=== PATIENT | male | born 1965 | race African-American/Black ===

== ENCOUNTER 2024-06-14 13:31 | Emergency (ER) | payer MEDICAID, OTHER, SELFPAY ==
[2024-06-14] VITALS (24 sets, daily range): BP systolic 135–172; BP diastolic 88–99; PULSE 60–77; RESP 12–20; TEMP 36.4; O2SAT 96–100
--- NOTE | ~2024-06-14 | CT_ITS ---
History: Headache PROCEDURE: CT head without contrast. COMPARISON: None TECHNIQUE: Axial imaging of the head performed from the skull base to the vertex without IV contrast. Sagittal a nd coronal reformations obtained. DLP: 681 mGy-cm FINDINGS: The ventricles are normal in size, shape and position. There is no mass, mass effect or midline shift. There is no abnormal extra-axial fluid collection or intracranial hemorrhage. Visualized paranasal sinuses are clear. The mastoid air cells are well aerated. No acute displaced fractures within the overlying cranium. Impression: No acute intracranial hemorrhage or suspicious mass effect. Reviewed, dictated and finalized at location A. T IRONWORKER Impression: No acute intracranial hemorrhage or suspicious mass effect.
--- OUTSIDE RECORDS SUMMARY | 2024-06-14 13:41 | XMS_ITS | Continuity of Care Document ---
Author Organization [facility] Address [address] [place] [address] Phone Care Team Providers Care Turbine Inspector Name Role Phone Unavailable Unavailable Unavailable Allergies, Adverse Reactions, Alerts Substance Reaction Status Criticality chlorpromazine Active No Informatio n haloperidol Active No Information Medications Medication Instructions Dosage Effective Dates (start - stop) Status Comments Antifungal (clotrimazole) 1 % Topical Cream apply by TOPICAL route 2 times every day to the affected and surrounding areas of skinmorning and evening 0.00 - Active Keflex 500 mg Cap take 1 capsule (500M G) by ORAL route every 6 hours - Active Seroquel 300 mg Tab SEROQUEL 300 MG TABL ET # 60<><> 2 TAB by mouth (PO) at bedtime.<><><>DISPENSE : 30 day supply.<>REFILLS: 0<><>This script generated by milla VAUGHAN at 03/08/2008 10:21:59 AM<>Provider: MOHIT CARTER MD<> SIGNATURE ON FILE <><> - Active Norvasc 5 mg Tab NORVASC 5 MG TABLET # 30<><> 1 TAB by mouth (PO) each morning.<><><>DISPENSE : 30 day supply.<>REFILLS: 3<><>This script generated by milla VAUGHAN at 03/08/2008 10:20:45 AM<>Provider: MOHIT CARTER MD<> SIGNATURE ON FILE <><> - Active Remeron 45 mg Tab REMERON 45 MG TABLET # 30<><> 1 TAB by mouth (PO) at bedtime.<><><>DISPENSE : 30 day supply.<>REFILLS: 0<><>This script generated by provider ALEXUS at 03/08/2008 10:23:36 AM<>Provider: MOHIT CARTER MD<> SIGNATURE ON FILE <><> - Active trazodone 150 mg Tab TRAZODONE 150MG TABLET<><> 1 TAB by mouth (PO) at bedtime.<><><>DISPENSE : 30 day supply.<>REFILLS: 0<><>This script generated by provider ALEXUS at 03/08/2008 10:22:52 AM<>Provider: MOHIT CARTER MD<> SIGNATURE ON FILE <><> - Active Procedures Procedure Date HOME VST EST PT LOW TO MOD SEVERITY HOME VST EST PT LOW TO MOD SEVERITY HOME VST EST PT LOW TO MOD SEVERITY HOME VST NEW PT HI SEVERITY HOME VST EST PT LOW TO MOD SEVERITY HOME VST NEW PT HI SEVERITY HOME VST EST PT LOW TO MOD SEVERITY HOME VST EST PT LOW TO MOD SEVERITY Extraction erupted tooth or exposed root Limit oral eval problem focused 009 HOME VST EST PT LOW TO MOD SEVERITY HOME VST EST PT LOW TO MOD SEVERITY HOME VST EST PT LOW TO MOD SEVERITY HOME VST EST PT LOW TO MOD SEVERITY HOME VST EST PT LOW TO MOD SEVERITY HOME VST NEW PT HI SEVERITY HOME VST EST PT LOW TO MOD SEVERITY HOME VST EST PT LOW TO MOD SEVERITY HOME VST NEW PT HI SEVERITY HOME VST EST PT LOW TO MOD SEVERITY HOME VST EST PT LOW TO MOD SEVERITY HOME VST NEW PT HI SEVERITY OFFICE CONSULT, 15 MIN, 3 KE Y COMPS: PROB FOCUS HX; PROB FOCUS EXAM; STRTFWD HOME VST EST PT LOW TO MOD SEVERITY HOME VST EST PT LOW TO MOD SEVERITY HOME VST NEW PT HI SEVERITY HOME VST EST PT LOW TO MOD SEVERITY OFFICE/OUTPATIENT VISIT, EST HOME VST NEW PT HI SEVERITY HOME VST EST PT LOW TO MOD SEVERITY HOME VST EST PT LOW TO MOD SEVERITY HOME VST NEW PT HI SEVERITY HOME VST EST PT LOW TO MOD SEVERITY HOME VST EST PT LOW TO MOD SEVERITY HOME VST EST PT LOW TO MOD SEVERITY HOME VST NEW PT HI SEVERITY HOME VST EST PT LOW TO MOD SEVERITY HOME VST EST PT LOW TO MOD SEVERITY HOME VST EST PT LOW TO MOD SEVERITY HOME VST NEW PT HI SEVERITY OFFICE CONSULT, 15 MIN, 3 KE Y COMPS: PROB FOCUS HX; PROB FOCUS EXAM; STRTFWD OFFICE OUTPT NEW 10 MIN HOME VST NEW PT HI SEVERITY HOME VST EST PT LOW TO MOD SEVERITY HOME VST EST PT LOW TO MOD SEVERITY HOME VST NEW PT HI SEVERITY Advance Directives Directive Yes / No Effective Date File Name No Information Encounters Encounter Description Practice Location Reason(s) For Visit Diagnoses Date Provider Providers Copied on Encounter [facility], [address], [place], [place], [address] , [place] tel: [phone] [facility] No Information 4 No Information HOME VST EST PT LOW TO MOD SEVERITY [facility], [address], [place], [place], [address] , tel: [phone] [facility] headache (chief complaint) Counseling, Other, Specified 0 Nurse Registered. [address], [place], [place], [address], . tel:[phone] HOME VST EST PT LOW TO MOD SEVERITY [facility], [address], [place], [place], [address] , [place] tel: [phone] [facility] TB Screening (chief complaint) Other specified counseling 0 No Information HOME VST EST PT LOW TO MOD SEVERITY [facility], [address], [place], [place], [address] , [place] tel: [phone] [facility] mental health appt (chief complaint) Other specified counseling 0 No Information HOME VST NEW PT HI SEVERITY [facility], [address], [place], [place], [address] , [place] tel: [phone] [facility] BP check (chief complaint)out of prescription medications (chief complaint) Other specified counseling 9 No Information [facility], [address], [place], [place], [address] , [place] tel: [phone] [facility] No Information 9 Pachalla Tamiko. [address], [place], [place], [address], [place]. tel:[phone] HOME VST EST PT LOW TO MOD SEVERITY [facility], [address], [place], [place], [address] , [place] tel: [phone] [facility] No Information 9 No Information HOME VST NEW PT HI SEVERITY [facility], [address], [place], [place], [address] , [place] tel: [phone] [facility] No Information 9 No Information HOME VST EST PT LOW TO MOD SEVERITY [facility], [address], [place], [place], [address] , [place] tel: [phone] [facility] No Information 9 No Information HOME VST EST PT LOW TO MOD SEVERITY [facility], [address], [place], [place], [address] , [place] tel: [phone] [facility] OTHER SPECFD COUNSELING 9 No Information [facility], [address], [place], [place], [address] , [place] tel: [phone] DO NOT USE [facility] DENTAL EXAMINATION 9 No Information HOME VST EST PT LOW TO MOD SEVERITY [facility], [address], [place], [place], [address] , [place] tel: [phone] [facility] OTHER SPECFD COUNSELING 8 No Information HOME VST EST PT LOW TO MOD SEVERITY [facility], [address], [place], [address] , [place] tel: [phone] [facility] OTHER SPECFD COUNSELING 8 No Information HOME VST EST PT LOW TO MOD SEVERITY [facility], [address], [place], [address] , [place] tel: [phone] [facility] OTHER SPECFD COUNSELING 8 No Information HOME VST EST PT LOW TO MOD SEVERITY [facility], [address], [place], [place], [address] , [place] tel: [phone] [facility] OTHER SPECFD COUNSELING 8 No Information HOME VST EST PT LOW TO MOD SEVERITY [facility], [address], [place], [place], [address] , [place] tel: [phone] [facility] OTHER SPECFD COUNSELING 8 No Information HOME VST NEW PT HI SEVERITY [facility], [address], [place], [place], [address] , [place] tel: [phone] [facility] OTHER SPECFD COUNSELING 8 No Information HOME VST EST PT LOW TO MOD SEVERITY [facility], [address], [place], [address] , [place] tel: [phone] [facility] OTHER SPECFD COUNSELING 8 No Information HOME VST EST PT LOW TO MOD SEVERITY [facility], [address], [place], [place], [address] , [place] tel: [phone] [facility] OTHER SPECFD COUNSELING 8 No Information HOME VST NEW PT HI SEVERITY [facility], [address], [place], [place], [address] , [place] tel: [phone] [facility] OTHER SPECFD COUNSELING 6 8 No Information HOME VST EST PT LOW TO MOD SEVERITY [facility], [address], [place], [place], [address] , [place] tel: [phone] [facility] OTHER SPECFD COUNSELING 8 No Information HOME VST EST PT LOW TO MOD SEVERITY [facility], [address], [place], [place], [address] , [place] tel: [phone] [facility] OTHER SPECFD COUNSELING 8 No Information HOME VST NEW PT HI SEVERITY [facility], [address], [place], [place], [address] , [place] tel: [phone] [facility] OTHER SPECFD COUNSELING 8 No Information [facility], [address], [place], [address] , [place] tel: [phone] [facility] No Information 8 No Information OFFICE CONSULT, 15 MIN, 3 THORNTON COMPS: PROB FOCUS HX; PROB FOCUS EXAM; STRTFWD [facility], [address], [place], [place], [address] , [place] tel: [phone] [facility] COUNSELING NOS 8 No Information HOME VST EST PT LOW TO MOD SEVERITY [facility], [address], [place], [address] , [place] tel: [phone] [facility] OTHER SPECFD COUNSELING 8 No Information HOME VST EST PT LOW TO MOD SEVERITY [facility], [address], [place], [address] , [place] tel: [phone] [facility] OTHER SPECFD COUNSELING 8 No Information HOME VST NEW PT HI SEVERITY [facility], [address], [place], [place], [address] , [place] tel: [phone] [facility] OTHER SPECFD COUNSELING 8 No Information HOME VST EST PT LOW TO MOD SEVERITY [facility], [address], [place], [place], [address] , [place] tel: [phone] [facility] OTHER SPECFD COUNSELING 0 7 Denis Bourne. [address], [place], [place], [address], [place]. tel:[phone] OFFICE/OUTPA TIENT VISIT, EST [facility], [address], [place], [place], [address] , [place] tel: [phone] [facility] BENIGN HYPERTENSIONS PRAIN ROTATOR CUFFDRUG ABUSE NEC-UNSPEC 0 7 P[place]alla Tamiko. [address], [place], [place], [address], [place]. tel:[phone] HOME VST NEW PT HI SEVERITY [facility], [address], [place], [place], [address] , [place] tel: [phone] [facility] HYPERTENSION NOS 7 No Information HOME VST EST PT LOW TO MOD SEVERITY [facility], [address], [place], [place], [address] , [place] tel: [phone] [facility] OTHER SPECFD COUNSELING 7 No Information HOME VST EST PT LOW TO MOD SEVERITY [facility], [address], [place], [address] , [place] tel: [phone] [facility] PULMONARY TB NOS-UNSPEC 7 Denis Bourne. [address], [place], [address], [place]. tel:[phone] HOME VST NEW PT HI SEVERITY [facility], [address], [place], [address] , [place] tel: [phone] [facility] HYPERTENSION NOS 7 No Information HOME VST EST PT LOW TO MOD SEVERITY [facility], [address], [place], [address] , [place] tel: [phone] [facility] CERVICALGIA 6 No Information HOME VST EST PT LOW TO MOD SEVERITY [facility], [address], [place], [address] , [place] tel: [phone] [facility] OTHER SPECFD COUNSELING 6 No Information HOME VST NEW PT HI SEVERITY [facility], [address], [place], [place], [address] , [place] tel: [phone] [facility] DERMATOPHYTOS IS OF FOOT 6 No Information HOME VST EST PT LOW TO MOD SEVERITY [facility], [address], [place], [address] , [place] tel: [phone] [facility] OTHER SPECFD COUNSELING 6 No Information HOME VST EST PT LOW TO MOD SEVERITY [facility], [address], [place], [place], [address] , [place] tel: [phone] [facility] DEPRESSIVE DISORDER NEC Denis Bourne. [address], [place], [place], [address], [place]. [phone] HOME VST EST PT LOW TO MOD SEVERITY [facility], [address], [place], [place], [address] , [place] tel: [phone] [facility] STOMACH FUNCTION DIS NOS 6 No Information HOME VST EST PT LOW TO MOD SEVERITY [facility], [address], [place], [address] , [place] tel: [phone] [facility] OTHER SPECFD COUNSELING 6 No Information HOME VST NEW PT HI SEVERITY [facility], [address], [place], [place], [address] , [place] tel: [phone] [facility] DRUG DEPEND NOS-UNSPEC No Information OFFICE CONSULT, 15 MIN, 3 THORNTON COMPS: PROB FOCUS HX; PROB FOCUS EXAM; STRTFWD [facility], [address], [place], [address] , [place] tel: [phone] [facility] COUNSELING NOS No Information OFFICE OUTPT NEW 10 MIN [facility], [address], [place], [place], [address] , [place] tel: [phone] [facility] ISSUE REPEAT PRESCRIPT 6 Yayo Marrero. [address], [place], [place], [address], . tel:[phone] HOME VST NEW PT HI SEVERITY [facility], [address], [place], [place], [address] , tel: [phone] [facility] CONSTIPATION NOS 6 No Information HOME VST EST PT LOW TO MOD SEVERITY [facility], [address], [place], [place], [address] , tel: [phone] [facility] HEART DISEASE NOS 6 Denis Bourne. [address], [place], [place], [address], [place]. [phone] HOME VST EST PT LOW TO MOD SEVERITY [facility], [address], [place], [place], [address] , tel: [phone] [facility] OTHER SPECFD COUNSELING 6 No Information HOME VST NEW PT HI SEVERITY [facility], [address], [place], [place], [address] , tel: [phone] [facility] OTHER SPECFD COUNSELING 6 No Information Family History Family Member Type Diagnosis Age At Onset No Information Payers Payer name Insurance type Covered alliance party ID Authoriza tifeliberto(s) No Information Social History Type Description Quantity Date Captured Comments Sex Male Smoking Status No Information Chief Complaint And Reason For Visit No Information Reason For Referral Reason For Referral No Information History Of Present Illness Encounter Date Complaint History Of Prese nt Illness No Information Functional Status Date Functional Assessmen t No Information Instructions Date Instruction Additional Infor mation No Information Assessments Type Assessment Date No Information Patient Care Teams Name Effective Dates (start - stop) Status Members No Information
--- OUTSIDE RECORDS SUMMARY | 2024-06-14 13:41 | XMS_ITS | Referral Summary ---
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 [address] [place] [id number] Ravin Knapp MD Avascular necrosis of hip, left (HCC) Discharge Disposition: Discharge to home or self care from Last 3 Months Allergies Active Allergy Reactions Criticality Noted Date Comments Chlorpromazine Itching,Unknown Medium 09/22/2011 Found in previous hospitalization H&P Found in previous hospitalization H&P Haloperidol Hives,Urticaria High 10/13/2009 Ziprasidone Hives,Urticaria High 09/29/2009 + concern for EPS with stiffness Medications aspirin 81 mg enteric coated tablet Take 1 tablet (81 mg total) by mouth daily 30 tablet 01/05/2024 Active amLODIPine (NORVASC) 5 mg tablet Take 1 tablet (5 mg total) by mouth daily 30 tablet 01/05/2024 Active carvediloL (COREG) 6.25 mg tablet Take 1 tablet (6.25 mg total) by mouth 2 (two) times a day with meals 60 tablet 01/05/2024 Active docusate sodium (COLACE) 100 mg capsuleIndicati ons:constipatio n Take 1 capsule (100 mg total) by mouth daily 30 capsule 01/06/2024 Active losartan (COZAAR) 25 mg tablet Take 1 tablet (25 mg total) by mouth daily 30 tablet 01/05/2024 Active QUEtiapine (SEROquel) 50 mg tablet Take 1 tablet (50 mg total) by mouth nightly 30 tablet 01/05/2024 Active Active Problems Problem Noted Date Diagnosed Date Cervical stenosis of spine C3-C4 01/04/2024 Overview (01/04/2024): Patient present 3/5 weakness of the right upper extremity and lower extremities, also complain of numbness and tingling of fingers and toes. Previous scan performed on 07/2023 shows Severe left neural foraminal stenosis of C3-C4. Assessment & Plan (01/04/2024 1:17 PM CDT): Patient present 3/5 weakness of the right upper extremity and lower extremities, also complain of numbness and tingling of fingers and toes. Previous scan performed on 07/2023 shows Severe left neural foraminal stenosis of C3-C4. - Spinal ortho consulted - Total spine mri/ ordered - XR cervical spine/ ordered Shortness of breath 01/03/2024 Assessment & Plan (01/03/2024 5:22 PM CDT): Likely 2/2 cocaine use. Patient with history of HFrEF, however appears euvolemic on exam. CXR without effusion, pulm edema or focal consolidations. Other ddx viral illness, Elevated total protein 01/03/2024 Assessment & Plan (01/03/2024 5:28 PM CDT): Patient protein pl 9.6, alb 5.4 with gamma gap 1.29. Non reactive HIV, Hep C on recent admission. Possibly elevated in setting of ROSCOE on CKD and rhabo with reduced clearance of immunoglobulins. - repeat CMP with improved renal function - if still elevated, would further evaluate with SPEP/UPEP and serum FLC Cocaine abuse 12/27/2023 Assessment & Plan (12/29/2023 7:44 PM CDT): As above Check HIV, hepatitis panel, RPR Refused blood works. ROSCOE (acute kidney injury) 10/23/2023 Assessment & Plan (10/23/2023 3:37 AM CDT): Cr 1.5 (baseline 1.1) - from rhabdo Plan: - IVF - Avoid nephrotoxins - renally dosed meds Arthritis of left hip 06/30/2023 Overview (06/30/2023): Chronic worsening L hip pain that limits ambulation Assessment & Plan (12/29/2023 7:43 PM CDT): Chronic- states it's bone on bone. - PT - knows needs to stay clean in order to get fixed. - prn norcos. - check left hip x ray. left hip x ray showed with severe sclerosis and osseous destruction of the left femoral head and left acetabulum with ill-defined lytic changes. No acute fracture identified. Assessment & Plan (07/04/2023 11:09 AM TRAFFIC II MANAGER): No success obtaining any options for post-acute care. SNFs, Respite care, [facility] Recovery sites, all decline patient Succeeded in obtaining wheelchair for patient, but he declined to use it today. He insisted on only using a walker, and we will provide this. Patient now states that he can stay with his sister instead of being unhoused or going to a [facility]cf[facility]. Ambulating with walker Patient primarily complains of L hip pain, worse with ambulation. States he has been told he has [id number] in his left hip. Case discussed with ortho. They declined to see in the hospital and stated they could not get an appointment earlier than 08/27. L Hip X-ray: Severe left hip osteoarthritis with progressive osseous remodeling and subchondral collapse of the femoral head. Will coordinate outpatient appointment with orthopedics. - August 27 in [facility] Rhabdomyolysis 12/16/2022 Assessment & Plan (12/30/2023 3:55 PM CDT): Mild rhabdo, likely from cocaine use. Given fluids on admission Resolved with hydration CK 8/20 448 down from 2284 Assessment & Plan (07/04/2023 11:10 AM TRAFFIC II MANAGER): Muscle aches resolved Lab tests showed normalization of renal function. 07/01 - BUN/CR = 21/1.01 CK-147 Likely secondary to cocaine use. Initial labs notable for ROSCOE with creatinine of 4.9 (baseline between 0.9-1.2), hemolyzed potassium of 5.9 > repeat WBK of 4.8, elevated BUN of 96, elevated CK of 2800. S/p gentle IV fluids with recheck CK declined to normal. Patient has a history of multiple hospitalizations for rhabdomyolysis due to cocaine use and dehydration. Assessment & Plan (12/18/2022 11:34 AM CDT): - Recurrent in the setting of the ongoing cocaine use - Mild elevation CK 2668 with stable creatinine, trended down to ~1100 - Received 500mL LR x2 in setting of HFrEF Esophagitis 12/16/2022 Assessment & Plan (12/18/2022 11:34 AM CDT): - Noted on imaging with complaint of mild dysphagia x 48hrs - ST consult - Pantoprazole 40mg BID Housing instability 12/16/2022 Assessment & Plan (12/18/2022 11:30 AM CDT): - Currently with housing instability, sleeping on the streets leading up to presentation - BEULAH consulted, in talks with [facility] for potential inpatient rehab stay Suicidal ideation 09/12/2021 HFrEF (heart failure with re duced ejection fraction) ([facility]) 08/16/2021 Assessment & Plan (01/04/2024 1:17 PM CDT): Presumed secondary to longstanding cocaine use disorder. Most recent TTE EF 35- 40%, G1DD, LVH, no valvular disease. Appears euvolemic on exam, currently compensated. Non compliant with GDMT - CXR without pulmonary edema or effusion - holding losartan with ROSCOE, consider restart tomorrow if ROSCOE improve - referral placed to cardiology on discharge of most recent admission - Continue asa, hold statin with rhabdo - Start Coreg 6.25 mg BID Assessment & Plan (12/29/2023 7:42 PM CDT): Relatively compensated at the moment Recheck CXR for resolution of mild pulmonary edema. Fluid status optimal. Not starting on diuretic due to recent Rhabdo. Continue asa and statin. Also added losartan. Can follow up with cardiology for further gradual introduction of GDMT. Cont norvasc. Assessment & Plan (10/23/2023 4:39 AM CDT): TTE 09/2023 w/ EF 35% - coreg - gentle w/ IVF for rhabdo Assessment & Plan (06/29/2023 12:17 PM TRAFFIC II MANAGER): Review of his last echo in March 2023 revealed EF of 30-35% with global hypokinesis of LV, normal RV function, grade 1 diastolic dysfunction. Home meds include Coreg, and Entresto. -restart Entresto 24-26 mg BID -carvedilol 12.5 mg BID Assessment & Plan (04/01/2023 10:33 AM TRAFFIC II MANAGER): Euvolemic - Held lasix for now given his rhabdo, resume at dc Assessment & Plan (12/17/2022 5:18 PM CDT): - Prior history of EF 24% with most recent EF last month supporting improvement to 49% - Presumed sequelae of ongoing cocaine use - encourage cessation - Not currently on diuretics - continue carvedilol, entresto - Strict I/O, telemetry, Low-Sodium Diet, Daily Weights - CTM - Nuclear medicine stress test showing enlarged left ventricle with diffuse global hypokinesis, LVEF about 31% at rest Assessment & Plan (10/30/2022 12:06 PM CDT): 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 - restart GDMT with carvedilol, entresto, aspirin, atorva - hold lasix - repeat echo outpatient Assessment & Plan (08/18/2021 2:07 PM CDT): PT with 24% EF, last echo in 2020 with severe LV dilation/eccentric hypertrophy, likely related to cocaine use - cont asa, coreg, lisinopril. - missed cardiolog OP follow up yesterday, can be rescheduled - patient initially thought to be hypovolemic and received IVF. Patient c/o sob, CXR without significant edema but BNP elevated from previous. - restarted home lasix, although patient refusing most medications Assessment & Plan (08/16/2021 8:10 AM CDT): PT with 24% EF, last echo in 2020 with severe LV dilation/eccentric hypertrophy, likely related to cocaine use - appears slightly hypovolemic, does not appear decompensated from a cardiac standpoint currently - cont asa, coreg, lisinopril. Will hold furosemide for today given fluids as above/CK elevation. Likely resume on dc - missed cardiolog OP follow up yesterday, can be rescheduled Cardiomyopathy 03/27/2021 Malingering 07/27/2020 Assessment & Plan (03/14/2021 12:33 PM CDT): Extensive chart history of malingering behavior, most recently at ED visit 03/08 during which he reported SI so psychiatry was consulted. -Patient with propensity for outburst, displaying threatening behavior and c/f escalation to violence. Security called overnight for agitation -Currently displaying manipulative behavior with secondary gain of hospital admission as pt is unfortunately homeless. -Patient ambulating independently. Medically stable for discharge Substance induced mood disorder ([facility]) 2020 Assessment & Plan (07/25/2021 7:39 PM CDT): Mr. Haas is a 55 yo M with a hx of severe cocaine reginaldo disorder, ASPD, medical co-morbidities including CHF, CKD, HTN, admitted for SI. Patient has a long hx of cocaine use with associated dysphoric and irritable mood and SI. He does not have a lifetime hx fo episodes consistent with MDE/edi/psychosis. He is admitted for SI but refused to talk to me or the RN to assess his current symptoms. We will assign the diagnosis of substance induced mood disorder. Risk assessment: patient had recent SI. Admission is appropriate. PLAN - continue involuntary admission - observe off psychotropic medications - discuss [facility] tx options and the effects of substances on his wellbeing when he is amenable to the conversation - appreciate SW and medical team recs Depression, major, recurrent 03/16/2020 Assessment & Plan (12/16/2022 1:42 PM CDT): - Cont seroquel Transaminitis 01/14/2020 Assessment & Plan (01/14/2020 9:54 PM CDT): On admission, AST 140, ALT 72 (both improved from 12/25). - hepatitis panel Schizoaffective disorder (CMS/HCC) 01/14/2020 Assessment & Plan (07/04/2023 11:11 AM TRAFFIC II MANAGER): Continue home Seroquel and trazodone. Valium p.r.n. for anxiety Will not provide Valium as a discharge medication as he has not been receiving it. Assessment & Plan (03/07/2020 10:57 AM CDT): Patient has been given this diagnosis during previous admissions. He has not been taking his Seroquel 300mg or trazodone 100mg qhs PRN. Plan to discharge patient, follow up with outpatient psychiatry. Has not been adherent to medications for a while. Assessment & Plan (03/06/2020 5:39 PM CDT): Patient has been given this diagnosis during previous admissions. He has not been taking his Seroquel 300mg or trazodone 100mg qhs PRN. -restart Seroquel 300mg QHS Assessment & Plan (01/14/2020 9:58 PM CDT): Patient has chart history of schizophrenia. On seroquel and trazodone. - continue home seroquel and trazodone Acute kidney injury superimposed on chronic kidn ey disease 07/15/2018 Assessment & Plan (01/03/2024 5:00 PM CDT): Likely pre-renal in setting rhabdomyolysis and cocaine use. Baseline sCr 1.1- 1.5, sCr 4.34 on presentation with improvement to 2.61 after IVF. - s/p 500 ml LR in ED - will give additional 500 mL LR then gentle mIVF for 5 hrs - trend BMP and CK Assessment & Plan (07/04/2023 11:13 AM TRAFFIC II MANAGER): ROSCOE due to rhabdomyolysis and dehydration resolved. Patient eating and drinking fluids well. 07/01 BUN/Cr = 21/1.01 06/28 BUN/Cr = 29/1.42 No IV fluids and taking good p.o. Initial labs notable for ROSCOE with creatinine of 4.9 (baseline between 0.9-1.2), hemolyzed potassium of 5.9 > repeat WBK of 4.8, elevated BUN of 96, elevated anion gap of 19, CO2 of 24. Patient has a history of multiple hospitalizations for rhabdomyolysis due to cocaine use and dehydration. -trend basic metabolic panel, strict I&O, monitor urine output Assessment & Plan (10/10/2022 1:44 PM CDT): In the setting of mild rhabdomyolysis. - improved Assessment & Plan (10/09/2022 11:18 AM CDT): In the setting of mild rhabdomyolysis. - further management as above - hold entresto, may be able to restart this afternoon as renal function is improving Assessment & Plan (10/08/2022 7:55 PM CDT): In the setting of mild rhabdomyolysis. - further management as above - hold entresto Assessment & Plan (03/14/2021 12:32 PM CDT): Cr 1.63, up from 1.31 a month prior. Likely 2/2 rhabdomyolysis as above -received IVF in ED, caution with further volume given reduced output HF -Cr improved with IVF Assessment & Plan (09/09/2020 7:25 AM CDT): 2/2 rhabdomyolysis. Cr 2.9-->1.3, improved with IVF. - D/C home - recommended that he stop HCTZ and lisinopril given recurrent episodes of ROSCOE, but he will likely continue them Assessment & Plan (09/08/2020 12:21 AM CDT): 2/2 rhabdomyolysis. Cr 2.9-->2.0, improved with IVF. - encouraged oral hydration - continuous IVF - monitor Cr daily Assessment & Plan (01/15/2020 5:23 AM CDT): Cr 2.64 on admission (last Cr 1.08 on 01/03). FENa 0.1%. ROSCOE likely 2/2 rhabdomyolysis vs volume-depletion. - IV fluids - f/u urine electrolytes - renal ultrasound Assessment & Plan (09/26/2018 1:39 PM CDT): On CKD 2 secondary to rhabdomyolysis. Cr up 1.33 from baseline of 1.0-1.2. -IVFs Assessment & Plan (07/16/2018 9:57 AM TRAFFIC II MANAGER): 2/2 rhabdo. Cr trended down as above. -BP stable. Given repeat admissions for rhabdo, he is not a good candidate for lisinopril and hctz d/t risk for further kidney injury. Will not continue at [place]. -PCP to further monitor. Assessment & Plan (07/15/2018 4:25 PM TRAFFIC II MANAGER): Likely 2/2 rhabdo. Creatinine 1.6 (baseline 1.2). S/p 2L NS bolus in the ED. -Repeat BMP with AM labs -IVF -Hold home HCTZ and lisinopril HTN (hypertension), benign 07/15/2018 Assessment & Plan (01/03/2024 4:53 PM CDT): Resume home amlodipine 5 mg daily Assessment & Plan (10/23/2023 3:38 AM CDT): Amlodipine, coreg Assessment & Plan (12/16/2022 1:46 PM CDT): - Cont carvedilol, entresto Assessment & Plan (09/09/2020 7:26 AM CDT): Currently normotensive. Recommended CCB in lieu of lisinopril and HCTZ; patient declined Recommended not taking HCTZ and lisinopril due to recurrent ROSCOE, but patient said he will probably cont them anyway Assessment & Plan (09/08/2020 12:16 AM CDT): Currently normotensive. - hold HCTZ and lisinopril given ROSCOE Assessment & Plan (03/07/2020 10:56 AM CDT): Patient has history of hypertension. Has been prescribed lisinopril and hydrochlorothiazide but has not been taking medications. Will continue to hold home antihypertensives. Assessment & Plan (03/06/2020 5:37 PM CDT): Patient has history of hypertension. Has been prescribed lisinopril and hydrochlorothiazide but has not been taking medications. Will continue to hold home antihypertensives for now. Assessment & Plan (01/15/2020 5:28 AM CDT): Patient has h/o HTN. Home regimen is lisinopril 20mg PO daily, HCTZ 25mg PO daily, diltiazem 120mg PO daily. Patient reports not taking anti-hypertensive for 3 days prior to admission. BP in normal range on admission. - hold lisinopril and HCTZ in setting of ROSCOE - hold home diltiazem; consider discontinuing diltiazem at discharge Assessment & Plan (09/26/2018 1:41 PM CDT): Has been prescribed several medications in the past, but not taking any at this time. BP stable. -monitor. Assessment & Plan (07/16/2018 10:04 AM TRAFFIC II MANAGER): BP has remained stable off BP meds, but states that BP was always elevated in correction despite no cocaine use. States he was taking clonidine, lisinopril and hctz. Poor candidate for ACEI and diuretic at this time d/t risk for further kidney injury. -will continue single agent for now. Will start amlodipine 10mg daily. -He will f/u with his PCP for further management. Assessment & Plan (07/15/2018 4:19 PM TRAFFIC II MANAGER): BP slightly above baseline. -Hold home Lisinopril and HCTZ in setting of ROSCOE -CTM Boxer's fracture 04/28/2017 Overview (12/14/2020): Overview: Right hand Right hand Depression with anxiety 10/09/2015 Cigarette nicotine dependenc e with nicotine-induced disorder 03/20/2015 Non-traumatic rhabdomyolysis 12/14/2014 Assessment & Plan (01/04/2024 1:11 PM CDT): Likely from cocaine use over last several days. - CK 3,379 > 1,741 s/p 1L LR today:1297 - Discontinue CK check - For body aches: Tramadol Q8h PRN , scheduled tylenol 1000 Q6h, Oxycodone 10 mg Q4h PRN Assessment & Plan (10/23/2023 3:38 AM CDT): BLE pain - workup: CK 1400, ROSCOE Plan: - cautious w/ fluids given HFrEF - trend CK to peak Assessment & Plan (04/01/2023 10:28 AM TRAFFIC II MANAGER): CK: 5038. Likely related to cocaine use. - s/p IVF with improvement in CK to 1435 - Cr stable Assessment & Plan (11/10/2022 9:53 AM CDT): Pt with several recent admissions for rhabdomyolysis - had diffuse muscle aches, CK elevated - cK 2453--> 1230. Muscle aches improved Assessment & Plan (10/30/2022 12:06 PM CDT): Patient states that this is longstanding, even before he starting using cocaine although he certainly admits that cocaine makes it worse. - Resolving with resolving ROSCOE - Encourage po hydration at discharge Assessment & Plan (10/10/2022 1:43 PM CDT): Likely a mild case of rhabdomyolysis, induced by recent crack cocaine. CK 1,331 on admission. Cr 1.25 from baseline around 1.0. AST also elevated. - Renal function improving - hold lasix - CK improving Assessment & Plan (10/09/2022 11:12 AM CDT): Likely a mild case of rhabdomyolysis, induced by recent crack cocaine. CK 1,331 on admission. Cr 1.25 from baseline around 1.0. AST also elevated. - Renal function improving - hold lasix - repeat CK slightly improved, repeat CK today Assessment & Plan (10/08/2022 8:00 PM CDT): Likely a mild case of rhabdomyolysis, induced by recent crack cocaine. CK 1,331 on admission. Cr 1.25 from baseline around 1.0. AST also elevated. - repeat BMP and CK now; trend CK daily - pending repeat CK, will consider giving IVF Assessment & Plan (08/18/2021 2:08 PM CDT): Pt presenting with some diffuse body aches/pains, likely related to cocaine use. CK noted to be 1280, which is not impressively high and likely represents at best a mild rhabdomyolysis 2/2 cocaine use. Has had multiple similar admissions with mild elevations in CK as well - pending UA, but renal function appears to be at baseline as below - pt also appears somewhat volume down, but does have EF 24% PLAN - IVF in ED, 150cc/hr for 6 hours given in ED. - patient refused repeat lab draws - cocaine cessation tx recommendations as below Assessment & Plan (08/16/2021 8:04 AM CDT): Pt presenting with some diffuse body aches/pains, likely related to cocaine use. CK noted to be 1280, which is not impressively high and likely represents at best a mild rhabdomyolysis 2/2 cocaine use. Has had multiple similar admissions with mild elevations in CK as well - pending UA, but renal function appears to be at baseline as below - pt also appears somewhat volume down, but does have EF 24% PLAN - IVF in ED, 150cc/hr for 6 hours given in ED. Will not given further following that should pt be tolerating PO. - trend Cr and CK with repeat in am - cocaine cessation tx recommendations as below Assessment & Plan (07/25/2021 7:39 PM CDT): Due to cocaine use, CHF and CKD. CK improving. Continued encouraging PO hydration. Appreciate medical team recs Assessment & Plan (07/09/2021 7:32 PM TRAFFIC II MANAGER): Likely from cocaine. CK 4000 > 2700 after fluids Assessment & Plan (03/14/2021 12:30 PM CDT): Frequent presentations to ED with dx of rhabdomyolysis in setting of cocaine use and dehydration. Pt reports having been diagnosed with rhabdo 40-50 times and is very familiar with the disease pathology and management. CK ~1k, UA negative for blood but with mild ROSCOE c/w rhabdo. -s/p IVF in ED -taking good PO, given HF will hold off on further volume -CK downtrended Infected dental caries 05/24/2013 Overview (04/02/2023): IMO 2020 Cocaine use disorder 03/11/2012 Overview (04/02/2023): Assessment & Plan (01/03/2024 5:37 PM CDT): Longstanding habit. Hep C, RPR and HIV non reactive during most recent admission. - SW consult for resources - encouraged cessation, however patient does not appear interested currently. Assessment & Plan (06/30/2023 7:53 PM TRAFFIC II MANAGER): Reports cocaine use related to his chronic left hip pain. Method of use is inhalation. Longest period of abstinence was 6 months. Does report sharing glass pipes with others Reports burnt lips. Declined HIV, syphilis, hepatitis screening. Assessment & Plan (03/31/2023 12:44 PM TRAFFIC II MANAGER): - Counseled on cessation - Consulted social services manager Assessment & Plan (12/18/2022 11:35 AM CDT): - Long-standing cocaine use, occurring 2-3 times per week - SW consulted, in touch with [facility] for potential inpatient rehab stay Chest pain 01/17/2012 Assessment & Plan (01/03/2024 5:20 PM CDT): Likely 2/2 cocaine use, MSK from rhabdo. Patient chest diffusely tender to palpation on exam. - NT-proBNP 1,475, trop trend 32 > 20 > 15 - EKG without acute ischemia, noted ST elevation in II, III and aVF, TWI in II, III, aVL, aVF, V3, V4, V5 and V6, LVH, no significant change when compared to prior. - CXR without focal consolidation - Likely MSK, continue to monitor. Assessment & Plan (12/29/2023 7:34 PM CDT): CP resolved. Cocaine related (vasospam), given trops negative, heparin wasn't started (ok per cardiology) Cont aspirin and statin Given benzos for toxidrome. Assessment & Plan (12/18/2022 11:28 AM CDT): - Presenting with chest pain in setting of cocaine use.Evaluation with unremarkable BMP/CBC, hs-trop 9 --> 8, pBNP 428, CT-PE negative for cardiopulmonary process (consistent with esophagitis), and EKG with lateral TWIs. - Overall some of his symptoms are in line with cardiac etiology per HPI, despite esophagitis on imaging - Stress testing shows no ischemic process - Telemetry - Encouraged cocaine cessation Stage 3b chronic kidney disease 11/16/2011 Assessment & Plan (12/27/2023 1:23 PM CDT): At baseline Assessment & Plan (04/01/2023 10:33 AM TRAFFIC II MANAGER): Cr ~1.4, b/l around 1.3-1.5. Recently admitted to OSH with ROSCOE up to 2.0, improved to 1.30 prior to dc. - Cr stable - PCP f/u for repeat labs in 1 week Assessment & Plan (08/18/2021 2:08 PM CDT): Pt Cr today at ~1.56, consistent with most common baseline ~1.4-1.5. - will continue home regimen for HF - unfortunately patient refused most medications and lab draws Assessment & Plan (08/16/2021 8:07 AM CDT): Pt Cr today at ~1.56, consistent with most common baseline ~1.4-1.5. - will continue home regimen for HF below with exception of diuretic - ctm Cr after fluids Assessment & Plan (07/25/2021 7:42 PM CDT): CR 1.62, seems to be close to baseline -- appreciate medical team recs Assessment & Plan (07/09/2021 7:33 PM TRAFFIC II MANAGER): - coreg - hold ACEI/ and lasix d/t ROSCOE Encounter for screening invo lving social determinants of health (SDoH) 11/16/2011 Assessment & Plan (12/30/2023 3:58 PM CDT): Undomicilled. Referred to substance abuse clinic. He says he has resources on homeless shelters and he knows his way around, Seen by BEULAH 12/27 declined resources on shelters. Personality disorder 10/07/2011 Assessment & Plan (01/03/2024 5:31 PM CDT): Antisocial personality disorder per chart review. Previously prescribed Seroquel 400 mg nightly and trazodone 100 mg nightly. Patient reports he did not greens picker his medications, non adherence at baseline. - resumed at reduced dose of Seroquel 50 mg nightly and trazodone 50 mg nightly prn - titrate as needed Assessment & Plan (09/26/2018 1:43 PM CDT): Patient very confrontational. Also w/ hx of schizophrenia and anxiety/depression w/ chronic suicidality and multiple suicide attempts in past. Currently denies any SI/HI. Antisocial personality disorder 12/22/2010 Assessment & Plan (12/28/2023 9:22 PM CDT): Noted Previously on seroquel/trazodone hs- restart (Avoid giving seroquel/trazodone together with benzos). Assessment & Plan (10/23/2023 3:38 AM CDT): Seroquel, trazodone Assessment & Plan (07/25/2021 7:46 PM CDT): Patient has a long and pervasive pattern of irritability, manipulative behaviors, truancy and inability to conform to social norms, disregard for safety of self and others, and deceitfulness with lack of remorse. This is consistent with ASPD. Assessment & Plan (09/09/2020 7:26 AM CDT): Extremely argumentative. Argues with nursing staff nad myself. Tried to fire the floor RN. Assessment & Plan (09/08/2020 12:16 AM CDT): Extremely argumentative. Argues with nursing staff nad myself. Tried to fire the floor RN. Assessment & Plan (04/01/2020 8:01 PM TRAFFIC II MANAGER): Mr. Haas is a 54yo M with a hx of ASPD, cocaine use disorder and recurrent rhabdo due to his cocaine use, admitted for SI. Patient has a long a pervasive pattern of behavioral disturbances including fights, impulsivity, truancy, legal problems, manipulative behaviors. He has an established diagnosis of ASPD. Patient does have a SA in the late 90s by shooting himself but it is unclear if he ever met criteria for MDE. He does have frequent ED visits with reports of SI but consistently noted to give inconsistent report, to have manipulative behaviors and to be suspected to have secondary gain and malingering. He was in [facility] ED 2 nights ago for rhabdo with no report of SI or any mood sx. He was discharged when medically cleared, then took a bus to another ED and reported SI and was admitted to [facility]. Today he continues to report vague SI and being depressed but could not elaborate or report any other sx. His report is consistent with his past frequent visits and reports and suspected to be related to secondary gain rather than actual SI. He has clear future plans and self preservation. Risk assessment: patient is at a chronic risk of harm due to his ASPD, male gender, homelessness and poor support but admission is unlikely to change his chronic risk. He will be discharged tomorrow morning to make sure he gets all the appropriate resources for [facility] and shelters. PLAN: - no meds indicated - SW to assist with [facility] and [facility] resources Assessment & Plan (09/16/2018 9:53 AM CDT): As above Resolved Problems Problem Noted Date Diagnosed Date Resolved Date Fall, initial encounter 08/24/202310/09 Constipation 07/02/2023 10/22/2023 Assessment & Plan (07/02/2023 6:47 PM TRAFFIC II MANAGER): New complaint this evening. Will Rx with vernellkot Left hip pain 06/29/2023 06/30/2023 Assessment & Plan (06/29/2023 3:37 PM TRAFFIC II MANAGER): Longstanding, gradually worsening LEFT hip pain. Pain limits his ambulation and daily functioning. -obtain basic films -PTOT c/s Chest pain 05/06/2023 10/22/2023 Abnormal EKG 04/30/2023 10/22/2023 Hyperkalemia 11/30/2022 10/22/2023 Rhabdomyolysis 11/18/2022 12/16/2022 Chest pain, unspecified type 11/08/2022 10/22/2023 Assessment & Plan (11/10/2022 9:56 AM CDT): 2/2 cocaine use. Given low EF, likely also has CAD but given cocaine, unable to stress inpatient - troponin negative x 3 - cessation of cocaine discussed with patient CP resolved on day of discharge Cellulitis 11/08/2022 10/22/2023 Assessment & Plan (11/10/2022 9:59 AM CDT): Patient with patchy erythema of his R calf, as well as on his hand associated with R wrist swelling. Slight increase in warmth as well - continue keflex QID for cellulitis - Swelling improved; pt denied injury, bites, etc. Rash 10/29/2022 10/22/2023 Assessment & Plan (10/29/2022 6:25 PM CDT): Benadryl, eucerin cream Doesn't look like bed bugs Chest pain 10/08/2022 10/22/2023 Assessment & Plan (10/10/2022 1:44 PM CDT): Chest tightness (not pain) occurring after smoking crack cocaine. Troponins negative in the ER. EKG with TWI in V3 (new) and V4-6 (old) - supportive care for mild rhabdomyolysis - tele Assessment & Plan (10/09/2022 11:18 AM CDT): Chest tightness (not pain) occurring after smoking crack cocaine. Troponins negative in the ER. EKG with TWI in V3 (new) and V4-6 (old) - supportive care for mild rhabdomyolysis - tele Acute on chronic congestive heart failure (CMS/HCC) 11/29/2021 10/22/2023 Chest pain, unspecified type 06/21/2021 07/25/2021 SOB (shortness of breath) 05/30/2021 Verbalizes suicidal thoughts 05/30/2021 10/22/2023 Acute on chronic systolic (c ongestive) heart failure 03/13/2021 10/22/2023 Assessment & Plan (11/08/2022 6:27 PM CDT): Last TTE was in 2020 with EF of 24% - euvolemic on exam. Is supposed to be on entresto 24-26 BID, coreg 12.5mg BID. Patient says he hasn't taken these in two weeks because he needs them refilled. However, per chart review the Entresto was actually refilled two weeks ago - of note, patient also says he is taking lasix. However this was discontinued during one of his prior admissions - will need repeat TTE and resume outpatient cardiology follow up - continue coreg and Entresto Assessment & Plan (10/10/2022 1:44 PM CDT): LVEF 24% in 2020. No repeat echos since. - continue home coreg 12.5mg BID - held entresto while managing ROSCOE and rhabdomyolysis, now will restart - restart lasix in AM - missed follow-up appt in August; will need another appointment to help facilitate further GDMT including spironolactone and SGLT2i - has never had ischemic evaluation; is a current smoker. Would consider inpatient vs outpatient ischemic evaluation Assessment & Plan (10/09/2022 11:17 AM CDT): LVEF 24% in 2020. No repeat echos since. - continue home coreg 12.5mg BID - hold entresto while managing ROSCOE and rhabdomyolysis - missed follow-up appt in August; will need another appointment to help facilitate further GDMT including spironolactone and SGLT2i - NTpBNP pending - has never had ischemic evaluation; is a current smoker. Would consider inpatient vs outpatient ischemic evaluation Assessment & Plan (10/08/2022 8:01 PM CDT): LVEF 24% in 2020. No repeat echos since. - continue home coreg 12.5mg BID - hold entresto while managing ROSCOE and rhabdomyolysis - missed follow-up appt in August; will need another appointment to help facilitate further GDMT including spironolactone and SGLT2i - NTpBNP pending Assessment & Plan (07/25/2021 7:44 PM CDT): LVEF 24% (02/2021) -- appreciate medical team recs Assessment & Plan (07/09/2021 7:33 PM TRAFFIC II MANAGER): HFrEF (EF 24%) - proBNP 490 on admission - coreg - hold ACEI/ and lasix d/t ROSCOE Assessment & Plan (03/14/2021 12:32 PM CDT): Relatively recent diagnosis. TTE (02/14/21) with EF 24%, global hypokinesis. C/b continued cocaine use. Cardiology evaluated pt, however pt quite non-adherent to medicines to unlikely to benefit from GDMT. Prescribed Coreg as outpatient, would favor discontinuing given theoretical risk of worsened vasoconstriction w/cocaine use. -hold ACEi given ROSCOE -no volume overload on exam -Restart home BB -Encourage cessation from drugs Muscle spasms of neck 12/14/20202021 Stage 3a chronic kidney disease 12/14/2020 08/16/2021 Depressive disorder 09/09/2020 07/26/19 22 Assessment & Plan (09/09/2020 7:29 AM CDT): Long psychiatric/substance abuse history. He's been labeled with various diagnoses in the past, most recent unspecified depressive disorder from ER psych consult in July. - no current SI - offered seroquel and trazodone scripts as he's been prescribed in the past, patient declined - counseled on cocaine cessation Cocaine intoxication without complication (CMS/HCC) 09/07/2020 07/25/2021 Unspecified mood (affective) disorder 08/01/2020 10/22/2023 Normocytic anemia 07/26/2020 07/25/2021 Poorly-controlled hypertension 07/06/2020 07/25/2021 Smoker 07/06/2020 07/25/2021 Severe episode of recurrent major depressive disorder, without psychotic features 06/24/2020 Cocaine use disorder 05/14/2020 023 Assessment & Plan (11/10/2022 10:02 AM CDT): Patient with cocaine use, last used this am. Uses approx 2 times a week. Willing to accept resources to help with cessation. SW following Pt states he will d/c to [place]; he is aware that they may be full and states if they are full he will return to the streets, where he has been living for ~15 years. Detention resources provided. He declines further SW assistance for placement/rehab options. [place] about d/c today. Assessment & Plan (10/29/2022 6:20 PM CDT): Is not interested in additional resources - encourage cessation Assessment & Plan (10/10/2022 1:43 PM CDT): -Encouraged patient to resume abstinence Assessment & Plan (10/09/2022 11:14 AM CDT): -Encouraged patient to resume abstinence Assessment & Plan (10/08/2022 7:52 PM CDT): Encouraged patient to resume abstinence Assessment & Plan (09/13/2021 10:52 AM CDT): Wes is well known to us and has been diagnosed with cocaine use, ASPD, and SIMD. He is voluntary. He will sleep off his cocaine intoxication in a safe, dry place. He is homeless. He will be put back on his heart meds and psych meds. He will be assessed by SWer. He will be seen by medical team. Assessment & Plan (09/12/2021 9:49 AM CDT): Wes is well known to us and has been diagnosed with cocaine use, ASPD, and SIMD. He is voluntary. He will sleep off his cocaine intoxication in a safe, dry place. He is homeless. He will be put back on his heart meds and psych meds. He will be assessed by SWer. He will be seen by medical team. Assessment & Plan (07/09/2021 7:33 PM TRAFFIC II MANAGER): Encouraged cessation Assessment & Plan (06/14/2021 10:46 AM TRAFFIC II MANAGER): Wes requires substance use treatment for cocaine. He has a good attitude and is ready to quit using drugs. He is afraid of his heart issues and mad at himself for doing this to his own body. when youre young you don't care. He is eating, pleasant, taking his meds. 1. Continue meds 2. SWer to help with rehab placement 3. Med consult recs appreciated. Assessment & Plan (06/13/2021 9:18 AM TRAFFIC II MANAGER): Wes requires substance use treatment for cocaine, but his ASP traits are most prominent. He has not required PRN meds and is not threatening or violent. 1. Continue meds 2. SWer to help with rehab placement 3. Med consult recs appreciated. Assessment & Plan (06/12/2021 3:51 PM TRAFFIC II MANAGER): Wes requires substance use treatment for cocaine, but his ASP traits are most prominent. He has not required PRN meds and is not threatening or violent. 1. Continue meds 2. SWer to help with rehab placement 3. Med consult recs appreciated. Assessment & Plan (06/11/2021 10:13 AM TRAFFIC II MANAGER): Wes requires substance use treatment for cocaine, but his ASP traits are most prominent. He has not required PRN meds and is not threatening or violent. 1. Continue meds 2. SWer to help with rehab placement 3. Med consult recs appreciated. Assessment & Plan (03/14/2021 12:32 PM CDT): Extensively documented history of cocaine use disorder in the chart. Has stated multiple times previously that he is not interested in stopping cocaine use. Now with relatively new diagnosis of HFrEF (EF 24%) -discussed with patient high risk of sudden cardiac with his heart failure + cocaine use, he expressed understanding of the risks but said he will continue to use cocaine -declined resources for cessation f Acute kidney injury 03/30/2020 10/22/19 24 Assessment & Plan (10/30/2022 12:06 PM CDT): Likely 2/2 dehydration, cocaine use, rhabdo - Creatinine normalizing Assessment & Plan (07/09/2021 7:32 PM TRAFFIC II MANAGER): Cr 2.3 (baseline 1.3-1.6?), likely from rhabdo - recheck after fluids Assessment & Plan (03/30/2020 5:53 AM TRAFFIC II MANAGER): Cr 2.34 on presentation, compared to a baseline of roughly 1.3, in setting of recurrent rhabdomyolsis - s/p 1L IVF in ED - LR at 150 cc/hr - check UA RUQ abdominal pain 03/23/2020 2 Muscle cramping 02/11/2020 07/25/2021 Homelessness 01/29/2020 10/22/2023 Assessment & Plan (10/29/2022 6:21 PM CDT): Patient states he will be discharged back to the streets. Assessment & Plan (09/08/2020 12:15 AM CDT): - SW consult Colitis 01/14/2020 07/25/2021 Assessment & Plan (01/15/2020 5:16 AM CDT): Patient reports green, nonbloody diarrhea for last 3-4 weeks. Patient recently diagnosed with colitis. CT A/P (12/25) with severe right-sided colitis, may represent atypical infection. Patient reports completing course of cipro/flagyl with no improvement. Likely viral etiology. - check C. diff Adjustment disorder with mix ed disturbance of emotions and conduct 12/27/2019 07/25/2021 Mental health-related complaint 11/18/2018 07/25/2021 Hypernatremia 11/10/2018 10/22/2023 Major depressive disorder, r ecurrent episode, mild 10/29/2018 07/25/2021 Substance use disorder 10/28/201810/21 Elevated troponin 10/07/2018 10/22/2023 Myalgia 10/07/2018 07/25/2021 Cough 08/10/2018 10/22/2023 Rhabdomyolysis 07/15/2018 07/25/2021 Assessment & Plan (12/27/2023 1:16 PM CDT): Secondary to cocaine use, renal function not impacted Judicious fluids given cardiomyopathy Repeat CK and BMP in AM Ideally cocaine abstinence though has been longstanding problem, has some insight Social work consult Assessment & Plan (09/09/2020 7:28 AM CDT): CK 6700-->2800. This improvement was before hydration on the floor as he didn't have an IV - Received IVF overnight with excellent UOP - D/C today - counseled on complete cocaine cessation yesterday Assessment & Plan (09/08/2020 12:18 AM CDT): CK 6700-->5200 after IVF. Unfortunately patient removed his IV and refusing nursing IV placement (requesting US guided IV). - encouraged oral hydration. Diet ordered. - VAT consult for PIV insertion - continuous LR @ 200 cc/h - monitor CK daily Assessment & Plan (04/01/2020 8:05 PM TRAFFIC II MANAGER): Patient has ahx of recurrent rhabdo due to cocaine use. He CK is downtrending and Cr is back to normal. No additional interventions needed. Assessment & Plan (03/30/2020 5:55 AM TRAFFIC II MANAGER): CK 1688 on admission, he has had numerous hospitalizations with rhabdomyolysis in the past, often in setting of cocaine usage. CK levels have been quite elevated throughout the past 7 years that are on record here. Reports longstanding history of recurrent rhabdomyolysis and per patient has had muscle biopsy in the past that was nondiagnostic. - IVF with LR at 150 cc/hr Assessment & Plan (03/07/2020 10:56 AM CDT): Patient is a 54 year old male with hx of severe cocaine use disorder, multiple admissions for rhabdomyolysis, hypertension, schizophrenia who presents with diffuse muscle pain. In the ED CK was elevated to 3,734. Labs were otherwise unremarkable and and VSS. He has had multiple similar admissions in the past. Rhabdomyolysis and chronically elevated CK likely due to heavy cocaine use. Patient refused repeat CK this AM. Received fluids overnight. VSS. No further inpatient management indicated at this time. Additionally, patient refusing most of cares. -discontinue LR 100ml/hr -tylenol 650 [id number] PRN for pain -d/c today -SW consulted Assessment & Plan (03/06/2020 5:40 PM CDT): Patient is a 54 year old male with hx of severe cocaine use disorder, multiple admissions for rhabdomyolysis, hypertension, schizophrenia who presents with diffuse muscle pain. In the ED CK was elevated to 3,734. Labs were otherwise unremarkable and and VSS. He has had multiple similar admissions in the past. Rhabdomyolysis and chronically elevated CK likely due to heavy cocaine use. -start LR 100ml/hr -tylenol 650 [id number] PRN for pain -repeat total CK in AM Assessment & Plan (01/15/2020 5:10 AM CDT): Patient reports around 40 episodes of rhabdomyolysis in the past. Prior muscle biopsy reported normal. Patient presented with generalized muscle pains worst in calves (R>L). CK 7,165, Cr 2.64 (last Cr 1.08 on 01/03). Rhabdo likely 2/2 cocaine use, possible primary muscle disorder due to substantial history of rhabdo. - IV fluids - trend CK - trend BMP, phos Assessment & Plan (09/26/2018 1:36 PM CDT): 2/2 cocaine abuse. CK elevated to 1258. Cr 1.34, which appears to be elevated from baseline of around 1.0-1.2. -Will hydrate aggressively w/ IVFs and likely dc home this afternoon. -cocaine as cause of rhabdo and importance of cessation has been discussed. He states that he is aware and has no plans to stop using. Assessment & Plan (07/16/2018 9:55 AM TRAFFIC II MANAGER): Likely 2/2 cocaine use. CK trending down, 8883-->6122. Cr improved 1.6-->1.1. -dc home -cocaine cessation encouraged. Assessment & Plan (07/15/2018 4:18 PM TRAFFIC II MANAGER): Likely 2/2 cocaine use. Hx of multiple ED visits for rhabdo due to cocaine use. Reports using cocaine last night. -IVF -Check CK with AM labs Severe cocaine use disorder 07/15/2018 09/09/2020 Assessment & Plan (09/08/2020 12:17 AM CDT): Major underlying problem is cocaine abuse. Patient with complications related to drug use. Patient shows no signs of quitting and denied drug use to me, although reported earlier to other physicians. - drug abuse counselor on cessation Assessment & Plan (04/01/2020 8:12 PM TRAFFIC II MANAGER): Patient has a long and well established hx of cocaine use with use longer and more than intended, craving, tolerance, withdrawal, medical (rhabdo)/social (homelessness) problems related ot his use and continued use despite effects. He has unsuccessful attempts to quit using. PLAN: - patient does not seem motivated to stop but we will provide SE[facility] tx resources Assessment & Plan (03/07/2020 10:54 AM CDT): Patient has longstanding use of cocaine. Reports using daily. -resources given to patient on cessation Assessment & Plan (03/06/2020 5:31 PM CDT): Patient has longstanding use of cocaine. Reports using daily. Assessment & Plan (01/14/2020 9:55 PM CDT): Patient reports nearly daily cocaine use. Patient reports wanting to quit. - provide information regarding resources for cessation Assessment & Plan (09/16/2018 9:54 AM CDT): This is a 52 y/o M with history of ASPD, cocaine use disorder, and alcohol use disorder who presented to the hospital after a fall for ankle pain, later stating SI after being told of discharge. The patient's history of ASPD has been well- documented in the past, with manipulative behavior, frequent violence, legal, and disciplinary problems, chronic irritability and low mood. His history of cocaine use disorder is equally well-documented, and the patient continues to report daily use of this substance despite frequent physical health complications derived from his use. Chart review reveals that the patient is frequently admitted to psychiatric hospitals, only to refuse medications and basic labs and care. Today, he initially states he has been depressed for 2 days, but later states he has been depressed for as long as I can remember, reports low appetite and poor sleep, anhedonia, and continued cocaine use. The patient was asked about SI repeatedly in the ED before this morning, and only mentioned thoughts of jumping off of a bridge after being told he would be discharged, and states he has felt this way for 2 days. He endorses paranoia but appears organized and with no other signs of psychosis on examination. He cries out in pain multiple times during the interview in a manner out of proportion to physical findings. He reports that he hasn't been seen by a psychiatrist in a hospital or experienced SI in three months despite multiple ED trips since June with this complaint. His chronic low mood is most consistent with his prior diagnosis of ASPD, though cocaine withdrawal may also be contributing to his current presentation. There is high suspicion for malingering given his inconsistent symptom report and current homelessness in addition to past presentations, but this cannot be confirmed without clear secondary gain. The patient is chronically at risk of harm to self in the setting of ASPD, past SA, chronic low mood and SI, poor outpatient resources and outpatient follow-up, poor psychosocial supports. Given EMR report of the patient refusing medications, interviews, and basic lab-work with quick resolution of SI upon admission to psychiatric floor, the patient would not benefit from inpatient hospitalization at this time. Furthermore, patients with ASPD who do not meet criteria for MDD do not typically benefit from inpatient hospitalization, as this reinforces negative coping skills. After the patient was told that admission would not be offered, he became irritated and refused all resources, saying I'm not gonna make it there because I'm going to be . Plan -appropriate for discharge from psychiatric standpoint -refused outpatient resources, including substance resources, outpatient psych, and SW consult -please call psychiatry with any further questions Assessment & Plan (09/16/2018 9:21 AM CDT): This is a 52 y/o M with history of ASPD, cocaine use disorder, and alcohol use disorder who presented to the hospital after a fall for ankle pain, later stating SI after being told of discharge. The patient's history of ASPD has been well- documented in the past, with manipulative behavior, frequent violence, legal, and disciplinary problems, chronic irritability and low mood. His history of cocaine use disorder is equally well-documented, and the patient continues to report daily use of this substance despite frequent physical health complications derived from his use. Chart review reveals that the patient is frequently admitted to psychiatric hospitals, only to refuse medications and basic labs and care. Today, he initially states he has been depressed for 2 days, but later states he has been depressed for as long as I can remember, reports low appetite and poor sleep, anhedonia, and continued cocaine use. The patient was asked about SI repeatedly in the ED before this morning, and only mentioned thoughts of jumping off of a bridge after being told he would be discharged, and states he has felt this way for 2 days. He endorses paranoia but appears organized and with no other signs of psychosis on examination. He cries out in pain multiple times during the interview in a manner out of proportion to physical findings. He reports that he hasn't been seen by a psychiatrist in a hospital or experienced SI in three months despite multiple ED trips since June with this complaint. His chronic low mood is most consistent with his prior diagnosis of ASPD, though cocaine withdrawal may also be contributing to his current presentation. There is high suspicion for malingering given his inconsistent symptom report and current homelessness in addition to past presentations, but this cannot be confirmed without clear secondary gain. The patient is chronically at risk of harm to self in the setting of ASPD, past SA, chronic low mood and SI, poor outpatient resources and outpatient follow-up, poor psychosocial supports. Given EMR report of the patient refusing medications, interviews, and basic lab-work with quick resolution of SI upon admission to psychiatric floor, the patient would not benefit from inpatient hospitalization at this time. Furthermore, patients with ASPD who do not meet criteria for MDD do not typically benefit from inpatient hospitalization, as this reinforces negative coping skills. After the patient was told that admission would not be offered, he became irritated and refused all resources, saying I'm not gonna make it there because I'm going to be . Plan -appropriate for discharge from psychiatric standpoint -refused outpatient resources, including substance resources, outpatient psych, and SW consult -please call psychiatry with any further questions Assessment & Plan (07/29/2018 12:12 PM CDT): Assessment: Mr. Haas is a 52 y.o., single, Black or ,unemployed male with a history of Antisocial Personality Disorder, Polysubstance Use (cocaine,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
--- OUTSIDE RECORDS SUMMARY | 2024-06-14 13:41 | XMS_ITS | Clinical Summary ---
Author Organization [facility] al Address [address] [place] [address] Care Team Providers Care Speck Dyer Name Role Phone Nando Christy MD Primary Care Provider Yanelis Jennings MD Unavailable [phone] Reese Gutierrez MD Unavailable [phone] Allergies Active Allergy Reactions Criticality Noted Date [...] a day with meals 60 tablet 01/05/2024 5 Active docusate sodium (COLACE) 100 mg capsuleIndicati [...] identified. Assessment & Plan (07/04/2023 11:09 AM SUGAR DRIER): No success obtaining any options for post-acute care. SNFs, Respite care, [facility] Recovery sites, all decline patient Succeeded in obtaining wheelchair for patient, but he declined to use it today. He insisted on only using a walker, and we will provide this. Patient now states that he can stay with his sister instead of being unhoused or going to a snf. Ambulating with walker Patient primarily complains of L hip pain, worse with ambulation. States he has been told he has [id number] in his left hip. Case discussed with ortho. They declined to see in the hospital and stated they could not get an appointment earlier than 08/27. L Hip X-ray: Severe left hip osteoarthritis with progressive osseous remodeling and subchondral collapse of the femoral head. Will coordinate outpatient appointment with orthopedics. - August 27 in [facility] Rhabdomyolysis 12/16/2022 Assessment & Plan (12/30/2023 3:55 PM CDT): Mild rhabdo, likely from cocaine use. Given fluids on admission Resolved with hydration CK 12/28 448 down from 2284 Assessment & Plan (07/04/2023 11:10 AM SUGAR DRIER): Muscle aches resolved Lab tests showed normalization [...] the streets leading up to presentation - SW consulted, in talks with [facility] for potential inpatient rehab stay Suicidal ideation 09/12/2021 HFrEF (heart failure with re duced ejection fraction) ([facility]) 08/16/2021 Assessment & Plan (01/04/2024 [...] rhabdo Assessment & Plan (06/29/2023 12:17 PM SUGAR DRIER): Review of his last echo in March 2023 revealed EF of 30-35% with global hypokinesis of LV, normal RV function, grade 1 diastolic dysfunction. Home meds include Coreg, and Entresto. -restart Entresto 24-26 mg BID -carvedilol 12.5 mg BID Assessment & Plan (04/01/2023 10:33 AM SUGAR DRIER): Euvolemic - Held lasix for now given [...] stable for discharge Substance induced mood disorder (CMS/HCC) 2020 Assessment & Plan (07/25/2021 7:39 PM [...] 01/14/2020 Assessment & Plan (07/04/2023 11:11 AM SUGAR DRIER): Continue home Seroquel and trazodone. Valium p.r.n. [...] CK Assessment & Plan (07/04/2023 11:13 AM SUGAR DRIER): ROSCOE due to rhabdomyolysis and dehydration resolved. [...] -IVFs Assessment & Plan (07/16/2018 9:57 AM SUGAR DRIER): 2/2 rhabdo. Cr trended down as above. -BP stable. Given repeat admissions for rhabdo, he is not a good candidate for lisinopril and hctz d/t risk for further kidney injury. Will not continue at DC. -PCP to further monitor. Assessment & Plan (07/15/2018 4:25 PM SUGAR DRIER): Likely 2/2 rhabdo. Creatinine 1.6 (baseline 1.2). [...] -monitor. Assessment & Plan (07/16/2018 10:04 AM SUGAR DRIER): BP has remained stable off BP meds, but states that BP was always elevated in residential despite no cocaine use. States he was taking clonidine, lisinopril and hctz. Poor candidate for ACEI and diuretic at this time d/t risk for further kidney injury. -will continue single agent for now. Will start amlodipine 10mg daily. -He will f/u with his PCP for further management. Assessment & Plan (07/15/2018 4:19 PM SUGAR DRIER): BP slightly above baseline. -Hold home Lisinopril [...] peak Assessment & Plan (04/01/2023 10:28 AM SUGAR DRIER): CK: 5038. Likely related to cocaine use. [...] recs Assessment & Plan (07/09/2021 7:32 PM SUGAR DRIER): Likely from cocaine. CK 4000 > 2700 [...] currently. Assessment & Plan (06/30/2023 7:53 PM SUGAR DRIER): Reports cocaine use related to his chronic left hip pain. Method of use is inhalation. Longest period of abstinence was 6 months. Does report sharing glass pipes with others Reports burnt lips. Declined HIV, syphilis, hepatitis screening. Assessment & Plan (03/31/2023 12:44 PM SUGAR DRIER): - Counseled on cessation - Consulted social media analyst Assessment & Plan (12/18/2022 11:35 AM CDT): - Long-standing cocaine use, occurring 2-3 times per week - SW consulted, in touch with [facility] for potential inpatient rehab stay Chest pain [...] baseline Assessment & Plan (04/01/2023 10:33 AM SUGAR DRIER): Cr ~1.4, b/l around 1.3-1.5. Recently admitted [...] recs Assessment & Plan (07/09/2021 7:33 PM SUGAR DRIER): - coreg - hold ACEI/ and lasix [...] mg nightly. Patient reports he did not peanut picker his medications, non adherence at baseline. [...] Assessment & Plan (10/23/2023 3:38 AM CDT): ambreen Lindsey Assessment & Plan (07/25/2021 7:46 PM CDT): [...] RN. Assessment & Plan (04/01/2020 8:01 PM SUGAR DRIER): Mr. Haas is a 54yo M with [...] secondary gain and malingering. He was in [facility] ED 2 nights ago for rhabdo with no report of SI or any mood sx. He was discharged when medically cleared, then took a bus to another ED and reported SI and was admitted to [facility]. Today he continues to report vague SI [...] meds indicated - SW to assist with snf and [facility] resources Assessment & Plan (09/16/2018 9:53 AM CDT): As above Resolved Problems Problem Noted Date Diagnosed Date Resolved Date Fall, initial encounter 08/24/202310/09 Constipation 07/02/2023 10/22/2023 Assessment & Plan (07/02/2023 6:47 PM SUGAR DRIER): New complaint this evening. Will Rx with marcia Left hip pain 06/29/2023 06/30/2023 Assessment & Plan (06/29/2023 3:37 PM SUGAR DRIER): Longstanding, gradually worsening LEFT hip pain. Pain [...] recs Assessment & Plan (07/09/2021 7:33 PM SUGAR DRIER): HFrEF (EF 24%) - proBNP 490 on [...] following Pt states he will d/c to [place]; he is aware that they may be full and states if they are full he will return to the streets, where he has been living for ~15 years. Long Term resources provided. He declines further SW assistance [...] team. Assessment & Plan (07/09/2021 7:33 PM SUGAR DRIER): Encouraged cessation Assessment & Plan (06/14/2021 10:46 AM SUGAR DRIER): Wes requires substance use treatment for cocaine. [...] appreciated. Assessment & Plan (06/13/2021 9:18 AM SUGAR DRIER): Wes requires substance use treatment for cocaine, but his ASP traits are most prominent. He has not required PRN meds and is not threatening or violent. 1. Continue meds 2. SWer to help with rehab placement 3. Med consult recs appreciated. Assessment & Plan (06/12/2021 3:51 PM SUGAR DRIER): Wes requires substance use treatment for cocaine, but his ASP traits are most prominent. He has not required PRN meds and is not threatening or violent. 1. Continue meds 2. SWer to help with rehab placement 3. Med consult recs appreciated. Assessment & Plan (06/11/2021 10:13 AM SUGAR DRIER): Wes requires substance use treatment for cocaine, [...] normalizing Assessment & Plan (07/09/2021 7:32 PM SUGAR DRIER): Cr 2.3 (baseline 1.3-1.6?), likely from rhabdo - recheck after fluids Assessment & Plan (03/30/2020 5:53 AM SUGAR DRIER): Cr 2.34 on presentation, compared to a [...] daily Assessment & Plan (04/01/2020 8:05 PM SUGAR DRIER): Patient has ahx of recurrent rhabdo due to cocaine use. He CK is downtrending and Cr is back to normal. No additional interventions needed. Assessment & Plan (03/30/2020 5:55 AM SUGAR DRIER): CK 1688 on admission, he has had [...] of cares. -discontinue LR 100ml/hr -tylenol 650 [id number] PRN for pain -d/c today -SW consulted [...] cocaine use. -start LR 100ml/hr -tylenol 650 [id number] PRN for pain -repeat total CK in [...] using. Assessment & Plan (07/16/2018 9:55 AM SUGAR DRIER): Likely 2/2 cocaine use. CK trending down, 8883-->6122. Cr improved 1.6-->1.1. -dc home -cocaine cessation encouraged. Assessment & Plan (07/15/2018 4:18 PM SUGAR DRIER): Likely 2/2 cocaine use. Hx of multiple [...] although reported earlier to other physicians. - corrections counselor on cessation Assessment & Plan (04/01/2020 8:12 PM SUGAR DRIER): Patient has a long and well established [...] and admitted a few days later to [facility] for SI and rhabdo due to his [...] PRN Assessment & Plan (07/16/2018 10:04 AM SUGAR DRIER): -Encouraged cessation, but patient refuses and reports he will use cocaine after discharge. Assessment & Plan (07/15/2018 4:27 PM SUGAR DRIER): Hx of cocaine use, last used yesterday. -Encouraged cessation, but patient refuses and reports he will use cocaine after discharge Generalized body aches 07/12/201807/25 Chronic renal impairment 05/04/2017 Schizoaffective disorder, bi polar type ([facility]) 08/02/2016 04/01/2020 Assessment & Plan (03/30/2020 5:56 AM SUGAR DRIER): Prior medications include quetiapine and trazodone, which [...] admissions. Also recently admitted and discharged from [facility] on 08/01 for SI, also thought ot [...] admissions. Also recently admitted and discharged from [facility] on 08/01 for SI, also thought ot [...] 0 Assessment & Plan (03/30/2020 6:21 AM SUGAR DRIER): Longstanding abuse, reports last smoking crack cocaine on evening of 03/29 Crack cocaine use 08/23/2011 04/01/2020 Suicidal ideation 08/23/2011 04/01/2020 History of rhabdomyolysis Muscle ache 04/01/2020 Encounters Date Type Department Care Team Description 04/29/2024 2:48 PM SUGAR DRIER - 04/29/2024 11:59 PM SUGAR DRIER Hospital Encounter [facility] [address] [place] [address] Ravin Knapp MD Avascular necrosis of hip, left (HCC) Discharge Disposition: Discharge to home or self care from Last 3 Months Immunizations Name Administration Dates Next Due Hep A, Adult 11/14/2005 Tdap 09/16/2015,10/07/2011,12/22/2009 Surgical History Surgery Date Site/Laterality Comments MUSCLE BIOPSY BONE BIOPSY Medical History Medical History Date Comments Hypertension ROSCOE (acute kidney injury) ([facility]) Cocaine abuse ([facility]) Chronic renal disease Rhabdomyoma Depression CHF (congestive heart failure) ([facility]) ([facility]) Family History Medical History Relation Name Comments Hypertension Father No Known Problems Maternal Grandfather No Known Problems Maternal Grandmother Hypertension Mother No Known Problems Paternal Grandfather No Known Problems Paternal Grandmother Relation Name Status Comments Father Maternal Grandfather Maternal Grandmother Mother Paternal Grandfather Paternal Grandmother Social History Tobacco Use Types Packs/Day Years Used Date Smoking Tobacco: Every Day Cigarettes 1 25 Passive Smoke Exposure: Never Smokeless Tobacco: Former Tobacco Cessation:Ready to Q uit: Not Asked; Counseling Given: Not Answered Alcohol Use Standard Drinks/Week Comments Yes 0 (1 standard drink = 0.6 oz pur e alcohol) occasional [facility] Utilities Answer Date Recorded In the past 12 months has [facility] [employer], oil, or water [employer] threatened to shut off services in your [...] How often do you attend taoist or sikhism serv ices? Never 01/04/2024 Do you belong [...] staff should administer the PHQ-9) 2 11/19/2022 [facility] Occupational Stress Questionnaire Answer [...] place to sleep or slept in a snf (including now)? Yes 08/25/2023 Housing Stability Vital Sign Answer Devendra e Recorded In the last 12 months, was t here a time when you were not able to pay the mortgage or rent on time? Yes 01/04/2024 In the past 12 months, how m any times have you moved where you were living? 5 01/04/2024 At any time in the past 12 m [facility], were you homeless or living in a snf (including now)? Yes 01/04/2024 Personal Safety Answer [...] on file Legal Sex Male 2:18 AM SUGAR DRIER Gender Identity Not on file Sexual Orientation Not on file Obstetrics History Last Filed Vital Signs Vital Sign Reading [...] Mass Index 23.4 02/01/2024 5:13 AM CDT Plan of Treatment Health Maintenance Due Date Last Done Comments Colon Cancer Screening-Colonoscopy 1966 Prostate Cancer Screening-PSA 1966 Pneumococcal vaccine <65 (1 of 2 - PCV) 1972 Regular Well Visit/Exam 18-64 1984 Lung Cancer Screening 2016 Zoster Vaccine (1 of 2) 2016 Depression Screening 11/18/2023 11/17/2022 Influenza Vaccine (#1) 2024 DTaP/Tdap/Td Vaccine (4 - Td or Tdap) 09/15/2025 09/16/2015, 10/07/2011, 12/22/2009 Hepatitis B Screening Completed 12/29/2023 Hepatitis C Screening Completed 12/29/2023 , 01/15/2020, 01/15/2016 Procedures Procedure Name Priority Date/Time Associated Diagnosis Comments XR HIP LEFT W PELVIS 2 OR 3 VIEWS Schedule Routine, Read Routine (OP Routine) 04/29/2024 3:01 PM SUGAR DRIER Avascular necrosis of hip, left (HCC) HEPATITIS C ANTIBODY Timed 12/29/2023 9:29 PM CDT from Last 3 Months or Most Recently Relevant to Health Maintenance Results * XR Hip Left 2 or 3 Views W Pelvis (04/29/2024 3:01 PM SUGAR DRIER) Anatomical Region Laterality Modality Lower Extremities, Hip, Pelvis Left C omputed Radiography 04/29/2024 4:12 PM SUGAR DRIER Impressions 04/29/2024 4:23 PM SUGAR DRIER Overall unchanged left femoral head avascular necrosis with severe secondary osteoarthritis and extensive osseous fragmentation. Dictated by: Nii Schulte MD The radiology attending physician has personally reviewed this study, and had reviewed and/or edited this written report and agrees with it. Electronically signed by: Andreas Blum M.D. Narrative 04/29/2024 4:23 PM SUGAR DRIER EXAMINATION: XR HIP LEFT 2 OR 3 [...] Nahun Newell MD LAB MICROBIOLOGY - GENERAL OR[facility] Final Result [facility] Department [place] [address] from Last 3 Months or Most Recently Relevant to Health Maintenance Insurance [facility] [employer]ET[employer] [facility] Advance Directives For more information, please contact: [phone] * Full Code (Latest Code Status on [...] 6:18 PM 08/26/2023 11:11 PM Care Teams Speck Dyer Relationship Specialty Start Date End Date Nando Christy MD [address] [place] [address] PCP - General Internal Medicine 05/06/22 Yanelis Jennings MD [address] [place] [address] Consulting Physician Cardiovascular Disease 10/11/22 Reese Gutierrez MD [address] [place] [id number] Referring Physician Internal Medicine 07/04/23
--- NOTE | 2024-06-14 13:42 | ECG_ITS ---
Test Date: 2024-06-14 14:39:45 Measurements Intervals [place] Rate: 72 P: 65 ME: 155 QRS: -10 QRSD: 106 T: 203 QT: 433 QTc: 476 Interpretive Statements SINUS RHYTHM LEFT ATRIAL ENLARGEMENT INCOMPLETE RIGHT BUNDLE BRANCH BLOCK LEFT VENTRICULAR HYPERTROPHY AND ST-T CHANGE BORDERLINE ST-T WAVE ABNORMALITY- INFERIOR LEADS BASELINE ARTIFACT- I, II, III BORDERLINE ECG Compared to ECG 06/14/2024 05:34:34 NO SIGNIFICANT CHANGE Electronically Signed On 06-14-2024 14:46:21 BANANA CARRIER by Jean-Paul Aceves D.O.
--- OUTSIDE RECORDS SUMMARY | 2024-06-14 13:42 | XMS_ITS | Referral Summary ---
Author Organization [facility] Address [address] [place] [address] Care Team Providers Care Occupational Therapist Per Diem Name Role Phone Nando Christy MD Primary Care Provider [phone] Source Comments [facility],non-owned Affiliates and Associated Physician Practices is amultiple site organization consisting of ambulatory clinics and hospital sitesin [place], [place], [place] and [place]. This disclosure is being madepursuant to the Care Everywhere program and may not contain all information available regarding this patient. Last updated 18.[facility] Allergies Active Allergy Reactions Criticality Noted Date Comments Chlorpromazine Itching Medium 09/22/2011 Found in previous hospitalization H&P Haloperidol Urticaria,Other,Rash High 10/13/2009 Reaction: rash rash Rash Ziprasidone Urticaria,Rash High 09/29/2009 rash Stiffeness EPS Rash Medications * Be aware that medications may not be up to date on this document. Alwaysverify current medications with the patient. Medication Sig Dispensed Refills Start Date End Date Status traZODone (Desyrel) 100 MG tabletIndicatio ns:Insomnia Take 2 (two) tablets by mouth at bedtime Reasons: Trouble Sleeping 30 tablet 1 07/13/2023 Active carvedilol (Coreg) 6.25 MG tablet TAKE 1 TABLET BY MOUTH 2 TIMES DAILY WITH MORNING AND EVENING MEALS 60 tablet 01/15/2024 5 Active QUEtiapine (SEROquel) 50 MG tablet TAKE ONE TABLET BY MOUTH AT BEDTIME 30 tablet 01/15/2024 5 Active losartan (Cozaar) 25 MG tablet TAKE 1 TABLET BY MOUTH ONCE DAILY 30 tablet 01/15/2024 5 Active methocarbamol (Robaxin) 750 MG tabletIndicatio ns:Musculoskele carla Pain Take 1 (one) tablet by mouth 3 times daily as needed for Muscle Spasms Reasons: Musculoskeletal Pain 20 tablet 07/25/2023 4 Discontinue d(Yes Pharm/AVS) Active Problems Problem Noted Date Diagnosed Date Traumatic rhabdomyolysis, initial encounter 09/08 Cough with sputum 09/24/2023 Acute pain of left knee 09/24/2023 Malingering 05/12/2023 Chest pain, unspecified type 05/06/2023 Abnormal EKG 04/30/2023 ROSCOE (acute kidney injury) 01/13/2023 Non-traumatic rhabdomyolysis 01/13/2023 Elevated CK 11/18/2018 Major depressive disorder, recurrent episode, mi ld 10/29/2018 Polysubstance abuse 10/28/2018 Elevated troponin 10/07/2018 Suicidal ideation 08/10/2018 Chronic renal impairment 05/04/2017 Rhabdomyoma 05/02/2017 Acute renal failure 04/28/2017 Boxer's fracture 04/28/2017 Overview (04/28/2017): Right hand Schizoaffective disorder, bipolar type 7 Cocaine use disorder, severe, dependence 015 Essential hypertension 06/01/2013 Infected dental carries 05/24/2013 Overview (02/08/2021): IMO 2020 Cocaine abuse 03/11/2012 Overview (02/08/2015): Antisocial personality disorder 12/22/2010 Resolved Problems Problem Noted Date Diagnosed Date Resolved Date Chest pain, unspecified type 11/30/2022 12/24/2022 SOB (shortness of breath) 05/30/2021 Diarrhea 07/03/2020 07/31/2020 RUQ abdominal pain 03/23/2020 Muscle cramping 02/11/2020 07/05/2023 Mental health-related complaint 11/18/2018 07/05/2023 Dehydration 10/28/2018 11/11/2018 Cough 08/10/2018 09/07/2018 Body aches 07/12/2018 07/05/2023 ROSCOE (acute kidney injury) 05/02/2017 Non-traumatic rhabdomyolysis 04/16/2017 12/24/2022 ROSCOE (acute kidney injury) 08/31/2016 Personality disorder 02/19/2016 017 Hypokalemia 03/25/2015 09/12/2016 Non-traumatic rhabdomyolysis 02/08/2015 09/12/2016 Rhabdomyolysis 11/23/2014 03/25/2015 Suicide 11/22/2014 03/25/2015 Homicide 11/22/2014 03/25/2015 Schizoaffective disorder, bipolar type 11/22/2014 09/12/2016 Hyperglycemia 06/12/2014 09/12/2016 Myalgia 03/01/2014 06/12/2014 Rhabdomyolysis 05/24/2013 06/01/2013 Lymphadenopathy 05/24/2013 06/01/2013 Schizoaffective disorder, [place] bchronic condition with acute exacerbation 03/11/20122014 Elevated CK 02/15/2012 06/01/2013 Cocaine abuse 12/26/2011 11/16/2012 Dehydration 12/26/2011 09/12/2016 Suicidal ideation 12/26/2011 11/16/2012 Depression 12/26/2011 11/16/2012 Myalgias 12/26/2011 11/16/2012 Heat cramps 12/26/2011 11/16/2012 Schizo affective schizophrenia 12/26/2011 06/01/2013 Tobacco abuse 12/26/2011 06/01/2013 Body aches 12/13/2010 11/16/2012 Schizoaffective disorder 10/01/201001/2013 Hyperglycemia 10/01/2010 11/16/2012 Toothache 10/01/2010 11/16/2012 Noncompliance with medication regimen 08/16/2010 11/16/2012 Headache 12/09/2009 11/16/2012 Overview (03/18/2015): Schizoaffective disorder 10/14/200910/2009 HTN (hypertension) 10/14/2009 4 Rhabdomyolysis 10/14/2009 11/16/2012 Renal insufficiency 10/14/2009 11/17/19 13 Schizophrenia, chronic condition 10/14/2009 11/16/2012 Overview (03/18/2015): Cocaine dependence 10/14/2009 3 Cocaine abuse 10/13/2009 10/14/2009 Tobacco use disorder 014 Overview (03/09/2013): Tobacco Abuse Tobacco abuse 06/01/2013 Immunizations Name Administration Dates Next Due TDAP (7yrs+) 09/16/2015,10/07/2011,12/22/2009 Social History Tobacco Use Types Packs/Day Years Used Date Smoking Tobacco: Every Day Cigarettes 0.5 22 Smokeless Tobacco: Never Tobacco Cessation:Ready to Q uit: No; Counseling Given: Yes Alcohol Use Standard Drinks/Week Comments Yes 1 (1 standard drink = 0.6 oz pur e alcohol) occ AUDIT-C Answer Date Recorded Q1: How often do you have a drink containing alc ohol? 2-4 times a month 07/25/2023 Q2: How many drinks containi ng alcohol do you have on a typical day when you are drinking? 1 or 2 07/25/2023 Q3: How often do you have si x or more drinks on one occasion? Never 07/25/2023 Overall Financial Resource Strain (CARDIA) Answe r Date Recorded How hard is it for you to pa y for the very basics like food, housing, medical care, and heating? Very hard 07/09/2023 PHQ-2 Answer Date Recorded Patient Health Questionnaire-2 Score 6 07/25/2023 [facility] - Occupational Stress Questionnaire Answer Date Recorded Do you feel stress - tense, restless, nervous, or anxious, or unable to sleep at night because your mind is troubled all the time - these days? Very much 07/09/2023 Hunger Vital Sign Answer Date Recorded Within the past 12 months, y ou worried that your food would run out before you got the money to buy more. Often true 07/09/19 24 Within the past 12 months, t he food you bought just didn't last and you didn't have money to get more. Often true 07/09/2023 PRAPARE - Transportation Answer Date Re corded In the past 12 months, has l ack of transportation kept you from medical appointments or from getting medications? Yes 06/12 In the past 12 months, has l ack of transportation kept you from meetings, work, or from getting things needed for daily living? Yes 07/09/2023 Housing Stability Vital Sign Answer Devendra e Recorded In the last 12 months, was t here a time when you were not able to pay the mortgage or rent on time? Yes 07/09/2023 In the last 12 months, how many places have you lived? 0 07/09/2023 In the last 12 months, was t here a time when you did not have a steady place to sleep or slept in a detention (including now)? Yes 07/09/2023 Housing Stability Vital Sign Answer Devendra e Recorded In the last 12 months, was t here a time when you were not able to pay the mortgage or rent on time? Yes 07/09/2023 Number of Times Moved in the Last Year Not on fi le 07/09/2023 Homeless in the Last Year Not on file 2023 Sex and Gender Information Value Date Recorded Sex Assigned at Not on file Gender Identity Not on file Sexual Orientation Not on file Last Filed Vital Signs Vital Sign Reading Time Taken Comments Blood Pressure 137/92 01/15/2024 10:45 AM CDT Pulse 95 01/15/2024 10:45 AM CDT Temperature 37 ??C (98.6 ??F) 01/15/2024 10:45 AM CDT Respiratory Rate 18 01/15/2024 10:45 AM CDT Oxygen Saturation 94% 01/15/2024 10:45 AM CDT Inhaled Oxygen Concentration 21% 03/03/2020 4 :21 PM CDT Weight 65.8 kg (145 lb) 09/24/2023 3:14 AM CDT Height 167.6 cm (5' 6 ) 01/13/2024 8:00 AM CDT Body Mass Index 23.4 09/24/2023 3:14 AM CDT Functional Status Functional Status Response Date of Assess ment Is person deaf or have serious hearing difficult y? No 07/14/2023 Is person blind or have serious difficulty seein g? No 07/14/2023 Does person have serious dif ficulty walking/climbing stairs? No 07/14/2023 Does person have difficulty dressing/bathing? No 07/14/2023 Does person have difficulty doing errands alone? No 07/14/2023 Cognitive Status Response Date of Assessm ent Does person have difficulty concentrating/remembering/making decisions? No 07/14/2023 Plan of Treatment Not on file Procedures Procedure Name Priority Date/Time Associated Diagnosis Comments BASIC METABOLIC PANEL (CALCIUM TOTAL) AM Draw 01/14/2024 4:23 AM CDT ROSCOE (acute kidney injury) (HCC) HEPATITIS SCREEN ACUTE STAT 10/07/2018 1:04 PM CDT HIV-1 HIV-2 ANTIBODY + HIV P24 AG PANEL STAT 10/07/2018 1:04 PM CDT LIPID PROFILE AM Draw 02/19/2016 10:18 AM CDT Other chest pain from Last 3 Months or Most Recently Relevant to Health Maintenance Results * (ABNORMAL) BASIC METABOLIC PANEL (CALCIUM TOTAL) (01/14/2024 4:23 AM CDT) [facility] Glucose 88 70 - 105 mg/dL 01/14/2024 5:27 AM CDT [facility] Sodium 141 136 - 145 mmol/L 01/14/2024 5:27 AM CDT [facility] Potassium 4.1 3.5 - 5.1 mmol/L 01/14/2024 5:27 AM CDT [facility] Chloride 108(H) 98 - 107 mmol/L 01/14/2024 5:27 AM CDT [facility] CO2 29 22 - 29 mmol/L 01/14/2024 5:27 AM CDT [facility] Calcium 8.6 8.4 - 10.4 mg/dL 01/14/2024 5:27 AM CDT [facility] Anion Gap 4(L) 6 - 16 mmol/L 01/14/2024 5:27 AM CDT [facility] BUN 10 7 - 26 mg/dL 01/14/2024 5:27 AM CDT [facility] Creatinine 1.10 0.72 - 1.25 mg/dL 01/14/2024 5:27 AM CDT [facility] eGFR by CKD-EPI 78(L) >=90 mL/min/1.7 3 m2 01/14/2024 5:27 AM CDT [facility] Blood BLOOD SPECIMEN / Unknown Lab Venipuncture / Unknown 01/14/2024 4:23 AM CDT 01/14/2024 4:46 AM CDT Nicho Johnson MD LAB - CHEMISTRY YARELI CASTANON Performing Organization Address [facility] Co de Phone Number [facility] [address] [place] [address] * HIV-1 HIV-2 ANTIBODY + HIV P24 AG PANEL (10/07/2018 1:04 PM CDT) Pathologist [facility] HIV1/2 Ab + P24 Ag Non Reactive Non Reactive 10/07/2018 2:13 PM CDT [facility] Blood BLOOD SPECIMEN / Unknown Lab Venipuncture / Unknown 10/07/2018 1:04 PM CDT 10/07/2018 1:22 PM CDT Narrative [facility] - 10/07/2018 2:13 PM CDT No Laboratory evidence of HIV infection. Kervin Delgado MD LAB - CHEMISTRY Shannan SANTOS Performing Organization Address [facility] de Phone Number [facility] [address] [place] [address] * HEPATITIS SCREEN ACUTE (10/07/2018 1:04 PM CDT) Pathologist [facility] HAV Antibody IgM Non Reactive Non Reactive 10/07/2018 2:16 PM CDT [facility] HBsAg Non Reactive Non Reactive 10/07/2018 2:16 PM CDT [facility] HBc Antibody IgM Non Reactive Non Reactive 10/07/2018 2:16 PM CDT [facility] HCV Antibody Screen Non Reactive Non Reactive 10/07/2018 2:16 PM CDT [facility] HCV S/C Ratio 0.07 0.00 - 0.79 10/07/2018 2:16 PM CDT [facility] Comment: Dusdip-mw-xqatne ratio (S/CO) <0.80:?? Non Reactive Blood BLOOD SPECIMEN / Unknown Lab Venipuncture / Unknown 10/07/2018 1:04 PM CDT 10/07/2018 1:22 PM CDT Narrative [facility] - 10/07/2018 2:16 PM CDT Non Reactive - Antibodies to Hepatitis C virus (HCV) were not detected, result does not exclude early acute HCV infection. Kervin Delgado MD LAB - CHEMISTRY O RDERABLES [facility] [address] [place], [place] [id number] * LIPID PROFILE (02/19/2016 10:18 AM CDT) [facility] Cholesterol 149 <200 mg/dL 02/19/2016 11:03 AM CDT [facility] Triglycerides 127 <150 mg/dL 02/19/2016 11:03 AM CDT [facility] HDL Cholesterol 67 >40 mg/dL 02/19/2016 11:03 AM CDT [facility] LDL Calculated 57 <130 mg/dL 02/19/2016 11:03 AM CDT [facility] VLDL Calculated 25 <=30 mg/dL 02/19/2016 11:03 AM T [facility] Chol HDL Ratio 2.2 <4.5 02/19/2016 11:03 AM T [facility] LDL/HDL Ratio 0.8 <5.0 02/19/2016 11:03 AM CDT [facility] Blood BLOOD SPECIMEN / Unknown Lab Venipuncture / Unknown 02/19/2016 10:18 AM CDT 02/19/2016 10:22 AM CDT Amanda Braga DIRECTOR OF SLOT OPERATIONS-COST RECOVERY TECHNICIAN LAB - CHEMISTRY ORDERABLES Performing Organization Address [facility]/ZIP Co de Phone Number [facility] [address] [place] [address] from Last 3 Months or Most Recently Relevant to Health Maintenance Advance Directives * Full Code (Latest Code Status on File) Date Activated Date Inactivated Comments 01/12/2024 3:46 AM 01/15/2024 1:37 PM * Full Code Date Activated Date Inactivated Comments 09/24/2023 8:38 AM 09/24/2023 1:59 PM * Full Code Date Activated Date Inactivated Comments 07/09/2023 9:53 PM 07/14/2023 12:41 PM * Full Code Date Activated Date Inactivated Comments 05/06/2023 11:13 AM 05/07/2023 12:04 PM * LIMITED RESUSCITATION-PRIOR AND AFTER ARREST Date Activated Date Inactivated Comments 04/30/2023 10:42 AM 05/02/2023 7:41 PM Question Answer Comments Limited Resuscitation: No Chest Compress ionNo Intubation, No Invasive VentilationNo Cardioactive Drugs, No Vasopressors Care Teams Occupational Therapist Per Diem Relationship Specialty Start Date End Date Nando Christy MD PCP - General Internal Medicine 11/25/18
--- OUTSIDE RECORDS SUMMARY | 2024-06-14 13:42 | XMS_ITS | CONTINUITY OF CARE DOCUMENT ---
Author Name diana ortiz Address Unknown Organization [facility] Address [address] [place] [address] Phone [phone] Care Team Providers Care Agency Trainer Name Role Phone Luis Rashid MD Unavailable [phone] Luis Rashid MD Unavailable [phone] INSURANCE PROVIDERS Payer name Policy type / Coverage type [place] red alliance party ID [employer] [facility] Medicaid [id number]
--- OUTSIDE RECORDS SUMMARY | 2024-06-14 13:42 | XMS_ITS | Encounter Summary ---
Author Organization [facility] Address [address] [place] [address] Care Team Providers Care Individualized Education Plan Aide Name Role Phone Nando Christy MD Primary Care Provider [phone] Nando Christy MD Primary Care Provider [phone] Nando Christy MD Unavailable [phone] Camryn Jones RN Unavailable [phone] Kaleigh Bundy RRT Unavailable [phone] No, Physician Primary Care Provider Camryn Jones RN Unavailable Nando Christy MD Primary Care Provider [phone] Sangeetha Cheung RN Unavailable Unavaila Anne Everett ICE GUARD TESTER Unavailable Yanelis Jennings MD Unavailable Camryn Jones RN Unavailable Camryn Jones RN Unavailable [phone] Reese Gutierrez MD Unavailable Iris Leal RN Unavailable [phone] Iris Leal RN Unavailable [phone] Encounter Details Date Type Department Care Team (Late st Contact Info) Description 04/04/2020 Documentation [facility] Case Management [address] [place] [address] Mel Roberson LCSW Social History Tobacco Use Types Packs/Day Years Used Date Smoking Tobacco: Every Day Cigarettes 0.3 30 Smokeless Tobacco: Current Alcohol Use Standard Drinks/Week Comments Yes 0 (1 standard drink = 0.6 oz pur e alcohol) occasional Social Connection and Isolation Panel [NHANES] A nswer Date Recorded In a typical week, how many times do you talk on the phone with family, friends, or neighbors? Patient declined 04/01/2020 How often do you get togethe r with friends or relatives? Patient declined 04/01/2020 How often do you attend latter day or yarsani serv ices? Patient declined 04/01/2020 Do you belong to any clubs o r organizations such as latter day groups, unions, fraternal or athletic groups, or school groups? Patient declined 04/01/2020 How often do you attend meet ings of the clubs or organizations you belong to? Patient declined 04/01/2020 Are you , , di vorced, , never , or living with a partner? Patient declined 04/01/2020 Overall Financial Resource Strain (CARDIA) Answe r Date Recorded How hard is it for you to pa y for the very basics like food, housing, medical care, and heating? Patient declined 04/01/2020 Hunger Vital Sign Answer Date Recorded Within the past 12 months, y ou worried that your food would run out before you got the money to buy more. Patient declined Within the past 12 months, t he food you bought just didn't last and you didn't have money to get more. Patient declined PRAPARE - Transportation Answer Date Re corded In the past 12 months, has l ack of transportation kept you from medical appointments or from getting medications? Patient declined 04/01/2020 In the past 12 months, has l ack of transportation kept you from meetings, work, or from getting things needed for daily living? Patient declined 04/01/2020 Housing Stability Vital Sign Answer Devendra e Recorded In the last 12 months, was t here a time when you were not able to pay the mortgage or rent on time? Patient refused 04/01/20 20 Number of Places Lived in the Last Year Not on f ile 04/01/2020 In the last 12 months, was t here a time when you did not have a steady place to sleep or slept in a chcf (including now)? Yes 04/01/2020 Sex and Gender Information Value Date Recorded Sex Assigned at Not on file Legal Sex Male 2:18 AM EYEWEAR MANUFACTURING SUPERVISOR Gender Identity Not on file Sexual Orientation Not on file documented as of this encounter Plan of Treatment Not on file documented as of this encounter Visit Diagnoses Not on filedocumented in this encounter Additional Health Concerns Infection Onset Date Last Indicated Resolved Time COVID: Suspected 04/24/2020 04/24/2020 04/24/2020 3:48 AM EYEWEAR MANUFACTURING SUPERVISOR Respiratory Infection (CLEM), contact + droplet Comment:Automatically added due to negative COVID-19 result. 04/24/2020 04/24/2020 05/08/2020 3:0 7 AM EYEWEAR MANUFACTURING SUPERVISOR COVID: Suspected Comment:Pt has a negative COVID result, test was modified in lab d/t requirements for facility placement per ED parole directorRN. Odalis Andino RN 05/14/20 05/13/2020 05/13/2020 05/14/2020 12:53 PM EYEWEAR MANUFACTURING SUPERVISOR COVID: Suspected 09/07/2020 09/07/2020 09/07/2020 2:57 PM CDT COVID: Suspected 06/14/2021 06/14/2021 06/15/2021 7:26 PM EYEWEAR MANUFACTURING SUPERVISOR COVID: Suspected 06/20/2021 06/20/2021 06/21/2021 11:11 PM EYEWEAR MANUFACTURING SUPERVISOR COVID: Suspected 02/03/2022 02/03/2022 02/04/2022 3:05 AM CDT COVID: Suspected 05/06/2022 05/06/2022 05/06/2022 6:54 PM EYEWEAR MANUFACTURING SUPERVISOR COVID: Suspected 06/25/2022 06/25/2022 06/25/2022 2:48 PM EYEWEAR MANUFACTURING SUPERVISOR COVID: Suspected 03/31/2023 03/31/2023 03/31/2023 7:40 AM EYEWEAR MANUFACTURING SUPERVISOR COVID: Suspected 05/05/2023 05/05/2023 05/05/2023 8:28 AM EYEWEAR MANUFACTURING SUPERVISOR COVID: Suspected 05/26/2023 05/26/2023 05/27/2023 3:05 AM EYEWEAR MANUFACTURING SUPERVISOR COVID: Suspected 07/19/2023 07/19/2023 07/19/2023 7:48 PM CDT COVID: Suspected 08/24/2023 08/24/202308/2308/24/2023 8:26 PM CDT COVID: Suspected 09/03/2023 09/03/2023 09/03/2023 1:28 PM CDT COVID: Suspected 01/25/2024 01/25/2024 01/25/2024 5:06 AM CDT documented as of this encounter Care Teams Individualized Education Plan Aide Relationship Specialty Start Date End Date Nando Christy MD PCP - General 06/23/16 04/23/20 Nando Christy MD PCP - General 04/24/20 11/26/21 No, Physician PCP - General 11/27/21 05/05/22 Nando Christy MD [address] [place] [address] PCP - General Internal Medicine 05/06/22 Nando Christy MD 04/24/20 11/24/22 Camryn Jones RN [address] [address] [employer] Outpatient Bi Developer 06/28/20 06/28/20 Kaleigh Bundy RRT [address] [address] [facility] Outpatient Bi DeveloperNurse Assessor Therapy 09/10/20 09/12/20 Camryn Jones, RN [address] [address] [employer] Outpatient Bi Developer 12/02/21 12/02/21 Sangeetha Cheung RN Heart Failure Coordinator 07/02/22 07/19/23 Anne Dotson, ICE GUARD TESTER [address] [facility] Mailstop [phone] [place] [address] [employer] Outpatient Bi Developer 10/09/22 10/15/22 Yanelis Jennings MD [address] [facility] ([facility]) Mailstop [phone] [place] [address] Consulting Physician Cardiovascular Disease 10/11/22 Camryn Jones, RN [address] [place] [address] [employer] Outpatient Bi Developer 11/25/22 11/27/22 Camryn Jones, RN [address] [place] [address] [employer] Outpatient Bi Developer 12/22/22 12/24/22 Reese Gutierrez MD [address] [place] [address] Referring Physician Internal Medicine 07/04/23 Iris Leal RN [address] [facility] [address] [place] [address] SHOP Outpatient Bi Developer 07/06/23 07/06/23 Iris Leal RN [address] [facility] [address] [place] [address] [employer] Outpatient Bi Developer 08/27/23 08/27/23 documented as of this encounter
--- OUTSIDE RECORDS SUMMARY | 2024-06-14 13:42 | XMS_ITS | Clinical Summary ---
Author Organization [facility] Address [address] [place] [address] Care Team Providers Care Information Officer Name Role Phone Nando Christy MD Primary Care Provider [phone] Source Comments [facility],non-owned Affiliates and Associated Physician Practices is amultiple site organization consisting of ambulatory clinics and hospital sitesin [place], [place], [place] and [place]. This disclosure is being madepursuant to the Care Everywhere program and may not contain all information available regarding this patient. Last updated 18.[facility] Allergies Active Allergy Reactions Criticality Noted Date [...] Administration Dates Next Due TDAP (7yrs+) 09/16/2015,10/07/2011,12/22/2009 Family History Medical History Relation Name Comments Alcohol abuse Brother Schizophrenia Brother Heart Failure Father Arthritis - Rheumatoid Mother Hypertension Mother Relation Name Status Comments Brother Father Mother Alive Social History Tobacco Use Types Packs/Day Years [...] Recorded Patient Health Questionnaire-2 Score 6 07/25/2023 [facility] - Occupational [...] place to sleep or slept in a senior living (including now)? Yes 07/09/2023 Housing Stability Vital [...] Mass Index 23.4 09/24/2023 3:14 AM CDT Plan of Treatment Health Maintenance Due Date Last Done Comments COLOGUARD (AGES 45-75) - COLON CA SCREENING 1966 COLON MONITORING 1966 COLONOSCOPY - COLON CA SCREENING 1966 CT COLONOGRAPHY - COLON CA SCREENING 1966 Colorectal Cancer Screening 1966 FIT - COLON CA SCREENING 1966 FLEX SIG - COLON CA SCREENING 1966 HEPATITIS B VACCINE (1 of 3 - 19+ 3-dose series) 1985 PNEUMOCOCCAL VACCINE 50+ (1 of 2 - PCV) 1985 ZOSTER VACCINE (1 of 2) 2016 LIPID TESTING 02/18/2021 02/19/2016, 08/17/2010 COVID-19 VACCINE (1 - season) 2024 INFLUENZA VACCINE (#1) 2024 DTAP/TDAP/TD VACCINES (4 - Td or Tdap) 09/15/2025 09/16/2015, 10/07/2011, 12/22/2009 SCREENING FOR DIABETES 01/13/2027 , 01/13/2024, 01/12/2024, Additional history exists HEPATITIS C SCREENING Completed 10/07/2018 , 07/28/2018, 08/31/2016 HIV SCREENING Completed 10/07/2018 HIB VACCINE Aged Out No longer eligi ble based on patient's age to complete this topic HPV VACCINE Aged Out No longer eligi ble based on patient's age to complete this topic MENINGOCOCCAL (Group B) VACCINE Aged Out No longer eligible based on patient's age to complete this topic MENINGOCOCCAL VACCINE Aged Out No kp jung eligible based on patient's age to complete this topic Procedures Procedure Name Priority Date/Time Associated Diagnosis [...] PANEL (CALCIUM TOTAL) (01/14/2024 4:23 AM CDT) Pathologist [facility] Glucose 88 70 - 105 mg/dL 01/14/2024 5:27 AM CDT [facility] Sodium 141 136 - 145 mmol/L 01/14/2024 5:27 AM CDT [facility] Potassium 4.1 3.5 - 5.1 mmol/L 01/14/2024 5:27 AM CDT [facility] Chloride 108(H) 98 - 107 mmol/L 01/14/2024 5:27 AM CDT [facility] CO2 29 22 - 29 mmol/L 01/14/2024 5:27 AM CDT [facility] Calcium 8.6 8.4 - 10.4 mg/dL 01/14/2024 5:27 AM T [facility] Anion Gap 4(L) 6 - 16 mmol/L 01/14/2024 5:27 AM CDT [facility] BUN 10 7 - 26 mg/dL 01/14/2024 5:27 AM CDT [facility] Creatinine 1.10 0.72 - 1.25 mg/dL 01/14/2024 5:27 AM [facility] eGFR by CKD-EPI 78(L) >=90 mL/min/1.7 3 m2 01/14/2024 5:27 AM CDT [facility] Blood BLOOD SPECIMEN / Unknown Lab Venipuncture / Unknown 01/14/2024 4:23 AM CDT 01/14/2024 4:46 AM CDT Nicho Johnson MD LAB - CHEMISTRY YARELI CASTANON [facility] Organization Address City/State/ZIP Co de Phone Number [facility] [address] [place] [address] * HIV-1 HIV-2 ANTIBODY + HIV P24 AG PANEL (10/07/2018 1:04 PM CDT) Pathologist [facility] HIV1/2 Ab + P24 Ag Non Reactive Non Reactive 10/07/2018 2:13 PM CDT [facility] Blood BLOOD SPECIMEN / Unknown Lab Venipuncture / Unknown 10/07/2018 1:04 PM CDT 10/07/2018 1:22 PM CDT Narrative [facility] - 10/07/2018 2:13 PM CDT No Laboratory evidence of HIV infection. Kervin Delgado MD LAB - CHEMISTRY O RDERALEANNE Performing Organization Address [facility] de Phone Number [facility] [address] [place] [address] * HEPATITIS SCREEN ACUTE (10/07/2018 1:04 PM CDT) HAV Antibody IgM Non Reactive Non Reactive 10/07/2018 2:16 PM CDT [facility] HBsAg Non Reactive Non Reactive 10/07/2018 2:16 PM CDT [facility] HBc Antibody IgM Non Reactive Non Reactive 10/07/2018 2:16 PM CDT [facility] HCV Antibody Screen Non Reactive Non Reactive 10/07/2018 2:16 PM CDT [facility] HCV S/C Ratio 0.07 0.00 - 0.79 10/07/2018 2:16 PM CDT [facility] Comment: Zqqkje-ml-heqyfm ratio (S/CO) <0.80:?? Non Reactive Blood BLOOD SPECIMEN / Unknown Lab Venipuncture / Unknown 10/07/2018 1:04 PM CDT 10/07/2018 1:22 PM CDT [facility] - 10/07/2018 2:16 PM CDT Non Reactive - Antibodies to Hepatitis C virus (HCV) were not detected, result does not exclude early acute HCV infection. Kervin Delgado MD LAB - CHEMISTRY O DANIELLE Performing Organization Address [facility] de Phone Number [facility] [address] [place] [address] * LIPID PROFILE (02/19/2016 10:18 AM CDT) Cholesterol 149 <200 mg/dL 02/19/2016 11:03 AM CDT [facility] Triglycerides 127 <150 mg/dL 02/19/2016 11:03 AM CDT [facility] HDL Cholesterol 67 >40 mg/dL 02/19/2016 11:03 AM CDT [facility] LDL Calculated 57 <130 mg/dL 02/19/2016 11:03 AM CDT [facility] VLDL Calculated 25 <=30 mg/dL 02/19/2016 11:03 AM CDT [facility] Chol HDL Ratio 2.2 <4.5 02/19/2016 11:03 AM CDT [facility] LDL/HDL Ratio 0.8 <5.0 02/19/2016 11:03 AM CDT [facility] Blood BLOOD SPECIMEN / Unknown Lab Venipuncture / Unknown 02/19/2016 10:18 AM CDT 02/19/2016 10:22 AM CDT Amanda Braga [employer] MANAGER-[employer] OPERATOR LAB - CHEMISTRY ORDERABLES Performing Organization Address City/State/[facility] Co de Phone Number [facility] [address] [place] [address] from Last 3 Months or Most Recently [...] VentilationNo Cardioactive Drugs, No Vasopressors Care Teams Information Officer Relationship Specialty Start Date End Date Nando Christy MD PCP - General Internal Medicine 11/25/18
--- OUTSIDE RECORDS SUMMARY | 2024-06-14 13:42 | XMS_ITS | Patient Health Summary ---
Author Organization [facility] Address [address] [place] [address] Care Team Providers Care Calender Operator Helper Name Role Phone Nando Christy MD Primary Care Provider [phone] Note from [facility],non-owned Affiliates and Associated Physician Practices is amultiple site organization consisting of ambulatory clinics and hospital sitesin [place], [place], [place] and [place]. This disclosure is being madepursuant to the Care Everywhere program and may not contain all information available regarding this patient. Last updated 18.[facility] Allergies * Chlorpromazine(Itching) -Medium Criticality * Haloperidol(Urticaria,Other,Rash) -High Criticality * Ziprasidone(Urticaria,Rash) -High Criticality * Amlodipine Base(Other),Inactive * Ziprasidone Hydrochloride(Rash) -Medium Criticality,Inactive * Haloperidol Lactate(Rash) -Medium Criticality,Inactive * Chlorpromazine(Unknown) -Low Criticality,Inactive Medications * Be aware that medications may not be up to date on this document. Alwaysverify current medications with the patient. * traZODone (Desyrel) 100 MG tablet(Started 07/13/2023) Take 2 (two) tablets by mouth at bedtime Reasons: Trouble Sleeping 1 refill by 07/12/2024 * carvedilol (Coreg) 6.25 MG tablet(Started 01/15/2024) TAKE 1 TABLET BY MOUTH 2 TIMES DAILY WITH MORNING AND EVENING MEALS * QUEtiapine (SEROquel) 50 MG tablet(Started 01/15/2024) TAKE ONE TABLET BY MOUTH AT BEDTIME * losartan (Cozaar) 25 MG tablet(Started 01/15/2024) TAKE 1 TABLET BY MOUTH ONCE DAILY Ended Medications* methocarbamol (Robaxin) 750 MG tablet(Started 07/25/2023) (Discontinued) Take 1 (one) tablet by mouth 3 times daily as needed for Muscle Spasms Reasons: Musculoskeletal Pain Active Problems Problem Noted Date Diagnosed Date [...] Acute renal failure 04/28/2017 Boxer's fracture 04/28/2017 Schizoaffective disorder, bipolar type 7 Cocaine use disorder, severe, dependence 015 Essential hypertension 06/01/2013 Infected dental carries 05/24/2013 Cocaine abuse 03/11/2012 Antisocial personality disorder 12/22/2010 Resolved Problems Problem [...] medication regimen 08/16/2010 11/16/2012 Headache 12/09/2009 11/16/2012 Schizoaffective disorder 10/14/200910/2009 HTN (hypertension) 10/14/2009 4 Rhabdomyolysis 10/14/2009 11/16/2012 Renal insufficiency 10/14/2009 11/17/19 13 Schizophrenia, chronic condition 10/14/2009 11/16/2012 Cocaine dependence 10/14/2009 3 Cocaine abuse 10/13/2009 10/14/2009 Tobacco use disorder 014 Tobacco abuse 06/01/2013 Immunizations * TDAP (7yrs+)(Given 09/16/2015, 10/07/2011, 12/22/2009) Social History Tobacco Use Types Packs/Day Years [...] Recorded Patient Health Questionnaire-2 Score 6 07/25/2023 [facility] ional [facility] - Occupational Stress Questionnaire Answer Date Recorded [...] place to sleep or slept in a half-way (including now)? Yes 07/09/2023 Housing Stability Vital [...] Mass Index 23.4 09/24/2023 3:14 AM CDT Procedures * CARDIAC RHYTHM STRIP ORDER(Performed 01/18/2024) * XR CHEST 1VW PORTABLE(Performed 01/14/2024) Performed for Other heart failure (HCC) * XR HIP LEFT 2VW OR MORE(Performed 01/14/2024) Performed for Pain of left hip * CBC W AUTO DIFFERENTIAL(Performed 01/14/2024) Performed for ROSCOE (acute kidney injury) ([facility]) * BASIC METABOLIC PANEL (CALCIUM TOTAL)(Performed 01/14/2024) Performed for ROSCOE (acute kidney injury) ([facility]) * XR KNEE LEFT 3VW(Performed 01/13/2024) Performed for Acute pain of left knee * PT EVAL AND TREAT(Performed 01/13/2024) * CK BLOOD(Performed 01/13/2024) Performed for Elevated CK * CBC W AUTO DIFFERENTIAL(Performed 01/13/2024) Performed for ROSCOE (acute kidney injury) ([facility]) * BASIC METABOLIC PANEL (CALCIUM TOTAL)(Performed 01/13/2024) Performed for ROSCOE (acute kidney injury) ([facility]) * CARDIAC EKG ORDER(Performed 01/13/2024) * TROPONIN-I HIGH SENSITIVE REFLEX 1HOUR(Performed 01/12/2024) * XR CHEST 1VW PORTABLE(Performed 01/12/2024) Performed for Chest pain, unspecified type * TROPONIN-I HIGH SENSITIVE BASELINE + 1HR(Performed 01/12/2024) * CK BLOOD(Performed 01/12/2024) * MAGNESIUM BLOOD(Performed 01/12/2024) * BASIC METABOLIC PANEL (CALCIUM TOTAL)(Performed 01/12/2024) * CBC W AUTO DIFFERENTIAL(Performed 01/12/2024) * EKG 12-LEAD(Performed 01/12/2024) Performed for Chest pain, unspecified type * CARDIAC EKG ORDER(Performed 09/25/2023) * CK BLOOD(Performed 09/24/2023) Performed for Non-traumatic rhabdomyolysis * BASIC METABOLIC PANEL (CALCIUM TOTAL)(Performed 09/24/2023) Performed for ROSCOE (acute kidney injury) ([facility]) * EKG 12-LEAD(Performed 09/24/2023) Performed for ROSCOE (acute kidney injury) ([facility]) * XR KNEE LEFT 4VW OR MORE(Performed 09/24/2023) Performed for Acute pain of left knee * XR CHEST 2VW(Performed 09/24/2023) Performed for Acute pain of left knee * B-TYPE NATRIURETIC PEPTIDE(Performed 09/24/2023) Performed for Non-traumatic rhabdomyolysis * TROPONIN-I HIGH SENSITIVE BASELINE + 1HR(Performed 09/24/2023) Performed for Non-traumatic rhabdomyolysis * CK BLOOD(Performed 09/24/2023) * COMPREHENSIVE METABOLIC PANEL(Performed 09/24/2023) * CBC W AUTO DIFFERENTIAL(Performed 09/24/2023) * CARDIAC EKG ORDER(Performed 07/27/2023) * COMPREHENSIVE METABOLIC PANEL(Performed 07/25/2023) * ALCOHOL ETHYL BLOOD(Performed 07/25/2023) * URINE DRUG SCREEN IMMUNOASSAY(Performed 07/25/2023) * CBC W AUTO DIFFERENTIAL(Performed 07/25/2023) * EKG 12-LEAD(Performed 07/25/2023) Performed for Fall, initial encounter * CT HIP LEFT WO CONTRAST(Performed 07/25/2023) Performed for Fall, initial encounter, Left hip pain * XR HIP LEFT 2VW OR MORE(Performed 07/25/2023) Performed for Fall, initial encounter, Left hip pain * XR KNEE LEFT 2VW OR LESS(Performed 07/09/2023) Performed for Fall, initial encounter * XR FEMUR LEFT 2VW(Performed 07/09/2023) Performed for Fall, initial encounter * XR HIP LEFT 2VW OR MORE(Performed 07/09/2023) Performed for Fall, initial encounter * CARDIAC EKG ORDER(Performed 07/06/2023) * TROPONIN-I HIGH SENSITIVE BASELINE + 1HR(Performed 07/05/2023) * XR CHEST 1VW PORTABLE(Performed 07/05/2023) Performed for Chest pain, unspecified type * EKG 12-LEAD(Performed 07/05/2023) Performed for Chest pain, unspecified type * COMPREHENSIVE METABOLIC PANEL(Performed 07/05/2023) * CBC W AUTO DIFFERENTIAL(Performed 07/05/2023) * CK BLOOD(Performed 07/05/2023) * TROPONIN-I HIGH SENSITIVE REFLEX 1HOUR(Performed 07/05/2023) * COMPREHENSIVE METABOLIC PANEL(Performed 05/16/2023) * CK BLOOD(Performed 05/16/2023) * CT PELVIS WO CONTRAST(Performed 05/16/2023) Performed for Fall, initial encounter * CK BLOOD(Performed 05/16/2023) * COMPREHENSIVE METABOLIC PANEL(Performed 05/16/2023) * CBC W AUTO DIFFERENTIAL(Performed 05/16/2023) * XR HIP LEFT 2VW OR MORE(Performed 05/12/2023) Performed for Pain of left hip * COMPREHENSIVE METABOLIC PANEL(Performed 05/12/2023) * CBC W AUTO DIFFERENTIAL(Performed 05/12/2023) * LAB RESULTS ORDER(Performed 05/08/2023) * CARDIAC EKG ORDER(Performed 05/08/2023) * LAB RESULTS ORDER(Performed 05/06/2023) * CARDIAC RHYTHM STRIP ORDER(Performed 05/06/2023) * TROPONIN-I HIGH SENSITIVE REFLEX 1HOUR(Performed 05/06/2023) * CK BLOOD(Performed 05/05/2023) * COMPREHENSIVE METABOLIC PANEL(Performed 05/05/2023) * CBC W AUTO DIFFERENTIAL(Performed 05/05/2023) * TROPONIN-I HIGH SENSITIVE BASELINE + 1HR(Performed 05/05/2023) * XR CHEST 1VW PORTABLE(Performed 05/05/2023) Performed for Chest pain, unspecified type * EKG 12-LEAD(Performed 05/05/2023) Performed for Chest pain, unspecified type * CARDIAC EKG ORDER(Performed 05/01/2023) * CCL LEFT HEART CATH(Performed 05/01/2023) * MAGNESIUM BLOOD(Performed 05/01/2023) Performed for Chest tightness * BASIC METABOLIC PANEL (CALCIUM TOTAL)(Performed 05/01/2023) Performed for Chest tightness * CBC W AUTO DIFFERENTIAL(Performed 05/01/2023) Performed for Chest tightness * EKG 12-LEAD(Performed 04/30/2023) Performed for Chest tightness * PTT(Performed 04/30/2023) * PT-INR(Performed 04/30/2023) * TROPONIN-I HIGH SENSITIVE(Performed 04/30/2023) * XR CHEST 1VW PORTABLE(Performed 04/30/2023) Performed for Chest tightness * B-TYPE NATRIURETIC PEPTIDE(Performed 04/30/2023) * TROPONIN-I HIGH SENSITIVE(Performed 04/30/2023) * CBC W AUTO DIFFERENTIAL(Performed 04/30/2023) * COMPREHENSIVE METABOLIC PANEL(Performed 04/30/2023) * EKG 12-LEAD(Performed 04/30/2023) Performed for Chest tightness * EKG 12-LEAD(Performed 04/12/2023) Performed for Chest pain, unspecified type * TROPONIN-I HIGH SENSITIVE(Performed 04/12/2023) Performed for Chest pain, unspecified type * XR HIP LEFT 2VW OR MORE(Performed 04/11/2023) Performed for Pain of left hip * URINE DRUG SCREEN IMMUNOASSAY(Performed 04/11/2023) * CK BLOOD(Performed 04/11/2023) Performed for Elevated CK * BASIC METABOLIC PANEL (CALCIUM TOTAL)(Performed 04/11/2023) Performed for Elevated CK * CK BLOOD(Performed 04/10/2023) * COMPREHENSIVE METABOLIC PANEL(Performed 04/10/2023) * CBC W AUTO DIFFERENTIAL(Performed 04/10/2023) * CARDIAC EKG ORDER(Performed 02/02/2023) * EKG 12-LEAD(Performed 01/31/2023) Performed for Chest pain, unspecified type * SARS-COV-2 (COVID-19) RAPID(Performed 01/31/2023) * B-TYPE NATRIURETIC PEPTIDE(Performed 01/31/2023) * COMPREHENSIVE METABOLIC PANEL(Performed 01/31/2023) * CBC W AUTO DIFFERENTIAL(Performed 01/31/2023) * TROPONIN-I HIGH SENSITIVE BASELINE + 1HR(Performed 01/31/2023) * XR CHEST 1VW(Performed 01/31/2023) Performed for Chest pain, unspecified type * CK BLOOD(Performed 01/13/2023) * CBC W AUTO DIFFERENTIAL(Performed 01/13/2023) * CK BLOOD(Performed 01/12/2023) * BASIC METABOLIC PANEL (CALCIUM TOTAL)(Performed 01/12/2023) * CARDIAC RHYTHM STRIP ORDER(Performed 12/25/2022) * LAB RESULTS ORDER(Performed 12/25/2022) * URINE DRUG SCREEN IMMUNOASSAY(Performed 12/23/2022) * CARDIAC EKG ORDER(Performed 12/23/2022) * CBC W AUTO DIFFERENTIAL(Performed 12/23/2022) Performed for Elevated CK * TROPONIN I(Performed 12/23/2022) * CK BLOOD(Performed 12/23/2022) Performed for Muscle cramping * PHOSPHORUS BLOOD(Performed 12/23/2022) Performed for Cocaine abuse (HCC) * MAGNESIUM BLOOD(Performed 12/23/2022) Performed for Cocaine abuse (HCC) * BASIC METABOLIC PANEL (CALCIUM TOTAL)(Performed 12/23/2022) Performed for Cocaine abuse (HCC) * CK BLOOD(Performed 12/22/2022) * TROPONIN I(Performed 12/22/2022) * MAGNESIUM BLOOD(Performed 12/22/2022) * LIPASE BLOOD(Performed 12/22/2022) * COMPREHENSIVE METABOLIC PANEL(Performed 12/22/2022) * CBC W AUTO DIFFERENTIAL(Performed 12/22/2022) * XR CHEST 1VW PORTABLE(Performed 12/22/2022) Performed for Chest pain, unspecified type * EKG 12-LEAD(Performed 12/22/2022) Performed for Chest pain, unspecified type * LAB RESULTS ORDER(Performed 12/05/2022) * NM MYOCARD PERF REST ONLY(Performed 12/03/2022) Performed for Chest tightness, Cocaine abuse with cocaine-induced disorder (HCC) * ECHO COMPLETE W CONTRAST(Performed 12/02/2022) Performed for Chest pain, unspecified type, Cocaine abuse with cocaine-induced disorder (HCC) * CARDIAC EKG ORDER(Performed 12/01/2022) * BASIC METABOLIC PANEL (CALCIUM TOTAL)(Performed 12/01/2022) * TROPONIN I(Performed 11/30/2022) * GLUCOSE - POINT OF CARE(Performed 11/30/2022) * BASIC METABOLIC PANEL (CALCIUM TOTAL)(Performed 11/30/2022) * GLUCOSE - POINT OF CARE(Performed 11/30/2022) * CT ANGIO AORTA FOR DISSECTION(Performed 11/30/2022) Performed for Chest tightness * DO NOT START ED RT BRONCHODILATOR PROTOCOL(Performed 11/30/2022) * XR CHEST 2VW(Performed 11/30/2022) Performed for Chest tightness * B-TYPE NATRIURETIC PEPTIDE(Performed 11/30/2022) * CK BLOOD(Performed 11/30/2022) * COMPREHENSIVE METABOLIC PANEL(Performed 11/30/2022) * CBC W AUTO DIFFERENTIAL(Performed 11/30/2022) * TROPONIN I(Performed 11/30/2022) * ED CRITICAL CARE(Performed 11/30/2022) Performed for Chest tightness, Chest pain, unspecified type, Hyperkalemia, Non- traumatic rhabdomyolysis, ROSCOE (acute kidney injury) (HCC) * EKG 12-LEAD(Performed 11/30/2022) Performed for Chest tightness * CARDIAC EKG ORDER(Performed 11/25/2021) * URINE DRUG SCREEN IMMUNOASSAY(Performed 11/22/2021) * XR CHEST 1VW PORTABLE(Performed 11/22/2021) Performed for Chest pain, unspecified type * TROPONIN I(Performed 11/22/2021) * COMPREHENSIVE METABOLIC PANEL(Performed 11/22/2021) * CBC W AUTO DIFFERENTIAL(Performed 11/22/2021) * EKG 12-LEAD(Performed 11/21/2021) Performed for Other chest pain * XR CHEST 2VW(Performed 11/18/2021) Performed for Chest pain, unspecified type * CARDIAC EKG ORDER(Performed 10/19/2021) * XR CHEST 1VW PORTABLE(Performed 10/17/2021) Performed for SOB (shortness of breath) * EKG 12-LEAD(Performed 10/17/2021) Performed for SOB (shortness of breath) * CK BLOOD(Performed 08/28/2021) * ALCOHOL ETHYL BLOOD(Performed 08/28/2021) * COMPREHENSIVE METABOLIC PANEL(Performed 08/28/2021) * CBC W AUTO DIFFERENTIAL(Performed 08/28/2021) * CARDIAC EKG ORDER(Performed 06/06/2021) * LAB RESULTS ORDER(Performed 06/04/2021) * XR CHEST 1VW PORTABLE(Performed 05/30/2021) Performed for SOB (shortness of breath) * CK BLOOD(Performed 05/30/2021) * TROPONIN I(Performed 05/30/2021) * BASIC METABOLIC PANEL (CALCIUM TOTAL)(Performed 05/30/2021) * B-TYPE NATRIURETIC PEPTIDE(Performed 05/30/2021) * CBC W AUTO DIFFERENTIAL(Performed 05/30/2021) * EKG 12-LEAD(Performed 05/30/2021) Performed for SOB (shortness of breath) * CK BLOOD(Performed 03/02/2021) * MAGNESIUM BLOOD(Performed 03/02/2021) * COMPREHENSIVE METABOLIC PANEL(Performed 03/02/2021) * CBC W AUTO DIFFERENTIAL(Performed 03/02/2021) * CBC W AUTO DIFFERENTIAL(Performed 07/25/2020) * COMPREHENSIVE METABOLIC PANEL(Performed 07/25/2020) * CT ABDOMEN PELVIS WO CONTRAST(Performed 07/03/2020) Performed for Abdominal pain, generalized * CK BLOOD(Performed 07/03/2020) * LIPASE BLOOD(Performed 07/03/2020) * COMPREHENSIVE METABOLIC PANEL(Performed 07/03/2020) * CBC W AUTO DIFFERENTIAL(Performed 07/03/2020) * LAB RESULTS ORDER(Performed 06/19/2020) * URINE DRUG SCREEN IMMUNOASSAY(Performed 06/16/2020) * CK BLOOD(Performed 06/16/2020) * COMPREHENSIVE METABOLIC PANEL(Performed 06/16/2020) * CBC W AUTO DIFFERENTIAL(Performed 06/16/2020) * ED CRITICAL CARE(Performed 06/16/2020) Performed for Non-traumatic rhabdomyolysis, Cocaine abuse (HCC) * CARDIAC EKG ORDER(Performed 06/06/2020) * CK BLOOD(Performed 06/02/2020) * CK BLOOD(Performed 06/02/2020) * CBC W AUTO DIFFERENTIAL(Performed 06/02/2020) * COMPREHENSIVE METABOLIC PANEL(Performed 06/02/2020) * EKG 12-LEAD(Performed 06/02/2020) Performed for Nausea without vomiting * CARDIAC EKG ORDER(Performed 05/28/2020) * CK BLOOD(Performed 05/27/2020) * TROPONIN I(Performed 05/27/2020) * XR CHEST 1VW PORTABLE(Performed 05/27/2020) Performed for Chest pain, unspecified type * CK BLOOD(Performed 05/26/2020) * COMPREHENSIVE METABOLIC PANEL(Performed 05/26/2020) * CBC W AUTO DIFFERENTIAL(Performed 05/26/2020) * TROPONIN I(Performed 05/26/2020) * EKG 12-LEAD(Performed 05/26/2020) Performed for Chest pain, unspecified type * URINE DRUG SCREEN IMMUNOASSAY(Performed 04/11/2020) * CK BLOOD(Performed 04/11/2020) * CK BLOOD(Performed 04/11/2020) * CK BLOOD(Performed 04/11/2020) * COMPREHENSIVE METABOLIC PANEL(Performed 04/11/2020) * CBC W AUTO DIFFERENTIAL(Performed 04/11/2020) * CK BLOOD(Performed 04/09/2020) * COMPREHENSIVE METABOLIC PANEL(Performed 04/09/2020) * CBC W AUTO DIFFERENTIAL(Performed 04/09/2020) * CK BLOOD(Performed 03/31/2020) * COMPREHENSIVE METABOLIC PANEL(Performed 03/31/2020) * CBC W AUTO DIFFERENTIAL(Performed 03/31/2020) * BASIC METABOLIC PANEL (CALCIUM TOTAL)(Performed 03/24/2020) * CK BLOOD(Performed 03/24/2020) * URINALYSIS REFLEX MICROSCOPIC REFLEX CULTURE(Performed 03/23/2020) * US ABDOMEN LIMITED(Performed 03/23/2020) Performed for RUQ abdominal pain, Non-traumatic rhabdomyolysis * CT ABDOMEN PELVIS W CONTRAST(Performed 03/23/2020) Performed for RUQ abdominal pain * LIPASE BLOOD(Performed 03/23/2020) * CK BLOOD(Performed 03/23/2020) * COMPREHENSIVE METABOLIC PANEL(Performed 03/23/2020) * CBC W AUTO DIFFERENTIAL(Performed 03/23/2020) * CBC W AUTO DIFFERENTIAL(Performed 03/14/2020) * CK BLOOD(Performed 03/14/2020) * RENAL FUNCTION PANEL(Performed 03/14/2020) * CARDIAC EKG ORDER(Performed 03/13/2020) * CBC W AUTO DIFFERENTIAL(Performed 03/13/2020) * CK BLOOD(Performed 03/13/2020) * RENAL FUNCTION PANEL(Performed 03/13/2020) * CK BLOOD(Performed 03/12/2020) * URINE MICROSCOPIC ONLY REFLEX TO CULTURE(Performed 03/12/2020) * URINALYSIS REFLEX MICROSCOPIC REFLEX CULTURE(Performed 03/12/2020) * RENAL FUNCTION PANEL(Performed 03/12/2020) * CK BLOOD(Performed 03/12/2020) * CBC W AUTO DIFFERENTIAL(Performed 03/12/2020) * MAGNESIUM BLOOD(Performed 03/12/2020) * OT EVAL AND TREAT(Performed 03/12/2020) * PT EVAL AND TREAT(Performed 03/12/2020) * TROPONIN I(Performed 03/11/2020) * EKG 12-LEAD(Performed 03/11/2020) Performed for Generalized body aches * MAGNESIUM BLOOD(Performed 03/11/2020) * CK BLOOD(Performed 03/11/2020) * COMPREHENSIVE METABOLIC PANEL(Performed 03/11/2020) * CBC W AUTO DIFFERENTIAL(Performed 03/11/2020) * CBC W/O DIFFERENTIAL(Performed 03/04/2020) * CK BLOOD(Performed 03/04/2020) * PHOSPHORUS BLOOD(Performed 03/04/2020) * MAGNESIUM BLOOD(Performed 03/04/2020) * BASIC METABOLIC PANEL (CALCIUM TOTAL)(Performed 03/04/2020) * CREATININE URINE RANDOM(Performed 03/03/2020) * SODIUM URINE RANDOM(Performed 03/03/2020) * URINALYSIS W/MICROSCOPIC NO CULTURE(Performed 03/03/2020) * URINE DRUG SCREEN IMMUNOASSAY(Performed 03/03/2020) * CBC W AUTO DIFFERENTIAL(Performed 03/03/2020) * COMPREHENSIVE METABOLIC PANEL(Performed 03/03/2020) * CK BLOOD(Performed 03/03/2020) * BASIC METABOLIC PANEL (CALCIUM TOTAL)(Performed 02/16/2020) * CK BLOOD(Performed 02/16/2020) * URINALYSIS W/MICROSCOPIC NO CULTURE(Performed 02/16/2020) * CK BLOOD(Performed 02/15/2020) * COMPREHENSIVE METABOLIC PANEL(Performed 02/15/2020) * CBC W/O DIFFERENTIAL(Performed 02/15/2020) * CBC W AUTO DIFFERENTIAL(Performed 02/12/2020) Performed for Leukocytosis, unspecified type * CK BLOOD(Performed 02/12/2020) Performed for Myalgia * BASIC METABOLIC PANEL (CALCIUM TOTAL)(Performed 02/12/2020) Performed for ROSCOE (acute kidney injury) (HCC) * URINE DRUG SCREEN IMMUNOASSAY(Performed 02/11/2020) Performed for Non-traumatic rhabdomyolysis * CK BLOOD(Performed 02/11/2020) * COMPREHENSIVE METABOLIC PANEL(Performed 02/11/2020) * CBC W AUTO DIFFERENTIAL(Performed 02/11/2020) * CARDIAC EKG ORDER(Performed 01/23/2020) * B-TYPE NATRIURETIC PEPTIDE(Performed 01/20/2020) * CK BLOOD(Performed 01/20/2020) * CK BLOOD(Performed 01/19/2020) * BASIC METABOLIC PANEL (CALCIUM TOTAL)(Performed 01/19/2020) * CBC W/O DIFFERENTIAL(Performed 01/19/2020) * URINE DRUG SCREEN IMMUNOASSAY(Performed 01/18/2020) * D-DIMER(Performed 01/18/2020) * ECHOCARDIOGRAM 2D WITH DOPPLER(Performed 01/18/2020) Performed for Chest pain, unspecified type * TROPONIN I(Performed 01/18/2020) * SALICYLATE LEVEL BLOOD(Performed 01/18/2020) * ALCOHOL ETHYL BLOOD(Performed 01/18/2020) * ACETAMINOPHEN LEVEL(Performed 01/18/2020) * TROPONIN I(Performed 01/18/2020) * XR CHEST 2VW(Performed 01/18/2020) Performed for Chest pain, unspecified type * COMPREHENSIVE METABOLIC PANEL(Performed 01/18/2020) * CK BLOOD(Performed 01/18/2020) * TROPONIN I(Performed 01/18/2020) * CBC W AUTO DIFFERENTIAL(Performed 01/18/2020) * EKG 12-LEAD(Performed 01/18/2020) Performed for Chest pain, unspecified type * URINE DRUG SCREEN IMMUNOASSAY(Performed 12/31/2019) * CT ABDOMEN PELVIS W CONTRAST(Performed 12/29/2019) Performed for RLQ abdominal pain * URINE MICROSCOPIC ONLY REFLEX TO CULTURE(Performed 12/29/2019) * URINALYSIS REFLEX MICROSCOPIC REFLEX CULTURE(Performed 12/29/2019) * CULTURE URINE(Performed 12/29/2019) * LACTIC ACID BLOOD(Performed 12/28/2019) * LIPASE BLOOD(Performed 12/28/2019) * COMPREHENSIVE METABOLIC PANEL(Performed 12/28/2019) * CBC W AUTO DIFFERENTIAL(Performed 12/28/2019) * CARDIAC EKG ORDER(Performed 12/24/2019) * CARDIAC EKG ORDER(Performed 04/06/2019) * CK BLOOD(Performed 12/13/2018) * COMPREHENSIVE METABOLIC PANEL(Performed 12/13/2018) * URINALYSIS REFLEX MICROSCOPIC REFLEX CULTURE(Performed 12/12/2018) * URINE DRUG SCREEN IMMUNOASSAY(Performed 12/12/2018) * ED CRITICAL CARE(Performed 12/12/2018) * CK BLOOD(Performed 12/12/2018) * COMPREHENSIVE METABOLIC PANEL(Performed 12/12/2018) * CBC W AUTO DIFFERENTIAL(Performed 12/12/2018) * CK BLOOD(Performed 11/27/2018) Performed for Non-traumatic rhabdomyolysis * BASIC METABOLIC PANEL (CALCIUM TOTAL)(Performed 11/27/2018) Performed for Non-traumatic rhabdomyolysis * URINALYSIS REFLEX MICROSCOPIC REFLEX CULTURE(Performed 11/26/2018) Performed for Non-traumatic rhabdomyolysis * BASIC METABOLIC PANEL (CALCIUM TOTAL)(Performed 11/26/2018) Performed for Non-traumatic rhabdomyolysis * CK BLOOD(Performed 11/26/2018) * URINE DRUG SCREEN IMMUNOASSAY(Performed 11/25/2018) * CK BLOOD(Performed 11/25/2018) * CBC W AUTO DIFFERENTIAL(Performed 11/25/2018) * COMPREHENSIVE METABOLIC PANEL(Performed 11/25/2018) * URINE DRUG SCREEN IMMUNOASSAY(Performed 11/18/2018) * EKG 12-LEAD(Performed 11/18/2018) Performed for Elevated CK * ALCOHOL ETHYL BLOOD(Performed 11/18/2018) * CK + CKMB PANEL(Performed 11/18/2018) * COMPREHENSIVE METABOLIC PANEL(Performed 11/18/2018) * CBC W/O DIFFERENTIAL(Performed 11/18/2018) * LAB RESULTS ORDER(Performed 11/01/2018) * URINALYSIS REFLEX MICROSCOPIC REFLEX CULTURE(Performed 10/29/2018) * CBC W AUTO DIFFERENTIAL(Performed 10/29/2018) * COMPREHENSIVE METABOLIC PANEL(Performed 10/29/2018) * CK BLOOD(Performed 10/29/2018) * ED CRITICAL CARE(Performed 10/28/2018) Performed for Body aches, Non-traumatic rhabdomyolysis, Polysubstance abuse (HCC), Cocaine abuse (HCC), Dehydration * URINE DRUG SCREEN IMMUNOASSAY(Performed 10/28/2018) * URINALYSIS REFLEX MICROSCOPIC REFLEX CULTURE(Performed 10/28/2018) * CK BLOOD(Performed 10/28/2018) * COMPREHENSIVE METABOLIC PANEL(Performed 10/28/2018) * CBC W AUTO DIFFERENTIAL(Performed 10/28/2018) * XR CHEST 1VW PORTABLE(Performed 10/28/2018) Performed for Body aches * CK BLOOD(Performed 10/14/2018) * COMPREHENSIVE METABOLIC PANEL(Performed 10/14/2018) * CBC W AUTO DIFFERENTIAL(Performed 10/14/2018) * URINE MICROSCOPIC ONLY REFLEX TO CULTURE(Performed 10/14/2018) * URINALYSIS REFLEX MICROSCOPIC REFLEX CULTURE(Performed 10/14/2018) * EKG 12-LEAD(Performed 10/09/2018) Performed for Acute renal failure, unspecified acute renal failure type (HCC) * CK BLOOD(Performed 10/09/2018) * MAGNESIUM BLOOD(Performed 10/09/2018) * RENAL FUNCTION PANEL(Performed 10/09/2018) * ECHOCARDIOGRAM 2D WITH DOPPLER(Performed 10/09/2018) Performed for Elevated troponin * CARDIAC EKG ORDER(Performed 10/08/2018) * ED CRITICAL CARE(Performed 10/08/2018) Performed for Acute renal failure, unspecified acute renal failure type (HCC), Elevated troponin, ROSCOE (acute kidney injury) ([facility]) * ED GENERAL PROCEDURE(Performed 10/08/2018) * CK BLOOD(Performed 10/08/2018) * RENAL FUNCTION PANEL(Performed 10/08/2018) * CBC W AUTO DIFFERENTIAL(Performed 10/08/2018) * BASIC METABOLIC PANEL (CALCIUM TOTAL)(Performed 10/08/2018) * US RETROPERITONEAL COMPLETE(Performed 10/07/2018) Performed for ROSCOE (acute kidney injury) ([facility]) * HIV-1 HIV-2 ANTIBODY + HIV P24 AG PANEL(Performed 10/07/2018) * HEPATITIS SCREEN ACUTE(Performed 10/07/2018) * TROPONIN I(Performed 10/07/2018) * MAGNESIUM BLOOD(Performed 10/07/2018) * PHOSPHORUS BLOOD(Performed 10/07/2018) * TROPONIN I(Performed 10/07/2018) * XR CHEST 1VW PORTABLE(Performed 10/07/2018) Performed for Chest pain, unspecified type * EKG 12-LEAD(Performed 10/07/2018) Performed for Chest pain, unspecified type * CK BLOOD(Performed 10/07/2018) * COMPREHENSIVE METABOLIC PANEL(Performed 10/07/2018) * CBC W AUTO DIFFERENTIAL(Performed 10/07/2018) * TROPONIN I(Performed 10/07/2018) * LEGIONELLA ANTIGEN URINE(Performed 08/11/2018) * URINALYSIS W/MICROSCOPIC NO CULTURE(Performed 08/11/2018) * URINE DRUG SCREEN IMMUNOASSAY(Performed 08/11/2018) * BASIC METABOLIC PANEL (CALCIUM TOTAL)(Performed 08/10/2018) * CK BLOOD(Performed 08/10/2018) * CULTURE STOOL+ E COLI SHIGA-LIKE TOXIN(Performed 08/10/2018) * C DIFFICILE GDH AG + TOXIN A+B(Performed 08/10/2018) * XR CHEST 1VW(Performed 08/10/2018) Performed for Cough * CK BLOOD(Performed 08/10/2018) * ALCOHOL ETHYL BLOOD(Performed 08/10/2018) * ACETAMINOPHEN LEVEL(Performed 08/10/2018) * SALICYLATE LEVEL BLOOD(Performed 08/10/2018) * COMPREHENSIVE METABOLIC PANEL(Performed 08/10/2018) * CBC W AUTO DIFFERENTIAL(Performed 08/10/2018) * CARDIAC EKG ORDER(Performed 07/28/2018) * CK BLOOD(Performed 07/28/2018) * HEPATITIS SCREEN ACUTE(Performed 07/28/2018) * TROPONIN I(Performed 07/27/2018) * TROPONIN I(Performed 07/27/2018) * EKG 12-LEAD(Performed 07/27/2018) Performed for Generalized muscle ache * URINE MICROSCOPIC ONLY REFLEX TO CULTURE(Performed 07/27/2018) Performed for Non-traumatic rhabdomyolysis * URINALYSIS REFLEX MICROSCOPIC REFLEX CULTURE(Performed 07/27/2018) Performed for Non-traumatic rhabdomyolysis * TROPONIN I(Performed 07/27/2018) * PT PTT PANEL(Performed 07/27/2018) * URINE DRUG SCREEN IMMUNOASSAY(Performed 07/27/2018) * COMPREHENSIVE METABOLIC PANEL(Performed 07/27/2018) * CBC W AUTO DIFFERENTIAL(Performed 07/27/2018) * CK BLOOD(Performed 07/27/2018) * BASIC METABOLIC PANEL (CALCIUM TOTAL)(Performed 07/21/2018) * CK BLOOD(Performed 07/21/2018) * CK BLOOD(Performed 07/20/2018) * BASIC METABOLIC PANEL (CALCIUM TOTAL)(Performed 07/20/2018) * CK + CKMB PANEL(Performed 07/19/2018) * BASIC METABOLIC PANEL (CALCIUM TOTAL)(Performed 07/19/2018) * URINALYSIS W/MICROSCOPIC NO CULTURE(Performed 07/19/2018) * COMPREHENSIVE METABOLIC PANEL(Performed 07/19/2018) * CBC W AUTO DIFFERENTIAL(Performed 07/19/2018) * CK + CKMB PANEL(Performed 07/19/2018) * COMPREHENSIVE METABOLIC PANEL(Performed 07/17/2018) * CK + CKMB PANEL(Performed 07/17/2018) * CBC W/O DIFFERENTIAL(Performed 07/17/2018) * URINALYSIS W/MICROSCOPIC NO CULTURE(Performed 07/17/2018) * CULTURE URINE(Performed 07/17/2018) * CARDIAC EKG ORDER(Performed 07/16/2018) * CARDIAC RHYTHM STRIP ORDER(Performed 07/16/2018) * TSH REFLEX FREE T4(Performed 07/14/2018) * CBC W AUTO DIFFERENTIAL(Performed 07/14/2018) * RENAL FUNCTION PANEL(Performed 07/14/2018) * CK BLOOD(Performed 07/14/2018) * ERYTHROCYTE SEDIMENTATION RATE(Performed 07/13/2018) * C-REACTIVE PROTEIN(Performed 07/13/2018) * CK BLOOD(Performed 07/13/2018) * BASIC METABOLIC PANEL (CALCIUM TOTAL)(Performed 07/13/2018) * ED CRITICAL CARE(Performed 07/12/2018) Performed for Body aches, Non-traumatic rhabdomyolysis, Acute renal failure, unspecified acute renal failure type (HCC), Polysubstance abuse (HCC) * URINE MICROSCOPIC ONLY REFLEX TO CULTURE(Performed 07/12/2018) * URINALYSIS REFLEX MICROSCOPIC REFLEX CULTURE(Performed 07/12/2018) * URINE DRUG SCREEN IMMUNOASSAY(Performed 07/12/2018) * XR CHEST 1VW PORTABLE(Performed 07/12/2018) Performed for Body aches * EKG 12-LEAD(Performed 07/12/2018) Performed for Body aches * CK + CKMB PANEL(Performed 07/12/2018) * LIPASE BLOOD(Performed 07/12/2018) * COMPREHENSIVE METABOLIC PANEL(Performed 07/12/2018) * CBC W AUTO DIFFERENTIAL(Performed 07/12/2018) * CK + CKMB PANEL(Performed 05/15/2017) * COMPREHENSIVE METABOLIC PANEL(Performed 05/15/2017) * CBC W AUTO DIFFERENTIAL(Performed 05/15/2017) * URINALYSIS REFLEX MICROSCOPIC REFLEX CULTURE(Performed 05/12/2017) * CK + CKMB PANEL(Performed 05/12/2017) * COMPREHENSIVE METABOLIC PANEL(Performed 05/12/2017) * CBC W AUTO DIFFERENTIAL(Performed 05/12/2017) * CK BLOOD(Performed 05/04/2017) * LIPASE BLOOD(Performed 05/04/2017) * COMPREHENSIVE METABOLIC PANEL(Performed 05/04/2017) * CBC W AUTO DIFFERENTIAL(Performed 05/04/2017) * URINE MICROSCOPIC ONLY REFLEX TO CULTURE(Performed 05/04/2017) * URINALYSIS REFLEX MICROSCOPIC REFLEX CULTURE(Performed 05/04/2017) * CULTURE URINE(Performed 05/04/2017) * URINE DRUG SCREEN IMMUNOASSAY(Performed 05/02/2017) * CK BLOOD(Performed 05/02/2017) * URINALYSIS REFLEX MICROSCOPIC REFLEX CULTURE(Performed 05/02/2017) * COMPREHENSIVE METABOLIC PANEL(Performed 05/02/2017) * CBC W AUTO DIFFERENTIAL(Performed 05/02/2017) * XR HAND RIGHT 3VW OR MORE(Performed 04/28/2017) Performed for Hand pain, right * CK BLOOD(Performed 04/28/2017) * COMPREHENSIVE METABOLIC PANEL(Performed 04/28/2017) * CBC W AUTO DIFFERENTIAL(Performed 04/28/2017) * LAB RESULTS ORDER(Performed 04/21/2017) * CK BLOOD(Performed 04/19/2017) * CK BLOOD(Performed 04/18/2017) * CK BLOOD(Performed 04/17/2017) * BASIC METABOLIC PANEL (CALCIUM TOTAL)(Performed 04/17/2017) * CK BLOOD(Performed 04/17/2017) * CK BLOOD(Performed 04/16/2017) * CBC W AUTO DIFFERENTIAL(Performed 04/16/2017) * COMPREHENSIVE METABOLIC PANEL(Performed 04/16/2017) * URINE DRUG SCREEN IMMUNOASSAY(Performed 03/09/2017) * URINALYSIS REFLEX MICROSCOPIC REFLEX CULTURE(Performed 03/09/2017) * CK + CKMB PANEL(Performed 03/09/2017) * COMPREHENSIVE METABOLIC PANEL(Performed 03/09/2017) * CBC W AUTO DIFFERENTIAL(Performed 03/09/2017) * URINALYSIS REFLEX TO MICROSCOPIC NO CULTURE(Performed 03/06/2017) * DRUG ABUSE PANEL 10-20+ETHANOL URINE NO CONFIRM(Performed 03/06/2017) * TROPONIN I(Performed 03/06/2017) * CK BLOOD(Performed 03/06/2017) * MAGNESIUM BLOOD(Performed 03/06/2017) * COMPREHENSIVE METABOLIC PANEL(Performed 03/06/2017) * URINALYSIS REFLEX MICROSCOPIC REFLEX CULTURE(Performed 03/05/2017) * CULTURE URINE(Performed 03/05/2017) * CK BLOOD(Performed 03/05/2017) * COMPREHENSIVE METABOLIC PANEL(Performed 03/05/2017) * CBC W AUTO DIFFERENTIAL(Performed 03/05/2017) * ED CRITICAL CARE(Performed 01/23/2017) Performed for Cough, Non-traumatic rhabdomyolysis, Myalgia, Malaise, History of psychiatric disorder, Polysubstance abuse (HCC) * LAB RESULTS ORDER(Performed 01/15/2017) * CARDIAC RHYTHM STRIP ORDER(Performed 01/15/2017) * URINE DRUG SCREEN IMMUNOASSAY(Performed 01/12/2017) * URINALYSIS REFLEX MICROSCOPIC REFLEX CULTURE(Performed 01/12/2017) * CBC W AUTO DIFFERENTIAL(Performed 01/12/2017) * ALCOHOL ETHYL BLOOD(Performed 01/12/2017) * CK BLOOD(Performed 01/12/2017) * COMPREHENSIVE METABOLIC PANEL(Performed 01/12/2017) * XR CHEST 2VW(Performed 01/12/2017) Performed for Cough * CK BLOOD(Performed 01/04/2017) * BASIC METABOLIC PANEL (CALCIUM TOTAL)(Performed 01/04/2017) * CK BLOOD(Performed 01/03/2017) * BASIC METABOLIC PANEL (CALCIUM TOTAL)(Performed 01/03/2017) * COMPREHENSIVE METABOLIC PANEL(Performed 01/03/2017) * CK BLOOD(Performed 01/03/2017) * MAGNESIUM BLOOD(Performed 01/03/2017) * PHOSPHORUS BLOOD(Performed 01/03/2017) * CBC W AUTO DIFFERENTIAL(Performed 01/03/2017) * CBC W AUTO DIFFERENTIAL(Performed 01/03/2017) * XR CHEST 2VW(Performed 01/02/2017) * CK BLOOD(Performed 01/02/2017) * BASIC METABOLIC PANEL (CALCIUM TOTAL)(Performed 01/02/2017) * XR CHEST 1VW PORTABLE(Performed 01/02/2017) * XR CHEST 2VW(Performed 01/02/2017) * COMPREHENSIVE METABOLIC PANEL(Performed 01/02/2017) * CK + CKMB PANEL(Performed 01/02/2017) * TROPONIN I(Performed 01/02/2017) * CBC W AUTO DIFFERENTIAL(Performed 01/02/2017) * CBC W AUTO DIFFERENTIAL(Performed 01/02/2017) * EKG 12-LEAD(Performed 01/02/2017) * EKG 12-LEAD(Performed 01/02/2017) * CK BLOOD(Performed 11/01/2016) * BASIC METABOLIC PANEL (CALCIUM TOTAL)(Performed 11/01/2016) * CK BLOOD(Performed 10/14/2016) Performed for Rhabdomyolysis * CK + CKMB PANEL(Performed 10/14/2016) * CBC W AUTO DIFFERENTIAL(Performed 10/14/2016) * BASIC METABOLIC PANEL (CALCIUM TOTAL)(Performed 10/14/2016) * URINALYSIS REFLEX MICROSCOPIC REFLEX CULTURE(Performed 10/13/2016) * URINE DRUG SCREEN IMMUNOASSAY(Performed 10/13/2016) * ALCOHOL ETHYL BLOOD(Performed 10/13/2016) * ACETAMINOPHEN LEVEL(Performed 10/13/2016) * CK BLOOD(Performed 10/13/2016) * COMPREHENSIVE METABOLIC PANEL(Performed 10/13/2016) * CBC W AUTO DIFFERENTIAL(Performed 10/13/2016) * HEMOGLOBIN A1C(Performed 09/13/2016) * URINE DRUG SCREEN IMMUNOASSAY(Performed 09/11/2016) * URINALYSIS REFLEX MICROSCOPIC REFLEX CULTURE(Performed 09/11/2016) * INFLUENZA A+B ANTIGEN RAPID(Performed 09/11/2016) * TROPONIN I(Performed 09/11/2016) * CK + CKMB PANEL(Performed 09/11/2016) * COMPREHENSIVE METABOLIC PANEL(Performed 09/11/2016) * CBC W AUTO DIFFERENTIAL(Performed 09/11/2016) * CARDIAC EKG ORDER(Performed 09/09/2016) * HEPATITIS SCREEN ACUTE(Performed 08/31/2016) Performed for Abnormal LFTs * C-REACTIVE PROTEIN(Performed 08/31/2016) Performed for Myalgia, Infected dental carries * CK BLOOD(Performed 08/31/2016) Performed for Infected dental carries * MAGNESIUM BLOOD(Performed 08/31/2016) Performed for Myalgia, Infected dental carries * BASIC METABOLIC PANEL (CALCIUM TOTAL)(Performed 08/31/2016) Performed for Myalgia, Infected dental carries * HEPATIC FUNCTION PANEL(Performed 08/31/2016) Performed for Cocaine abuse (HCC), Rhabdomyolysis * MAGNESIUM BLOOD(Performed 08/30/2016) Performed for Cocaine abuse (HCC), Rhabdomyolysis * BASIC METABOLIC PANEL (CALCIUM TOTAL)(Performed 08/30/2016) Performed for Cocaine abuse (HCC), Rhabdomyolysis * CK BLOOD(Performed 08/30/2016) Performed for Rhabdomyolysis * URINALYSIS REFLEX MICROSCOPIC REFLEX CULTURE(Performed 08/30/2016) Performed for Rhabdomyolysis * TROPONIN I(Performed 08/29/2016) * ALCOHOL ETHYL BLOOD(Performed 08/29/2016) * COMPREHENSIVE METABOLIC PANEL(Performed 08/29/2016) * CBC W AUTO DIFFERENTIAL(Performed 08/29/2016) * CK + CKMB PANEL(Performed 08/29/2016) * EKG 12-LEAD(Performed 08/29/2016) Performed for Cocaine abuse (HCC), Myalgia, Negative attitude * XR CHEST 1VW(Performed 08/15/2016) Performed for Viral upper respiratory tract infection * URINE MICROSCOPIC ONLY REFLEX TO CULTURE(Performed 08/15/2016) * CK + CKMB PANEL(Performed 08/15/2016) * URINALYSIS REFLEX MICROSCOPIC REFLEX CULTURE(Performed 08/15/2016) * COMPREHENSIVE METABOLIC PANEL(Performed 08/15/2016) * CBC W AUTO DIFFERENTIAL(Performed 08/15/2016) * CT HEAD FACIAL BONES WO CONTRAST(Performed 08/01/2016) Performed for Left facial swelling * URINE DRUG SCREEN IMMUNOASSAY(Performed 08/01/2016) * URINALYSIS REFLEX MICROSCOPIC REFLEX CULTURE(Performed 08/01/2016) * CK BLOOD(Performed 08/01/2016) * ALCOHOL ETHYL BLOOD(Performed 08/01/2016) * COMPREHENSIVE METABOLIC PANEL(Performed 08/01/2016) * CBC W AUTO DIFFERENTIAL(Performed 08/01/2016) * CT FACIAL BONES WO CONTRAST(Performed 07/31/2016) * CBC W AUTO DIFFERENTIAL(Performed 07/31/2016) * CBC W AUTO DIFFERENTIAL(Performed 07/31/2016) * CK + CKMB PANEL(Performed 07/31/2016) * TROPONIN I(Performed 07/31/2016) * CK BLOOD(Performed 07/31/2016) * COMPREHENSIVE METABOLIC PANEL(Performed 07/31/2016) * ALCOHOL ETHYL BLOOD(Performed 07/31/2016) * DRUG ABUSE PANEL 10-20+ETHANOL URINE NO CONFIRM(Performed 07/31/2016) * URINALYSIS W/MICROSCOPIC NO CULTURE(Performed 07/31/2016) * EKG 12-LEAD(Performed 07/31/2016) * BASIC METABOLIC PANEL (CALCIUM TOTAL)(Performed 07/06/2016) * CK BLOOD(Performed 07/06/2016) * CBC W AUTO DIFFERENTIAL(Performed 07/06/2016) * CBC W AUTO DIFFERENTIAL(Performed 07/06/2016) * CARDIAC RHYTHM STRIP ORDER(Performed 02/20/2016) * URINE DRUG SCREEN IMMUNOASSAY(Performed 02/19/2016) Performed for Cocaine abuse (HCC) * TROPONIN I(Performed 02/19/2016) Performed for Cocaine abuse (HCC) * PT-INR(Performed 02/19/2016) Performed for Cocaine abuse (HCC) * D-DIMER(Performed 02/19/2016) Performed for Cocaine abuse (HCC) * CK + CKMB PANEL(Performed 02/19/2016) Performed for Other chest pain * COMPREHENSIVE METABOLIC PANEL(Performed 02/19/2016) Performed for Other chest pain * CBC W AUTO DIFFERENTIAL(Performed 02/19/2016) Performed for Other chest pain * LIPID PROFILE(Performed 02/19/2016) Performed for Other chest pain * GLUCOSE - POINT OF CARE(Performed 02/18/2016) * EKG 12-LEAD(Performed 02/18/2016) Performed for Cocaine abuse (HCC) * TROPONIN I(Performed 02/18/2016) * CK BLOOD(Performed 02/18/2016) * COMPREHENSIVE METABOLIC PANEL(Performed 02/18/2016) * CBC W AUTO DIFFERENTIAL(Performed 02/18/2016) * CK BLOOD(Performed 12/17/2015) * CKMB(Performed 12/17/2015) * URINE DRUG SCREEN IMMUNOASSAY(Performed 12/17/2015) * URINALYSIS REFLEX MICROSCOPIC REFLEX CULTURE(Performed 12/17/2015) * COMPREHENSIVE METABOLIC PANEL(Performed 12/17/2015) * CBC W AUTO DIFFERENTIAL(Performed 12/17/2015) * CK + CKMB PANEL(Performed 12/17/2015) * CK BLOOD(Performed 09/16/2015) * ALCOHOL ETHYL BLOOD(Performed 09/15/2015) * CK + CKMB PANEL(Performed 09/15/2015) * COMPREHENSIVE METABOLIC PANEL(Performed 09/15/2015) * CBC W AUTO DIFFERENTIAL(Performed 09/15/2015) * CBC W AUTO DIFFERENTIAL(Performed 09/15/2015) * XR HAND RIGHT 3VW OR MORE(Performed 09/15/2015) * CK + CKMB PANEL(Performed 08/27/2015) * BASIC METABOLIC PANEL (CALCIUM TOTAL)(Performed 08/27/2015) * BASIC METABOLIC PANEL (CALCIUM TOTAL)(Performed 08/27/2015) * CK + CKMB PANEL(Performed 08/27/2015) * CK + CKMB PANEL(Performed 08/27/2015) * COMPREHENSIVE METABOLIC PANEL(Performed 08/27/2015) * CBC W AUTO DIFFERENTIAL(Performed 08/27/2015) * CK BLOOD(Performed 07/12/2015) * URINALYSIS REFLEX TO MICROSCOPIC NO CULTURE(Performed 07/11/2015) * URINE DRUG SCREEN IMMUNOASSAY(Performed 07/11/2015) * BASIC METABOLIC PANEL (CALCIUM TOTAL)(Performed 07/11/2015) * CK BLOOD(Performed 07/11/2015) * CK BLOOD(Performed 07/10/2015) * DRUG SCREEN TOX LIMITED BLD PNL 3 INHOUSE(Performed 07/10/2015) * COMPREHENSIVE METABOLIC PANEL(Performed 07/10/2015) * CBC W AUTO DIFFERENTIAL(Performed 07/10/2015) * CK + CKMB PANEL(Performed 06/27/2015) * BASIC METABOLIC PANEL (CALCIUM TOTAL)(Performed 06/27/2015) * CK + CKMB PANEL(Performed 06/26/2015) * COMPREHENSIVE METABOLIC PANEL(Performed 06/26/2015) * CBC W AUTO DIFFERENTIAL(Performed 06/26/2015) * URIC ACID BLOOD(Performed 06/08/2015) * PHOSPHORUS BLOOD(Performed 06/08/2015) * COMPREHENSIVE METABOLIC PANEL(Performed 06/08/2015) * CK BLOOD(Performed 06/08/2015) * XR ELBOW LEFT 3VW OR MORE(Performed 06/08/2015) * XR WRIST LEFT 3VW OR MORE(Performed 06/08/2015) * XR HAND LEFT 3VW OR MORE(Performed 06/08/2015) * CBC W/O DIFFERENTIAL(Performed 06/08/2015) * CK + CKMB PANEL(Performed 03/24/2015) * COMPREHENSIVE METABOLIC PANEL(Performed 03/24/2015) * CBC W AUTO DIFFERENTIAL(Performed 03/24/2015) * URINE DRUG SCREEN IMMUNOASSAY(Performed 03/24/2015) * CK BLOOD(Performed 02/08/2015) * COMPREHENSIVE METABOLIC PANEL(Performed 02/08/2015) * HEMOGLOBIN A1C(Performed 02/07/2015) * CK BLOOD(Performed 02/07/2015) Performed for Schizoaffective disorder, subchronic condition with acute exacerbation (HCC) * COMPREHENSIVE METABOLIC PANEL(Performed 02/07/2015) * CBC W AUTO DIFFERENTIAL(Performed 02/07/2015) * CULTURE VRE(Performed 02/06/2015) * CULTURE MRSA(Performed 02/06/2015) * CULTURE MRSA(Performed 02/06/2015) * URINALYSIS REFLEX MICROSCOPIC REFLEX CULTURE(Performed 02/06/2015) * URINE DRUG SCREEN IMMUNOASSAY(Performed 02/06/2015) * CULTURE URINE(Performed 02/06/2015) * CK BLOOD(Performed 02/06/2015) * COMPREHENSIVE METABOLIC PANEL(Performed 02/06/2015) * CBC W AUTO DIFFERENTIAL(Performed 02/06/2015) * CK BLOOD(Performed 01/28/2015) * BASIC METABOLIC PANEL (CALCIUM TOTAL)(Performed 01/28/2015) * CK BLOOD(Performed 01/28/2015) * CBC W AUTO DIFFERENTIAL(Performed 01/28/2015) * CBC W AUTO DIFFERENTIAL(Performed 01/28/2015) * CK BLOOD(Performed 01/09/2015) * TROPONIN I(Performed 01/09/2015) * URINE DRUG SCREEN IMMUNOASSAY(Performed 01/09/2015) * CK + CKMB PANEL(Performed 01/08/2015) * COMPREHENSIVE METABOLIC PANEL(Performed 01/08/2015) * CBC W AUTO DIFFERENTIAL(Performed 01/08/2015) * BASIC METABOLIC PANEL (CALCIUM TOTAL)(Performed 12/27/2014) * CK + CKMB PANEL(Performed 12/27/2014) * ALCOHOL ETHYL BLOOD(Performed 12/27/2014) * CBC W AUTO DIFFERENTIAL(Performed 12/27/2014) * CBC W AUTO DIFFERENTIAL(Performed 12/27/2014) * CK BLOOD(Performed 12/12/2014) * BASIC METABOLIC PANEL (CALCIUM TOTAL)(Performed 12/12/2014) * URINALYSIS W/MICROSCOPIC NO CULTURE(Performed 12/12/2014) * TROPONIN I(Performed 12/12/2014) * CK BLOOD(Performed 12/12/2014) * COMPREHENSIVE METABOLIC PANEL(Performed 12/12/2014) * CBC W AUTO DIFFERENTIAL(Performed 12/12/2014) * CBC W AUTO DIFFERENTIAL(Performed 12/12/2014) * EKG 12-LEAD(Performed 12/12/2014) * CK BLOOD(Performed 11/21/2014) * MAGNESIUM BLOOD(Performed 11/21/2014) * COMPREHENSIVE METABOLIC PANEL(Performed 11/21/2014) * CBC W AUTO DIFFERENTIAL(Performed 11/21/2014) * EKG 12-LEAD(Performed 11/20/2014) Performed for Acute chest pain * TROPONIN I(Performed 11/20/2014) * CK BLOOD(Performed 11/20/2014) * COMPREHENSIVE METABOLIC PANEL(Performed 11/20/2014) * CBC W AUTO DIFFERENTIAL(Performed 11/20/2014) * DRUG ABUSE URINE PANEL(Performed 06/12/2014) * URINALYSIS REFLEX MICROSCOPIC REFLEX CULTURE(Performed 06/12/2014) * HEMOGLOBIN A1C(Performed 06/12/2014) * COMPREHENSIVE METABOLIC PANEL(Performed 06/12/2014) * CBC W AUTO DIFFERENTIAL(Performed 06/12/2014) * DRUG ABUSE PANEL 10-20+ETHANOL URINE NO CONFIRM(Performed 06/11/2014) * TROPONIN I(Performed 06/11/2014) * CK + CKMB PANEL(Performed 06/11/2014) * COMPREHENSIVE METABOLIC PANEL(Performed 06/11/2014) * ALCOHOL ETHYL BLOOD(Performed 06/11/2014) * CBC W AUTO DIFFERENTIAL(Performed 06/11/2014) * CBC W AUTO DIFFERENTIAL(Performed 06/11/2014) * EKG 12-LEAD(Performed 06/11/2014) * BASIC METABOLIC PANEL (CALCIUM TOTAL)(Performed 03/01/2014) * CBC W AUTO DIFFERENTIAL(Performed 03/01/2014) * CK BLOOD(Performed 03/01/2014) * DRUG ABUSE URINE PANEL(Performed 03/01/2014) * CK BLOOD(Performed 02/28/2014) * URINALYSIS REFLEX MICROSCOPIC REFLEX CULTURE(Performed 02/28/2014) * CK + CKMB PANEL(Performed 02/28/2014) * BASIC METABOLIC PANEL (CALCIUM TOTAL)(Performed 02/28/2014) * CBC W AUTO DIFFERENTIAL(Performed 02/28/2014) * DRUG SCREEN TOX LIMITED BLD PNL 3 INHOUSE(Performed 01/18/2014) * COMPREHENSIVE METABOLIC PANEL(Performed 01/18/2014) * CBC W AUTO DIFFERENTIAL(Performed 01/18/2014) * PT-INR [facility](Performed 11/25/2013) * BASIC METABOLIC PANEL (CALCIUM TOTAL)(Performed 11/25/2013) * CK BLOOD(Performed 11/25/2013) * MAGNESIUM BLOOD(Performed 11/25/2013) * CBC W AUTO DIFFERENTIAL(Performed 11/25/2013) * CBC W AUTO DIFFERENTIAL(Performed 11/25/2013) * ALDOLASE(Performed 11/24/2013) * TSH(Performed 11/24/2013) * DRUG ABUSE PANEL 10-20+ETHANOL URINE NO CONFIRM(Performed 11/24/2013) * URINALYSIS W/MICROSCOPIC NO CULTURE(Performed 11/24/2013) * LACTIC ACID BLOOD(Performed 11/23/2013) * CK + CKMB PANEL(Performed 11/23/2013) * COMPREHENSIVE METABOLIC PANEL(Performed 11/23/2013) * LDH BLOOD(Performed 11/23/2013) * URINALYSIS W/MICROSCOPIC NO CULTURE(Performed 11/23/2013) * CBC W AUTO DIFFERENTIAL(Performed 11/23/2013) * CBC W AUTO DIFFERENTIAL(Performed 11/23/2013) * EKG 12-LEAD(Performed 11/23/2013) * TROPONIN I(Performed 07/06/2013) * CK + CKMB PANEL(Performed 07/06/2013) * COMPREHENSIVE METABOLIC PANEL(Performed 07/06/2013) * PHOSPHORUS BLOOD(Performed 07/06/2013) * MAGNESIUM BLOOD(Performed 07/06/2013) * CBC W AUTO DIFFERENTIAL(Performed 07/06/2013) * DRUG ABUSE PANEL 10-20+ETHANOL URINE NO CONFIRM(Performed 07/05/2013) * URINALYSIS W/MICROSCOPIC NO CULTURE(Performed 07/05/2013) * MYOGLOBIN URINE QUANTITATIVE(Performed 07/04/2013) * DRUG ABUSE PANEL 10-20+ETHANOL URINE NO CONFIRM(Performed 07/04/2013) * URINALYSIS W/MICROSCOPIC NO CULTURE(Performed 07/04/2013) * BASIC METABOLIC PANEL (CALCIUM TOTAL)(Performed 07/04/2013) * TROPONIN I(Performed 07/04/2013) * CK + CKMB PANEL(Performed 07/04/2013) * CBC W AUTO DIFFERENTIAL(Performed 07/04/2013) * XR CHEST 1VW PORTABLE(Performed 07/04/2013) * EKG 12-LEAD(Performed 07/04/2013) * DRUG ABUSE URINE PANEL(Performed 06/20/2013) * TROPONIN I(Performed 06/20/2013) * CT ANGIO CHEST ABDOMEN(Performed 06/20/2013) Performed for Chest pain * XR CHEST 1VW PORTABLE(Performed 06/20/2013) Performed for Chest pain * COMPREHENSIVE METABOLIC PANEL(Performed 06/20/2013) * CBC W AUTO DIFFERENTIAL(Performed 06/20/2013) * TROPONIN I(Performed 06/20/2013) * CK BLOOD(Performed 06/20/2013) * EKG 12-LEAD(Performed 06/20/2013) Performed for Chest pain * CBC W AUTO DIFFERENTIAL(Performed 06/01/2013) * COMPREHENSIVE METABOLIC PANEL(Performed 06/01/2013) * URINE DRUG SCREEN IMMUNOASSAY(Performed 06/01/2013) * LAB RESULTS ORDER(Performed 05/26/2013) * CK + CKMB PANEL(Performed 05/25/2013) Performed for Elevated CK * DRUG ABUSE URINE PANEL(Performed 05/24/2013) * URINALYSIS REFLEX MICROSCOPIC REFLEX CULTURE(Performed 05/24/2013) * CK + CKMB PANEL(Performed 05/24/2013) * COMPREHENSIVE METABOLIC PANEL(Performed 05/24/2013) * CBC W AUTO DIFFERENTIAL(Performed 05/24/2013) * BASIC METABOLIC PANEL (CALCIUM TOTAL)(Performed 05/16/2013) * MAGNESIUM BLOOD(Performed 05/16/2013) * CK BLOOD(Performed 05/16/2013) * PHOSPHORUS BLOOD(Performed 05/16/2013) * CBC W AUTO DIFFERENTIAL(Performed 05/16/2013) * MAGNESIUM BLOOD(Performed 05/15/2013) * BASIC METABOLIC PANEL (CALCIUM TOTAL)(Performed 05/15/2013) * BASIC METABOLIC PANEL (CALCIUM TOTAL)(Performed 05/15/2013) * MAGNESIUM BLOOD(Performed 05/15/2013) * CBC W AUTO DIFFERENTIAL(Performed 05/15/2013) * CK BLOOD(Performed 05/15/2013) * PHOSPHORUS BLOOD(Performed 05/15/2013) * MAGNESIUM BLOOD(Performed 05/14/2013) * BASIC METABOLIC PANEL (CALCIUM TOTAL)(Performed 05/14/2013) * FOLATE RBC(Performed 05/14/2013) * VITAMIN B12(Performed 05/14/2013) * HYDROXYBUTYRATE BETA(Performed 05/14/2013) * LACTIC ACID BLOOD(Performed 05/14/2013) * BASIC METABOLIC PANEL (CALCIUM TOTAL)(Performed 05/14/2013) * MAGNESIUM BLOOD(Performed 05/14/2013) * CBC W AUTO DIFFERENTIAL(Performed 05/14/2013) * DRUG ABUSE PANEL 10-20+ETHANOL URINE NO CONFIRM(Performed 05/14/2013) * URINALYSIS NO MICROSCOPIC NO CULTURE(Performed 05/14/2013) * XR CHEST 2VW(Performed 05/14/2013) * CK + CKMB PANEL(Performed 05/14/2013) * COMPREHENSIVE METABOLIC PANEL(Performed 05/14/2013) * CBC W/O DIFFERENTIAL(Performed 05/14/2013) * EKG 12-LEAD(Performed 05/14/2013) * LAB RESULTS ORDER(Performed 05/03/2013) * PATHOLOGY/CYTOLOGY REPORT ORDER(Performed 05/03/2013) * CK BLOOD(Performed 04/26/2013) Performed for Rhabdomyolysis, Elevated CK * BASIC METABOLIC PANEL (CALCIUM TOTAL)(Performed 04/26/2013) Performed for Rhabdomyolysis, Elevated CK * CBC W AUTO DIFFERENTIAL(Performed 04/26/2013) Performed for Rhabdomyolysis, Elevated CK * URINE DRUG SCREEN IMMUNOASSAY(Performed 04/25/2013) Performed for Cocaine abuse, unspecified (HCC) * URINALYSIS REFLEX MICROSCOPIC REFLEX CULTURE(Performed 04/25/2013) Performed for Cocaine abuse, unspecified (HCC), Rhabdomyolysis, Elevated CK * CULTURE URINE(Performed 04/25/2013) Performed for Cocaine abuse, unspecified (HCC), Rhabdomyolysis, Elevated CK * TROPONIN I(Performed 04/25/2013) * TROPONIN I(Performed 04/25/2013) * CK BLOOD(Performed 04/25/2013) * COMPREHENSIVE METABOLIC PANEL(Performed 04/25/2013) * CBC W AUTO DIFFERENTIAL(Performed 04/25/2013) * CK + CKMB PANEL(Performed 03/29/2013) * BASIC METABOLIC PANEL (CALCIUM TOTAL)(Performed 03/29/2013) * CBC W AUTO DIFFERENTIAL(Performed 03/29/2013) * CARDIAC RHYTHM STRIP ORDER(Performed 03/10/2013) * IP CONSULT TO HOSPITALIST(Performed 03/10/2013) * BASIC METABOLIC PANEL (CALCIUM TOTAL)(Performed 03/08/2013) * CK + CKMB PANEL(Performed 03/08/2013) Performed for Rhabdomyolysis * CBC W AUTO DIFFERENTIAL(Performed 03/07/2013) * CK BLOOD(Performed 03/07/2013) * TROPONIN I(Performed 03/07/2013) * BASIC METABOLIC PANEL (CALCIUM TOTAL)(Performed 03/07/2013) * EKG 12-LEAD(Performed 03/07/2013) Performed for Cocaine abuse, unspecified (HCC), Rhabdomyolysis, Chest pain, HTN (hypertension), Schizo affective schizophrenia (HCC), Tobacco abuse, Elevated CK, Schizoaffective Disorder, Subchronic Condition With Acute Exacerbation (Hcc) * XR CHEST 2VW(Performed 03/06/2013) Performed for Cocaine abuse, unspecified (HCC) * TROPONIN I(Performed 03/06/2013) * COMPREHENSIVE METABOLIC PANEL(Performed 03/06/2013) * CBC W AUTO DIFFERENTIAL(Performed 03/06/2013) * CK + CKMB PANEL(Performed 03/06/2013) * EKG 12-LEAD(Performed 03/06/2013) Performed for Cocaine abuse, unspecified (HCC) * CK BLOOD(Performed 02/20/2013) Performed for Cocaine abuse (HCC), Rhabdomyolysis, Elevated CK * PHOSPHORUS BLOOD(Performed 02/20/2013) Performed for Cocaine abuse (HCC), Rhabdomyolysis, Elevated CK * MAGNESIUM BLOOD(Performed 02/20/2013) Performed for Cocaine abuse (HCC), Rhabdomyolysis, Elevated CK * COMPREHENSIVE METABOLIC PANEL(Performed 02/20/2013) Performed for Cocaine abuse (HCC), Rhabdomyolysis, Elevated CK * CBC W AUTO DIFFERENTIAL(Performed 02/20/2013) Performed for Cocaine abuse (HCC), Rhabdomyolysis, Elevated CK * TROPONIN I(Performed 02/19/2013) * URINE DRUG SCREEN IMMUNOASSAY(Performed 02/19/2013) * URINALYSIS REFLEX MICROSCOPIC REFLEX CULTURE(Performed 02/19/2013) * PTT(Performed 02/19/2013) * PT-INR(Performed 02/19/2013) * MAGNESIUM BLOOD(Performed 02/19/2013) * COMPREHENSIVE METABOLIC PANEL(Performed 02/19/2013) * CBC W AUTO DIFFERENTIAL(Performed 02/19/2013) * TROPONIN I(Performed 02/19/2013) * CK + CKMB PANEL(Performed 02/19/2013) * XR CHEST 2VW(Performed 02/19/2013) Performed for Cocaine abuse (HCC) * EKG 12-LEAD(Performed 02/19/2013) Performed for Cocaine abuse (HCC) * CK BLOOD(Performed 01/31/2013) * BASIC METABOLIC PANEL (CALCIUM TOTAL)(Performed 01/31/2013) * MAGNESIUM BLOOD(Performed 01/31/2013) * PHOSPHORUS BLOOD(Performed 01/31/2013) * CBC W AUTO DIFFERENTIAL(Performed 01/31/2013) * DRUG ABUSE PANEL 10-20+ETHANOL URINE NO CONFIRM(Performed 01/30/2013) * URINALYSIS W/MICROSCOPIC NO CULTURE(Performed 01/30/2013) * CK + CKMB PANEL(Performed 01/29/2013) * ALCOHOL ETHYL BLOOD(Performed 01/29/2013) * COMPREHENSIVE METABOLIC PANEL(Performed 01/29/2013) * CBC W AUTO DIFFERENTIAL(Performed 01/29/2013) * XR THORACIC SPINE 3VW(Performed 12/17/2012) Performed for Back pain * XR HIP RIGHT 2VW OR MORE(Performed 12/17/2012) Performed for Back pain * XR LUMBAR SPINE 2 OR 3VW(Performed 12/17/2012) Performed for Back pain * DRUG ABUSE URINE PANEL(Performed 2012) * CK + CKMB PANEL(Performed 2012) * ALCOHOL ETHYL BLOOD(Performed 2012) * COMPREHENSIVE METABOLIC PANEL(Performed 2012) * CBC W AUTO DIFFERENTIAL(Performed 2012) * CARDIAC RHYTHM STRIP ORDER(Performed 11/22/2012) * CK + CKMB PANEL(Performed 11/15/2012) * DRUG ABUSE URINE PANEL(Performed 11/15/2012) * ALCOHOL ETHYL BLOOD(Performed 11/15/2012) * EKG 12-LEAD(Performed 11/15/2012) Performed for (Hcc) * URINALYSIS REFLEX MICROSCOPIC REFLEX CULTURE(Performed 08/16/2012) * URINE MICROSCOPIC ONLY REFLEX TO CULTURE(Performed 08/16/2012) * URINE DRUG SCREEN IMMUNOASSAY(Performed 08/16/2012) * ALCOHOL ETHYL BLOOD(Performed 08/16/2012) * CK + CKMB PANEL(Performed 08/16/2012) * COMPREHENSIVE METABOLIC PANEL(Performed 08/16/2012) * XR HUMERUS LEFT 2VW OR MORE(Performed 08/16/2012) Performed for Arm pain * CK BLOOD(Performed 08/10/2012) * XR ELBOW LEFT 3VW OR MORE(Performed 08/10/2012) * XR HUMERUS LEFT 2VW OR MORE(Performed 08/10/2012) * XR SHOULDER LEFT 2VW OR MORE(Performed 08/10/2012) * CK + CKMB PANEL(Performed 08/10/2012) * ALCOHOL ETHYL BLOOD(Performed 08/10/2012) * COMPREHENSIVE METABOLIC PANEL(Performed 08/10/2012) * CBC W AUTO DIFFERENTIAL(Performed 08/10/2012) * DRUG ABUSE URINE PANEL(Performed 06/28/2012) * EKG 12-LEAD(Performed 05/25/2012) * BASIC METABOLIC PANEL (CALCIUM TOTAL)(Performed 05/04/2012) * CBC W AUTO DIFFERENTIAL(Performed 05/04/2012) * CK + CKMB PANEL(Performed 05/04/2012) * TROPONIN I(Performed 05/04/2012) * PHOSPHORUS BLOOD(Performed 05/04/2012) * MAGNESIUM BLOOD(Performed 05/04/2012) * CK + CKMB PANEL(Performed 05/03/2012) * TROPONIN I(Performed 05/03/2012) * HEPATIC FUNCTION PANEL(Performed 05/03/2012) * BASIC METABOLIC PANEL (CALCIUM TOTAL)(Performed 05/03/2012) * CBC W AUTO DIFFERENTIAL(Performed 05/03/2012) * XR CHEST 2VW(Performed 05/03/2012) * XR PANOREX(Performed 04/15/2012) * CK BLOOD(Performed 04/14/2012) * BASIC METABOLIC PANEL (CALCIUM TOTAL)(Performed 04/14/2012) * URINALYSIS NO MICROSCOPIC NO CULTURE(Performed 04/14/2012) * DRUG ABUSE PANEL 10-20+ETHANOL URINE NO CONFIRM(Performed 04/14/2012) * CK BLOOD(Performed 04/13/2012) * SALICYLATE LEVEL BLOOD(Performed 04/13/2012) * ACETAMINOPHEN LEVEL(Performed 04/13/2012) * TRICYCLICS SCREEN BLOOD(Performed 04/13/2012) * ALCOHOL ETHYL BLOOD(Performed 04/13/2012) * COMPREHENSIVE METABOLIC PANEL(Performed 04/13/2012) * CBC W/O DIFFERENTIAL(Performed 04/13/2012) * DRUG SCREEN URINE TRIAGE PANEL(Performed 04/08/2012) * URINALYSIS REFLEX MICROSCOPIC REFLEX CULTURE(Performed 04/08/2012) * COMPREHENSIVE METABOLIC PANEL(Performed 04/07/2012) * CBC W AUTO DIFFERENTIAL(Performed 04/07/2012) * ALCOHOL ETHYL BLOOD(Performed 03/27/2012) * DRUG SCREEN URINE TRIAGE PANEL(Performed 03/27/2012) * URINALYSIS REFLEX MICROSCOPIC REFLEX CULTURE(Performed 03/27/2012) * COMPREHENSIVE METABOLIC PANEL(Performed 03/27/2012) * CBC W AUTO DIFFERENTIAL(Performed 03/27/2012) * AMYLASE BLOOD(Performed 03/11/2012) * LIPASE BLOOD(Performed 03/11/2012) * COMPREHENSIVE METABOLIC PANEL(Performed 03/11/2012) * CK + CKMB PANEL(Performed 03/11/2012) * URINALYSIS W/MICROSCOPIC NO CULTURE(Performed 03/09/2012) * CK + CKMB PANEL(Performed 03/09/2012) * BASIC METABOLIC PANEL (CALCIUM TOTAL)(Performed 03/09/2012) * EKG 12-LEAD(Performed 02/14/2012) Performed for Cocaine use * TROPONIN I(Performed 02/14/2012) * HEMOGLOBIN A1C(Performed 02/14/2012) * CK + CKMB PANEL(Performed 02/14/2012) * EKG 12-LEAD(Performed 01/23/2012) * EKG 12-LEAD(Performed 01/23/2012) * EKG 12-LEAD(Performed 01/17/2012) * DRUG ABUSE PANEL 10-20+ETHANOL URINE NO CONFIRM(Performed 01/11/2012) * CBC W/O DIFFERENTIAL(Performed 01/11/2012) * COMPREHENSIVE METABOLIC PANEL(Performed 01/11/2012) * TRICYCLICS SCREEN BLOOD(Performed 01/11/2012) * SALICYLATE LEVEL BLOOD(Performed 01/11/2012) * ALCOHOL ETHYL BLOOD(Performed 01/11/2012) * ACETAMINOPHEN LEVEL(Performed 01/11/2012) * CK + CKMB PANEL(Performed 01/04/2012) * PHOSPHORUS BLOOD(Performed 01/04/2012) * MAGNESIUM BLOOD(Performed 01/04/2012) * BASIC METABOLIC PANEL (CALCIUM TOTAL)(Performed 01/04/2012) * CBC W AUTO DIFFERENTIAL(Performed 01/04/2012) * CK + CKMB PANEL(Performed 01/03/2012) * MAGNESIUM BLOOD(Performed 01/03/2012) * BASIC METABOLIC PANEL (CALCIUM TOTAL)(Performed 01/03/2012) * MAGNESIUM BLOOD(Performed 01/02/2012) * BASIC METABOLIC PANEL (CALCIUM TOTAL)(Performed 01/02/2012) * TROPONIN I(Performed 01/02/2012) * CK + CKMB PANEL(Performed 01/02/2012) * CK + CKMB PANEL(Performed 01/02/2012) * TROPONIN I(Performed 01/02/2012) * COMPREHENSIVE METABOLIC PANEL(Performed 01/02/2012) * XR CHEST 1VW PORTABLE(Performed 01/02/2012) * TROPONIN I(Performed 01/02/2012) * CK + CKMB PANEL(Performed 01/02/2012) * CBC W AUTO DIFFERENTIAL(Performed 01/02/2012) * BASIC METABOLIC PANEL (CALCIUM TOTAL)(Performed 01/02/2012) * EKG 12-LEAD(Performed 12/26/2011) Performed for Rhabdomyolysis * CK BLOOD(Performed 12/26/2011) * ALCOHOL ETHYL BLOOD(Performed 12/26/2011) * COMPREHENSIVE METABOLIC PANEL(Performed 12/26/2011) * CBC W AUTO DIFFERENTIAL(Performed 12/26/2011) * DRUG ABUSE PANEL 10-20+ETHANOL URINE NO CONFIRM(Performed 11/24/2011) * CBC W/O DIFFERENTIAL(Performed 11/24/2011) * BASIC METABOLIC PANEL (CALCIUM TOTAL)(Performed 11/24/2011) * TRICYCLICS SCREEN BLOOD(Performed 11/24/2011) * SALICYLATE LEVEL BLOOD(Performed 11/24/2011) * ALCOHOL ETHYL BLOOD(Performed 11/24/2011) * ACETAMINOPHEN LEVEL(Performed 11/24/2011) * BASIC METABOLIC PANEL (CALCIUM TOTAL)(Performed 10/19/2011) * LAB HISTORICAL RESULTS-ONBASE(Performed 10/16/2011) * LAB HISTORICAL RESULTS-ONBASE(Performed 10/16/2011) * LAB HISTORICAL RESULTS-ONBASE(Performed 10/16/2011) * LAB HISTORICAL RESULTS-ONBASE(Performed 10/16/2011) * LAB HISTORICAL RESULTS-ONBASE(Performed 10/16/2011) * LAB HISTORICAL RESULTS-ONBASE(Performed 10/16/2011) * LAB HISTORICAL RESULTS-ONBASE(Performed 10/16/2011) * DRUG ABUSE PANEL 10-20+ETHANOL URINE NO CONFIRM(Performed 10/16/2011) * CBC W/O DIFFERENTIAL(Performed 10/16/2011) * BASIC METABOLIC PANEL (CALCIUM TOTAL)(Performed 10/16/2011) * TRICYCLICS SCREEN BLOOD(Performed 10/16/2011) * SALICYLATE LEVEL BLOOD(Performed 10/16/2011) * ALCOHOL ETHYL BLOOD(Performed 10/16/2011) * ACETAMINOPHEN LEVEL(Performed 10/16/2011) * IP CONSULT TO HOSPITALIST(Performed 09/22/2011) * MYOGLOBIN BLOOD(Performed 09/21/2011) * C-REACTIVE PROTEIN(Performed 09/21/2011) * ALCOHOL ETHYL BLOOD(Performed 09/21/2011) * DRUG SCREEN URINE TRIAGE PANEL(Performed 09/21/2011) * URINALYSIS REFLEX MICROSCOPIC REFLEX CULTURE(Performed 09/21/2011) * COMPREHENSIVE METABOLIC PANEL(Performed 09/21/2011) * CBC W AUTO DIFFERENTIAL(Performed 09/21/2011) * CARDIAC RHYTHM STRIP ORDER(Performed 07/17/2011) * URINALYSIS REFLEX MICROSCOPIC REFLEX CULTURE(Performed 07/14/2011) * PHOSPHORUS BLOOD(Performed 07/13/2011) Performed for Chest pain, Rhabdomyolysis, HTN (hypertension), Renal insufficiency, Unspecified schizophrenia, chronic condition (HCC), Cocaine dependence, Headache, Noncompliance with medication regimen, Schizoaffective disorder, Hyperglycemia, Toothache, Body aches, Antisocial personality disorder (HCC) * MAGNESIUM BLOOD(Performed 07/13/2011) Performed for Chest pain, Rhabdomyolysis, HTN (hypertension), Renal insufficiency, Unspecified schizophrenia, chronic condition (HCC), Cocaine dependence, Headache, Noncompliance with medication regimen, Schizoaffective disorder, Hyperglycemia, Toothache, Body aches, Antisocial personality disorder (HCC) * CK + CKMB PANEL(Performed 07/13/2011) * TROPONIN I(Performed 07/13/2011) * TROPONIN - POINT OF CARE(Performed 07/13/2011) * B-TYPE NATRIURETIC PEPTIDE - POINT OF CARE(Performed 07/13/2011) * MYOGLOBIN BLOOD - POINT OF CARE(Performed 07/13/2011) * CKMB - POINT OF CARE(Performed 07/13/2011) * MAGNESIUM BLOOD(Performed 07/13/2011) * ALCOHOL ETHYL BLOOD(Performed 07/13/2011) * CK BLOOD(Performed 07/13/2011) * COMPREHENSIVE METABOLIC PANEL(Performed 07/13/2011) * CBC W AUTO DIFFERENTIAL(Performed 07/13/2011) * XR CHEST 1VW PORTABLE(Performed 07/13/2011) Performed for Chest pain * EKG 12-LEAD(Performed 07/13/2011) Performed for Chest pain * CK BLOOD(Performed 06/03/2011) * TSH(Performed 06/03/2011) * COMPREHENSIVE METABOLIC PANEL(Performed 06/03/2011) * CBC W AUTO DIFFERENTIAL(Performed 06/03/2011) * URINALYSIS REFLEX MICROSCOPIC REFLEX CULTURE(Performed 06/02/2011) * COMPREHENSIVE METABOLIC PANEL(Performed 06/02/2011) * CBC W AUTO DIFFERENTIAL(Performed 06/02/2011) * CK BLOOD(Performed 06/02/2011) * COMPREHENSIVE METABOLIC PANEL(Performed 06/02/2011) * CBC W AUTO DIFFERENTIAL(Performed 06/02/2011) * LAB MICROBIOLOGY - HPF HISTORICAL(Performed 05/09/2011) * ACETAMINOPHEN LEVEL(Performed 12/20/2010) * URINALYSIS REFLEX MICROSCOPIC REFLEX CULTURE(Performed 12/20/2010) * COMPREHENSIVE METABOLIC PANEL(Performed 12/20/2010) * CBC W AUTO DIFFERENTIAL(Performed 12/20/2010) * XR CERVICAL SPINE 2 OR 3VW(Performed 12/13/2010) * MYOGLOBIN BLOOD - POINT OF CARE(Performed 12/13/2010) * B-TYPE NATRIURETIC PEPTIDE - POINT OF CARE(Performed 12/13/2010) * TROPONIN - POINT OF CARE(Performed 12/13/2010) * CKMB - POINT OF CARE(Performed 12/13/2010) * DRUG SCREEN URINE TRIAGE PANEL(Performed 12/13/2010) * CK BLOOD(Performed 12/13/2010) * URINALYSIS REFLEX TO MICROSCOPIC NO CULTURE(Performed 12/13/2010) * IP CONSULT TO INTERNAL MEDICINE(Performed 10/01/2010) * CK + CKMB PANEL(Performed 09/30/2010) * ALCOHOL ETHYL BLOOD(Performed 09/29/2010) * COMPREHENSIVE METABOLIC PANEL(Performed 09/29/2010) * CBC W AUTO DIFFERENTIAL(Performed 09/29/2010) * CK BLOOD(Performed 09/29/2010) * ACETAMINOPHEN LEVEL(Performed 09/29/2010) * DRUG SCREEN URINE TRIAGE PANEL(Performed 09/29/2010) * URINALYSIS REFLEX MICROSCOPIC REFLEX CULTURE(Performed 09/29/2010) * EKG 12-LEAD(Performed 09/29/2010) Performed for Cocaine dependence * CARDIAC EKG ORDER(Performed 08/20/2010) * US ABDOMEN LIMITED(Performed 08/19/2010) Performed for Unspecified schizophrenia, chronic condition (HCC), Cocaine dependence, Headache, HTN(hypertension), Rhabdomyolysis, Renal insufficiency * URINALYSIS REFLEX TO MICROSCOPIC NO CULTURE(Performed 08/17/2010) * XR RIBS RIGHT 2VW(Performed 08/17/2010) Performed for Unspecified schizophrenia, chronic condition (HCC), Cocaine dependence, Headache, HTN(hypertension), Rhabdomyolysis, Renal insufficiency * XR HIP RIGHT 2VW OR MORE(Performed 08/17/2010) Performed for Unspecified schizophrenia, chronic condition (HCC), Cocaine dependence, Headache, HTN(hypertension), Rhabdomyolysis, Renal insufficiency * LIPID PROFILE(Performed 08/17/2010) * COMPREHENSIVE METABOLIC PANEL(Performed 08/17/2010) * CBC W AUTO DIFFERENTIAL(Performed 08/17/2010) * EKG 12-LEAD(Performed 08/17/2010) Performed for Cocaine dependence * DRUG SCREEN URINE TRIAGE PANEL(Performed 08/15/2010) * TROPONIN I(Performed 08/15/2010) Performed for Chest pain * CK + CKMB PANEL(Performed 08/15/2010) Performed for Chest pain * CK + CKMB PANEL(Performed 08/15/2010) Performed for Chest pain * TROPONIN I(Performed 08/15/2010) Performed for Chest pain * MYOGLOBIN BLOOD - POINT OF CARE(Performed 08/15/2010) * CKMB - POINT OF CARE(Performed 08/15/2010) * TROPONIN - POINT OF CARE(Performed 08/15/2010) * B-TYPE NATRIURETIC PEPTIDE - POINT OF CARE(Performed 08/15/2010) * XR CHEST 1VW PORTABLE(Performed 08/15/2010) Performed for Chest pain * COMPREHENSIVE METABOLIC PANEL(Performed 08/15/2010) * CBC W AUTO DIFFERENTIAL(Performed 08/15/2010) * EKG 12-LEAD(Performed 08/15/2010) Performed for Chest pain, HTN (hypertension), Cocaine dependence, Unspecified chest pain * EKG 12-LEAD(Performed 08/15/2010) Performed for Chest pain, HTN (hypertension), Rhabdomyolysis, Renal insufficiency, Unspecified schizophrenia, chronic condition (HCC), Cocaine dependence, Headache * EKG 12-LEAD(Performed 08/15/2010) Performed for Chest pain * CARDIAC EKG ORDER(Performed 02/19/2010) * DRUG SCREEN TOX LIMITED BLOOD PANEL(Performed 02/09/2010) * ACETAMINOPHEN LEVEL(Performed 02/09/2010) * ALCOHOL ETHYL BLOOD(Performed 02/09/2010) * COMPREHENSIVE METABOLIC PANEL(Performed 02/09/2010) * CBC W AUTO DIFFERENTIAL(Performed 02/09/2010) * URINALYSIS REFLEX MICROSCOPIC REFLEX CULTURE(Performed 12/09/2009) Performed for Headache * DRUG SCREEN URINE TRIAGE PANEL(Performed 12/09/2009) Performed for Headache * MYOGLOBIN BLOOD - POINT OF CARE(Performed 12/09/2009) Performed for Headache * CKMB - POINT OF CARE(Performed 12/09/2009) Performed for Headache * TROPONIN - POINT OF CARE(Performed 12/09/2009) Performed for Headache * B-TYPE NATRIURETIC PEPTIDE - POINT OF CARE(Performed 12/09/2009) Performed for Headache * CT HEAD WO CONTRAST(Performed 12/09/2009) Performed for Headache * DRUG SCREEN TOX LIMITED BLOOD PANEL(Performed 12/09/2009) * ACETAMINOPHEN LEVEL(Performed 12/09/2009) Performed for Headache * ALCOHOL ETHYL BLOOD(Performed 12/09/2009) Performed for Headache * COMPREHENSIVE METABOLIC PANEL(Performed 12/09/2009) Performed for Headache * CBC W AUTO DIFFERENTIAL(Performed 12/09/2009) Performed for Headache * EKG 12-LEAD(Performed 12/09/2009) Performed for Headache * URINALYSIS REFLEX TO MICROSCOPIC NO CULTURE(Performed 10/14/2009) Performed for Major Depressive Disorder, Single Episode, Unspecified * ALCOHOL ETHYL BLOOD(Performed 10/13/2009) Performed for Spasm Of Muscle * SALICYLATE LEVEL BLOOD(Performed 10/13/2009) Performed for Spasm Of Muscle * ACETAMINOPHEN LEVEL(Performed 10/13/2009) Performed for Spasm Of Muscle * DRUG SCREEN URINE TRIAGE PANEL(Performed 10/13/2009) Performed for Spasm Of Muscle * URINALYSIS REFLEX MICROSCOPIC REFLEX CULTURE(Performed 10/13/2009) Performed for Spasm Of Muscle * MYOGLOBIN BLOOD - POINT OF CARE(Performed 10/13/2009) Performed for Spasm Of Muscle * TROPONIN - POINT OF CARE(Performed 10/13/2009) Performed for Spasm Of Muscle * B-TYPE NATRIURETIC PEPTIDE - POINT OF CARE(Performed 10/13/2009) Performed for Spasm Of Muscle * CKMB - POINT OF CARE(Performed 10/13/2009) Performed for Spasm Of Muscle * XR CHEST 1VW PORTABLE(Performed 10/13/2009) * CK + CKMB PANEL(Performed 10/13/2009) Performed for Spasm Of Muscle * PT PTT PANEL(Performed 10/13/2009) Performed for Spasm Of Muscle * COMPREHENSIVE METABOLIC PANEL(Performed 10/13/2009) Performed for Spasm Of Muscle * CBC W AUTO DIFFERENTIAL(Performed 10/13/2009) Performed for Spasm Of Muscle * CK BLOOD(Performed 03/03/2009) Performed for Unspecified Psychosis (HCC) * CK BLOOD(Performed 03/03/2009) Performed for Unspecified Psychosis (HCC) * CK BLOOD(Performed 03/03/2009) Performed for Unspecified Psychosis (HCC) * CBC W/O DIFFERENTIAL(Performed 03/03/2009) Performed for Unspecified Psychosis (HCC) * COMPREHENSIVE METABOLIC PANEL(Performed 03/03/2009) Performed for Unspecified Psychosis (HCC) * CK BLOOD(Performed 03/03/2009) Performed for Unspecified Psychosis (HCC) * DRUG SCREEN URINE TRIAGE PANEL(Performed 03/02/2009) Performed for Other Alteration Of Consciousness * CK BLOOD(Performed 03/02/2009) Performed for Other Chest Pain * ALCOHOL ETHYL BLOOD(Performed 03/02/2009) Performed for Other Alteration Of Consciousness * COMPREHENSIVE METABOLIC PANEL(Performed 03/02/2009) Performed for Abdominal Pain, Unspecified Site * CBC W AUTO DIFFERENTIAL(Performed 03/02/2009) Performed for Abdominal Pain, Unspecified Site * B-TYPE NATRIURETIC PEPTIDE - POINT OF CARE(Performed 03/02/2009) Performed for Unspecified Psychosis (HCC) * MYOGLOBIN BLOOD - POINT OF CARE(Performed 03/02/2009) Performed for Unspecified Psychosis (HCC) * TROPONIN - POINT OF CARE(Performed 03/02/2009) Performed for Unspecified Psychosis (HCC) * CKMB - POINT OF CARE(Performed 03/02/2009) Performed for Unspecified Psychosis (HCC) Results * CARDIAC RHYTHM STRIP ORDER (01/18/2024 8:59 PM CDT) Only the most recent of9 resultswithin the time period is included. Narrative 01/18/2024 8:59 PM CDT Ordered by an unspecified provider. Scanned Document CARDIAC SERVICES ORD ERABLES * XR Chest 1Vw Portable (01/14/2024 10:10 PM CDT) Only the most recent of20 resultswithin the time period is included. Anatomical Region Laterality Modality Chest Radiographic Nessa ging 01/15/2024 7:46 AM CDT Narrative 01/15/2024 7:46 AM CDT PROCEDURE: ??XR CHEST 1VW PORTABLE DATE/TIME OF EXAM: ??01/14/2024 10:15 PM CLINICAL INFORMATION: None relevant/not provided if blank. Indication: I50.89: Other heart failure (HCC) Additional History: Findings/impression: Heart is enlarged. Patchy opacities are seen in the lung bases. No pneumothorax is seen. Degenerative changes are seen in the shoulders. > Interpreting Provider: Sukih Mulligan MD on 01/15/2024 7:46 AM Procedure Note Sukhi Mulligan MD - 01/15/2024 PROCEDURE: XR CHEST 1VW PORTABLE DATE/TIME OF EXAM: 01/14/2024 10:15 PM CLINICAL INFORMATION: None relevant/not provided if blank. Indication: I50.89: Other heart failure (HCC) Additional History: Findings/impression: Heart is enlarged. Patchy opacities are seen in the lung bases. No pneumothorax is seen. Degenerative changes are seen inthe shoulders. > Interpreting Provider: Sukhi Mulligan MD on 01/15/2024 7:46 AM Nicho Johnson MD DIAGNOSTIC IMAGING O RDERABLES * XR Hip Left 2Vw or More (01/14/2024 2:53 PM CDT) Only the most recent of5 resultswithin the time period is included. Anatomical Region Laterality Modality Pelvis, Lower Extremity Radiogra phic Imaging 01/14/2024 3:02 PM CDT Impressions 01/14/2024 3:03 PM CDT IMPRESSION: Interval worsening of femoral head collapse in the setting of avascular necrosis. > Interpreting Provider: Nayana Elam MD on 01/14/2024 3:03 PM Narrative 01/14/2024 3:03 PM CDT PROCEDURE: ??XR HIP LEFT 2VW OR MORE DATE/TIME OF EXAM: ??01/14/2024 2:54 PM CLINICAL INFORMATION: None relevant/not provided if blank. Indication: M25.552: Pain in left hip Additional History: COMPARISON: 07/25/2023 FINDINGS: There is increased destruction in the left femoral head with flattening. There is joint space loss with increased destruction in the superior aspect of the left acetabulum. The left femoral head is slightly laterally displaced, which is unchanged. There is no acute fracture. There is soft tissue swelling. Procedure Note Nayana Elam MD - 01/14/2024 PROCEDURE: XR HIP LEFT 2VW OR MORE DATE/TIME OF EXAM: 01/14/2024 2:54 PM CLINICAL INFORMATION: None relevant/not provided if blank. Indication: M25.552: Pain in left hip Additional History: COMPARISON: 07/25/2023 FINDINGS: There is increased destruction in the left femoral head with flattening. There is joint space loss with increased destruction in the superior aspect of the left acetabulum. The left femoral head isslightly laterally displaced, which is unchanged. There is no acute fracture.There is soft tissue swelling. IMPRESSION: Interval worsening of femoral head collapse in the settingof avascular necrosis. > Interpreting Provider: Nayana Elam MD on 01/14/2024 3:03 PM Nicho Johnson MD DIAGNOSTIC IMAGING O RDERABLES * (ABNORMAL) CBC W AUTO DIFFERENTIAL (01/14/2024 4:23 AM CDT) Only the most recent of143 resultswithin the time period is included. [facility] WBC 5.6 4.0 - 10.7 x10E9/L 01/14/2024 5:09 AM CDT [facility] RBC Count 3.44(L) 4.30 - 5.80 x10E12/L 01/14/2024 5:09 AM CDT [facility] Hemoglobin 9.5(L) 13.3 - 17.5 g/dL 01/14/2024 5:09 AM [facility] Hematocrit 31.3(L) 38.7 - 51.1 % 01/14/2024 5:09 AM CDT [facility] MCV 91.0 80.0 - 98.0 fL 01/14/2024 5:[facility] MCH 27.6 26.7 - 33.6 pg 01/14/2024 5:09 [facility] MCHC 30.4(L) 31.7 - 36.3 g/dL 01/14/2024 5:09 AM [facility] RDW-CV 16.1(H) 11.3 - 14.8 % 01/14/2024 5:09 AM [facility] Platelet Count 251 150 - 420 x10E9/L 01/14/2024 5:09 AM [facility] MPV 10.1 7.8 - 11.4 fL 01/14/2024 5:09 AM [facility] Neutrophil % 51.7 41.0 - 74.0 % 01/14/2024 5:09 AM [facility] Lymphocyte % 35.5 17.0 - 47.0 % 01/14/2024 5:09 AM [facility] Monocyte % 9.0 3.0 - 11.0 % 01/14/2024 5:09 AM [facility] Eosinophil % 3.2 0.0 - 7.0 % 01/14/2024 5:09 AM [facility] Basophil % 0.4 0.0 - 1.6 % 01/14/2024 5:09 AM [facility] Immature Granulocytes % 0.2 0.0 - 1.0 % 01/14/2024 5:09 AM [facility] Neutrophil Absolute 2.89 1.60 - 7.50 x10E9/L 01/14/2024 5:09 AM [facility] Lymphocyte Absolute 1.98 1.00 - 4.40 x10E9/L 01/14/2024 5:09 AM [facility] Monocyte Absolute 0.50 0.15 - 1.00 x10E9/L 01/14/2024 5:09 [facility] Eosinophil Absolute 0.18 0.00 - 0.60 x10E9/L 01/14/2024 5:09 AM CDT [facility] Basophil Absolute 0.02 0.00 - 0.13 x10E9/L 01/14/2024 5:09 AM [facility] Blood BLOOD SPECIMEN / Unknown Lab Venipuncture / Unknown 01/14/2024 4:23 AM CDT 01/14/2024 4:46 AM CDT Nicho Johnson MD LAB - HEMATOLOGY ORD ERABLES [facility] [address] [place] [address] * (ABNORMAL) BASIC METABOLIC PANEL (CALCIUM TOTAL) (01/14/2024 4:23 AM CDT) Only the most recent of65 resultswithin the time period is included. Glucose 88 70 - 105 mg/dL 01/14/2024 5:27 AM [facility] Sodium 141 136 - 145 mmol/L 01/14/2024 5:27 AM [facility] Potassium 4.1 3.5 - 5.1 mmol/L 01/14/2024 5:27 AM [facility] Chloride 108(H) 98 - 107 mmol/L 01/14/2024 5:27 AM [facility] CO2 29 22 - 29 mmol/L 01/14/2024 5:27 AM [facility] Calcium 8.6 8.4 - 10.4 mg/dL 01/14/2024 5:27 AM [facility] Anion Gap 4(L) 6 - 16 mmol/L 01/14/2024 5:27 AM [facility] BUN 10 7 - 26 mg/dL 01/14/2024 5:27 AM [facility] Creatinine 1.10 0.72 - 1.25 mg/dL 01/14/2024 5:27 AM [facility] eGFR by CKD-EPI 78(L) >=90 mL/min/1.7 3 m2 01/14/2024 5:27 AM [facility] Blood BLOOD SPECIMEN / Unknown Lab Venipuncture / Unknown 01/14/2024 4:23 AM CDT 01/14/2024 4:46 AM CDT Nicho Johnson MD LAB - CHEMISTRY YARELI CASTANON [facility] [address] [place] [address] * XR Knee Left 3Vw (01/13/2024 3:42 PM CDT) Anatomical Region Laterality Modality Lower Extremity Radiographic Nessa ging 01/13/2024 5:00 PM CDT Narrative 01/13/2024 5:36 PM CDT PROCEDURE: ??XR KNEE LEFT 3VW DATE/TIME OF EXAM: ??01/13/2024 3:54 PM CLINICAL INFORMATION: None relevant/not provided if blank. Indication: M25.562: Pain in left knee Additional History: Findings/impression: No acute fracture is seen. No dislocation is identified. Soft tissues appear unremarkable. Chronic appearing deformity or exostosis involving the fibular head is partially imaged. > Interpreting Provider: Sukhi Mulligan MD on 01/13/2024 5:36 PM Procedure Note Sukhi Mulligan MD - 01/13/2024 PROCEDURE: XR KNEE LEFT 3VW DATE/TIME OF EXAM: 01/13/2024 3:54 PM CLINICAL INFORMATION: None relevant/not provided if blank. Indication: M25.562: Pain in left knee Additional History: Findings/impression: No acute fracture is seen. No dislocation is identified. Soft tissues appear unremarkable. Chronic appearingdeformity or exostosis involving the fibular head is partially imaged. > Interpreting Provider: Sukhi Mulligan MD on 01/13/2024 5:36 PM Nicho Johnson MD DIAGNOSTIC IMAGING O RDERABLES * (ABNORMAL) CK BLOOD (01/13/2024 5:06 AM CDT) Only the most recent of129 resultswithin the time period is included. CK 345(H) 30 - 200 U/L 01/13/2024 8:21 AM CDT [facility] Blood BLOOD SPECIMEN / Unknown Lab Venipuncture / Unknown 01/13/2024 5:06 AM CDT 01/13/2024 5:56 AM CDT Nicho Johnson MD LAB - CHEMISTRY ORDE KINA Performing Organization Address [facility]/ZIP Co de Phone Number [facility] [address] [place], [place] [id number] * CARDIAC EKG ORDER (01/13/2024 2:30 AM CDT) Only the most recent of24 resultswithin the time period is included. Narrative 01/13/2024 2:30 AM CDT Ordered by an unspecified provider. Scanned Document CARDIAC SERVICES ORD ERABLES * TROPONIN-I HIGH SENSITIVE REFLEX 1HOUR (01/12/2024 3:30 AM CDT) Only the most recent of3 resultswithin the time period is included. Troponin I High Sensitive 18 <=35 ng/L 01/12/2024 3:50 AM CDT [facility] Delta Troponin I HS 0 <6 ng/L 01/12/2024 3:50 AM CDT [facility] Blood BLOOD SPECIMEN / Unknown Venipuncture / Unknown 01/12/2024 3:30 AM CDT 01/12/2024 3:30 AM CDT Alexis Jeronimo MD LAB - CHEMISTR Y ORDERABLES [facility] [address] [place] [address] * TROPONIN-I HIGH SENSITIVE BASELINE + 1HR (01/12/2024 2:08 AM CDT) Only the most recent of5 resultswithin the time period is included. Troponin I High Sensitive 18 <=35 ng/L 01/12/2024 2:29 AM CDT [facility] Blood BLOOD SPECIMEN / Unknown Venipuncture / Unknown 01/12/2024 2:08 AM CDT 01/12/2024 2:08 AM CDT Alexis Jeronimo MD LAB - CHEMISTR Y ORDERABLES Performing Organization Address [facility] Co de Phone Number [facility] [address] [place] [phone] * MAGNESIUM BLOOD (01/12/2024 2:08 AM CDT) Only the most recent of31 resultswithin the time period is included. [facility] Magnesium 2.1 1.6 - 2.6 mg/dL 01/12/2024 2:25 AM CDT [facility] Blood BLOOD SPECIMEN / Unknown Venipuncture / Unknown 01/12/2024 2:08 AM CDT 01/12/2024 2:08 AM CDT Alexis Jeronimo MD LAB - CHEMISTR Y ORDERABLES Performing Organization Address [facility] de Phone Number [facility] [address] [place] [phone] * EKG 12-LEAD (01/12/2024 1:44 AM CDT) Only the most recent of52 resultswithin the time period is included. [facility] Ventricular Rate 85 BPM [facility] Atrial Rate 85 BPM [facility] P-R Interval 124 ms [facility] QRS Duration ms 100 ms [facility] Q-T Interval ms 408 ms [facility] QTC Calculation (Bezet) 485 ms [facility] Calculated P [place] 86 degrees [facility] Calculated R [place] 44 degrees [facility] Calculated T [place] -113 degrees [facility] Interpretation EKG SINUS RHYTHM WITH PREMATURE ATRIAL COMPLEXES MODERATE VOLTAGE CRITERIA FOR LVH, MAY BE NORMAL VARIANT ( R in aVL , Sokolow-Valero ) MARKED ST ABNORMALITY, POSSIBLE INFERIOR SUBENDOCARDIAL INJURY PROLONGED QT ABNORMAL ECG WHEN COMPARED WITH ECG OF 24-SEP-2023 08:16, PREMATURE ATRIAL COMPLEXES ARE NOW PRESENT ST MORE DEPRESSED IN INFERIOR LEADS T WAVE INVERSION MORE EVIDENT IN INFERIOR LEADS T WAVE INVERSION MORE EVIDENT IN LATERAL LEADS Confirmed by DO ZUNIGA STEPHANIE ([id number]) on 01/12/2024 4:23:44 PM [facility] MUSE 01/12/2024 1:44 AM CDT 01/12/2024 4:23 PM CDT Alexis Jeronimo MD ECG ORDERABLES [facility] * XR KNEE LEFT 4VW OR MORE (09/24/2023 5:56 AM CDT) Anatomical Region Laterality Modality Lower Extremity Radiographic Nessa ging 09/24/2023 8:28 AM CDT Narrative 09/24/2023 8:29 AM CDT Left Knee 4 View INDICATION: Knee pain COMPARISON: 08/07/2023 Findings/impression: No fracture or malalignment or joint effusion or bony lesion is seen. > Interpreting Provider: Guzman Ryan DO on 09/24/2023 8:29 AM Procedure Note Guzman Ryan DO - 09/24/2023 Left Knee 4 View INDICATION: Knee pain COMPARISON: 08/07/2023 Findings/impression: No fracture or malalignment or joint effusion or bony lesion is seen. > Interpreting Provider: Guzman Ryan DO on 09/24/2023 8:29 AM Karla Arreaga MD DIAGNOSTIC IMAGING O RDERABLES * XR CHEST 2VW (09/24/2023 5:56 AM CDT) Only the most recent of11 resultswithin the time period is included. Anatomical Region Laterality Modality Chest Radiographic Nessa ging 09/24/2023 6:43 AM CDT Narrative 09/24/2023 6:43 AM CDT PROCEDURE: ??XR CHEST 2VW DATE/TIME OF EXAM: ??09/24/2023 5:56 AM CLINICAL INFORMATION: None relevant/not provided if blank. Indication: M25.562: Pain in left knee R05.8: Other specified cough Additional History: Exam: PA and lateral views of the chest. History: M25.562: Pain in left knee R05.8: Other specified cough Findings/Impression: The lungs are hyperinflated and there is some lung base. No focal consolidation, pleural effusion, or pneumothorax is identified. The cardiac silhouette and mediastinal contours are normal. > Interpreting Provider: Sukhi Mulligan MD on 09/24/2023 6:43 AM Procedure Note Sukhi Mulligan MD - 09/24/2023 PROCEDURE: XR CHEST 2VW DATE/TIME OF EXAM: 09/24/2023 5:56 AM CLINICAL INFORMATION: None relevant/not provided if blank. Indication: M25.562: Pain in left knee R05.8: Other specified cough Additional History: Exam: PA and lateral views of the chest. History: M25.562: Pain in left knee R05.8: Other specified cough Findings/Impression: The lungs are hyperinflated and there is some lung base. No focal consolidation, pleural effusion, or pneumothorax is identified. The cardiac silhouette and mediastinal contours are normal. > Interpreting Provider: Sukhi Mulligan MD on 09/24/2023 6:43 AM Karla Arreaga MD DIAGNOSTIC IMAGING O RDERABLES * B-TYPE NATRIURETIC PEPTIDE (09/24/2023 4:21 AM CDT) Only the most recent of6 resultswithin the time period is included. BNP 77 <=100 pg/mL 09/24/2023 8:13 AM CDT [facility] Blood BLOOD SPECIMEN / Unknown Venipuncture / Unknown 09/24/2023 4:21 AM CDT 09/24/2023 4:21 AM CDT Narrative [facility] - 09/24/2023 8:13 AM CDT A cutoff of 100 pg/mL has been demonstrated to provide the maximal combination of sensitivity, specificity, and negative predictive value for contributing to the diagnosis of congestive heart failure (CHF) only. ??A B-Type Natriuretic Peptide (BNP) value greater than or equal to 100 pg/mL is consistent with a diagnosis of CHF in the appropriate clinical setting. ??False positive results are more common in females greater than 75 years of age. ??Blood concentrations of natriuretic peptides may also be elevated in patients with myocardial infarction and in patients who are candidates for or are undergoing renal dialysis. Karla Arreaga MD LAB - CHEMISTRY YARELI CASTANON [facility] Organization Address City/State/ZIP Co de Phone Number [facility] [address] [place] [address] * (ABNORMAL) COMPREHENSIVE METABOLIC PANEL (09/24/2023 4:21 AM CDT) Only the most recent of115 resultswithin the time period is included. [facility] Glucose 83 70 - 105 mg/dL 09/24/2023 4:42 AM CDT [facility] Sodium 140 136 - 145 mmol/L 09/24/2023 4:42 AM CDT [facility] Potassium 5.0 3.5 - 5.1 mmol/L 09/24/2023 4:42 AM CDT [facility] Chloride 106 98 - 107 mmol/L 09/24/2023 4:42 AM CDT [facility] CO2 25 22 - 29 mmol/L 09/24/2023 4:42 AM CDT [facility] Calcium 9.5 8.4 - 10.4 mg/dL 09/24/2023 4:42 AM CDT [facility] Anion Gap 9 6 - 16 mmol/L 09/24/2023 4:42 AM CDT [facility] BUN 32(H) 7 - 26 mg/dL 09/24/2023 4:42 AM CDT [facility] Creatinine 1.46(H) 0.72 - 1.25 mg/dL 09/24/2023 4:42 AM CDT [facility] Alkaline Phosphatase 102 40 - 150 U/L 09/24/2023 4:42 AM CDT [facility] ALT 24 0 - 55 U/L 09/24/2023 4:42 AM CDT [facility] AST 42(H) 5 - 34 U/L 09/24/2023 4:42 AM CDT [facility] Protein Total 7.2 6.4 - 8.3 gm/dL 09/24/2023 4:42 AM CDT [facility] Albumin 4.0 3.4 - 5.0 gm/dL 09/24/2023 4:42 AM CDT [facility] Bilirubin Total 0.2 0.2 - 1.2 mg/dL 09/24/2023 4:42 AM CDT [facility] eGFR by CKD-EPI 56(L) >=90 mL/min/1.7 3 m2 09/24/2023 4:42 AM CDT [facility] Blood BLOOD SPECIMEN / Unknown Venipuncture / Unknown 09/24/2023 4:21 AM CDT 09/24/2023 4:21 AM CDT Karla Arreaga MD LAB - CHEMISTRY YARELI CASTANON [facility] Organization Address City/State/ZIP Co de Phone Number [facility] [address] [place] [address] * (ABNORMAL) URINE DRUG SCREEN IMMUNOASSAY (07/25/2023 11:30 AM CDT) Only the most recent of33 resultswithin the time period is included. [facility] Amphetamines Screen Urine Not detected Not detected 07/25/2023 11:47 AM CDT [facility] Barbiturates Screen Urine Not detected Not detected 07/25/2023 11:47 AM CDT [facility] Benzodiazepines Screen Urine Not detected Not detected 07/25/2023 11:47 AM CDT [facility] Cannabinoids Screen Urine Not detected Not detected 07/25/2023 11:47 AM CDT [facility] Cocaine Screen Urine Detected(A) Not detected 07/25/2023 11:47 AM CDT [facility] Fentanyl Urine Not detected Not detected 07/25/2023 11:47 AM CDT [facility] Methadone Screen Urine Not detected Not detected 07/25/2023 11:47 AM CDT [facility] Opiate Screen Urine Not detected Not detected 07/25/2023 11:47 AM CDT [facility] Phencyclidine Screen Urine Not detected Not detected 07/25/2023 11:47 AM CDT [facility] Urine URINE / Unknown 07/25/2023 1 1:30 AM CDT 07/25/2023 11:30 AM CDT Narrative [facility] - 07/25/2023 11:47 AM CDT This drug screen is designed for MEDICAL purposes only. It is not to be used for legal purposes, including but not limited to worker's comp, police investigations, occupational issues, child custody, etc. ??Any positive result is only presumptive and must be confirmed with a separate confirmatory test ordered by the physician. Drug Screening Test Cutoff Values: AMPHETAMINES ?1000 ng/mL BARBITURATES ? 200 ng/mL BENZODIAZEPINES ?200 ng/mL CANNABINOIDS(THC) ?? 50 ng/mL COCAINE ?300 ng/mL FENTANYL ? 1 ng/mL METHADONE ?300 ng/mL OPIATES ?300 ng/mL PHENCYCLIDINE(PCP) ??25 ng/mL Natali Lopes MD LAB - URINE CHEMI STRY ORDERABLES Performing Organization Address [facility] Phone Number [facility] [address] [place] [phone] * ALCOHOL ETHYL BLOOD (07/25/2023 11:30 AM CDT) Only the most recent of31 resultswithin the time period is included. Ethanol <10.0 <10 mg/dL 07/25/2023 12:02 PM CDT [facility] Ethanol Calculated <0.010 <=0.100 gm/dL 07/25/2023 12:02 PM T [facility] Blood BLOOD SPECIMEN / Unknown Venipuncture / Unknown 07/25/2023 11:30 AM CDT 07/25/2023 11:30 AM CDT Narrative [facility] - 07/25/2023 12:02 PM CDT Ethanol Interp <10: None Detected Depression of CSN: >100 mg/dL Potentially Critical: >250 mg/dL Potentially Fatal >400 mg/dL Ethanol in the patient's blood will contribute to the osmolar gap. ??Ethanol's contribution to the osmolar gap can be estimated by dividing the concentration of ethanol in mg/dL by 4.6. ??This test is for clinical use only and does not equal a [place] for legal purposes. Natali Lopes MD LAB - CHEMISTRY O RDERABLES Performing Organization Address [facility] de Phone Number [facility] [address] [place] [address] * CT HIP LEFT WO CONTRAST (07/25/2023 6:39 AM CDT) Anatomical Region Laterality Modality Lower Extremity Computed Tomogra phy 07/25/2023 8:01 AM CDT Narrative 07/25/2023 8:05 AM CDT Procedure: CT HIP LEFT WO CONTRAST ??Exam Date: ??07/25/2023 6:40 AM ?? Location: ??[facility] INDICATION: Chronic hip pain. TECHNIQUE: Helical images were obtained through the left hip. Sagittal and coronal reconstructions were performed. Findings/impression: This study is compared to multiple old radiographs. There is no evidence for acute fracture. There is no dislocation. There do appear to be changes of avascular necrosis involving the femoral head with interval flattening. There is secondary osteoarthritis with joint space narrowing, subchondral sclerosis of both the femoral head and acetabulum. There is also spurring of the femoral head and the acetabulum. There does appear to be a small joint effusion. Femoral neck and the intertrochanteric region and proximal femoral shaft appear intact. The pubic rami are intact. There are degenerative changes of the right hip with joint space narrowing, subchondral cystic change and spurring. There are degenerative changes of the lower lumbar spine. There is some fusion along the anterior margin of the right sacroiliac joint. The remainder of the bony pelvis appears intact. The visualized musculature about the pelvis appears normal. There is no soft tissue mass. The bladder appears normal. The prostate gland is unremarkable. The bowel loops appear normal. > Interpreting Provider: Dashawn Dawn MD on 07/25/2023 8:05 AM Procedure Note Dashawn Dawn MD - 07/25/2023 Procedure: CT HIP LEFT WO CONTRAST Exam Date: 07/25/2023 6:40 AM Location: [facility] INDICATION: Chronic hip pain. TECHNIQUE: Helical images were obtained through the left hip. [place] coronal reconstructions were performed. Findings/impression: This study is compared to multiple old radiographs. There is no evidence for acute fracture. There is no dislocation. There do appear to bechanges of avascular necrosis involving the femoral head with intervalflattening. There is secondary osteoarthritis with joint space narrowing,subchondral sclerosis of both the femoral head and acetabulum. There is alsospurring of the femoral head and the acetabulum. There does appear to be a small joint effusion. Femoral neck and the intertrochanteric region and proximal femoral shaft appear intact. The pubic rami are intact. There are degenerative changes of the right hip with joint spacenarrowing, subchondral cystic change and spurring. There are degenerative changes of the lower lumbar spine. There is some fusion along the anterior margin of the right sacroiliac joint. The remainder of the bony pelvis appears intact. The visualized musculature about the pelvis appears normal. There is no soft tissue mass. The bladder appears normal. The prostate gland is unremarkable. Thebowel loops appear normal. > Interpreting Provider: Dashawn Dawn MD on 07/25/2023 8:05 AM Natali Lopes MD CT ORDERABLES * XR KNEE LEFT 2VW OR LESS (07/09/2023 2:25 PM [employer]ARM [employer]PERATIONS TECHNICAL DIRECTOR) Anatomical Region Laterality Modality Lower Extremity Radiographic Nessa ging 07/09/2023 2:51 PM [employer]ARM [employer]PERATIONS TECHNICAL DIRECTOR Impressions 07/09/2023 2:52 PM [employer]ARM [employer]PERATIONS TECHNICAL DIRECTOR IMPRESSION: Unremarkable. > Interpreting Provider: Nesha Goncalves MD on 07/09/2023 2:52 PM Narrative 07/09/2023 2:52 PM FARM OPERATIONS TECHNICAL DIRECTOR PROCEDURE: ??XR KNEE LEFT 2VW OR LESS DATE/TIME OF EXAM: ??07/09/2023 2:49 PM CLINICAL INFORMATION: None relevant/not provided if blank. Indication: W19.XXXA: Unspecified fall, initial encounter Additional History: COMPARISON: None. FINDINGS: No fracture, dislocation or significant degenerative change. ??No joint effusion. ??The soft tissues appear somewhat atrophic. Procedure Note Nesha Goncalves MD - 07/09/2023 PROCEDURE: XR KNEE LEFT 2VW OR LESS DATE/TIME OF EXAM: 07/09/2023 2:49 PM CLINICAL INFORMATION: None relevant/not provided if blank. Indication: W19.XXXA: Unspecified fall, initial encounter Additional History: COMPARISON: None. FINDINGS: No fracture, dislocation or significant degenerative change. No joint effusion. The soft tissues appear somewhat atrophic. IMPRESSION: Unremarkable. > Interpreting Provider: Nesha Goncalves MD on 07/09/2023 2:52 PM Brandy Devi DO DIAGNOSTIC IMAGING O RDERABLES * XR FEMUR TRAUMA 2 VW LEFT (07/09/2023 2:25 PM FARM OPERATIONS TECHNICAL DIRECTOR) Anatomical Region Laterality Modality Lower Extremity Radiographic Nessa ging 07/09/2023 2:51 PM FARM OPERATIONS TECHNICAL DIRECTOR Impressions 07/09/2023 2:51 PM FARM OPERATIONS TECHNICAL DIRECTOR IMPRESSION: 1. ??No acute bony findings. 2. ??Chronic degenerative changes and bone remodeling in the left hip > Interpreting Provider: Nesha Goncalves MD on 07/09/2023 2:51 PM Narrative 07/09/2023 2:51 PM FARM OPERATIONS TECHNICAL DIRECTOR PROCEDURE: ??XR FEMUR LEFT 2VW DATE/TIME OF EXAM: ??07/09/2023 2:47 PM CLINICAL INFORMATION: None relevant/not provided if blank. Indication: W19.XXXA: Unspecified fall, initial encounter Additional History: COMPARISON: None. Findings: The weightbearing cartilage is significantly thinned and there are some chronic deformity of both the acetabular roof and the weightbearing femoral head. ??These findings indicate chronic degenerative changes. ??No visible fracture or avascular necrosis. ??The left rami are intact. The more distal femur remains intact. Procedure Note Nesha Goncalves MD - 07/09/2023 PROCEDURE: XR FEMUR LEFT 2VW DATE/TIME OF EXAM: 07/09/2023 2:47 PM CLINICAL INFORMATION: None relevant/not provided if blank. Indication: W19.XXXA: Unspecified fall, initial encounter Additional History: COMPARISON: None. Findings: The weightbearing cartilage is significantly thinned and there are some chronic deformity of both the acetabular roof and the weightbearingfemoral head. These findings indicate chronic degenerative changes. No visible fracture or avascular necrosis. The left rami are intact. The more distal femur remains intact. IMPRESSION: 1. No acute bony findings. 2. Chronic degenerative changes and bone remodeling in the left hip > Interpreting Provider: Nesha Goncalves MD on 07/09/2023 2:51 PM Brandy Devi DO DIAGNOSTIC IMAGING O RDERABLES * CT PELVIS NON CONTRAST (05/16/2023 2:40 AM FARM OPERATIONS TECHNICAL DIRECTOR) Anatomical Region Laterality Modality Pelvis Computed Tomogra phy 05/16/2023 9:05 AM FARM OPERATIONS TECHNICAL DIRECTOR Impressions 05/16/2023 9:08 AM FARM OPERATIONS TECHNICAL DIRECTOR IMPRESSION: Avascular necrosis of the left femoral head. No acute or displaced pelvic or sacral fracture seen. Preliminary interpretation was provided by [facility]. > Interpreting Provider: Camryn Juarez MD on 05/16/2023 9:08 AM Narrative 05/16/2023 9:08 AM FARM OPERATIONS TECHNICAL DIRECTOR PROCEDURE: ??CT PELVIS WO CONTRAST DATE/TIME OF EXAM: ??05/16/2023 2:41 AM CLINICAL INFORMATION: None relevant/not provided if blank. Indication: W19.XXXA: Unspecified fall, initial encounter Additional History: Left hip pain COMPARISON: None. TECHNIQUE: CT of the pelvis was performed utilizing standard protocol. CT dose reduction technique was used, including Automated Exposure Control. FINDINGS: There is flattening of the left femoral head with subchondral cyst and surface irregularity, consistent with avascular necrosis. There is loss of joint space superiorly. Degenerative changes of the right hip joint noted. No definite evidence of acute or displaced pelvic or sacral fracture identified. Large amount of gas distending the rectum. No ascites. No free air degenerative changes of visualized lumbar spine. Procedure Note Camryn Juarez MD - 05/16/2023 PROCEDURE: CT PELVIS WO CONTRAST DATE/TIME OF EXAM: 05/16/2023 2:41 AM CLINICAL INFORMATION: None relevant/not provided if blank. Indication: W19.XXXA: Unspecified fall, initial encounter Additional History: Left hip pain COMPARISON: None. TECHNIQUE: CT of the pelvis was performed utilizing standard protocol. CT dose reduction technique was used, including Automated ExposureControl. FINDINGS: There is flattening of the left femoral head with subchondral cyst and surface irregularity, consistent with avascular necrosis. There is lossof joint space superiorly. Degenerative changes of the right hip jointnoted. No definite evidence of acute or displaced pelvic or sacral fracture identified. Large amount of gas distending the rectum. No ascites. Nofree air degenerative changes of visualized lumbar spine. IMPRESSION: Avascular necrosis of the left femoral head. No acute or displacedpelvic or sacral fracture seen. Preliminary interpretation was provided by [facility]. > Interpreting Provider: Camryn Juarez MD on 05/16/2023 9:08 AM Nazario García MD CT ORDERABLES * LAB RESULTS ORDER (05/08/2023 8:51 PM FARM OPERATIONS TECHNICAL DIRECTOR) Only the most recent of11 resultswithin the time period is included. Narrative 05/08/2023 8:51 PM FARM OPERATIONS TECHNICAL DIRECTOR Ordered by an unspecified provider. Scanned Document LAB - THERAPEUTIC DR TEAGUE MONITORING ORDERABLES * CCL LEFT HEART CATH (05/01/2023 11:44 AM FARM OPERATIONS TECHNICAL DIRECTOR) Anatomical Region Laterality Modality X-Ray Angiograph y Narrative 05/01/2023 11:59 AM FARM OPERATIONS TECHNICAL DIRECTOR 1. Angiographically normal coronary arteries 2. Underlying nonischemic cardiomyopathy 3. Very mildly elevated LVEDP 4. Mild essential hypertension 5. Right radial artery access Procedure Details Estimated Blood Loss: 5 mL Coronary Findings Diagnostic Dominance: Right Left Main: The vessel was visualized by selective angiography, is moderate in size and is angiographically normal. Left Anterior Descending: The vessel was visualized by selective angiography, is moderate in size and is angiographically normal. Left Circumflex: The vessel was visualized by selective angiography, is moderate in size and is angiographically normal. Right Coronary Artery: The vessel was visualized by selective angiography, is moderate in size and is angiographically normal. Intervention No interventions have been documented. Recommendations - 1. Continue aggressive modification of atherosclerotic disease risk factors and further optimization of CHF GDMT 2. Results, above recommendation, and post catheterization safety precautions discussed with patient in detail. I attempted to contact the patient's family per his request, but the specific family member. He had asked me to call was still sleeping per other family members that answer the phone 3. Recommend enrollment in cardiac rehabilitation on outpatient basis. Referral order placed Ravin Cordero MD CV CARDIAC CATH CUPID PROCS * PTT (04/30/2023 1:51 AM [employer]ARM [employer]PERATIONS TECHNICAL DIRECTOR) Only the most recent of2 resultswithin the time period is included. PTT 31.5 23.0 - 38.4 sec 04/30/2023 2:[address] [facility] Blood BLOOD SPECIMEN / Unknown Venipuncture / Unknown 04/30/2023 1:51 AM FARM OPERATIONS TECHNICAL DIRECTOR 04/30/2023 1:51 AM FARM OPERATIONS TECHNICAL DIRECTOR Narrative [facility] - 04/30/2023 2:01 AM FARM OPERATIONS TECHNICAL DIRECTOR Heparin Therapeutic Range for PTT: ??69.0 - 110.0 seconds. Natali Lopes MD LAB - COAGULATION ORDERABLES [facility] [address] [place] [id number] * PT-INR (04/30/2023 1:51 AM FARM OPERATIONS TECHNICAL DIRECTOR) Only the most recent of3 resultswithin the time period is included. PT 14.2 12.1 - 14.8 sec 04/30/2023 2:[address] [facility] INR 1.1 0.9 - 1.1 04/30/2023 2:[address] [facility] Blood BLOOD SPECIMEN / Unknown Venipuncture / Unknown 04/30/2023 1:51 AM FARM OPERATIONS TECHNICAL DIRECTOR 04/30/2023 1:51 AM FARM OPERATIONS TECHNICAL DIRECTOR [facility] - 04/30/2023 2:01 AM FARM OPERATIONS TECHNICAL DIRECTOR Conventional Warfarin Anticoagulant Therapy: INR Reference Range: ??2.0-3.0 Intensive Warfarin Anticoagulant Therapy: INR Reference Range: ? 2.5-3.5 Natali Lopes MD LAB - COAGULATION ORDERABLES [facility] [address] [place] [id number] * TROPONIN-I HIGH SENSITIVE (04/30/2023 1:50 AM FARM OPERATIONS TECHNICAL DIRECTOR) Only the most recent of3 resultswithin the time period is included. Troponin I High Sensitive 5 <=35 ng/L 04/30/2023 2:[address] [facility] Blood BLOOD SPECIMEN / Unknown Venipuncture / Unknown 04/30/2023 1:50 AM FARM OPERATIONS TECHNICAL DIRECTOR 04/30/2023 1:50 AM FARM OPERATIONS TECHNICAL DIRECTOR Natali Lopes MD LAB - CHEMISTRY O RDERABLES Performing Organization Address [facility] Co de Phone Number [facility] [address] [phone] * SARS-COV-2 (COVID-19) RAPID (01/31/2023 7:14 AM CDT) COVID-19 PCR Not detected Not detected 02/01/20 7:51 AM CDT [facility] Microbiology SPECIMEN FROM NASOPHARYNGEAL STRUCTURE / Unknown Collection / Unknown 01/31/2023 7:14 AM CDT 01/31/2023 7:14 AM CDT Narrative [facility] - 01/31/2023 7:51 AM CDT The [employer] Point Xpert Xpress SARS-COV-2 has been authorized by the Food and Drug Administration (FDA) under an Emergency Use Authorization (EUA). This test has been validated in accordance with the FDA's guidance document Policy for Diagnostic Testing in Laboratories Certified to perform High Complexity Testing under CLIA prior to Emergency Use Authorization for Coronavirus Disease-2019 during the Public Health Emergency issued on July 09, 2019. FDA independent review of this validation is pending. This test is only authorized for the duration of the time the declaration that circumstances exist justifying the authorization of emergency use of in vitro diagnostic tests for detection of SARS-COV-2 virus and/or diagnosis of COVID-19 infection under 564(b) (1) of the Act. 21 U.S.C. 360bbb-3 (b) (1), unless the authorization is terminated or revoked sooner. Fact Sheets for this EUA assay are available upon request. Brandy Devi DO LAB - MICROBIOLOGY O RDERABLES Performing Organization Address [facility] Co de Phone Number [facility] [address] [place] [address] * XR CHEST 1VW (01/31/2023 2:40 AM CDT) Only the most recent of3 resultswithin the time period is included. Anatomical Region Laterality Modality Chest Radiographic Nessa ging 01/31/2023 7:43 AM CDT Impressions 01/31/2023 7:43 AM CDT IMPRESSION: No acute process. No significant change. > Interpreting Provider: Sharath Johnson MD on 01/31/2023 7:43 AM Narrative 01/31/2023 7:43 AM CDT PROCEDURE: ??XR CHEST 1VW DATE/TIME OF EXAM: ??01/31/2023 2:40 AM CLINICAL INFORMATION: None relevant/not provided if blank. Indication: R07.9: Chest pain, unspecified CHEST, ONE VIEW AP PORTABLE HISTORY: R07.9: Chest pain, unspecified COMPARISON: 12/22/2022 FINDINGS: The lung volumes are normal and symmetric. The heart size is normal. The mediastinal silhouette is normal. The pulmonary vasculature is within normal limits. The lungs are clear. There is no evidence of pleural effusion. No pneumothorax is seen. Procedure Note Sharath Johnson MD - 01/31/2023 PROCEDURE: XR CHEST 1VW DATE/TIME OF EXAM: 01/31/2023 2:40 AM CLINICAL INFORMATION: None relevant/not provided if blank. Indication: R07.9: Chest pain, unspecified CHEST, ONE VIEW AP PORTABLE HISTORY: R07.9: Chest pain, unspecified COMPARISON: 12/22/2022 FINDINGS: The lung volumes are normal and symmetric. The heart size is normal. The mediastinal silhouette is normal. The pulmonary vasculature is within normal limits. The lungs are clear. There is no evidence of pleural effusion. No pneumothorax is seen. IMPRESSION: No acute process. No significant change. > Interpreting Provider: Sharath Johnson MD on 01/31/2023 7:43 AM Chelita Saxena DO DIAGNOSTIC IMAGING O RDERABLES * TROPONIN I (12/23/2022 12:47 PM CDT) Only the most recent of48 resultswithin the time period is included. Troponin I <0.010 <0.038 ng/mL 12/23/2022 1:34 PM CDT [facility] Blood BLOOD SPECIMEN / Unknown Lab Venipuncture / Unknown 12/23/2022 12:47 PM CDT 12/23/2022 1:11 PM CDT Jeremiah Moeller MD LAB - CHEMISTRY ORDE KINA Performing Organization Address [facility]/ZIP Co de Phone Number [facility] [address] [place] [phone] * PHOSPHORUS BLOOD (12/23/2022 12:47 PM CDT) Only the most recent of13 resultswithin the time period is included. Phosphorus 2.6 2.3 - 4.7 mg/dL 12/23/2022 1:32 PM CDT [facility] Blood BLOOD SPECIMEN / Unknown Lab Venipuncture / Unknown 12/23/2022 12:47 PM CDT 12/23/2022 1:11 PM CDT Sam Queen MD LAB - CHEMISTRY ORDE KINA Performing Organization Address [facility] Co de Phone Number [facility] [address] [place] [phone] * LIPASE BLOOD (12/22/2022 1:39 PM CDT) Only the most recent of7 resultswithin the time period is included. Lipase 53 <60 U/L 12/22/2022 2:12 PM CDT [facility] Blood BLOOD SPECIMEN / Unknown Venipuncture / Unknown 12/22/2022 1:39 PM CDT 12/22/2022 1:48 PM CDT Chelita Saxena DO LAB - CHEMISTRY ORDE KINA Performing Organization Address [facility]/ZIP Co de Phone Number [facility] [address] [place] [phone] * NM MYOCARD PERF REST ONLY (12/03/2022 11:00 AM CDT) Anatomical Region Laterality Modality Chest Nuclear Medicine 12/03/2022 7:13 AM CDT Narrative Procedure Note Drew Kraft MD - 12/03/2022 [place] [id number] Nuclear Myocardial Perfusion Scan Report Pat.Name: RYAN HOOD Pat.ID: [id number] .Date: 12/03/2022 Refer.MD: Tay Hebert Exam Time: 7:13:00 AM Study Type:Nuclear Myocardial Perfusion Scan Age: 8 1965,56Y Sex: MALE Race: 2 Visit ID: [id number] ++++++++++++++++++++++++++++++++++++ SUMMARY: ++++++++++++++++++++++++++++++++++++ FINDINGS: REST-ONLY myocardial perfusion imaging reveals decreased activity in the inferior wall likely diaphragmatic attenuation artifact and a small area of likely apical thinning artifact. Stress-imaging was not performed due to patient refusal. SUMMARY: 1. REST-ONLY myocardial perfusion study demonstrates likely diaphragmatic attenuation artifact. 2. Stress imaging was not performed due to patient refusal. Signed 12/03/2022 12:30 PM Drew Kraft MD, FACC Tay Hebert MD NM ORDERABLE S * ECHO COMPLETE W CONTRAST (12/02/2022 3:10 PM CDT) BSA 1.2222086 [id number] m2 SSM CV FUJI PACS LV biplane EF 49 52 - 72 % SSM CV FUJI PACS LV A2C EF 53 48 - 76 % SSM CV FUJ I PACS LV A4C EF 46 46 - 74 % SSM CV FUJ I PACS LVOT stroke vol 81.85 cm3 SSM CV FUJI PACS LV stroke vol index A4C MOD 110.874 ml SSM CV FUJI PACS LV ESV BP 103.624 21 - 61 mL SSM CV FUJI PACS LV ESV index BP 59.0 11 - 31 mL/m2 SSM CV FUJI PACS LV ESV A2C 130.337 15 - 75 mL SSM CV FUJI PACS LV EDV BP 202.148 mL SSM CV FUJ I PACS LV ESV A4C 73.344 22 - 78 mL SSM CV FUJI PACS LV EDV index BP 115.1 34 - 74 mL/m2 SSM CV FUJI PACS LV EDV A2C 154.552 59 - 175 mL SSM CV FUJI PACS LV EDV A4C 241.211 mL SSM CV FU JI PACS LVOT diam 2.2 cm SSM CV FUJ I PACS LVOT area 3.80 cm2 SSM CV FUJ I PACS LV Gage A2C 8.903 cm SSM CV F UJI PACS LV Gage A4C 9.815 cm SSM CV F UJI PACS MV E pk luz 42.789 cm/s SSM CV F UJI PACS MV A pk luz 67.378 cm/s SSM CV F UJI PACS MV E A ratio 0.64 SSM CV FUJI PACS MV DT 231 ms SSM CV [facility] I PACS LVOT pk luz 1.35 m/s SSM CV F UJI PACS LVOT mn luz 0.95 m/s SSM CV F UJI PACS LVOT mn grad 4.0 mmHg SSM CV FUJI PACS LVOT Cardiac Output 6.63 l/min SSM CV FUJI PACS LA ESV A2C MOD Index 23 ml/m2 SSM CV FUJI PACS LA ESV A4C MOD Index 25 ml/m2 SSM CV FUJI PACS LA size 2.805 3.0 - 4.0 cm SSM CV FUJI PACS LA vol BP A-L 49.702 mL SSM CV FUJI PACS AV mn grad 5 mmHg SSM CV FU JI PACS AV pk grad 8 mmHg SSM CV FU JI PACS AV mn luz 1.10 m/s SSM CV [facility] I PACS AV pk luz 1.40 m/s SSM CV FUJ I PACS AV VTI 24.35 cm SSM CV [facility] I PACS LVOT pk grad 7.297 mmHg SSM CV FUJI PACS LVOT VTI 21.544 cm SSM CV FUJ I PACS AV area planimetry 3.36 cm2 SSM CV FUJI PACS AV area index 1.9 cm2/m2 SSM CV FUJI PACS AV area cont VTI 3.3 cm2 SSM CV FUJI PACS AV area pk luz 3.6 cm2 SSM C V FUJI PACS AV Doppler luz index pk luz 0.96 SSM CV FUJI PACS Dimensionless Index 0.885 SSM CV FUJI PACS MV PHT 67 ms SSM CV FUJ I PACS MV area PHT 3.28 cm2 SSM CV F UJI PACS MV decel slope 185.172 cm/s2 SSM C V FUJI PACS PV pk luz 85.919 cm/s SSM CV FUJ I PACS PV pk grad 3 mmHg SSM CV FU JI PACS Sinus of Valsalva 3.38 cm SS M CV FUJI PACS Max Age Predicted HR 165 SSM CV FUJI PACS Target HR 140 SSM CV FUJ I PACS [id number] 8.59 cm SSM CV FUJ I PACS [id number] 7.614 cm SSM CV FUJ I PACS LV stroke vol BP 98.524 mL SSM CV FUJI PACS LA vol index 28.4 16 - 34 mL/m2 SSM CV FUJI PACS LA area A2C 15.9 20 cm2 SSM CV F UJI PACS LA area A4C 17.8 20 cm2 SSM CV F UJI PACS Anatomical Region Laterality Modality Ultrasound Narrative 12/02/2022 3:45 PM CDT ?Left??Ventricle: Left ventricle is dilated. Mildly increased wall thickness. Mildly reduced systolic function. EF by 2D Tamez biplane is 49%. Mild global hypokinesis present. Grade I diastolic dysfunction with normal left atrial pressure. Left Ventricle Left ventricle is dilated. Mildly increased wall thickness. Mildly reduced systolic function. EF by 2D Tamez biplane is 49%. Mild global hypokinesis present. Grade I diastolic dysfunction with normal left atrial pressure. Right Ventricle Right ventricle size is normal. Normal systolic function. Left Atrium Left atrium size is normal. Left atrium volume index is 28.4 mL/m2. Right Atrium Right atrium size is normal. IVC/SVC IVC diameter is less than or equal to 21 mm and decreases greater than 50% during inspiration; therefore the estimated right atrial pressure is normal (~3 mmHg). Mitral Valve Valve structure is normal. No restricted motion. Trace regurgitation. No stenosis. Tricuspid Valve Valve structure is normal. No restricted motion. Trace regurgitation. No stenosis. Aortic Valve Valve structure is trileaflet. No restricted motion. No regurgitation. No stenosis. Pulmonic Valve Valve structure is normal. No restricted motion. No regurgitation. No stenosis. Ascending Aorta Normal sized sinus of Valsalva (aortic root) and ascending aorta. Pericardium No pericardial effusion. Study Details Study quality was adequate. A complete 2D, color Doppler, spectral Doppler and M-mode echocardiogram was performed. The apical, parasternal, subcostal and suprasternal views were obtained. Definity ultrasound enhancing agent used. Prior Study Prior TTE study available for comparison. Prior study date: 01/18/2020. Procedure Note Brian Caldera MD - 12/02/2022 ? ? Left??Ventricle: Left ventricle is dilated. Mildly increased wallthickness. Mildly reduced systolic function. EF by 2D Tamez biplane is49%. Mild global hypokinesis present. Grade I diastolic dysfunction withnormal left atrial pressure. Tay Hebert MD ECHO CUPID * GLUCOSE - POINT OF CARE (11/30/2022 8:49 AM CDT) Only the most recent of3 resultswithin the time period is included. Glucose WB/POC 96 70 - 106 mg/dL 11/30/2022 8:59 AM CDT [facility] Specimen Type Cap Fingerstick 2022 8:59 AM CDT [facility] Blood BLOOD SPECIMEN / Unknown 11/30/2022 8:49 AM CDT 11/30/2022 8:59 AM CDT Jeremiah Moeller MD LAB - POINT OF CARE ORDERABLES [facility] [address] [place] [address] * CT ANGIO AORTA FOR DISSECTION (11/30/2022 2:58 AM CDT) Anatomical Region Laterality Modality Abdomen Computed Tomogra phy 11/30/2022 9:43 AM CDT Impressions 11/30/2022 10:06 AM CDT IMPRESSION: 1. No evidence of aortic aneurysm or occlusion. 2. Left ventricular thickening could be related to underlying cardiomyopathy. 3. Possible developing avascular necrosis in the right femoral head. Edited by Chelsi Diaz on 11/30/2022 10:04 AM > Interpreting Provider: Sukhi Mulligan MD on 11/30/2022 10:06 AM Narrative 11/30/2022 10:06 AM CDT PROCEDURE: ??CT ANGIO AORTA FOR DISSECTION DATE/TIME OF EXAM: ??11/30/2022 2:58 AM CLINICAL INFORMATION: None relevant/not provided if blank. Indication: R07.89: Other chest pain COMPARISON: None. TECHNIQUE: CT angiography of the abdomen and pelvis and bilateral lower extremities was performed without IV contrast followed by IV contrast, including 3D post processing CTA image reconstruction. CT dose reduction technique was used, including Automated Exposure Control. CONTRAST: ?? IOPAMIDOL 76 % IV SOLN:100 mL FINDINGS: No evidence of hyperattenuating crescent sign is seen on noncontrast images to represent an intramural hematoma. The great vessels and aortic arch appear normal. There is no evidence of aortic dissection seen. The aortic root appears normal. The main pulmonary arteries appear normal. There may be some mild left ventricular thickening or hypertrophy. Correlation for underlying hypertension or cardiomyopathy is recommended given patient's history of cocaine abuse per history. No focal consolidation is seen in the lungs. There is no evidence of vascular congestion. CT abdomen and pelvis: Evaluation of the visceral structures is severely limited secondary to arterial phase of contrast. The liver appears normal. The gallbladder is absent. The bilateral kidneys appear normal. A small cyst is seen in the right kidney. The adrenal glands and spleen appear normal. The pancreas is normal. The stomach is markedly distended with fluid. Bone windows demonstrate no definite destructive lesions. There may be avascular necrosis in the right femoral head. Procedure Note Sukhi Mulligan MD - 11/30/2022 PROCEDURE: CT ANGIO AORTA FOR DISSECTION DATE/TIME OF EXAM: 11/30/2022 2:58 AM CLINICAL INFORMATION: None relevant/not provided if blank. Indication: R07.89: Other chest pain COMPARISON: None. TECHNIQUE: CT angiography of the abdomen and pelvis and bilateral lower extremities was performed without IV contrast followed by IV contrast, including 3D post processing CTA image reconstruction. CT dose reduction technique was used, including Automated ExposureControl. CONTRAST: IOPAMIDOL 76 % IV SOLN:100 mL FINDINGS: No evidence of hyperattenuating crescent sign is seen on noncontrastimages to represent an intramural hematoma. The great vessels and aortic arch appear normal. There is no evidence of aortic dissection seen. Theaortic root appears normal. The main pulmonary arteries appear normal. Theremay be some mild left ventricular thickening or hypertrophy. Correlation for underlying hypertension or cardiomyopathy is recommended given patient's history of cocaine abuse per history. No focal consolidation is seen inthe lungs. There is no evidence of vascular congestion. CT abdomen and pelvis: Evaluation of the visceral structures is severely limited secondary to arterial phase of contrast. The liver appearsnormal. The gallbladder is absent. The bilateral kidneys appear normal. A small cyst is seen in the right kidney. The adrenal glands and spleen appear normal. The pancreas is normal. The stomach is markedly distended with fluid. Bone windows demonstrate no definite destructive lesions. Theremay be avascular necrosis in the right femoral head. IMPRESSION: 1. No evidence of aortic aneurysm or occlusion. 2. Left ventricular thickening could be related to underlying cardiomyopathy. 3. Possible developing avascular necrosis in the right femoral head. Edited by Chelsi Diaz on 11/30/2022 10:04 AM > Interpreting Provider: Sukhi Mulligan MD on 11/30/2022 10:06 AM Elmer Willoughby MD CT ORDERABLES * Critical Care (11/30/2022 1:21 AM CDT) Narrative Elmer Willoughby MD - 11/30/2022 1:21 AM CDT Elmer Willoughby MD ? 11/30/2022 ??3:45 AM Critical Care Performed by: Elmer Willoughby MD Authorized by: Elmer Willoughby MD ?? Critical care provider statement: ??Critical care time (minutes): ??35 ??Critical care was necessary to treat or prevent imminent or life-threatening deterioration of the following conditions: ??Renal failure and dehydration ??Critical care was time spent personally by me on the following activities: ??Ordering and performing treatments and interventions, ordering and review of laboratory studies, pulse oximetry, ordering and review of radiographic studies, discussions with consultants, development of treatment plan with patient or surrogate, evaluation of patient's response to treatment, examination of patient, obtaining history from patient or surrogate and re-evaluation of patient's condition ??Care discussed with: admitting provider ?? Elmer Willoughby MD PROCEDURE/MINOR SURGICAL ORDERABLES * CT ABDOMEN PELVIS WO CONTRAST (07/03/2020 3:09 AM FARM OPERATIONS TECHNICAL DIRECTOR) Anatomical Region Laterality Modality Abdomen, Pelvis Computed Tomogra phy 07/03/2020 7:42 AM FARM OPERATIONS TECHNICAL DIRECTOR Impressions 07/03/2020 8:54 AM FARM OPERATIONS TECHNICAL DIRECTOR 1. Gaseous distention of the colon. 2. The appendix is not clearly seen on the study and a contrast-enhanced study is recommended for further evaluation. 3. Right renal cysts. Very minimal punctate foci are seen in the kidneys but may represent small vascular calcifications or possibly very small nonobstructive stones. Edited by Tayla Woods on 07/03/2020 8:53 AM *Reading Radiologist: Sukhi Mulligan on 07/03/2020 at 8:54 AM Narrative 07/03/2020 8:54 AM FARM OPERATIONS TECHNICAL DIRECTOR CT OF THE ABDOMEN AND PELVIS WITHOUT CONTRAST. TECHNIQUE: Multislice helical was performed without contrast. HISTORY: Generalized abdominal pain. FINDINGS: No focal consolidation is seen in the lung bases. There is a small calcified granuloma seen in the lingula. Cysts are seen in the bilateral kidneys. The adrenal glands are normal. The spleen is normal. The liver is normal. The stomach is markedly thickened. There is no evidence of bowel obstruction. The appendix is not well seen. No definite radiopaque renal stones are seen; however, there may be very tiny calcifications in the right kidney which could be small vascular calcifications versus very small stones measuring less than 1 mm. There are calcific densities seen along the bilateral UVJs in the bladder, please see image 122 series 2. This does appear very similar to a study of March 23, 2020, these may represent phleboliths. Bone windows demonstrate no definite destructive lesions. There are likely small bone islands in the pelvis. Procedure Note Sukhi Mulligan MD - 07/03/2020 CT OF THE ABDOMEN AND PELVIS WITHOUT CONTRAST. TECHNIQUE: Multislice helical was performed without contrast. HISTORY: Generalized abdominal pain. FINDINGS: No focal consolidation is seen in the lung bases. There is a small calcified granuloma seen in the lingula. Cysts are seen in the bilateral kidneys. The adrenal glands are normal. The spleen is normal. The liver is normal. The stomach is markedly thickened. There is no evidence of bowel obstruction. The appendix is not well seen. No definite radiopaque renal stones are seen; however, there may be very tiny calcifications in the right kidney which could be small vascular calcifications versus very small stones measuring less than 1 mm. There are calcific densities seen along the bilateral UVJs in the bladder, please see image 122 series 2. This does appear very similar to a study of March 23, 2020, these may represent phleboliths. Bone windows demonstrate no definite destructive lesions. There are likely small bone islands in the pelvis. IMPRESSION 1. Gaseous distention of the colon. 2. The appendix is not clearly seen on the study and a contrast-enhanced study is recommended for further evaluation. 3. Right renal cysts. Very minimal punctate foci are seen in the kidneys but may represent small vascular calcifications or possibly very small nonobstructive stones. Edited by Tayla Woods on 07/03/2020 8:53 AM *Reading Radiologist: Sukhi Mulligan on 07/03/2020 at 8:54 AM Guzman Webster MD CT ORDERABLES * Critical Care (06/16/2020 6:21 AM FARM OPERATIONS TECHNICAL DIRECTOR) Narrative Ilda Campbell MD - 06/16/2020 6:21 AM FARM OPERATIONS TECHNICAL DIRECTOR Ilda Campbell MD ? 06/16/2020 ??7:42 AM Critical Care Performed by: Ilda Campbell MD Authorized by: Ilda Campbell MD Critical care provider statement: ??Critical care time (minutes): ??38 ??Critical care was necessary to treat or prevent imminent or life-threatening deterioration of the following conditions: Rhabdomyolysis requiring IV fluid confusion. ??Critical care was time spent personally by me on the following activities: ??Ordering and review of laboratory studies, ordering and review of radiographic studies, ordering and performing treatments and interventions, evaluation of patient's response to treatment, discussions with primary provider, obtaining history from patient or surrogate, examination of patient, re-evaluation of patient's condition and pulse oximetry Ilda Campbell MD PROCEDURE/MINOR SURG ICAL ORDERABLES * URINALYSIS REFLEX MICROSCOPIC REFLEX CULTURE (03/23/2020 9:58 PM FARM OPERATIONS TECHNICAL DIRECTOR) Only the most recent of38 resultswithin the time period is included. Color UA Yellow Straw, Yellow 03/23/2020 10:[address] [facility] Clarity UA Clear Clear 03/23/2020 10:[address] [facility] Glucose UA Negative Negative 03/23/2020 10:[address] [facility] Bilirubin UA Negative Negative 03/23/2020 10:[address] [facility] Ketone UA Negative Negative 03/23/2020 10:[address] [facility] Specific [place] UA 1.020 1.005 - 1.030 03/23/2020 10:[address] [facility] Blood UA Negative Negative 03/23/2020 10:[address] [facility] pH UA 6.0 5.0 - 8.0 pH 03/23/2020 10:[address] [facility] Protein UA Negative Negative 03/23/2020 10:[address] [facility] Urobilinogen UA Negative Negative mg/dL 03/23/2020 10:[address] [facility] Nitrite UA Negative Negative 03/23/2020 10:[address] [facility] Leukocyte UA Negative Negative 03/23/2020 10:[address] [facility] Urine Microscopy Urine microscopy not indicated 03/23/2020 10:[address] [facility] Reflex Status Culture not indicated 03/23/2020 10:[address] [facility] Urine URINE SPECIMEN OBTAINED BY CLEAN CATCH PROCEDURE / Unknown Collection / Unknown 03/23/2020 9:58 PM FARM OPERATIONS TECHNICAL DIRECTOR 03/23/2020 10:13 PM FARM OPERATIONS TECHNICAL DIRECTOR Narrative [facility] - 03/23/2020 10:20 PM FARM OPERATIONS TECHNICAL DIRECTOR Sheyla Álvarez LABORER [employer] LAB - URINAL YSIS ORDERABLES [facility] [address] [place] [address] * US ABDOMEN LIMITED (03/23/2020 6:51 AM FARM OPERATIONS TECHNICAL DIRECTOR) Only the most recent of2 resultswithin the time period is included. Anatomical Region Laterality Modality Abdomen Ultrasound 03/23/2020 7:08 AM FARM OPERATIONS TECHNICAL DIRECTOR Impressions 03/23/2020 7:10 AM FARM OPERATIONS TECHNICAL DIRECTOR 1. ??Normal gallbladder. 2. ??Borderline enlarged common duct. ??No visible stones and no dilatation of biliary tree *Reading Radiologist: Nesha Goncalves on 03/23/2020 at 7:10 AM Narrative 03/23/2020 7:10 AM FARM OPERATIONS TECHNICAL DIRECTOR Abdominal ultrasound, limited DATE: 03/23/2020. INDICATION: Right upper quadrant pain and diarrhea. COMPARISONS: Today's CT ABDOMEN AND PELVIS. FINDINGS: The liver measures 17 cm which is normal. ??Echogenicity is normal and there is no mass or cyst. ??The gallbladder is average in size and is anechoic. ??There is no wall thickening or surrounding edema. ??No stones or sludge. ??No sonographic Daniel's sign. ??The common bile duct measures 6 to 7 mm which is borderline enlarged for the patient's age. No visible ductal stones. ??No dilatation of the intra-hepatic biliary tree. The visualized pancreas is unremarkable. The right kidney measures 10.5 x 4.5 x 5.0 cm and has normal size and echogenicity. ??There is a 1.5 cm simple cyst in the upper pole. ??No obstruction. No right upper quadrant ascites. Procedure Note Nesha Goncalves MD - 03/23/2020 Abdominal ultrasound, limited DATE: 03/23/2020. INDICATION: Right upper quadrant pain and diarrhea. COMPARISONS: Today's CT ABDOMEN AND PELVIS. FINDINGS: The liver measures 17 cm which is normal. Echogenicity is normal and there is no mass or cyst. The gallbladder is average in size and is anechoic. There is no wall thickening or surrounding edema. No stones or sludge. No sonographic Daniel's sign. The common bile duct measures 6 to 7 mm which is borderline enlarged for the patient's age. No visible ductal stones. No dilatation of the intra-hepatic biliary tree. The visualized pancreas is unremarkable. The right kidney measures 10.5 x 4.5 x 5.0 cm and has normal size and echogenicity. There is a 1.5 cm simple cyst in the upper pole. No obstruction. No right upper quadrant ascites. IMPRESSION 1. Normal gallbladder. 2. Borderline enlarged common duct. No visible stones and no dilatation of biliary tree *Reading Radiologist: Nesha Goncalves on 03/23/2020 at 7:10 AM Karla Arreaga MD US ORDERABLES * CT ABDOMEN AND PELVIS WITH IV CONTRAST - Acute Abdomen (03/23/2020 4:59 AM FARM OPERATIONS TECHNICAL DIRECTOR) Only the most recent of2 resultswithin the time period is included. Anatomical Region Laterality Modality Abdomen, Pelvis Computed Tomogra phy 03/23/2020 8:13 AM FARM OPERATIONS TECHNICAL DIRECTOR Impressions 03/23/2020 8:22 AM FARM OPERATIONS TECHNICAL DIRECTOR 1. ??Mid jejunal dilatation and mucosal inflammation without transition zone. ??This is most likely an ileus such as from enteritis. *Reading Radiologist: Nesha Goncalves on 03/23/2020 at 8:22 AM Narrative 03/23/2020 8:22 AM FARM OPERATIONS TECHNICAL DIRECTOR CT ABDOMEN AND PELVIS with contrast DATE: 03/23/2020. INDICATION: Right upper quadrant pain and diarrhea. TECHNIQUE: Multidetector enhanced CT through the abdomen and pelvis utilizing 100 cc of Isovue-370 intravenously and no oral contrast. Triplanar reformations. COMPARISONS: CT ABDOMEN AND PELVIS from 12/29/2019. FINDINGS: The lung bases are clear except for a chronic linear scarring in the left lower lobe. ??There is an incidental calcified granuloma in the lingula. ??The heart size is normal. The liver has normal size and enhancement. ??The portal and hepatic veins are patent. ??Gallbladder is average in size and unremarkable. ??No dilatation of the biliary tree or common duct. ??The pancreas and pancreatic duct are normal. ??The spleen is normal and contains incidental calcified granulomas. ??Adrenal glands are normal. ??The kidneys are free of stones or obstruction. ??No perinephric stranding. There is a 1.8 cm simple right renal cyst which is unchanged and follow-up is not recommended. ??The abdominal aorta and IVC are unremarkable. ??There is no retroperitoneal adenopathy. The stomach is unremarkable. ??The duodenum is normal. ??The mid jejunum is dilated up to 4 cm with mucosal edema and a few air-fluid levels. However there is no distinct transition zone and no mesenteric edema suggesting this is a localized ileus. ??The more distal small bowel is normal. ??The appendix and terminal ileum are normal. ??There is scattered stool in the colon without obstructive or inflammatory changes. ??No mesenteric edema or free fluid. ??The prostate and seminal vesicles are normal. ??The urinary bladder is decompressed. ??There is lower lumbar facet hypertrophy but without spinal stenosis. Preliminary report provided by [facility]. Procedure Note Nesha Goncalves MD - 03/23/2020 CT ABDOMEN AND PELVIS with contrast DATE: 03/23/2020. INDICATION: Right upper quadrant pain and diarrhea. TECHNIQUE: Multidetector enhanced CT through the abdomen and pelvis utilizing 100 cc of Isovue-370 intravenously and no oral contrast. Triplanar reformations. COMPARISONS: CT ABDOMEN AND PELVIS from 12/29/2019. FINDINGS: The lung bases are clear except for a chronic linear scarring in the left lower lobe. There is an incidental calcified granuloma in the lingula. The heart size is normal. The liver has normal size and enhancement. The portal and hepatic veins are patent. Gallbladder is average in size and unremarkable. No dilatation of the biliary tree or common duct. The pancreas and pancreatic duct are normal. The spleen is normal and contains incidental calcified granulomas. Adrenal glands are normal. The kidneys are free of stones or obstruction. No perinephric stranding. There is a 1.8 cm simple right renal cyst which is unchanged and follow-up is not recommended. The abdominal aorta and IVC are unremarkable. There is no retroperitoneal adenopathy. The stomach is unremarkable. The duodenum is normal. The mid jejunum is dilated up to 4 cm with mucosal edema and a few air-fluid levels. However there is no distinct transition zone and no mesenteric edema suggesting this is a localized ileus. The more distal small bowel is normal. The appendix and terminal ileum are normal. There is scattered stool in the colon without obstructive or inflammatory changes. No mesenteric edema or free fluid. The prostate and seminal vesicles are normal. The urinary bladder is decompressed. There is lower lumbar facet hypertrophy but without spinal stenosis. Preliminary report provided by [facility]. IMPRESSION 1. Mid jejunal dilatation and mucosal inflammation without transition zone. This is most likely an ileus such as from enteritis. *Reading Radiologist: Nesha Goncalves on 03/23/2020 at 8:22 AM Karla Arreaga MD CT ORDERABLES * (ABNORMAL) RENAL FUNCTION PANEL (03/14/2020 9:42 AM FARM OPERATIONS TECHNICAL DIRECTOR) Only the most recent of6 resultswithin the time period is included. Glucose 105 70 - 105 mg/dL 03/14/2020 11:08 AM [facility] Sodium 140 136 - 145 mmol/L 03/14/2020 11:[address] [facility] Potassium 3.9 3.5 - 5.1 mmol/L 03/14/2020 11:[address] [facility] Chloride 104 98 - 107 mmol/L 03/14/2020 11:[address] [facility] CO2 26 23 - 31 mmol/L 03/14/2020 11:[address] [facility] Calcium 8.6 8.4 - 10.4 mg/dL 03/14/2020 11:[address] [facility] Anion Gap 10 8 - 18 mmol/L 03/14/2020 11:[address] [facility] Comment:Attention clinician: ??Reference Range change. BUN 12 8.4 - 25.7 mg/dL 03/14/2020 11:[address] [facility] Creatinine 1.07 0.72 - 1.25 mg/dL 03/14/2020 11:[address] [facility] Albumin 3.6 3.5 - 5.2 gm/dL 03/14/2020 11:[address] [facility] Phosphorus 1.7(L) 2.3 - 4.7 mg/dL 03/14/2020 11:[address] [facility] Comment:Attention clinician: ??Reference Range change. eGFR by MDRD >60 >60 mL/min/1.7 3m2 03/14/2020 11:[address] [facility] eGFR by MDRD >60 >60 mL/min/1.7 3m2 03/14/2020 11:[address] [facility] Blood BLOOD SPECIMEN / Unknown Lab Venipuncture / Unknown 03/14/2020 9:42 AM FARM OPERATIONS TECHNICAL DIRECTOR 03/14/2020 10:45 AM FARM OPERATIONS TECHNICAL DIRECTOR Robby Tirado MD LAB - CHEMISTRY YARELI CASTANON Performing Organization Address [facility] Co de Phone Number [facility] [address] [place] [address] * (ABNORMAL) URINE MICROSCOPIC ONLY REFLEX TO CULTURE (03/12/2020 3:34 PM FARM OPERATIONS TECHNICAL DIRECTOR) Only the most recent of8 resultswithin the time period is included. Reflex Status Culture not indicated 03/12/2020 4:08 PM FARM OPERATIONS TECHNICAL DIRECTOR [facility] RBC UA 0-2 None Seen, 0-2, 3-5 # /hpf 03/12/2020 4:08 PM FARM OPERATIONS TECHNICAL DIRECTOR [facility] WBC UA 0-5 None Seen, 0-5 # /hpf 03/12/2020 4:08 PM FARM OPERATIONS TECHNICAL DIRECTOR [facility] Bacteria UA Trace(A) None Seen 03/12/2020 4:08 PM FARM OPERATIONS TECHNICAL DIRECTOR [facility] Squamous Epithelial Cells None Seen None Seen, 0-2, 3-5 /hpf 03/12/2020 4:08 PM FARM OPERATIONS TECHNICAL DIRECTOR [facility] Mucus UA 1+ /LPF 03/12/2020 4:08 PM FARM OPERATIONS TECHNICAL DIRECTOR [facility] Hyaline Casts 0-2 None Seen, 0-2 # /lpf 03/12/2020 4:[address] [facility] Urine URINE SPECIMEN OBTAINED BY CLEAN CATCH PROCEDURE / Unknown Collection / Unknown 03/12/2020 3:34 PM FARM OPERATIONS TECHNICAL DIRECTOR 03/12/2020 3:40 PM FARM OPERATIONS TECHNICAL DIRECTOR Narrative [facility] - 03/12/2020 4:08 PM FARM OPERATIONS TECHNICAL DIRECTOR Roxana Melton MD LAB - URINALYSIS ORDERABLES Performing Organization Address [facility]/ZIP Co de Phone Number [facility] [address] [place] [address] * (ABNORMAL) CBC W/O DIFFERENTIAL (03/04/2020 6:06 AM CDT) Only the most recent of12 resultswithin the time period is included. WBC 7.2 3.5 - 10.5 10? 3 /uL 03/04/2020 6:20 AM CDT [facility] RBC 4.11(L) 4.30 - 5.70 10? 6 /uL 03/04/2020 6:20 AM CDT [facility] Hemoglobin 12.8(L) 13.5 - 17.5 g/dL 03/04/2020 6:20 AM [facility] Hematocrit 38.9(L) 39.0 - 50.0 % 03/04/2020 6:20 AM T [facility] MCV 94.6 81.0 - 97.0 fL 03/04/2020 6:20 AM T [facility] MCH 31.1 28.0 - 34.0 pg 03/04/2020 6:20 AM T [facility] MCHC 32.9 32.0 - 36.0 g/dL 03/04/2020 6:20 AM T [facility] Platelet Count 225 150 - 400 10? 3 /uL 03/04/2020 6:20 AM T [facility] RDW-SD 45.4 36.0 - 50.0 fL 03/04/2020 6:20 AM [facility] RDW-CV 13.1 11.2 - 14.8 % 03/04/2020 6:20 AM T [facility] MPV 10.5 9.3 - 12.8 fL 03/04/2020 6:20 AM [facility] nRBC Absolute 0.00 0 10? 3 /uL 03/04/2020 6:20 AM T [facility] nRBC Auto 0.0 0 /100 WBC 03/04/2020 6:20 AM [facility] Blood BLOOD SPECIMEN / Unknown Venipuncture / Unknown 03/04/2020 6:06 AM CDT 03/04/2020 6:12 AM CDT Sheyla Shannon PA-C LAB - HEMATOLOGY ORD ERABLES [address] [address], [facility] [phone] * (ABNORMAL) URINALYSIS W/MICROSCOPIC NO CULTURE (03/03/2020 11:05 PM CDT) Only the most recent of13 resultswithin the time period is included. Color UA Yellow Straw, Yellow, Colorless 03/03/2020 11:25 PM [facility] Clarity UA Clear Clear, t Cloudy 03/03/2020 11:25 PM [facility] Specific [place] UA 1.024 1.005 - 1.030 03/03/2020 11:25 PM [facility] pH UA 5.0 5.0 - 8.0 pH 03/03/2020 11:25 PM [facility] Protein UA Negative Negative mg/dL 03/03/2020 11:25 PM [facility] Glucose UA Negative Negative mg/dL 03/03/2020 11:25 PM [facility] Ketone UA Negative Negative mg/dL 03/03/2020 11:25 PM [facility] Bilirubin UA Negative Negative mg/dL 03/03/2020 11:25 PM [facility] Blood UA Negative Negative 03/03/2020 11:25 PM [facility] Nitrite UA Negative Negative 03/03/2020 11:25 PM [facility] Leukocyte Esterase Negative Negative 03/03/2020 11:25 PM [facility] Urobilinogen UA 2.0(A) Negative mg/dL 03/03/2020 11:25 PM [facility] RBC UA 3-5 None Seen, 0-2, 3-5 /HPF 03/03/2020 11:25 PM [facility] WBC UA 0-5 None Seen, 0-5 /HPF 03/03/2020 11:25 PM [facility] Squamous Epithelial Cells UA 0-2 None Seen, 0-2 /HPF 03/03/2020 11:25 PM [facility] Calcium Oxalate UA Moderate(A) Rare, Occasional, Few, None /HPF 03/03/2020 11:25 PM [facility] Urine URINE SPECIMEN OBTAINED BY CLEAN CATCH PROCEDURE / Unknown Collection / Unknown 03/03/2020 11:05 PM CDT 03/03/2020 11:16 PM [facility] - 03/03/2020 11:[address] [facility] note^<nlbl:demographic_changed> Loreto Mcfadden LABORER [employer]-BUTTON TACKER LAB - URINALYSIS O RDERABLES [facility] [address] [place] [address], [place] [phone] * SODIUM URINE RANDOM (03/03/2020 11:05 PM CDT) Sodium Urine 59 Not Established mmol/L 03/03/2020 11:38 PM CDT [facility] Urine URINE SPECIMEN OBTAINED BY CLEAN CATCH PROCEDURE / Unknown Collection / Unknown 03/03/2020 11:05 PM CDT 03/03/2020 6:14 PM CDT Sheyla Shannon PA-C LAB - URINE CHEMISTR Y ORDERABLES [address] [address], [place] [phone] * CREATININE URINE RANDOM (03/03/2020 11:05 PM CDT) Creatinine Urine 260 Not Established mg/dL 03/03/2020 11:38 PM CDT [facility] Comment:Result obtained by d ilution. Urine URINE SPECIMEN OBTAINED BY CLEAN CATCH PROCEDURE / Unknown Collection / Unknown 03/03/2020 11:05 PM CDT 03/03/2020 6:14 PM CDT Sheyla Shannon PA-C LAB - URINE CHEMISTR Y ORDERABLES [address] [address], [place] [phone] * D-DIMER (01/18/2020 2:18 PM CDT) Only the most recent of2 resultswithin the time period is included. D-Dimer 0.49 0.27 - 0.50 ug/mL FEU 01/18/2020 3:13 PM CDT [facility] Blood BLOOD SPECIMEN / Unknown Lab Venipuncture / Unknown 01/18/2020 2:18 PM CDT 01/18/2020 2:22 PM CDT Narrative [facility] - 01/18/2020 3:13 PM CDT In the absence of clinical symptoms, a value less than or equal to 0.5 mcg/mL FEU significantly decreases the probability of PE/DVT (negative predictive value >95%). 1 mcg/ml FEU = 1 Fibrinogen Equivalent Unit (approximates 0.5 mcg/mL of D- dimer). Dillon Herman MD LAB - COAGULATION OR DERABLES [facility] [address] [place] [id number] * ECHOCARDIOGRAM 2D WITH DOPPLER (01/18/2020 8:30 AM CDT) Only the most recent of2 resultswithin the time period is included. 01/18/2020 8:30 AM CDT Narrative Procedure Note Drew Kraft MD - 01/18/[address] [address] Echocardiography Examination Transthoracic Name: RYAN HOOD [facility]#: MR#: [id number] Admission Number: [id number] Study Date: 01/18/2020 Study Time: 12:29 PM Date Of : 1965 Age: 54 years Height: 66 in. (167.6 cm) Weight: 155.01 lbs. (70.31 kg) BSA: 1.79 m2 Gender: Male Blood Pressure: 145 mmHg / 91 mmHg Heart Rate: Exam Details Procedure Ordered: ECHOCARDIOGRAM 2D W/DOPPLER Procedure Components: Complete 2D, M-mode, complete spectral Doppler, color Doppler, Bubble Study Procedure Status: Routine study Image Quality: Adequate Facility Location: [facility] Indication: Chest Pain Procedure [employer] Supervisor: JUAN JOSE Pimentel Ordering Provider: DILLON HERMAN Reading Physician: Drew Kraft MD Conclusions Left Ventricle: ? ? Left ventricle is mildly dilated, 5.6cm, 3.1cm/m2. ? ? Normal global systolic left ventricular function. ? ? EF 60 %. ? ? Left ventricle wall thickness is normal. ? ? There are no regional wall motion abnormalities. ? ? Doppler parameters are consistent with abnormal left ventricular relaxation (Grade 1 diastolic dysfunction). Left Atrium: ? ? The left atrium is severely dilated. IAS: ? ? Atrial septal aneurysm present. PFO present by color Doppler and saline bubble study with many bubbles seen in LA after 3 beats. Tricuspid Valve: ? ? Mild-moderate tricuspid regurgitation. Patient: RYAN HOOD Study Date: 01/18/2020 12:29 PM Page 1 of 4 Tricuspid Valve Measurements ? ? RVSP: 28 mmHg. Follow up: Findings Left Ventricle: Left ventricle is mildly dilated, 5.6cm, 3.1cm/m2. Normal global systolic left ventricular function. EF evaluated by biplane method of disks. EF 60 %. Left ventricle wall thickness is normal. There are no regional wall motion abnormalities. Doppler parameters are consistent with abnormal left ventricular relaxation (Grade 1 diastolic dysfunction). Right Ventricle: Normal size right ventricle. Right ventricular wall thickness is normal. Right ventricular systolic function is normal. Pulmonary artery pressure normal. Left Atrium: The left atrium is severely dilated. IAS: Atrial septal aneurysm present. PFO present by color Doppler and saline bubble study with many bubbles seen in LA after 3 beats. Right Atrium: The right atrium is normal in size. Prominent Chiari network seen. Mitral Valve: Mitral leaflets exhibit normal cuspal separation. Mild mitral regurgitation. No mitral valve stenosis. There is mild mitral thickening. Aortic Valve: Aortic leaflets exhibit normal cuspal separation. No aortic valve regurgitation. There is no aortic stenosis. Tricuspid Valve: Tricuspid valve leaflets are normal. Mild-moderate tricuspid regurgitation. No tricuspid valve stenosis. Pulmonic Valve: Pulmonic leaflets exhibit normal cuspal separation. Mild pulmonic valve regurgitation is present. There is no pulmonic valve stenosis. Aorta: The aorta is normal. No dilation of the ascending aorta. The aortic root exhibits normal size. Great Vessels: IVC: The inferior vena cava is normal in size and course. Pericardium: The pericardium is normal in appearance. No pericardial effusion. Clinical Data Comment: Drug abuse Measurements Anatomy Label Value Normal Value Aorta AoRoot, MM 3.2 cm (2.2cm - 3.7cm) Aorta AoRoot, 2D 3.6 cm (1.4cm - 2.6cm) Aortic Valve AV Vmean 0.83 m/s Aortic Valve AV VTI 23.8 cm Aortic Valve AV PGmax 23 mmHg Patient: RYAN HOOD Study Date: 01/18/2020 12:29 PM Page 2 of 4 Aortic Valve AV PGmean 3 mmHg Aortic Valve AR PHT 0.97 s Aortic Valve AR Vmax 2.44 m/s Aortic Valve AR PHT 971 ms Aortic Valve AV Vmax, Curve 1.22 m/s (1m/s - 1.7m/s) Aortic Valve AV Vmax, Caliper 2.42 m/s (1m/s - 1.7m/s) Aortic Valve LVOT VTI / AV VTI 0.64 Aortic Valve BROCK D (continuity eq. VTI) 2.4 cm?? Aortic Valve BROCK Index (continuity 0.73 cm??/m?? eq.Vmax) Aortic Valve AV Opening, MM 0 cm Aortic Valve LVOT Vmax / AV Vmax 0.35 Interventricular septum IVSd, 2D 1 cm (0.6cm - 1.1cm) Left Atrium LADs, MM 4 cm (3cm - 4cm) Left Atrium LADs, 2D 0 cm (3cm - 4cm) Left Atrium LA Area s, A4C 29.5 cm?? (0cm?? - 20cm??) Left Atrium LA Area s, A2C 27.1 cm?? (0cm?? - 20cm??) Left Atrium LAESV, MOD4 108 ml (18ml - 58ml) Left Atrium LAESV, MOD2 102 ml (18ml - 58ml) Left Atrium LA/AO Ratio, MM 1.25 Left Atrium LAESV index, MOD4 60.3 ml/m?? Left Atrium LAESV index, MOD2 57 ml/m?? Left Atrium LAESV index, AL4 69.3 ml/m?? Left Atrium LAESV index, AL2 59.8 ml/m?? Left Ventricle LVOT Vmax 0.85 m/s (0.7m/s - 1.1m/s) Left Ventricle LVOTd 2.2 cm (1.9cm - 2.1cm) Left Ventricle LVOT VTI 15.25 cm (18cm - 22cm) Left Ventricle LVOT PGmax 3 mmHg Left Ventricle LVEF visual 60 % (55% - 75%) Left Ventricle LVDd, 2D 5.6 cm (4.2cm - 5.9cm) Left Ventricle LVDs, 2D 3.4 cm (2.2cm - 3.5cm) Left Ventricle LVPWd, 2D 0.9 cm (0.6cm - 1cm) Left Ventricle FS, 2D 39.29 % Left Ventricle LVEDV, BP 121 ml (67ml - 155ml) Left Ventricle LVESV, BP 52 ml (22ml - 58ml) Left Ventricle LVEDV Index, BP 67.6 ml/m?? (35ml/m?? - 75ml/m??) Left Ventricle LVESV Index, BP 29.1 ml/m?? (12ml/m?? - 30ml/m??) Left Ventricle LVOT PGmean 1 mmHg Left Ventricle LVOT Vmean 0.54 m/s Left Ventricle Diastolic MV E Vmax 0.58 m/s Function Left Ventricle Diastolic MV A Vmax 0.96 m/s Function Left Ventricle Diastolic MV E/A 0.6 Function Left Ventricle Diastolic MV DT 143 ms Function Mitral Valve MVA PHT 5.2 cm?? Mitral Valve MV PHT 42 ms Mitral Valve MV Dec Wake 4.04 m/s?? Patient: RYAN HOOD Study Date: 01/18/2020 12:29 PM Page 3 of 4 Pulmonic Valve PV PGmax 2 mmHg Pulmonic Valve PV Vmax, Caliper 0.67 m/s (0.6m/s - 0.9m/s) Pulmonic Valve OR End gage Luz 0.7 cm/s Right Ventricle Diastolic TR Pmax 23 mmHg Function Right Ventricle Diastolic OR P diast. 2 mmHg Function Right Ventricle Diastolic Diast. PAP (OR P diast. + 7 mmHg Function CVP) Tricuspid Valve RVSP 28 mmHg Tricuspid Valve RA Pressure 5 mmHg Tricuspid Valve TR Vmax 2.39 m/s (No Signature Object) Patient: RYAN HOOD Study Date: 01/18/2020 12:29 PM Page 4 of 4 Dillon Herman MD ECHO ORDERABLES [facility] [address] [place] [address] * (ABNORMAL) SALICYLATE LEVEL BLOOD (01/18/2020 3:53 AM CDT) Only the most recent of7 resultswithin the time period is included. Salicylate <5.0(L) 15.0 - 30.0 mg/dL 01/18/2020 4:09 AM CDT [facility] Blood BLOOD SPECIMEN / Unknown Venipuncture / Unknown 01/18/2020 3:53 AM CDT 01/18/2020 3:53 AM CDT Andreassera Clarkeandrea LAB - CHEMISTRY YARELI CASTANON Performing Organization Address [facility] de Phone Number [facility] [address] [place] [address] * (ABNORMAL) ACETAMINOPHEN LEVEL (01/18/2020 3:53 AM CDT) Only the most recent of12 resultswithin the time period is included. [facility] Acetaminophen <3.0(L) 10.0 - 30.0 ug/mL 01/18/2020 4:09 AM CDT [facility] Blood BLOOD SPECIMEN / Unknown Venipuncture / Unknown 01/18/2020 3:53 AM CDT 01/18/2020 3:53 AM CDT Narrative [facility] - 01/18/2020 4:09 AM CDT [facility] ACETAMINOPHEN COMMENT Critical values: 4 Hours Post Ingestion: Critical value ?? > 200 ??g/mL 12 Hours Post Ingestion: Critical value ??> ??50 ??g/mL For acute ingestion, please refer to Acetaminophen nomogram to determine the ??risk of toxicity ??based on time since ingestion and acetaminophen level (see link provided). Note the nomogram disclaimer. WARNING: Assessing the potential toxicity of an acetaminophen level on a standard risk nomogram must take into consideration many factors including any uncertainty of the time since ingestion or the possibility of other medications that may alter the peak level. Contact the [facility] at or reserved for healthcare professionals to assist you in evaluating potentially toxic acetaminophen levels. Andreas Alexis Banks DO LAB - CHEMISTRY YARELI CASTANON Performing Organization Address [facility] Co de Phone Number [facility] [address] [place] [address] * CULTURE URINE (12/29/2019 12:17 AM CDT) Only the most recent of6 resultswithin the time period is included. Culture Urine No growth (<100 CFU/mL) LETITIA 12/30/2019 7:53 AM CDT [facility] MICROBIOLOGY Urine URINE SPECIMEN OBTAINED BY CLEAN CATCH PROCEDURE / Unknown Collection / Unknown 12/29/2019 12:17 AM CDT 12/29/2019 12:20 AM CDT Taye Hughes PA-C LAB - MICROBIOLOGY ORDERABLES [facility] MICROBIOLOGY [address] [place] [address], [facility] [phone] * (ABNORMAL) LACTIC ACID BLOOD (12/28/2019 9:11 PM CDT) Only the most recent of3 resultswithin the time period is included. Lactic Acid 2.6(H) 0.5 - 2.2 mmol/L 12/28/2019 9:27 PM CDT [facility] Blood BLOOD SPECIMEN / Unknown Venipuncture / Unknown 12/28/2019 9:11 PM CDT 12/28/2019 9:15 PM CDT Taye Hughes PA-C LAB - CHEMISTRY ORD ERABLES Performing Organization Address City/[facility]/ZIP Co de Phone Number [facility] [address] [place] [address] * ED CRITICAL CARE (12/12/2018 2:32 PM CDT) Narrative John Cason MD - 12/12/2018 2:32 PM CDT John Cason MD ? 12/12/2018 ??2:32 PM Critical Care Performed by: JOHN CASON Authorized by: JOHN CASON Critical care provider statement: ??Critical care time (minutes): ??35 ??Critical care time was exclusive of: ??Separately billable procedures and treating other patients ??Critical care was necessary to treat or prevent imminent or life-threatening deterioration of the following conditions: rhabdomyolysis. ??Critical care was time spent personally by me on the following activities: ??Development of treatment plan with patient or surrogate, discussions with consultants, evaluation of patient's response to treatment, examination of patient, obtaining history from patient or surrogate, review of old charts, re-evaluation of patient's condition, pulse oximetry, ordering and review of radiographic studies, ordering and performing treatments and interventions and ordering and review of laboratory studies John Cason MD PROCEDURE/MINOR LYN GICAL ORDERABLES * (ABNORMAL) CK + CKMB PANEL (11/18/2018 2:21 AM CDT) Only the most recent of57 resultswithin the time period is included. CK Total 998(H) 30 - 200 Units/L 11/18/2018 2:54 AM CDT [facility] CK-MB 5.2 0.0 - 6.6 ng/mL 11/18/2018 2:54 AM CDT [facility] Blood BLOOD SPECIMEN / Unknown Venipuncture / Unknown 11/18/2018 2:21 AM CDT 11/18/2018 2:24 AM CDT Sarita Wang LABORER SHAFT SINKING-BUTTON TACKER LAB - MANAGER BATTERY RY ORDERABLES Performing Organization Address City/State/[facility] Co de Phone Number [address] [phone] * ED CRITICAL CARE (10/28/2018 1:55 PM CDT) Narrative Sol Matt MD - 10/28/2018 1:55 PM CDT Sol Matt MD ? 10/28/2018 ??1:55 PM Critical Care Performed by: SOL MATT Authorized by: SOL MATT Critical care provider statement: ??Critical care time (minutes): ??85 ??Critical care was necessary to treat or prevent imminent or life-threatening deterioration of the following conditions: ??Circulatory failure, dehydration and endocrine crisis ??Critical care was time spent personally by me on the following activities: ??Development of treatment plan with patient or surrogate, discussions with consultants, evaluation of patient's response to treatment, examination of patient, obtaining history from patient or surrogate, ordering and performing treatments and interventions, ordering and review of laboratory studies, ordering and review of radiographic studies, pulse oximetry, re-evaluation of patient's condition and review of old charts Sol Matt MD PROCEDURE/MINOR SURG ICAL ORDERABLES * ED CRITICAL CARE (10/08/2018 4:04 PM CDT) Narrative Ilda Campbell MD - 10/08/2018 4:04 PM CDT Ilda Campbell MD ? 10/08/2018 ??4:04 PM Critical Care Performed by: ILDA CAMPBELL Authorized by: ILDA CAMPBELL Critical care provider statement: ??Critical care time (minutes): ??45 ??Critical care was necessary to treat or prevent imminent or life-threatening deterioration of the following conditions: ??Renal failure and metabolic crisis ??Critical care was time spent personally by me on the following activities: ??Development of treatment plan with patient or surrogate, evaluation of patient's response to treatment, examination of patient, obtaining history from patient or surrogate, ordering and performing treatments and interventions, ordering and review of laboratory studies, pulse oximetry, re-evaluation of patient's condition, review of old charts, discussions with consultants and ordering and review of radiographic studies ??I assumed direction of critical care for this patient from another provider in my specialty: no ?? Ilda Campbell MD PROCEDURE/MINOR SURG ICAL ORDERABLES * ED GENERAL PROCEDURE (10/08/2018 4:04 PM CDT) Narrative Ilda Campbell MD - 10/08/2018 4:04 PM CDT Ilda Campbell MD ? 10/08/2018 ??4:04 PM General Procedure Date/Time: 10/07/2018 7:44 AM Performed by: ILDA CAMPBELL Authorized by: ILDA CAMPBELL Consent: ??Consent obtained: ??Verbal ??Consent given by: ??Patient Post-procedure details: ??Patient tolerance of procedure: ??Tolerated well, no immediate complications Comments: ?? I placed an US-guided IV in the right basilic vein Ilda Campbell MD PROCEDURE/MINOR SURG ICAL ORDERABLES * US KIDNEYS/BLADDER (RETROPERITONEAL COMPLETE) (10/07/2018 6:03 PM CDT) Anatomical Region Laterality Modality Abdomen Ultrasound 10/07/2018 6:10 PM CDT Impressions 10/07/2018 6:10 PM CDT 1. Cyst seen in the right kidney. 2. No evidence of hydronephrosis is seen. Reading Radiologist: Sukhi Mulligan MD on 10/07/2018 at 6:10 PM Narrative 10/07/2018 6:10 PM CDT Exam: Renal sonogram with color Doppler evaluation and spectral wave analysis. History: Renal failure. Findings: The right kidney measures 9.1 x 5.3 x 4.6 cm. The left kidney measures 11.5 x 6.0 x 5.3 cm. There is a cyst in the mid right kidney measuring 1.4 x 1.4 x 1.3 cm. The bilateral renal echogenicity appears normal. No hydronephrosis is seen in the kidneys. The urinary bladder is unremarkable. Procedure Note Sukhi Mulligan MD - 10/07/2018 Exam: Renal sonogram with color Doppler evaluation and spectral wave analysis. History: Renal failure. Findings: The right kidney measures 9.1 x 5.3 x 4.6 cm. The left kidney measures 11.5 x 6.0 x 5.3 cm. There is a cyst in the mid right kidney measuring 1.4 x 1.4 x 1.3 cm. The bilateral renal echogenicity appears normal. No hydronephrosis is seen in the kidneys. The urinary bladder is unremarkable. IMPRESSION 1. Cyst seen in the right kidney. 2. No evidence of hydronephrosis is seen. Reading Radiologist: Sukhi Mulligan MD on 10/07/2018 at 6:10 PM Kervin Delgado MD US ORDERABLES * HIV-1 HIV-2 ANTIBODY + HIV P24 AG PANEL (10/07/2018 1:04 PM CDT) HIV1/2 Ab + P24 Ag Non Reactive Non Reactive 10/07/2018 2:13 PM CDT [facility] Blood BLOOD SPECIMEN / Unknown Lab Venipuncture / Unknown 10/07/2018 1:04 PM CDT 10/07/2018 1:22 PM CDT Narrative [facility] - 10/07/2018 2:13 PM CDT No Laboratory evidence of HIV infection. Kervin Delgado MD LAB - CHEMISTRY O RDSRINIVASAN Performing Organization Address [facility] de Phone Number [facility] [address] [place] [id number] * HEPATITIS SCREEN ACUTE (10/07/2018 1:04 PM CDT) Only the most recent of3 resultswithin the time period is included. HAV Antibody IgM Non Reactive Non Reactive 10/07/2018 2:16 PM CDT [facility] HBsAg Non Reactive Non Reactive 10/07/2018 2:16 PM CDT [facility] HBc Antibody IgM Non Reactive Non Reactive 10/07/2018 2:16 PM CDT [facility] HCV Antibody Screen Non Reactive Non Reactive 10/07/2018 2:16 PM CDT [facility] HCV S/C Ratio 0.07 0.00 - 0.79 10/07/2018 2:16 PM CDT [facility] Comment: Ptwsci-ir-reabdl ratio (S/CO) <0.80:?? Non Reactive Blood BLOOD SPECIMEN / Unknown Lab Venipuncture / Unknown 10/07/2018 1:04 PM CDT 10/07/2018 1:22 PM CDT [facility] - 10/07/2018 2:16 PM CDT Non Reactive - Antibodies to Hepatitis C virus (HCV) were not detected, result does not exclude early acute HCV infection. Kervin Delgado MD LAB - CHEMISTRY O DANIELLE Performing Organization Address City/[facility] de Phone Number [facility] [address] [place] [address] * LEGIONELLA ANTIGEN URINE (08/11/2018 5:41 AM CDT) Pathologist [facility] Legionella Antigen Urine Negative Negative 08/11/2018 9:05 AM CDT [facility] MICROBIOLOGY Urine URINE / Unknown Collection / Unknown 08/11/2018 5:41 AM CDT 08/11/2018 5:41 AM CDT [facility] MICROBIOLOGY - 08/11/2018 9:05 AM CDT This assay detects Legionella pneumophila serogroup one (1) antigen. A negative test result does not rule out the possibility of Legionella infection due to other serogroups or species of Legionella. A positive result may indicate a recent or remote infection with serogroup 1. Lyndsay Graves MD LAB - MICROBIOLOGY O DANIELLE Performing Organization Address [facility] Co de Phone Number [facility] MICROBIOLOGY [address] [place] [address], [facility] [phone] * CULTURE STOOL+ E COLI SHIGA-LIKE TOXIN (08/10/2018 11:06 AM CDT) Culture No growth Salmonella, Shigella, Campylobacter, Escherichia coli 0157:h7 or Yersinia LETITIA 08/12/2018 4:28 AM CDT [facility] Culture Negative Escherichia coli Shiga-like toxin (NM) LETITIA 08/12/2018 4:28 AM CDT [facility] Stool STOOL SPECIMEN / Unknown Collection / Unknown 08/10/2018 11:06 AM CDT 08/10/2018 11:06 AM CDT Lyndsay Graves MD LAB - MICROBIOLOGY O DANIELLE Performing Organization Address [facility] de Phone Number [facility] MICROBIOLOGY [address] [place] [address], [facility] [phone] * CLOSTRIDIUM DIFFICILE GDH AG + TOXIN A+B (08/10/2018 11:06 AM CDT) GDH Antigen Negative Negative, Invalid 08/10/2018 8:44 PM CDT [facility] C difficile Toxin A + B Negative Negative, Invalid 08/10/2018 8:44 PM CDT [facility] Interpretation C difficile Negative for toxigenic C. difficile Negative for toxigenic C. difficile 08/10/2018 8:44 PM CDT [facility] Stool STOOL SPECIMEN / Unknown Collection / Unknown 08/10/2018 11:06 AM CDT 08/10/2018 11:06 AM CDT Alonso Vázquez MD LAB - MICROBIOLOGY O RDERABLES [facility] MICROBIOLOG[facility] [address] [place] [address], [facility] [phone] * PT PTT PANEL (07/27/2018 9:56 AM CDT) Only the most recent of2 resultswithin the time period is included. PT 11.1 9.5 - 11.6 sec 07/27/2018 10:14 AM CDT [facility] INR 1.0 0.9 - 1.1 07/27/2018 10:14 AM CDT [facility] PTT 22.7 21.0 - 32.0 sec 07/27/2018 10:14 AM CDT [facility] Blood BLOOD SPECIMEN / Unknown Venipuncture / Unknown 07/27/2018 9:56 AM CDT 07/27/2018 10:01 AM CDT Narrative [facility] - 07/27/2018 10:14 AM CDT Conventional Warfarin Anticoagulant Therapy: INR Reference Range: ??2.0-3.0 Intensive Warfarin Anticoagulant Therapy: INR Reference Range: ? 2.5-3.5 Heparin Therapeutic Range for PTT: 47.7 - 68.6 seconds. Sb Marc DO LAB - COAGULATION O RDERABLES Performing Organization Address [facility] Co de Phone Number [facility] [address] [place] [address] * TSH REFLEX FREE T4 (07/14/2018 4:31 AM FARM OPERATIONS TECHNICAL DIRECTOR) TSH 2.37 0.358 - 3.740 ulU/mL 07/14/2018 8:25 AM FARM OPERATIONS TECHNICAL DIRECTOR [facility] Blood BLOOD SPECIMEN / Unknown Lab Venipuncture / Unknown 07/14/2018 4:31 AM FARM OPERATIONS TECHNICAL DIRECTOR 07/14/2018 8:01 AM FARM OPERATIONS TECHNICAL DIRECTOR Magdaleno Nino MD LAB - CHEM ISTRY ORDERABLES Performing Organization Address City/[facility]/ZIP Co de Phone Number [facility] [address] [place] [address] * ERYTHROCYTE SEDIMENTATION RATE (07/13/2018 11:22 AM FARM OPERATIONS TECHNICAL DIRECTOR) Erythrocyte Sedimentation Rate Automated 1 0 - 20 MM/HR 07/13/2018 12:04 PM FARM OPERATIONS TECHNICAL DIRECTOR [facility] Blood BLOOD SPECIMEN / Unknown Lab Venipuncture / Unknown 07/13/2018 11:22 AM FARM OPERATIONS TECHNICAL DIRECTOR 07/13/2018 11:53 AM FARM OPERATIONS TECHNICAL DIRECTOR Magdaleno Nino MD LAB - DEYANIRA TOLOGY ORDERABLES Performing Organization Address [facility] de Phone Number [facility] [address] [place] [address] * (ABNORMAL) C-REACTIVE PROTEIN (07/13/2018 4:57 AM FARM OPERATIONS TECHNICAL DIRECTOR) Only the most recent of3 resultswithin the time period is included. Pathologist [facility] C-Reactive Protein 0.83(H) <0.30 mg/dL 07/13/2018 10:49 AM FARM OPERATIONS TECHNICAL DIRECTOR [facility] Blood BLOOD SPECIMEN / Unknown Lab Venipuncture / Unknown 07/13/2018 4:57 AM FARM OPERATIONS TECHNICAL DIRECTOR 07/13/2018 10:40 AM FARM OPERATIONS TECHNICAL DIRECTOR Magdaleno Nino MD LAB - CHEM ISTRY ORDERABLES Performing Organization Address [facility] [place] [address] * ED CRITICAL CARE (07/12/2018 6:10 AM FARM OPERATIONS TECHNICAL DIRECTOR) Narrative Sol Matt MD - 07/12/2018 6:10 AM FARM OPERATIONS TECHNICAL DIRECTOR Sol Matt MD ? 07/12/2018 ??6:10 AM Critical Care Performed by: SOL MATT Authorized by: SOL MATT Critical care provider statement: ??Critical care time (minutes): ??85 ??Critical care was necessary to treat or prevent imminent or life-threatening deterioration of the following conditions: ??Circulatory failure, dehydration and renal failure ??Critical care was time spent personally by me on the following activities: ??Development of treatment plan with patient or surrogate, discussions with consultants, evaluation of patient's response to treatment, examination of patient, obtaining history from patient or surrogate, ordering and performing treatments and interventions, ordering and review of laboratory studies, ordering and review of radiographic studies, pulse oximetry, re-evaluation of patient's condition and review of old charts Sol Matt MD PROCEDURE/MINOR SURG ICAL ORDERABLES * XR HAND 3+ VW RIGHT (04/28/2017 12:07 PM FARM OPERATIONS TECHNICAL DIRECTOR) Only the most recent of2 resultswithin the time period is included. Anatomical Region Laterality Modality Wrist / Hand Radiographic Nessa ging 04/28/2017 12:1 8 PM FARM OPERATIONS TECHNICAL DIRECTOR Impressions 04/28/2017 12:19 PM FARM OPERATIONS TECHNICAL DIRECTOR Acute boxer's fracture. Narrative 04/28/2017 12:19 PM FARM OPERATIONS TECHNICAL DIRECTOR XR HAND 3+ VW RIGHT, PA, OBLIQUE AND LATERAL VIEWS. HISTORY: Pain in right hand COMPARISON: None. FINDINGS: There is an acute mildly angulated fracture of the neck of fifth metatarsal with overlying soft tissue swelling consistent with a boxer's fracture. The fracture is minimally comminuted. There are no other fracture, dislocation, suspicious intrinsic bony lesions, significant arthritic changes or suspicious soft tissue abnormalities. Procedure Note Sharath Johnson MD - 04/28/2017 XR HAND 3+ VW RIGHT, PA, OBLIQUE AND LATERAL VIEWS. HISTORY: Pain in right hand COMPARISON: None. FINDINGS: There is an acute mildly angulated fracture of the neck of fifth metatarsal with overlying soft tissue swelling consistent with a boxer's fracture. The fracture is minimally comminuted. There are no other fracture, dislocation, suspicious intrinsic bony lesions, significant arthritic changes or suspicious soft tissue abnormalities. IMPRESSION Acute boxer's fracture. Tacho Pinto MD DIAGNOSTIC IMAGING O RDERABLES * (ABNORMAL) URINALYSIS REFLEX TO MICROSCOPIC NO CULTURE (03/06/2017 4:41 AM CDT) Only the most recent of5 resultswithin the time period is included. Color UA Yellow Straw, Yellow, Colorless, Light Yellow [facility] Clarity UA Clear Clear [facility] Specific [place] UA 1.006 1.001 - 1.030 [facility] pH UA 7.0 5.0 - 8.0 [facility] Protein UA Negative <=20 mg/dL [facility] Glucose UA Negative Negative mg/dL [facility] Ketone UA Negative Negative mg/dL [facility] Bilirubin UA Negative Negative mg/dL [facility] Blood UA Negative Negative [facility] Nitrite UA Negative Negative [facility] Leukocyte Esterase Negative Negative [facility] Urobilinogen UA <2.0 <2.0 mg/dL [facility] RBC UA 2 0 - 8 /HPF [facility] WBC UA <1 0 - 2 /HPF [facility] Bacteria UA Rare Rare, Occasional, None /HPF [facility] Squamous Epithelial Cells UA <1 0 - 1 /HPF [facility] Mucus UA Rare(A) None /LPF [facility] Urine specimen (specimen) 03/06/2017 4:41 AM CDT 03/06/2017 4:47 AM CDT Inessa Martinez MD LAB - URINALYSIS ORD ERABLES Performing Organization Address City/State/[facility] Co de Phone Number [address] [phone] * (ABNORMAL) DRUG ABUSE PANEL 10-20+ETHANOL URINE NO CONFIRM (03/06/2017 4:41 AM CDT) Only the most recent of12 resultswithin the time period is included. Amphetamines Screen Urine Negative Negative : < 1000 ng/mL [facility] Barbiturates Screen Urine Negative Negative : < 200 ng/mL [facility] Benzodiazepine Screen Urine Negative Negative : < 200 ng/mL [facility] Opiates Urine Negative Negative : < 300 ng/mL [facility] Cocaine Metabolites Urine Positive(A) Negative : < 300 ng/mL [facility] Comment: Positive urine cocaine metabolites screening results should be confirmed by another generally accepted non-immunological method such as gas chromatography or mass spectrometry. ? Phencyclidine Screen Urine Negative Negative : < 25 ng/ml [facility] Cannabinoids Screen Urine Negative Negative : <50 ng/mL [facility] Methadone Screen Urine Negative Negative : < 300 ng/mL [facility] Urine specimen (specimen) URINE / Unknown 03/06/2017 4:41 AM CDT 03/06/2017 4:47 AM CDT Narrative [facility] - 03/06/2017 5:02 AM CDT The Urine Toxicology Screening Panel does not screen for Propoxyphene, Meprobamate, Carisoprodol, Trazodone, yqwz-vcv-auxedum medications and/or volatiles (Acetone, Isopropanol, Methanol or Ethylene Glycol). Ethanol, Salicylate, Acetaminophen, Tricyclic Antidepressants and several therapeutic drugs may be individually assayed in serum or plasma specimen. Toxicology testing by the [facility] is an aid to medical diagnosis and treatment of patients. No documented chain of custody was maintained. Results are intended to be used for clinical purposes only. ? Inessa Martinez MD LAB - URINE CHEMISTR Y ORDERABLES Performing Organization Address City/State/[facility] Co de Phone Number [facility] [address] [phone] * ED CRITICAL CARE (01/23/2017 12:54 PM CDT) Narrative Jeanette Pena MD - 01/23/2017 12:54 PM CDT Jeanette Pena MD ? 01/23/2017 12:54 PM Critical Care Performed by: JEANETTE PENA Authorized by: JEANETTE PENA Total critical care time: 35 minutes Critical care time was exclusive of separately billable procedures and treating other patients. Critical care was necessary to treat or prevent imminent or life-threatening deterioration of the following conditions: renal failure and shock. Critical care was time spent personally by me on the following activities: development of treatment plan with patient or surrogate, discussions with consultants, evaluation of patient's response to treatment, examination of patient, obtaining history from patient or surrogate, ordering and performing treatments and interventions, ordering and review of laboratory studies, pulse oximetry, re-evaluation of patient's condition and review of old charts. Jeanette Pena MD PROCEDURE/MINOR SURG ICAL ORDERABLES * HEMOGLOBIN A1C (09/13/2016 3:15 AM CDT) Only the most recent of4 resultswithin the time period is included. Hemoglobin A1c 5.3 4.2 - 6.3 % 09/13/2016 4:21 AM CDT [facility] Estimated Average Glucose 105 mg/dL 09/13/2016 4:21 AM CDT [facility] Whole Blood BLOOD SPECIMEN WITH EDTA / Unknown Lab Venipuncture / Unknown 09/13/2016 3:15 AM CDT 09/13/2016 3:23 AM CDT Erik Duff MD LAB - CHEMISTRY YARELI CASTANON [facility] Organization Address City/State/[facility] Co de Phone Number [facility] [address] [place] [address] * INFLUENZA A+B ANTIGEN RAPID (09/11/2016 12:38 PM CDT) Pathologist [facility] Influenza A Antigen Negative Negative 09/11/2016 12:52 PM CDT [facility] Influenza B Antigen Negative Negative 09/11/2016 12:52 PM CDT [facility] Microbiology NASOPHARYNGEAL SWAB / Unknown Collection / Unknown 09/11/2016 12:38 PM CDT 09/11/2016 12:38 PM CDT Narrative [facility] - 09/11/2016 12:52 PM CDT ? The sensitivity of rapid tests for influenza A and B antigens, according to the published reports , ranges from 30-70% when compared to PCR and viral culture. For H1N1 influenza A, the sensitivity varies from 30-50%. For other influenza A strains, the sensitivity ranges from 50-70%. For influenza B virus, the sensitivity is approximately 30%. A negative result does not exclude influenza infection. ? False-positive (and true-negative) influenza test results are more likely to occur when disease prevalence is low, which is generally at the beginning and end of the influenza season. False-negative (and true-positive) influenza test results are more likely to occur when disease prevalence is high, which is typically at the height of the influenza season. Baylee Busby APRN-BUTTON TACKER LAB - MICROB IOLOGY ORDERABLES Performing Organization Address [facility]/ZIP Co de Phone Number [facility] [address] [place] [address] * (ABNORMAL) HEPATIC FUNCTION PANEL (08/31/2016 7:08 AM CDT) Only the most recent of2 resultswithin the time period is included. Alkaline Phosphatase 134(H) 38 - 126 U/L 08/31/2016 7:40 AM T [facility] ALT 62(H) 13 - 61 U/L 08/31/2016 7:40 AM CDT [facility] AST 34 5 - 40 U/L 08/31/2016 7:40 AM T [facility] Protein Total 5.8(L) 6.4 - 8.2 gm/dL 08/31/2016 7:40 AM CDT [facility] Albumin 3.0(L) 3.4 - 5.0 gm/dL 08/31/2016 7:40 AM T [facility] Bilirubin Total 0.2 0.2 - 1.0 mg/dL 08/31/2016 7:40 AM CDT [facility] Bilirubin Direct <0.1 0 - 0.3 mg/dL 08/31/2016 7:40 AM T [facility] Blood BLOOD SPECIMEN / Unknown Lab Venipuncture / Unknown 08/31/2016 7:08 AM CDT 08/31/2016 7:17 AM CDT Audrey Avilez MD LAB - CHEMISTRY YARELI CASTANON Performing Organization Address [facility]/ZIP Co de Phone Number [facility] [address] [place] [address] * CT BRAIN FACIAL BONES WO CONTRAST (08/01/2016 2:41 PM CDT) Anatomical Region Laterality Modality Head Computed Tomogra phy 08/01/2016 2:45 PM CDT Impressions 08/01/2016 2:51 PM CDT 1. No acute intracranial process. 2. No acute facial bone fractures identified. 3. Paranasal sinus disease. 4. Dental disease. Narrative 08/01/2016 2:51 PM CDT EXAMINATION: 1. Computed tomography (CT) of the head without contrast 2. CT of the maxillofacial bones, orbits, and paranasal sinuses without contrast HISTORY: Facial swelling TECHNIQUE: CT of the head and maxillofacial bones, orbits, and paranasal sinuses was performed without contrast according to standard protocol. FINDINGS: Head CT performed 12/09/2009 is available for comparison. Head: No acute intra- or extra-axial fluid collections are identified. The ventricles are of normal size, shape, and morphology. The basilar cisterns are patent. No mass effect or midline shift is seen. The ny-white matter differentiation is normal. No acute fracture is identified. Maxillofacial: The orbits appear normal. There is severe mucosal thickening involving the left maxillary sinus. There is mild ethmoid mucosal thickening, left greater than right. Numerous dental caries are noted. The temporal mandibular joints appear normal. No acute facial bone fractures are identified. The mastoid air cells are clear. Procedure Note Mayur Gill MD - 08/01/2016 EXAMINATION: 1. Computed tomography (CT) of the head without contrast 2. CT of the maxillofacial bones, orbits, and paranasal sinuses without contrast HISTORY: Facial swelling TECHNIQUE: CT of the head and maxillofacial bones, orbits, and paranasal sinuses was performed without contrast according to standard protocol. FINDINGS: Head CT performed 12/09/2009 is available for comparison. Head: No acute intra- or extra-axial fluid collections are identified. The ventricles are of normal size, shape, and morphology. The basilar cisterns are patent. No mass effect or midline shift is seen. The ny-white matter differentiation is normal. No acute fracture is identified. Maxillofacial: The orbits appear normal. There is severe mucosal thickening involving the left maxillary sinus. There is mild ethmoid mucosal thickening, left greater than right. Numerous dental caries are noted. The temporal mandibular joints appear normal. No acute facial bone fractures are identified. The mastoid air cells are clear. IMPRESSION 1. No acute intracranial process. 2. No acute facial bone fractures identified. 3. Paranasal sinus disease. 4. Dental disease. Jeanette Pena MD CT ORDERABLES * CT FACIAL BONES WO CONTRAST (07/31/2016 8:26 PM CDT) Anatomical Region Laterality Modality Head Other Impressions 08/01/2016 11:11 AM CDT IMPRESSION: 1. Thinning of the floor of the left orbit may represent chronic bone loss secondary to chronic sinusitis, although superimposed nondisplaced acute fracture cannot be completely excluded if there is a history of trauma. 2. Age-indeterminate nasal bone and right lamina papyracea fractures. Please correlated with point tenderness. 3. Moderate left maxillary sinus disease with opacification of the ostiomeatal units bilaterally. The preliminary findings were reported by Dr. Piper on 07/31/2016 at 9:15 PM. This report was approved ??by Janes Perea M.D. ?? on 08/01/2016 8:48 AM . I, Dr. VAN PAZ M.D. have personally reviewed and interpreted this examination/study. This report was electronically signed by VAN PAZ M.D. ??on 08/01/2016 11:11 AM . Narrative 08/01/2016 11:11 AM CDT EXAMINATION: Computed tomography (CT) of the maxillofacial bones, orbits, and paranasal sinuses without contrast HISTORY: Facial injury TECHNIQUE: CT of the maxillofacial bones, orbits, and paranasal sinuses was performed without contrast according to standard protocol. FINDINGS: No prior study is available for comparison at the time of this dictation. The orbits appear normal. There is a chronic large defect of the posterior- lateral wall of the right maxillary sinus. There is moderate mucosal thickening in the left maxillary sinus. The ostiomeatal units are opacified bilaterally. The hard palate, mandible, and temporomandibular joints appear normal. Multiple dental caries are identified. Age-indeterminate nasal bone and right lamina papyracea fractures are identified. There is thinning of the floor of the left orbit which may represent chronic bone loss due to chronic sinusitis. The mastoid air cells are clear. Dermal calcifications are identified in the bilateral cheeks with associated skin thickening and fat stranding. There is multilevel moderate to severe facet arthropathy with fusion of the C2-3 facets. Procedure Note Van Paz MD - 08/07/2017 EXAMINATION: Computed tomography (CT) of the maxillofacial bones, orbits,and paranasal sinuses without contrast HISTORY: Facial injury TECHNIQUE: CT of the maxillofacial bones, orbits, and paranasal sinuseswas performed without contrast according to standard protocol. FINDINGS: No prior study is available for comparison at the time of thisdictation. The orbits appear normal. There is a chronic large defect of theposterior- lateral wall of the right maxillary sinus. There is moderatemucosal thickening in the left maxillary sinus. The ostiomeatal units areopacified bilaterally. The hard palate, mandible, and temporomandibular joints appear normal. Multiple dentalcaries are identified. Age-indeterminate nasal bone and right laminapapyracea fractures are identified. There is thinning of the floor of theleft orbit which may represent chronic bone loss due to chronic sinusitis. The mastoid air cells are clear.Dermal calcifications are identified in the bilateral cheeks withassociated skin thickening and fat stranding. There is multilevel moderateto severe facet arthropathy with fusion of the C2-3 facets. IMPRESSION IMPRESSION: 1. Thinning of the floor of the left orbit may represent chronic bone losssecondary to chronic sinusitis, although superimposed nondisplaced acutefracture cannot be completely excluded if there is a history of trauma. 2. Age-indeterminate nasal bone and right lamina papyracea fractures.Please correlated with point tenderness. 3. Moderate left maxillary sinus disease with opacification of theostiomeatal units bilaterally. The preliminary findings were reported by Dr. Piper on 07/31/2016 at 9:15PM. This report was approved by Janes Perea M.D. on 08/01/2016 8:48 AM. I, Dr. VAN PAZ M.D. have personally reviewed and interpreted thisexamination/study. This report was electronically signed by VAN PAZ M.D. on 08/01/201611:11 AM . Lyndsay Graves MD CT ORDERABLES * LIPID PROFILE (02/19/2016 10:18 AM CDT) Only the most recent of2 resultswithin the time period is included. Cholesterol 149 <200 mg/dL 02/19/2016 11:03 AM CDT [facility] Triglycerides 127 <150 mg/dL 02/19/2016 11:03 AM CDT [facility] HDL Cholesterol 67 >40 mg/dL 02/19/2016 11:03 AM CDT [facility] LDL Calculated 57 <130 mg/dL 02/19/2016 11:03 AM CDT [facility] VLDL Calculated 25 <=30 mg/dL 02/19/2016 11:03 AM CDT [facility] Chol HDL Ratio 2.2 <4.5 02/19/2016 11:03 AM CDT [facility] LDL/HDL Ratio 0.8 <5.0 02/19/2016 11:03 AM CDT [facility] Blood BLOOD SPECIMEN / Unknown Lab Venipuncture / Unknown 02/19/2016 10:18 AM CDT 02/19/2016 10:22 AM CDT Amanda Braga APRN-BUTTON [employer]ER LAB - CHEMISTRY ORDERABLES [facility] [address] [place], [place] [id number] * CKMB (12/17/2015 6:56 PM CDT) CK-MB 3.3 0.0 - 5.0 ng/mL 12/17/2015 7:17 PM CDT [facility] Blood BLOOD SPECIMEN / Unknown Venipuncture / Unknown 12/17/2015 6:56 PM CDT 12/17/2015 6:58 PM CDT Luther Pena MD LAB - CHEMISTRY ORDERABLES [facility] [address], [place] [id number] * (ABNORMAL) DRUG SCREEN TOX LIMITED BLD PNL 3 INHOUSE (07/10/2015 5:26 PM FARM OPERATIONS TECHNICAL DIRECTOR) Only the most recent of2 resultswithin the time period is included. Acetaminophen <2.0(L) 10.0 - 30.0 ug/mL 07/10/2015 5:51 PM FARM OPERATIONS TECHNICAL DIRECTOR [facility] Ethanol <3 <10 mg/dL 07/10/2015 5:51 PM [facility] Salicylate <1.7 <20.0 mg/dL 07/10/2015 5:51 PM [facility] Ethanol Calculated <0.100 gm/dL 07/10/2015 5:51 PM [facility] Comment:Not Calculated Blood BLOOD SPECIMEN / Unknown 07/10/2015 5:26 PM FARM OPERATIONS TECHNICAL DIRECTOR 07/10/2015 5:30 PM FARM OPERATIONS TECHNICAL DIRECTOR Narrative [facility] - 07/10/2015 5:51 PM [facility] ACETAMINOPHEN COMMENT Critical values: 4 Hours Post Ingestion: Critical value ?? > 200 ??g/mL 12 Hours Post Ingestion: Critical value ??> ??50 ??g/mL For acute ingestion, please refer to Acetaminophen nomogram to determine the ??risk of toxicity ??based on time since ingestion and acetaminophen level (see link provided). Note the nomogram disclaimer. WARNING: Assessing the potential toxicity of an acetaminophen level on a standard risk nomogram must take into consideration many factors including any uncertainty of the time since ingestion or the possibility of other medications that may alter the peak level. Contact the [facility] at or reserved for healthcare professionals to assist you in evaluating potentially toxic acetaminophen levels. Sb Marc DO LAB - CHEMISTRY ORD ERABLES [facility] [address] [place] [address] * (ABNORMAL) URIC ACID BLOOD (06/08/2015 6:34 AM FARM OPERATIONS TECHNICAL DIRECTOR) Uric Acid 7.7(H) 2.6 - 7.2 mg/dL [facility] Blood specimen (specimen) BLOOD SPECIMEN / Unknown 06/08/2015 6:34 AM FARM OPERATIONS TECHNICAL DIRECTOR 06/08/2015 6:22 AM FARM OPERATIONS TECHNICAL DIRECTOR Nani Bae MD LAB - CHEMISTRY [facility] CASTANON [address] [phone] * XR ELBOW LEFT 3VW OR MORE (06/08/2015 6:09 AM FARM OPERATIONS TECHNICAL DIRECTOR) Only the most recent of2 resultswithin the time period is included. Anatomical Region Laterality Modality Upper Extremity Other Impressions 06/08/2015 12:12 PM FARM OPERATIONS TECHNICAL DIRECTOR IMPRESSION: No acute osseous abnormality identified in the left elbow, wrist, or hand. Dictated by Omar Piper MD (vice president marketing & development). This report was approved ??by Omar Piper ?? on 06/08/2015 10:45 AM . I, Dr. PROSPER DUARTE M.D. have personally reviewed and interpreted this examination/study. This report was electronically signed by PROSPER DUARTE M.D. ??on 06/08/2015 12:12 PM . Narrative 06/08/2015 12:12 PM FARM OPERATIONS TECHNICAL DIRECTOR EXAMINATION: 1. Left elbow, 3 views 2. Left wrist, 3 views 3. Left hand, 3 views HISTORY: Pain COMPARISON: Comparison is made with left elbow radiographs dated 08/10/2012. FINDINGS: Left elbow: The osseous structures are intact and well aligned without acute fracture or dislocation. The joint spaces are preserved. No joint effusion is seen. Bone density and texture are normal. No significant soft tissue swelling is present. 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 The osseous structures are intact and well aligned without acute fracture or dislocation. The joint spaces are preserved. No joint effusion is seen. Bone density and texture are normal. No soft tissue swelling is present. Left hand: The osseous structures are intact and well aligned without acute fracture or dislocation. Minimal degenerative changes are seen in the wrist. No joint effusion is seen. Bone density and texture are normal. No soft tissue swelling is present. Procedure Note Prosper Duarte MD - 08/08/2017 EXAMINATION: 1. Left elbow, 3 views 2. Left wrist, 3 views 3. Left hand, 3 views HISTORY: Pain COMPARISON: Comparison is made with left elbow radiographs date08/10/2012. FINDINGS: Left elbow: The osseous structures are intact and well aligned without acute fractureor dislocation. The joint spaces are preserved. No joint effusion is seen.Bone density and texture are normal. No significant soft tissue swellingis present. 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 The osseousstructures are intact and well aligned without acute fracture ordislocation. The joint spaces are preserved. No joint effusion is seen. Bone density and texture are normal.No soft tissue swelling is present. Left hand: The osseous structures are intact and well aligned without acute fractureor dislocation. Minimal degenerative changes are seen in the wrist. Nojoint effusion is seen. Bone density and texture are normal. No softtissue swelling is present. IMPRESSION IMPRESSION: No acute osseous abnormality identified in the left elbow, wrist, orhand. Dictated by Omar Piper MD (vice president marketing & development). This report was approved by Omar Piper on 06/08/2015 10:[address] PROSPER May M.D. have personally reviewed and interpreted thisexamination/study. This report was electronically signed by PROSPER DUARTE M.D. on 06/08/201512:12 PM . Nani Bae MD DIAGNOSTIC IMAGING O RDERABLES * XR WRIST LEFT 3VW OR MORE (06/08/2015 6:09 AM FARM OPERATIONS TECHNICAL DIRECTOR) Anatomical Region Laterality Modality Wrist / Hand Other Impressions 06/08/2015 12:12 PM FARM OPERATIONS TECHNICAL DIRECTOR IMPRESSION: No acute osseous abnormality identified in the left elbow, wrist, or hand. Dictated by Omar Piper MD (vice president marketing & development). This report was approved ??by Omar Piper ?? on 06/08/2015 10:[address] PROSPER May M.D. have personally reviewed and interpreted this examination/study. This report was electronically signed by PROSPER DUARTE M.D. ??on 06/08/2015 12:12 PM . Narrative 06/08/2015 12:12 PM FARM OPERATIONS TECHNICAL DIRECTOR EXAMINATION: 1. Left elbow, 3 views 2. Left wrist, 3 views 3. Left hand, 3 views HISTORY: Pain COMPARISON: Comparison is made with left elbow radiographs dated 08/10/2012. FINDINGS: Left elbow: The osseous structures are intact and well aligned without acute fracture or dislocation. The joint spaces are preserved. No joint effusion is seen. Bone density and texture are normal. No significant soft tissue swelling is present. 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 The osseous structures are intact and well aligned without acute fracture or dislocation. The joint spaces are preserved. No joint effusion is seen. Bone density and texture are normal. No soft tissue swelling is present. Left hand: The osseous structures are intact and well aligned without acute fracture or dislocation. Minimal degenerative changes are seen in the wrist. No joint effusion is seen. Bone density and texture are normal. No soft tissue swelling is present. Procedure Note Prosper Duarte MD - 08/08/2017 EXAMINATION: 1. Left elbow, 3 views 2. Left wrist, 3 views 3. Left hand, 3 views HISTORY: Pain COMPARISON: Comparison is made with left elbow radiographs date08/10/2012. FINDINGS: Left elbow: The osseous structures are intact and well aligned without acute fractureor dislocation. The joint spaces are preserved. No joint effusion is seen.Bone density and texture are normal. No significant soft tissue swellingis present. 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 The osseousstructures are intact and well aligned without acute fracture ordislocation. The joint spaces are preserved. No joint effusion is seen. Bone density and texture are normal.No soft tissue swelling is present. Left hand: The osseous structures are intact and well aligned without acute fractureor dislocation. Minimal degenerative changes are seen in the wrist. Nojoint effusion is seen. Bone density and texture are normal. No softtissue swelling is present. IMPRESSION IMPRESSION: No acute osseous abnormality identified in the left elbow, wrist, orhand. Dictated by Omar Piper MD (vice president marketing & development). This report was approved by Omar Piper on 06/08/2015 10:45 AM . I, Dr. PROSPER DUARTE M.D. have personally reviewed and interpreted thisexamination/study. This report was electronically signed by PROSPER DUARTE M.D. on 06/08/201512:12 PM . Nani Bae MD DIAGNOSTIC IMAGING O RDERABLES * XR HAND LEFT 3VW OR MORE (06/08/2015 6:08 AM FARM OPERATIONS TECHNICAL DIRECTOR) Anatomical Region Laterality Modality Wrist / Hand Other Impressions 06/08/2015 12:12 PM FARM OPERATIONS TECHNICAL DIRECTOR IMPRESSION: No acute osseous abnormality identified in the left elbow, wrist, or hand. Dictated by Omar Piper MD (vice president marketing & development). This report was approved ??by Omar Piper ?? on 06/08/2015 10:45 AM . I, Dr. PROSPER DUARTE M.D. have personally reviewed and interpreted this examination/study. This report was electronically signed by PROSPER DUARTE M.D. ??on 06/08/2015 12:12 PM . Narrative 06/08/2015 12:12 PM FARM OPERATIONS TECHNICAL DIRECTOR EXAMINATION: 1. Left elbow, 3 views 2. Left wrist, 3 views 3. Left hand, 3 views HISTORY: Pain COMPARISON: Comparison is made with left elbow radiographs dated 08/10/2012. FINDINGS: Left elbow: The osseous structures are intact and well aligned without acute fracture or dislocation. The joint spaces are preserved. No joint effusion is seen. Bone density and texture are normal. No significant soft tissue swelling is present. 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 The osseous structures are intact and well aligned without acute fracture or dislocation. The joint spaces are preserved. No joint effusion is seen. Bone density and texture are normal. No soft tissue swelling is present. Left hand: The osseous structures are intact and well aligned without acute fracture or dislocation. Minimal degenerative changes are seen in the wrist. No joint effusion is seen. Bone density and texture are normal. No soft tissue swelling is present. Procedure Note Prosper Duarte MD - 08/08/2017 EXAMINATION: 1. Left elbow, 3 views 2. Left wrist, 3 views 3. Left hand, 3 views HISTORY: Pain COMPARISON: Comparison is made with left elbow radiographs date08/10/2012. FINDINGS: Left elbow: The osseous structures are intact and well aligned without acute fractureor dislocation. The joint spaces are preserved. No joint effusion is seen.Bone density and texture are normal. No significant soft tissue swellingis present. 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 The osseousstructures are intact and well aligned without acute fracture ordislocation. The joint spaces are preserved. No joint effusion is seen. Bone density and texture are normal.No soft tissue swelling is present. Left hand: The osseous structures are intact and well aligned without acute fractureor dislocation. Minimal degenerative changes are seen in the wrist. Nojoint effusion is seen. Bone density and texture are normal. No softtissue swelling is present. IMPRESSION IMPRESSION: No acute osseous abnormality identified in the left elbow, wrist, orhand. Dictated by Omar Piper MD (vice president marketing & development). This report was approved by Omar Piper on 06/08/2015 10:45 AM . I, Dr. PROSPER DUARTE M.D. have personally reviewed and interpreted thisexamination/study. This report was electronically signed by PROSPER DUARTE M.D. on 06/08/201512:12 PM . Nani Bae MD DIAGNOSTIC IMAGING O DANIELLE * CULTURE VRE (02/06/2015 6:13 PM CDT) Culture Negative for VRE LETITIA 02/08/2015 7:16 AM CDT [facility] Stool RECTAL SWAB / Unknown Collection / Unknown 02/06/2015 6:13 PM CDT 02/06/2015 6:20 PM CDT Ting Ortez MD LAB - MICROBIOLOGY O RDALBERTINABLES [facility] [address] [place], [place] [address], [facility] [phone] * CULTURE MRSA (02/06/2015 6:13 PM CDT) Only the most recent of2 resultswithin the time period is included. Culture Negative for MRSA LETITIA 02/08/2015 7:16 AM CDT [facility] Microbiology RECTAL SWAB / Unknown Collection / Unknown 02/06/2015 6:13 PM CDT 02/06/2015 6:20 PM CDT Ting Ortez MD LAB - MICROBIOLOGY O RDERABLES Performing Organization Address City/[facility] Co de Phone Number [facility] [address] [place] [address], [facility] [phone] * (ABNORMAL) DRUG ABUSE URINE PANEL (06/12/2014 2:54 PM FARM OPERATIONS TECHNICAL DIRECTOR) Only the most recent of7 resultswithin the time period is included. Pathologist [facility] Amphetamines Screen Urine Not Detected Not Detected 06/12/2014 3:15 PM FARM OPERATIONS TECHNICAL DIRECTOR [facility] Barbiturates Screen Urine Not Detected Not Detected 06/12/2014 3:15 PM FARM OPERATIONS TECHNICAL DIRECTOR [facility] Benzodiazepines Screen Urine Not Detected Not Detected 06/12/2014 3:15 PM FARM OPERATIONS TECHNICAL DIRECTOR [facility] Cannabinoids Screen Urine Not Detected Not Detected 06/12/2014 3:[address] [facility] Cocaine Screen Urine Detected(A) Not Detected 06/12/2014 3:[address] [facility] Opiate Screen Urine Not Detected Not Detected 06/12/2014 3:[address] [facility] Phencyclidine Screen Urine Not Detected Not Detected 06/12/2014 3:[address] [facility] Urine URINE / Unknown 06/12/2014 2 :54 PM FARM OPERATIONS TECHNICAL DIRECTOR 06/12/2014 3:04 PM FARM OPERATIONS TECHNICAL DIRECTOR Narrative [facility] - 06/12/2014 3:15 PM FARM OPERATIONS TECHNICAL DIRECTOR This drug screen is designed for MEDICAL purposes only. It is not to be used for legal purposes, including but not limited to worker's comp, police investigations, occupational issues, child custody, etc. ??Any positive result is only presumptive and must be confirmed with a separate confirmatory test ordered by the physician. Drug Screening Test Cutoff Values: AMPHETAMINES ?1000 ng/ml BARBITURATES ? 200 ng/ml BENZODIAZEPINES ??200 ng/ml CANNABINOIDS(THC) 50 ng/ml COCAINE ?300 ng/ml OPIATES ?300 ng/ml PHENCYCLIDINE(PCP)25 ng/ml Jyoti Coppola MD LAB - URINE CHEMISTR Y ORDERABLES Performing Organization Address City/[facility]/ZIP Co de Phone Number [facility] [address] [place] [address] * PT-INR [facility] (11/25/2013 8:14 AM CDT) PT 12.2 12.1 - 14.8 Seconds [facility] INR 0.9 See Comment [facility] Comment: Suggested therapeutic range for low-intensity coumadin therapy for venous thromboembolism prophylaxis is an INR of 2.0-3.0. ??For high risk patients (Mitral Valve Prosthesis, Atrial Fibrillation, history of TIA/stroke), suggested prophylactic therapeutic range is an INR of 2.5-3.5. Blood specimen (specimen) BLOOD SPECIMEN / Unknown 11/25/2013 8:14 AM CDT 11/25/2013 8:15 AM CDT Narrative [facility] - 11/25/2013 8:55 AM CDT Is patient on Heparin, Argatroban or Dabigatran?->N Janes Celis MD LAB - COAGULATION OR DERABLES Performing Organization Address City/[facility]/ZIP Co de Phone Number [facility] [address] [phone] * (ABNORMAL) ALDOLASE (11/24/2013 7:55 PM CDT) Aldolase 37.0(H) 1.2 - 7.6 U/L [facility] (BEAKER) Blood specimen (specimen) BLOOD SPECIMEN / Unknown 11/24/2013 7:55 PM CDT 11/24/2013 9:08 PM CDT Narrative [facility] (BEAKER) - 11/28/2013 1:12 PM CDT Performed at: ??01 - [facility] [address], [place], [place] ??[id number] Registered Respiratory Therapist: Danny Suggs MD, Phone: ??[phone] Janes Celis MD LAB - CHEMISTRY YARELI CASTANON [facility] (BEAKER) * TSH (11/24/2013 7:55 PM CDT) Only the most recent of2 resultswithin the time period is included. TSH 2.539 0.350 - 4.940 uIU/mL [facility] Blood specimen (specimen) BLOOD SPECIMEN / Unknown 11/24/2013 7:55 PM CDT 11/24/2013 9:08 PM CDT Janes Celis MD LAB - CHEMISTRY YARELI CASTANON [address] [phone] * (ABNORMAL) LDH BLOOD (11/23/2013 10:28 PM CDT) Pathologist [facility] LDH Total 716(H) 125 - 243 Units/L [facility] Blood specimen (specimen) BLOOD SPECIMEN / Unknown 11/23/2013 10:28 PM CDT 11/23/2013 10:42 PM CDT Nolberto Soares MD LAB - CHEMISTRY YARELI CASTANON Performing Organization Address [facility] Co de Phone Number [address] [phone] * MYOGLOBIN URINE QUANTITATIVE (07/04/2013 5:30 PM FARM OPERATIONS TECHNICAL DIRECTOR) Pathologist [facility] Myoglobin Urine < 2 0 - 13 ng/mL [facility] Comment: Performed at: ?? - [facility] [address] ??[id number] Registered Respiratory Therapist: Luther Herrera MD, Phone: ??[phone] Urine specimen (specimen) URINE SPECIMEN OBTAINED BY CLEAN CATCH PROCEDURE / Unknown 07/04/2013 5:30 PM FARM OPERATIONS TECHNICAL DIRECTOR 07/04/2013 5:51 PM FARM OPERATIONS TECHNICAL DIRECTOR Zac Stoll MD LAB - URINE CHEMISTR Y ORDERABLES Performing Organization Address [facility]/ZIP Co de Phone Number [address] [phone] * CT ANGIO CHEST ABDOMEN (06/20/2013 9:25 AM FARM OPERATIONS TECHNICAL DIRECTOR) Anatomical Region Laterality Modality Computed Tomogra phy 06/20/2013 10:0 7 AM FARM OPERATIONS TECHNICAL DIRECTOR Narrative 06/20/2013 10:13 AM FARM OPERATIONS TECHNICAL DIRECTOR CT antrum chest and abdomen History: Chest pain partial aorta dissection TECHNIQUE: Multiple contiguous axial to the chest were initially obtained without intravenous contrast. Subsequent postcontrast CT chest and abdomen was obtained following intravenous administration 100 cc of Omnipaque 350. 2-D reformatted images were created the CT console. Findings: Precontrast images Mr. Evidence of intramural hematoma. There is mild increased density of the aortic wall and well the great vessels relative to the lumen. Following intravenous contrast ministration there is normal opacification of the aorta and the great vessels. The caliber of the aorta is normal and there is no evidence of an intimal flap. The intra-abdominal aorta is normal in caliber and appearance. The aorta and its branches enhance early. The common iliac and visualized internal and external iliac arteries enhance normally. The heart size is normal. There is no paracardial effusion. No significant adenopathy is seen. The lungs are relatively clear. There is minimal bibasilar atelectasis The visualized liver, spleen, gallbladder, pancreas, adrenal glands, kidneys and ureters are grossly normal. The visualized large and small bowel appear grossly normal. There is no free intraperitoneal air or fluid. DIAGNOSIS: Minimal bibasilar atelectasis otherwise negative. Procedure Note Pan Cesar MD - 06/20/2013 CT antrum chest and abdomen History: Chest pain partial aorta dissection TECHNIQUE: Multiple contiguous axial to the chest were initially obtained without intravenous contrast. Subsequent postcontrast CT chest and abdomen was obtained following intravenous administration 100 cc of Omnipaque 350. 2-D reformatted images were created the CT console. Findings: Precontrast images Mr. Evidence of intramural hematoma. There is mild increased density of the aortic wall and well the great vessels relative to the lumen. Following intravenous contrast ministration there is normal opacification of the aorta and the great vessels. The caliber of the aorta is normal and there is no evidence of an intimal flap. The intra-abdominal aorta is normal in caliber and appearance. The aorta and its branches enhance early. The common iliac and visualized internal and external iliac arteries enhance normally. The heart size is normal. There is no paracardial effusion. No significant adenopathy is seen. The lungs are relatively clear. There is minimal bibasilar atelectasis The visualized liver, spleen, gallbladder, pancreas, adrenal glands, kidneys and ureters are grossly normal. The visualized large and small bowel appear grossly normal. There is no free intraperitoneal air or fluid. DIAGNOSIS: Minimal bibasilar atelectasis otherwise negative. Jennifer Maher MD CT ORDERABLES * HYDROXYBUTYRATE BETA (05/14/2013 4:43 PM FARM OPERATIONS TECHNICAL DIRECTOR) Pathologist [facility] Beta-Hydroxybu tyrate 0.08 0.02 - 0.27 mmol/L [facility] Venous blood specimen (specimen) 05/14/2013 4:43 PM FARM OPERATIONS TECHNICAL DIRECTOR 05/14/2013 5:18 PM FARM OPERATIONS TECHNICAL DIRECTOR Nam Shah MD LAB - CHEMISTRY YARELI CASTANON Performing Organization Address City/[facility]/ZIP Co de Phone Number [address] [phone] * (ABNORMAL) FOLATE RBC (05/14/2013 4:43 PM FARM OPERATIONS TECHNICAL DIRECTOR) Pathologist [facility] RBC Folate Raw 282.6 Not Estab. ng/mL [facility] Hematocrit 34.8(L) 37.5 - 51.0 % [facility] RBC Folate 812 499 - 1504 ng/mL [facility] Comment: Performed at: ??CB - [facility] [address] ??[id number] Registered Respiratory Therapist: Danny Suggs MD, Phone: ??[phone] Venous blood specimen (specimen) 05/14/2013 4:43 PM FARM OPERATIONS TECHNICAL DIRECTOR 05/14/2013 5:17 PM FARM OPERATIONS TECHNICAL DIRECTOR Nam Shah MD LAB - CHEMISTRY YARELI CASTANON Performing Organization Address [facility]/ZIP Co de Phone Number [address] [phone] * VITAMIN B12 (05/14/2013 4:43 PM FARM OPERATIONS TECHNICAL DIRECTOR) Vitamin B12 430 213 - 816 pg/mL [facility] Venous blood specimen (specimen) 05/14/2013 4:43 PM FARM OPERATIONS TECHNICAL DIRECTOR 05/14/2013 5:17 PM FARM OPERATIONS TECHNICAL DIRECTOR Nam Shah MD LAB - CHEMISTRY YARELI CASTANON Performing Organization Address [facility]/ZIP Co de Phone Number [address] [phone] * (ABNORMAL) URINALYSIS DIPSTICK AUTO (05/14/2013 11:41 AM FARM OPERATIONS TECHNICAL DIRECTOR) Only the most recent of2 resultswithin the time period is included. Color UA YELLOW STRW,YELLOW [facility] Clarity UA CLEAR CLEAR [facility] Specific [place] Urine 1.023 1.001 - 1.030 [facility] pH UA 5.5 5.0 - 8.0 [facility] Protein UA 20(A) <20 mg/dL [facility] Glucose UA NEGATIVE NEGATIVE mg/dL [facility] Ketones TRACE(A) NEGATIVE mg/dL [facility] Bilirubin UA NEGATIVE NEGATIVE mg/dL [facility] Blood UA NEGATIVE NEGATIVE [facility] Nitrite UA NEGATIVE NEGATIVE [facility] Leukocyte Esterase NEGATIVE NEGATIVE [facility] Urobilinogen UA < 2.0 <2.0 mg/dL [facility] Urine specimen (specimen) URINE SPECIMEN OBTAINED BY CLEAN CATCH PROCEDURE / Unknown 05/14/2013 11:41 AM FARM OPERATIONS TECHNICAL DIRECTOR 05/14/2013 11:52 AM FARM OPERATIONS TECHNICAL DIRECTOR Nolberto Soares MD LAB - URINALYSIS VERNOICA MATTSON Performing Organization Address [facility]/ZIP Co de Phone Number [address] [phone] * PATHOLOGY/CYTOLOGY REPORT ORDER (05/03/2013 8:20 PM FARM OPERATIONS TECHNICAL DIRECTOR) Narrative 05/03/2013 8:20 PM FARM OPERATIONS TECHNICAL DIRECTOR Ordered by an unspecified provider. Transcriptions Document, Scanned - 05/03/2013 8:20 PM CST Scanned Document LAB - PATHOLOGY/CYTO LOGY ORDERABLES * IP CONSULT TO HOSPITALIST (03/10/2013 4:56 PM CDT) Only the most recent of2 resultswithin the time period is included. Erik Duff MD INPATIENT CONSULT OR DERABLES * XR THORACIC SPINE 3VW ROUTINE (12/17/2012 1:43 PM CDT) Anatomical Region Laterality Modality Spine Radio Fluoroscop y 12/17/2012 1:59 PM CDT Impressions 12/17/2012 2:00 PM CDT Unremarkable study. Narrative 12/17/2012 2:00 PM CDT Thoracic spine 2 views. History: Back pain. AP and lateral views of the thoracic spine show normal vertebral heights and interspace heights. Alignment is maintained. Pedicles are intact. Procedure Note Porter Corral MD - 12/17/2012 Thoracic spine 2 views. History: Back pain. AP and lateral views of the thoracic spine show normal vertebral heights and interspace heights. Alignment is maintained. Pedicles are intact. IMPRESSION Unremarkable study. Tal Gan MD DIAGNOSTIC IMAGING O RDERABLES * XR HIP 2+ VW RIGHT (12/17/2012 1:38 PM CDT) Only the most recent of2 resultswithin the time period is included. Anatomical Region Laterality Modality Pelvis, Lower Extremity Radio Fl uoroscopy 12/17/2012 2:26 PM CDT Impressions 12/17/2012 3:51 PM CDT Unremarkable study. Edited by Penny Portillo on 12/17/2012 3:03 PM Narrative 12/17/2012 3:51 PM CDT RIGHT HIP 2 VIEWS HISTORY: [Backache]. Views of the hip demonstrate a well-maintained joint space. There is no fracture or dislocation or lytic or blastic lesion. Procedure Note Porter Corral MD - 12/17/2012 RIGHT HIP 2 VIEWS HISTORY: [Backache]. Views of the hip demonstrate a well-maintained joint space. There is no fracture or dislocation or lytic or blastic lesion. IMPRESSION Unremarkable study. Edited by Penny Portillo on 12/17/2012 3:03 PM Tal Gan MD DIAGNOSTIC IMAGING O RDERABLES * XR LUMBAR SPINE 2 OR 3 VW (12/17/2012 1:33 PM CDT) Anatomical Region Laterality Modality Spine Radio Fluoroscop y 12/17/2012 2:01 PM CDT Impressions 12/17/2012 2:31 PM CDT Unremarkable study. Edited by Penny Portillo on 12/17/2012 2:17 PM Narrative 12/17/2012 2:31 PM CDT LUMBOSACRAL SPINE 2 VIEWS HISTORY: Back pain. AP and lateral views of the lumbosacral spine show normal vertebral heights and interspace heights. Pedicles are intact. Procedure Note Porter Corral MD - 12/17/2012 LUMBOSACRAL SPINE 2 VIEWS HISTORY: Back pain. AP and lateral views of the lumbosacral spine show normal vertebral heights and interspace heights. Pedicles are intact. IMPRESSION Unremarkable study. Edited by Penny Portillo on 12/17/2012 2:17 PM Tal Gan MD DIAGNOSTIC IMAGING O RDSRINIVASAN * XR HUMERUS TRAUMA 2+ VW LEFT (08/16/2012 6:23 PM CDT) Only the most recent of2 resultswithin the time period is included. Anatomical Region Laterality Modality Upper Extremity Radiographic Nessa ging 08/16/2012 7:02 PM CDT Narrative 08/16/2012 7:02 PM CDT Two-view left humerus HISTORY: Injury DIAGNOSIS: Negative Procedure Note Pan Cesar MD - 08/16/2012 Two-view left humerus HISTORY: Injury DIAGNOSIS: Negative Janki Curiel LABORER [employer] DIAGNOSTIC IMAGI NG ORDERABLES * XR SHOULDER LEFT 2VW OR MORE (08/10/2012 2:11 AM CDT) Anatomical Region Laterality Modality Upper Extremity Other Impressions 08/10/2012 12:59 PM CDT Impression: No acute osseous injury or dislocation. Report dictated by Chandan Justin MD (vice president marketing & development). Dr. PROSPER May M.D. have personally reviewed and interpreted this examination/study. This report was electronically signed by PROSPER DUARTE M.D. ??on 08/10/2012 12:59 PM . Narrative 08/10/2012 12:59 PM CDT Exam: Left Shoulder, 4 views Date: 08/10/12 History: Pain Comparison: 07/27/06 Findings: The alignment of the glenohumeral joint is normal. There is no abnormality of the acromioclavicular joint. There is no fracture or dislocation. Procedure Note Prosper Duarte MD - 08/09/2017 Exam: Left Shoulder, 4 views Date: 08/10/12 History: Pain Comparison: 07/27/06 Findings: The alignment of the glenohumeral joint is normal. There is no abnormalityof the acromioclavicular joint. There is no fracture or dislocation. IMPRESSION Impression: No acute osseous injury or dislocation. Report dictated by Chandan Justin MD (vice president marketing & development). Dr. PROSPER May M.D. have personally reviewed and interpreted thisexamination/study. This report was electronically signed by PROSPER DUARTE M.D. on 08/10/201212:59 PM . Ryan Spain MD DIAGNOSTIC IMAGING O RDERABLES * XR PANOREX (04/15/2012 12:01 AM FARM OPERATIONS TECHNICAL DIRECTOR) Anatomical Region Laterality Modality Head Other Impressions 04/15/2012 5:12 PM FARM OPERATIONS TECHNICAL DIRECTOR Impression: Multiple dental cavities as above. Report dictated by Chandan Justin MD (vice president marketing & development). This report was approved ??by Chandan Justin ?? on 04/15/2012 3:[address] Jose Juan May M.D. have personally reviewed and interpreted this examination/study. This report was electronically signed by Jose Juan ALICEA M.D. ??on 04/15/2012 5:12 PM . Narrative 04/15/2012 5:12 PM FARM OPERATIONS TECHNICAL DIRECTOR Exam: Panorex, 1 view Date: 04/14/2012 History: dental cavity Comparison: None available Findings: No lytic or blastic lesion is seen. No periapical abscess or periosteal reaction is present. Visualized portions of the mandible and temporomandibular joints are intact bilaterally. Multiple teeth are missing. Multiple dental fillings are present. Dental cavities are seen in the right maxillary first molar, left maxillary first premolar, left maxillary second molar, and left mandibular lateral incisor. Procedure Note Richa Alicea MD - 08/09/2017 Exam: Panorex, 1 view Date: 04/14/2012 History: dental cavity Comparison: None available Findings: No lytic or blastic lesion is seen. No periapical abscess or periostealreaction is present. Visualized portions of the mandible andtemporomandibular joints are intact bilaterally. Multiple teeth aremissing. Multiple dental fillings are present. Dental cavities are seen in the right maxillary first molar, left maxillaryfirst premolar, left maxillary second molar, and left mandibular lateralincisor. IMPRESSION Impression: Multiple dental cavities as above. Report dictated by Chandan Justin MD (vice president marketing & development). This report was approved by Chandan Justin on 04/15/2012 3:[address] Jose Juan May M.D. have personally reviewed and interpreted thisexamination/study. This report was electronically signed by Jose Juan ALICEA M.D. on04/15/2012 5:12 PM . Aditya Pederson MD DIAGNOSTIC IMAGING O RDERABLES * TRICYCLICS SCREEN BLOOD (04/13/2012 7:25 AM FARM OPERATIONS TECHNICAL DIRECTOR) Only the most recent of4 resultswithin the time period is included. Tricyclic Antidepressants 97 ng/mL [facility] Comment: EXPECTED VALUES: PHARMACOKINETIC STUDIES HAVE SHOWN THERE IS A MARKED INDIVIDUAL VARIATION IN THE THERAPEUTIC AND TOXIC RESPONSE TO TRICYCLIC ANTIDEPRESSANTS AT SIMILAR BLOOD CONCENTRATIONS. ??CARDIAC EFFECTS HAVE BEEN DEMONSTRATED WITH TCA BLOOD LEVEL LOW 50-100 NG/ML. ??WITH LEVELS GREATER THAN 500 NG/ML, THE INCIDENCE OF SERIOUS CARDIAC TOXICITY INCREASES SIGNIFICANTLY. ??ABOVE 1000 NG/ML, SEVERE, SOMETIMES FATAL, CARDIAC AND OTHER SIDE EFFECTS OFTEN OCCUR. 04/13/2012 7:25 AM FARM OPERATIONS TECHNICAL DIRECTOR 04/13/2012 7:42 AM FARM OPERATIONS TECHNICAL DIRECTOR Mya Vergara MD LAB - CHEMISTRY YARELI CASTANON [facility] [address] [phone] * (ABNORMAL) DRUG SCREEN TRIAGE PANEL (04/08/2012 12:00 AM FARM OPERATIONS TECHNICAL DIRECTOR) Only the most recent of9 resultswithin the time period is included. Phencyclidine Screen Urine NOT DETECTED 25 ng/dl [facility] Benzodiazepines Screen Urine NOT DETECTED 200 ng/ml [facility] Cocaine Screen Urine DETECTED(AA ) 300 ng/ml [facility] Amphetamines Screen Urine NOT DETECTED 1000 ng/ml [facility] Cannabinoids Screen Urine NOT DETECTED 50 ng/ml [facility] Opiate Screen Urine NOT DETECTED 300 ng/ml [facility] Barbiturates Screen Urine NOT DETECTED 200 ng/ml [facility] Disclaimer Urine Triage [facility] Comment: This drug screen is designed for MEDICAL purposes only. ??It is not to be used for legal purposes, including but not limited to worker's compensation, police investigations, occupational issues, and child custody. URINE / Unknown 04/08/2012 2 12:32 AM FARM OPERATIONS TECHNICAL DIRECTOR Sara Sheridan MD LAB - URINE CHEMISTR Y ORDERABLES Performing Organization Address City/[facility] Co de Phone Number [facility] [address] [place] [phone] * AMYLASE BLOOD (03/11/2012 9:38 AM CDT) Amylase 85 15 - 115 U/L [facility] Blood specimen (specimen) BLOOD SPECIMEN / Unknown 03/11/2012 9:38 AM CDT 03/11/2012 9:48 AM CDT Wolf Jamison MD LAB - CHEMISTRY OR DERABLES Performing Organization Address City/[facility] Co de Phone Number [facility] [address] [place] [phone] * LAB HISTORICAL RESULTS-ONBASE (10/16/2011 5:40 AM CDT) Only the most recent of7 resultswithin the time period is included. 10/16/2011 5:40 AM CDT Historical Provider LAB - CHEMISTRY O RDERALEANNE Performing Organization Address [facility] Co de Phone Number [place] [phone] [address] * MYOGLOBIN BLOOD (09/21/2011 3:00 PM CDT) Myoglobin 47 <110.00 ng/ml [facility] Blood specimen (specimen) BLOOD SPECIMEN / Unknown 09/21/2011 3:00 PM CDT 09/21/2011 3:15 PM CDT Marcia PAL LAB - CHEMISTRY YARELI CASTANON Performing Organization Address [facility] Co de Phone Number [facility] [address] [place] [phone] * B-TYPE NATRIURETIC PEPTIDE - POINT OF CARE (07/13/2011 11:44 AM FARM OPERATIONS TECHNICAL DIRECTOR) Only the most recent of6 resultswithin the time period is included. BNP POCT < 5.0 <=100 pg/ml [facility] Performed by IO [facility] Performed In ER [facility] BLOOD SPECIMEN / Unknown 07/13/2011 11:44 AM FARM OPERATIONS TECHNICAL DIRECTOR 07/13/2011 11:53 AM FARM OPERATIONS TECHNICAL DIRECTOR Er LAB - POINT OF CARE ORDERABLES Performing Organization Address [facility] Co de Phone Number [facility] [address] [place] [phone] * MYOGLOBIN BLOOD - POINT OF CARE (07/13/2011 11:44 AM FARM OPERATIONS TECHNICAL DIRECTOR) Only the most recent of6 resultswithin the time period is included. Myoglobin POCT 143 <=170 ng/ml [facility] Performed by IO [facility] Performed In ER [facility] BLOOD SPECIMEN / Unknown 07/13/2011 11:44 AM FARM OPERATIONS TECHNICAL DIRECTOR 07/13/2011 11:53 AM FARM OPERATIONS TECHNICAL DIRECTOR Er LAB - POINT OF CARE ORDERABLES Performing Organization Address [facility] de Phone Number [facility] [address] [place] [phone] * TROPONIN - POINT OF CARE (07/13/2011 11:44 AM FARM OPERATIONS TECHNICAL DIRECTOR) Only the most recent of6 resultswithin the time period is included. Troponin I POCT < 0.05 SEE BELOW ng/ml [facility] Comment: <0.05 ? Normal 0.05-0.39 Indeterminate >0.4 ? Abnormal Performed by IO [facility] Performed In ER [facility] BLOOD SPECIMEN / Unknown 07/13/2011 11:44 AM FARM OPERATIONS TECHNICAL DIRECTOR 07/13/2011 11:53 AM FARM OPERATIONS TECHNICAL DIRECTOR Er LAB - POINT OF CARE ORDERABLES Performing Organization Address [facility] de Phone Number [facility] [address] [place] [phone] * (ABNORMAL) CKMB - POINT OF CARE (07/13/2011 11:44 AM FARM OPERATIONS TECHNICAL DIRECTOR) Only the most recent of6 resultswithin the time period is included. CK-MB POCT 11.3(H) <=8.0 ng/ml [facility] Performed by IO [facility] Performed In ER [facility] BLOOD SPECIMEN / Unknown 07/13/2011 11:44 AM FARM OPERATIONS TECHNICAL DIRECTOR 07/13/2011 11:53 AM FARM OPERATIONS TECHNICAL DIRECTOR Er LAB - POINT OF CARE ORDERABLES Performing Organization Address [facility] de Phone Number [facility] [address] [place] [phone] * LAB MICROBIOLOGY - HPF HISTORICAL (05/09/2011 7:49 AM FARM OPERATIONS TECHNICAL DIRECTOR) 05/09/2011 7:49 AM FARM OPERATIONS TECHNICAL DIRECTOR Narrative [facility] - 05/09/2011 7:49 AM FARM OPERATIONS TECHNICAL DIRECTOR Aditya Pederson MD LAB - MICROBIOLOGY O RDERABLES Performing Organization Address [facility] de Phone Number [facility] * XR TRAUMA CERVICAL SPINE 2 OR 3 VW (12/13/2010 1:13 PM CDT) Anatomical Region Laterality Modality Spine Radiographic Nessa ging 12/13/2010 1:19 PM CDT Impressions 12/13/2010 1:19 PM CDT No fracture or subluxation. Narrative 12/13/2010 1:19 PM CDT Exam: Cervical spine; AP, lateral, ??and dens Date: 12/13/2010 History: Cervicalgia Findings: Cervical bony alignment is normal. The vertebral bodies are of average height and are without anterior wedge compression deformities, fractures, dislocations, or blastic/lytic lesions. The intervertebral disc spaces are preserved. The prevertebral soft tissues are normal. Procedure Note Darek Marion MD - 12/13/2010 Exam: Cervical spine; AP, lateral, and dens Date: 12/13/2010 History: Cervicalgia Findings: Cervical bony alignment is normal. The vertebral bodies are of average height and are without anterior wedge compression deformities, fractures, dislocations, or blastic/lytic lesions. The intervertebral disc spaces are preserved. The prevertebral soft tissues are normal. IMPRESSION No fracture or subluxation. John Cason MD DIAGNOSTIC IMAGING ORDERABLES * IP CONSULT TO INTERNAL MEDICINE (10/01/2010 8:46 AM CDT) Erik Duff MD INPATIENT CONSULT OR DERABLES * XR RIBS UNILATERAL 2 VW RIGHT (08/17/2010 8:17 AM CDT) Anatomical Region Laterality Modality Chest Radiographic Nessa ging 08/17/2010 11:2 0 AM CDT Impressions 08/17/2010 11:20 AM CDT 1. Negative ??radiographs of the ribs Narrative 08/17/2010 11:20 AM CDT HISTORY: Rib pain and injury Three views of the right-sided ribs FINDINGS: No acute rib fracture is seen. There is no pneumothorax. No pulmonary contusion is noted. No blastic or lytic abnormality is seen. Procedure Note Funmilayo Jimenez MD - 08/17/2010 HISTORY: Rib pain and injury Three views of the right-sided ribs FINDINGS: No acute rib fracture is seen. There is no pneumothorax. No pulmonary contusion is noted. No blastic or lytic abnormality is seen. IMPRESSION 1. Negative radiographs of the ribs Trish Jacobson MD DIAGNOSTIC IMAGING O RDERABLES * DRUG SCREEN TOX LIMITED BLOOD PANEL (02/09/2010 2:13 PM CDT) Only the most recent of2 resultswithin the time period is included. Ethanol Not detected 10 mg/dL cutoff mg/dl [facility] Acetaminophen Not Detected 8 ug/mL Cutoff ug/ml [facility] Salicylate Not Detected 5 mg/dL Cutoff mg/dl [facility] Barbiturates Screen Below Toxic Level 1000 ng/mL Cutoff ng/ml [facility] Benzodiazepines Screen Below Toxic Level 50 ng/mL Cutoff ng/ml [facility] Tricyclics Screen Below Toxic Level 300 ng/mL Cutoff ng/ml [facility] Ethanol Calculated Not calc'd <0.010 gm/dl [facility] Legal Disclaimer This drug screen is designed for MEDICAL purposes only. It is not to be used for legal purposes including but not limited to workman's comp, police investigations, occupational issues, child custody. [facility] BLOOD SPECIMEN / Unknown 02/09/2010 2:13 PM CDT 02/09/2010 2:42 PM CDT Narrative Resulting Agency Comment Performed By [facility] ? [address] ? [place] [address] Carolin Gómez MD LAB - TOXICOLOGY ORD ERABLES [facility] [address] [place] [address] * CT HEAD NON CONTRAST (12/09/2009 2:53 AM CDT) Anatomical Region Laterality Modality Head Computed Tomogra phy 12/09/2009 8:30 AM CDT Impressions 12/09/2009 8:31 AM CDT No acute intracranial process. Narrative 12/09/2009 8:31 AM CDT Exam: CT brain noncontrast Date: 12/09/2009 History: Headache Technique: Multislice helical Findings: There is no evidence of intracranial mass-effect, hemorrhage, or acute hydrocephalus. The ventricles are normal in size and are symmetrical. The third and fourth ventricles are in the midline. There are no acute brain parenchymal changes or extra-axial fluid collections. The posterior fossa contents are unremarkable. The calvarium is intact. A mucous retention cyst/polyp is present in the left maxillary sinus. The remaining paranasal sinuses and mastoid air cells are not opacified. Procedure Note Darek Marion MD - 12/09/2009 Exam: CT brain noncontrast Date: 12/09/2009 History: Headache Technique: Multislice helical Findings: There is no evidence of intracranial mass-effect, hemorrhage, or acute hydrocephalus. The ventricles are normal in size and are symmetrical. The third and fourth ventricles are in the midline. There are no acute brain parenchymal changes or extra-axial fluid collections. The posterior fossa contents are unremarkable. The calvarium is intact. A mucous retention cyst/polyp is present in the left maxillary sinus. The remaining paranasal sinuses and mastoid air cells are not opacified. IMPRESSION No acute intracranial process. Erick Agosto MD CT ORDERABLES Care Teams Calender Operator Helper Relationship Specialty Start Date End Date aNndo Christy MD PCP - General Internal Medicine 11/25/18
--- OUTSIDE RECORDS SUMMARY | 2024-06-14 13:42 | XMS_ITS | Encounter Summary ---
Author Organization [facility] Healthcare Address [address] [place] [address] Care Team Providers Care Technical Manager Chemical Plant Name Role Phone Nando Christy MD Primary Care Provider [phone] Nando Christy MD Unavailable [phone] Camryn Jones RN Unavailable Kaleigh Bundy RRT Unavailable [phone], Physician Primary Care Provider [phone] Camryn Jones RN Unavailable [phone] Nando Christy MD Primary Care Provider [phone] Sangeetha Cheung RN Unavailable Unavaila Anne EverettW Unavailable [phone] Yanelis Jennings MD Unavailable Camryn Jones RN Unavailable Camryn Jones RN Unavailable Reese Gutierrez MD Unavailable rIis Leal RN Unavailable Iris Leal RN Unavailable Encounter Details Date Type Department Care Team (Late st Contact Info) Description 05/17/2020 Documentation [facility] Case Management [address] [place] [address] Donita Kimble Social History Tobacco Use Types Packs/Day Years Used Date Smoking Tobacco: Every Day Cigarettes 0.5 30 Smokeless Tobacco: Current Alcohol Use Standard [...] declined 04/01/2020 How often do you attend taoist or caodaism serv ices? Patient declined 04/01/2020 Do you [...] place to sleep or slept in a [facility] (including now)? Yes 04/01/2020 Sex and Gender Information Value Date Recorded Sex Assigned at Not on file Legal Sex Male 2:18 AM [employer] Gender Identity Not on file Sexual Orientation Not on file documented as of this encounter Plan of Treatment Not on file documented as of this encounter Visit Diagnoses Not on filedocumented in this encounter Additional Health Concerns Infection Onset Date Last Indicated Resolved Time COVID: Suspected 09/07/2020 09/07/2020 09/07/2020 2:57 PM CDT COVID: Suspected 06/14/2021 06/14/2021 06/15/2021 7:26 PM [employer] COVID: Suspected 06/20/2021 06/20/2021 06/21/2021 11:11 PM [employer] COVID: Suspected 02/03/2022 02/03/2022 02/04/2022 3:05 AM CDT COVID: Suspected 05/06/2022 05/06/2022 05/06/2022 6:54 PM [employer] COVID: Suspected 06/25/2022 06/25/2022 06/25/2022 2:48 PM [employer] COVID: Suspected 03/31/2023 03/31/2023 03/31/2023 7:40 AM [employer] COVID: Suspected 05/05/2023 05/05/2023 05/05/2023 8:28 AM [employer] COVID: Suspected 05/26/2023 05/26/2023 05/27/2023 3:05 AM [employer] COVID: Suspected 07/19/2023 07/19/2023 07/19/2023 7:48 PM CDT COVID: Suspected 08/24/2023 08/24/2023 08/24/2023 8:26 PM CDT COVID: Suspected 09/03/2023 09/03/2023 09/03/2023 1:28 PM CDT COVID: Suspected 01/25/2024 01/25/2024 01/25/2024 5:06 AM CDT documented as of this encounter Care Teams Technical Manager Chemical Plant Relationship Specialty Start Date End Date Nando Christy MD PCP - General 04/24/20 11/26/21 Emmy, Physician PCP - General 11/27/21 05/05/22 Nando Christy MD [address] [place] [address] PCP - General Internal Medicine 05/06/22 Nando Christy MD 04/24/20 11/24/22 Camryn Jones, HARIS [address] [address] SHOP Outpatient Supervisor Money Room 06/28/20 06/28/20 Kaleigh Bundy RRT [address] [place] [address] SHOP Outpatient Supervisor Money RoomRegulatory Compliance Engineer Therapy 09/10/20 09/12/20 Camryn Jones RN [address] [place] [address] SHOP Outpatient Supervisor Money Room 12/02/21 12/02/21 Sangeetha Cheung RN Heart Failure Coordinator 07/02/22 07/19/23 Anne Dotson, [facility] [address] [facility]) Mailstop [phone] [place] [address] SHOP Outpatient Supervisor Money Room 10/09/22 10/15/22 Yanelis Jennings MD [address] [facility] ([facility]) Mailstop [phone] [place] [address] Consulting Physician Cardiovascular Disease 10/11/22 Camryn Jones, RN [address] [address] SHOP Outpatient Supervisor Money Room 11/25/22 11/27/22 Camryn Jones RN [address] [address] SHOP Outpatient Supervisor Money Room 12/22/22 12/24/22 Reese Gutierrez MD [address] [place] [address] Referring Physician Internal Medicine 07/04/23 Iris Leal RN [address] [address] [address] SHOP Outpatient Supervisor Money Room 07/06/23 07/06/23 Iris Leal RN [address] [address] SHOP Outpatient Supervisor Money Room 08/27/23 08/27/23 documented as of this encounter
--- NOTE | 2024-06-14 14:42 | ED_ITS ---
HPI - Chest Pain General Chief Complaint: Recheck/Abnormal Lab/Rx <Kesha Barroso APRN - Last Filed: 06/14/24 14:44> Stated Complaint: Elevated BP, CARRERA, N/V, Rectal bleeding-seen this AM <Kesha Barroso APRN - Last Filed: 06/14/24 14:44> Time Seen by Provider: 06/14/24 14:30 <Kesha Barroso APRN - Last Filed: 06/14/24 14:44> Focused HPI: Patient is a 58-year-old male who presents to the ER with high blood pressure, chest tightness, headache, body aches. He reports that he was seen in this ER last night and they discharged him home after 3 doses of blood pressure medication. Patient reports when he got back to his intermediate his blood pressure ?shot right back up and he started experiencing symptoms above. He also endorses rectal bleeding that started today. Patient reports blood is bright red and his stool was soft. He has a history HIV, and high blood pressure. GENERAL: Well-appearing, well-nourished, and in no acute distress. HEAD: Normocephalic, atraumatic. CHEST: Clear to auscultation. ?No respiratory distress. HEART: Regular rate and rhythm.? NEURO: ?Alert and oriented x3. Patient screened in triage and initial orders placed.? ?Additional care and disposition to be based upon?diagnostic testing and treatment. <Kesha Barroso APRN - Last Filed: 06/14/24 14:44> Source: patient <Beni Wild MD - Last Filed: 06/14/24 19:35> History of Present Illness HPI narrative: 58-year-old with a history of hypertension, HIV here with the complaints of high headache and elevated blood pressure. Patient was seen earlier this morning and was later discharged. Patient states that soon after he got back to the intermediate he had a bowel movement which was bloody in nature. He presently has no abdominal pain except for headache. Denies any chest pain or shortness of breath. <Beni Wild MD - Last Filed: 06/14/24 19:35> Quality: aching <Beni Wild MD - Last Filed: 06/14/24 19:35> Relieving factors: nothing <Beni Wild MD - Last Filed: 06/14/24 19:35> Related Data Allergies/Adverse Reactions: Allergies Allergy/AdvReac Type Severity Reaction Status Date / Time haloperidol Allergy Mild Hives Verified 06/14/24 08:17 ziprasidone (From Geodon) Allergy Mild Rash Verified 06/14/24 08:17 <Kesha Barroso APRN - Last Filed: 06/14/24 14:44> Review of Systems 2 Review of Systems: All systems reviewed & are unremarkable except as noted in HPI and below <Beni Wild MD - Last Filed: 06/14/24 19:35> Constitutional: Constitutional: Reports no additional constitutional complaints <Beni Wild MD - Last Filed: 06/14/24 19:35> Eyes: Eyes: Reports no additional eye complaints <Beni Wild MD - Last Filed: 06/14/24 19:35> ENT: Reports system reviewed and no additional complaints, except as documented <Beni Wild MD - Last Filed: 06/14/24 19:35> Cardiovascular: Cardiovascular: Reports no additional cardiovascular complaints <Beni Wild MD - Last Filed: 06/14/24 19:35> Respiratory: Respiratory: Reports no additional respiratory complaints < Beni Wild MD - Last Filed: 06/14/24 19:35> Gastrointestinal: Gastrointestinal: Reports as per HPI <Beni Wild MD - Last Filed: 06/14/24 19:35> Exam 2 Narrative: GENERAL: Well-appearing, well-nourished, and in no acute distress. HEAD: Normocephalic, atraumatic. EYES: PERRLA and EOMI NECK: Supple. CHEST: Clear to auscultation. No respiratory distress. HEART: Regular rate and rhythm. No murmur heard. Normal peripheral pulses. ABDOMEN: Soft, nontender, nondistended, normal active bowel sounds. EXTREMITIES: Normal range of motion. No edema. SKIN: Warm, dry, no rash. NEURO: No focal deficits. Alert and oriented x3. PSYCH: Normal mood and affect. <Beni Wild MD - Last Filed: 06/14/24 19:35> Course Course Emergency Course: Discussed lab work and CT findings with the patient his headache is much improved after IV morphine. He feels comfortable going back home. Advised him to continue his home medication but <Beni Wild MD - Last Filed: 06/14/24 19:35> Vital Signs Vital signs: Vital Signs Temperature 36.4 C 06/14/24 14:39 Pulse Rate 71 06/14/24 14:39 Respiratory Rate 16 06/14/24 14:39 Blood Pressure 158/98 H 06/14/24 14:39 Pulse Oximetry 100 06/14/24 14:39 Temperature 36.4 C 06/14/24 14:39 Pulse Rate 77 06/14/24 19:23 Respiratory Rate 18 06/14/24 19:23 Blood Pressure 146/91 H 06/14/24 19:23 Pulse Oximetry 97 06/14/24 19:23 <Kesha Barroso BUFFET ATTENDANT - Last Filed: 06/14/24 14:44> Vital Signs Temperature 36.4 C 06/14/24 14:39 Pulse Rate 71 06/14/24 14:39 Respiratory Rate 16 06/14/24 14:39 Blood Pressure 158/98 H 06/14/24 14:39 Pulse Oximetry 100 06/14/24 14:39 Temperature 36.4 C 06/14/24 14:39 Pulse Rate 77 06/14/24 19:23 Respiratory Rate 18 06/14/24 19:23 Blood Pressure 146/91 H 06/14/24 19:23 Pulse Oximetry 97 06/14/24 19:23 <Beni Wild MD - Last Filed: 06/14/24 19:35> MDM - Chest Pain Lab Data Attestation: I reviewed the patient's lab results. <Beni Wild MD - Last Filed: 06/14/24 19:35> Result diagrams: 06/14/24 14:46 06/14/24 14:46 <Kesha Barroso APRN - Last Filed: 06/14/24 14:44> Labs: Lab Results 06/14/24 Range/Units 14:46 WBC 10.2 H (4.5-10.0) K/mm3 RBC 5.60 (4.6-6.20) M/mm3 Hgb 15.3 (14.0-18.0) g/dL Hct 47.0 (42.0-52.0) % MCV 83.9 (80-100) fl MCH 27.3 (26-34) pg MCHC 32.6 (32-36) g/dl RDW 16.2 H (11.5-14.5) % Plt Count 228 (150-375) k/mm3 MPV 9.7 (7.4-10.4) fl Immature Gran % (Auto) 0.5 (0-0.5) % Neut % (Auto) 85.0 H (45.5-73.1) % Lymph % (Auto) 9.7 L (18.3-44.2) % Emmons % (Auto) 4.0 (2.6-8.5) % Eos % (Auto) 0.6 (0-4.4) % Baso % (Auto) 0.2 (0.2-1.2) % Lymph # (Auto) 0.99 (0.9-3.2) K/mm3 Emmons # (Auto) 0.4 (0.1-0.6) K/mm3 Eos # (Auto) 0.1 (0-0.3) K/mm3 Baso # (Auto) 0.0 (0.0-0.1) K/mm3 Abs Immat Gran (auto) 0.05 H (0.00-0.031) K/mm3 Absolute Neuts (auto) 8.7 H (1.3-6.7) K/mm3 Absolute Nucleated RBC 0.000 (0.0-0.012) K/mm3 Nucleated RBC % 0.0 (0.0-0.2) % Sodium 135 L (137-145) mmol/L Potassium 4.3 (3.4-5.0) mmol/L Chloride 101 (98-107) mmol/L Carbon Dioxide 25 (22-30) mmol/L Anion Gap 9 (4-12) mmol/L BUN 14 D (9-20) mg/dL Creatinine 0.97 (0.7-1.3) mg/dL Estim Creat Clear Calc 67 ml/min Estimated GFR > 60 (59 - ) Glucose 108 (65-110) mg/dL Calcium 9.5 (8.4-10.2) mg/dL Total Bilirubin 0.7 (0.2-1.3) mg/dL AST 29 (17-59) U/L ALT 21 (6-50) U/L Alkaline Phosphatase 98 (38-126) U/L Troponin I < 0.012 (0.000-0.034) ng/mL Total Protein 8.0 (6.3-8.2) g/dL Albumin 4.6 (3.5-5.1) g/dL Influenza A (RT-PCR) Negative (Negative) Influenza B (RT-PCR) Negative (Negative) RSV (RT-PCR) Negative (Negative) SARS-CoV-2 RNA (RT-PCR) Negative (Negative) <Kesha Barroso, BUFFET ATTENDANT - Last Filed: 06/14/24 14:44> Lab Results 06/14/24 Range/Units 14:46 WBC 10.2 H (4.5-10.0) K/mm3 RBC 5.60 (4.6-6.20) M/mm3 Hgb 15.3 (14.0-18.0) g/dL Hct 47.0 (42.0-52.0) % MCV 83.9 (80-100) fl MCH 27.3 (26-34) pg MCHC 32.6 (32-36) g/dl RDW 16.2 H (11.5-14.5) % Plt Count 228 (150-375) k/mm3 MPV 9.7 (7.4-10.4) fl Immature Gran % (Auto) 0.5 (0-0.5) % Neut % (Auto) 85.0 H (45.5-73.1) % Lymph % (Auto) 9.7 L (18.3-44.2) % Emmons % (Auto) 4.0 (2.6-8.5) % Eos % (Auto) 0.6 (0-4.4) % Baso % (Auto) 0.2 (0.2-1.2) % Lymph # (Auto) 0.99 (0.9-3.2) K/mm3 Emmons # (Auto) 0.4 (0.1-0.6) K/mm3 Eos # (Auto) 0.1 (0-0.3) K/mm3 Baso # (Auto) 0.0 (0.0-0.1) K/mm3 Abs Immat Gran (auto) 0.05 H (0.00-0.031) K/mm3 Absolute Neuts (auto) 8.7 H (1.3-6.7) K/mm3 Absolute Nucleated RBC 0.000 (0.0-0.012) K/mm3 Nucleated RBC % 0.0 (0.0-0.2) % Sodium 135 L (137-145) mmol/L Potassium 4.3 (3.4-5.0) mmol/L Chloride 101 (98-107) mmol/L Carbon Dioxide 25 (22-30) mmol/L Anion Gap 9 (4-12) mmol/L BUN 14 D (9-20) mg/dL Creatinine 0.97 (0.7-1.3) mg/dL Estim Creat Clear Calc 67 ml/min Estimated GFR > 60 (59 - ) Glucose 108 (65-110) mg/dL Calcium 9.5 (8.4-10.2) mg/dL Total Bilirubin 0.7 (0.2-1.3) mg/dL AST 29 (17-59) U/L ALT 21 (6-50) U/L Alkaline Phosphatase 98 (38-126) U/L Troponin I < 0.012 (0.000-0.034) ng/mL Total Protein 8.0 (6.3-8.2) g/dL Albumin 4.6 (3.5-5.1) g/dL Influenza A (RT-PCR) Negative (Negative) Influenza B (RT-PCR) Negative (Negative) RSV (RT-PCR) Negative (Negative) SARS-CoV-2 RNA (RT-PCR) Negative (Negative) <Beni Wild MD - Last Filed: 06/14/24 19:35> Imaging Data Radiologist's impression: ITS Impressions Head CT 06/14/24 19:00 Impression: No acute intracranial hemorrhage or suspicious mass effect. <Beni Wild MD - Last Filed: 06/14/24 19:35> Discharge Plan Discharge Clinical Impression: Rectal bleed Hypertension Qualifiers: Hypertension type: primary hypertension Qualified Code(s): I10 - Essential (primary) hypertension Headache Qualifiers: Headache type: unspecified Headache chronicity pattern: acute headache I ntractability: intractable Qualified Code(s): R51.9 - Headache, unspecified <Kesha Barroso APRN - Last Filed: 06/14/24 14:44> [facility] Dis[facility] <Kesha Barroso APRN - Last Filed: 06/14/24 14:44> Condition: Stable <Kesha Barroso APRN - Last Filed: 06/14/24 14:44> Instructions: Rectal Bleeding (ED), Hypertension (ED) <Kesha Barroso APRN - Last Filed: 06/14/24 14:44> Additional Instructions: Continue home medication drink more fluids, follow with your doctor <Kesha Barroso APRN - Last Filed: 06/14/24 14:44> Patient Language: [place] Citizen <Kesha Barroso APRN - Last Filed: 06/14/24 14:44> Prescriptions: No Action carvedilol [Coreg] 25 mg tablet 25 mg PO Q12H Qty: 30 0RF Rx Instructions: must administer with a meal/food <Kesha Barroso APRN - Last Filed: 06/14/24 14:44> Follow-up/Referrals: Ampadu,MD Nando [Primary Care Provider] - <Kesha Barroso APRN - Last Filed: 06/14/24 14:44> Time of Disposition: 19:35 <Kesha Barroso APRN - Last Filed: 06/14/24 14:44> 19:35 <Beni Wild MD - Last Filed: 06/14/24 19:35>
--- NOTE | 2024-06-14 14:49 | ECG_ITS ---
Test Date: 2024-06-14 14:55:16 Measurements Intervals [place] Rate: 73 P: 61 OR: 142 QRS: -12 QRSD: 107 T: 180 QT: 416 QTc: 461 Interpretive Statements SINUS RHYTHM POSSIBLE RIGHT VENTRICULAR CONDUCTION DELAY LEFT VENTRICULAR HYPERTROPHY AND ST-T CHANGE ANTEROSEPTAL INFARCT, AGE INDETERMINATE ST-T WAVE ABNORMALITY IN LATERAL LEADS- CONSIDER ISCHEMIA ABNORMAL ECG Compared to ECG 06/14/2024 14:39:45 MYOCARDIAL INFARCT NOW PRESENT ST-T WAVE ABNORMALITY NOW PRESENT Electronically Signed On 06-14-2024 15:03:04 PHYSICAL FITNESS TEACHER by Jean-Paul Aceves D.O.
[2024-06-14 14:57] LABS: Basophils Percent Auto 0.2 % (0.2-1.2); Eosinophils Absolute Auto 0.1 K/mm3 (0-0.3); Eosinophils Percent Auto 0.6 % (0-4.4); Hemoglobin 15.3 g/dL (14.0-18.0); Immature Granulocyte Absolute 0.05 K/mm3 (0.00-0.031); Immature Granulocyte Percent A 0.5 % (0-0.5); Lymphocytes Absolute Auto 0.99 K/mm3 (0.9-3.2); Lymphocytes Percent Auto 9.7 % (18.3-44.2); Mean Corpuscular HGB Conc 32.6 g/dl (32-36); Mean Corpuscular Hemoglobin 27.3 pg (26-34); Mean Corpuscular Volume 83.9 fl (80-100); Mean Platelet Volume 9.7 fl (7.4-10.4); Monocytes Absolute Auto 0.4 K/mm3 (0.1-0.6); Neutrophils Absolute Auto 8.7 K/mm3 (1.3-6.7); Platelet Count Result 228 k/mm3 (150-375); Red Cell Distribution Width 16.2 % (11.5-14.5); White Blood Count 10.2 K/mm3 (4.5-10.0)
[2024-06-14 15:08] LABS: Alanine Aminotransferase 21 U/L (6-50); Albumin Level 4.6 g/dL (3.5-5.1); Alkaline Phosphatase 98 U/L (38-126); Anion Gap 9 mmol/L (4-12); Aspartate Amino Transferase 29 U/L (17-59); Bilirubin,Total 0.7 mg/dL (0.2-1.3); Blood Urea Nitrogen 14 mg/dL (9-20); Calcium 9.5 mg/dL (8.4-10.2); Carbon Dioxide 25 mmol/L (22-30); Chloride 101 mmol/L (98-107); Estimated CRCL calculation 67 ml/min; Estimated Glomerular Filt Rate > 60; Glucose 108 mg/dL (65-110); Potassium 4.3 mmol/L (3.4-5.0); Sodium 135 mmol/L (137-145)
[2024-06-14 15:19] LABS: Troponin I < 0.012 ng/mL (0.000-0.034)
[2024-06-14 15:34] LABS: Influenza A QL RT-PCR Negative (Negative); Influenza B QL RT-PCR Negative (Negative); RSV RNA, RT-PCR Negative (Negative); SARS-CoV-2 RNA PCR Negative (Negative)
[2024-06-14] MEDS: MORPHINE SULFATE (*CRX) 4 MG/ML INJ IV PUSH (17:10)
[2024-06-14] MEDS: ONDANSETRON INJ 4 MG/2 ML VIAL IV PUSH (17:10)
--- OUTSIDE RECORDS SUMMARY | 2024-06-14 17:40 | XMS_ITS | Clinical Summary ---
Author Organization [facility] al Address [address] [place] [address] Care Team Providers Care Safety And Health Manager Name Role Phone Nando Christy MD Primary Care Provider [phone] Yanelis Jennings MD Unavailable [phone] Reese Gutierrez MD Unavailable [phone] Allergies Active Allergy Reactions Criticality Noted Date [...] identified. Assessment & Plan (07/04/2023 11:09 AM [facility]): No success obtaining any options for post-acute care. SNFs, Respite care, [facility] Recovery sites, all decline patient Succeeded in obtaining wheelchair for patient, but he declined to use it today. He insisted on only using a walker, and we will provide this. Patient now states that he can stay with his sister instead of being unhoused or going to a residential. Ambulating with walker Patient primarily complains of L hip pain, worse with ambulation. States he has been told he has [id number] in his left hip. Case discussed with ortho. They declined to see in the hospital and stated they could not get an appointment earlier than 08/27. L Hip X-ray: Severe left hip osteoarthritis with progressive osseous remodeling and subchondral collapse of the femoral head. Will coordinate outpatient appointment with orthopedics. - August 27 in [facility] Rhabdomyolysis 12/16/2022 Assessment & Plan (12/30/2023 3:55 PM CDT): Mild rhabdo, likely from cocaine use. Given fluids on admission Resolved with hydration CK 12/28 448 down from 2284 Assessment & Plan (07/04/2023 11:10 AM [facility]): Muscle aches resolved Lab tests showed normalization [...] presentation - SW consulted, in talks with [facility] for potential inpatient rehab stay Suicidal ideation 09/12/2021 HFrEF (heart failure with re duced ejection fraction) ([facility]) 08/16/2021 Assessment & Plan (01/04/2024 1:17 PM [...] rhabdo Assessment & Plan (06/29/2023 12:17 PM [facility]): Review of his last echo in March 2023 revealed EF of 30-35% with global hypokinesis of LV, normal RV function, grade 1 diastolic dysfunction. Home meds include Coreg, and Entresto. -restart Entresto 24-26 mg BID -carvedilol 12.5 mg BID Assessment & Plan (04/01/2023 10:33 AM [facility]): Euvolemic - Held lasix for now given [...] 01/14/2020 Assessment & Plan (07/04/2023 11:11 AM [facility]): Continue home Seroquel and trazodone. Valium p.r.n. [...] CK Assessment & Plan (07/04/2023 11:13 AM [facility]): ROSCOE due to rhabdomyolysis and dehydration resolved. [...] -IVFs Assessment & Plan (07/16/2018 9:57 AM [facility]): 2/2 rhabdo. Cr trended down as above. -BP stable. Given repeat admissions for rhabdo, he is not a good candidate for lisinopril and hctz d/t risk for further kidney injury. Will not continue at DC. -PCP to further monitor. Assessment & Plan (07/15/2018 4:25 PM [facility]): Likely 2/2 rhabdo. Creatinine 1.6 (baseline 1.2). [...] -monitor. Assessment & Plan (07/16/2018 10:04 AM [facility]): BP has remained stable off BP meds, but states that BP was always elevated in skilled nursing despite no cocaine use. States he was taking clonidine, lisinopril and hctz. Poor candidate for ACEI and diuretic at this time d/t risk for further kidney injury. -will continue single agent for now. Will start amlodipine 10mg daily. -He will f/u with his PCP for further management. Assessment & Plan (07/15/2018 4:19 PM [facility]): BP slightly above baseline. -Hold home Lisinopril [...] peak Assessment & Plan (04/01/2023 10:28 AM [facility]): CK: 5038. Likely related to cocaine use. [...] recs Assessment & Plan (07/09/2021 7:32 PM [facility]): Likely from cocaine. CK 4000 > 2700 [...] currently. Assessment & Plan (06/30/2023 7:53 PM [facility]): Reports cocaine use related to his chronic left hip pain. Method of use is inhalation. Longest period of abstinence was 6 months. Does report sharing glass pipes with others Reports burnt lips. Declined HIV, syphilis, hepatitis screening. Assessment & Plan (03/31/2023 12:44 PM [facility]): - Counseled on cessation - Consulted social work lecturer Assessment & Plan (12/18/2022 11:35 AM CDT): - Long-standing cocaine use, occurring 2-3 times per week - SW consulted, in touch with [facility] for potential inpatient rehab stay Chest pain [...] baseline Assessment & Plan (04/01/2023 10:33 AM [facility]): Cr ~1.4, b/l around 1.3-1.5. Recently admitted [...] recs Assessment & Plan (07/09/2021 7:33 PM [facility]): - coreg - hold ACEI/ and lasix [...] mg nightly. Patient reports he did not last picker his medications, non adherence at baseline. [...] RN. Assessment & Plan (04/01/2020 8:01 PM [facility]): Mr. Haas is a 54yo M with [...] secondary gain and malingering. He was in [facility] ED 2 nights ago for rhabdo with no report of SI or any mood sx. He was discharged when medically cleared, then took a bus to another ED and reported SI and was admitted to [facility]. Today he continues to report vague [...] meds indicated - SW to assist with residential and [facility] resources Assessment & Plan (09/16/2018 9:53 AM CDT): As above Resolved Problems Problem Noted Date Diagnosed Date Resolved Date Fall, initial encounter 08/24/202310/09 Constipation 07/02/2023 10/22/2023 Assessment & Plan (07/02/2023 6:47 PM [facility]): New complaint this evening. Will Rx with marcia Left hip pain 06/29/2023 06/30/2023 Assessment & Plan (06/29/2023 3:37 PM [facility]): Longstanding, gradually worsening LEFT hip pain. Pain [...] recs Assessment & Plan (07/09/2021 7:33 PM [facility]): HFrEF (EF 24%) - proBNP 490 on [...] following Pt states he will d/c to [facility]; he is aware that they may be full and states if they are full he will return to the streets, where he has been living for ~15 years. Prison resources provided. He declines further SW assistance [...] team. Assessment & Plan (07/09/2021 7:33 PM [facility]): Encouraged cessation Assessment & Plan (06/14/2021 10:46 AM [facility]): Wes requires substance use treatment for cocaine. [...] appreciated. Assessment & Plan (06/13/2021 9:18 AM [facility]): Wes requires substance use treatment for cocaine, but his ASP traits are most prominent. He has not required PRN meds and is not threatening or violent. 1. Continue meds 2. SWer to help with rehab placement 3. Med consult recs appreciated. Assessment & Plan (06/12/2021 3:51 PM [facility]): Wes requires substance use treatment for cocaine, but his ASP traits are most prominent. He has not required PRN meds and is not threatening or violent. 1. Continue meds 2. SWer to help with rehab placement 3. Med consult recs appreciated. Assessment & Plan (06/11/2021 10:13 AM [facility]): Wes requires substance use treatment for cocaine, [...] normalizing Assessment & Plan (07/09/2021 7:32 PM [facility]): Cr 2.3 (baseline 1.3-1.6?), likely from rhabdo - recheck after fluids Assessment & Plan (03/30/2020 5:53 AM [facility]): Cr 2.34 on presentation, compared to a [...] daily Assessment & Plan (04/01/2020 8:05 PM [facility]): Patient has ahx of recurrent rhabdo due to cocaine use. He CK is downtrending and Cr is back to normal. No additional interventions needed. Assessment & Plan (03/30/2020 5:55 AM [facility]): CK 1688 on admission, he has had [...] of cares. -discontinue LR 100ml/hr -tylenol 650 [id number] PRN for pain -d/c today -SW consulted [...] cocaine use. -start LR 100ml/hr -tylenol 650 [id number] PRN for pain -repeat total CK in [...] using. Assessment & Plan (07/16/2018 9:55 AM [facility]): Likely 2/2 cocaine use. CK trending down, 8883-->6122. Cr improved 1.6-->1.1. -dc home -cocaine cessation encouraged. Assessment & Plan (07/15/2018 4:18 PM [facility]): Likely 2/2 cocaine use. Hx of multiple [...] although reported earlier to other physicians. - budget counselor on cessation Assessment & Plan (04/01/2020 8:12 PM [facility]): Patient has a long and well established [...] and admitted a few days later to [facility] for SI and rhabdo due to [...] PRN Assessment & Plan (07/16/2018 10:04 AM [facility]): -Encouraged cessation, but patient refuses and reports he will use cocaine after discharge. Assessment & Plan (07/15/2018 4:27 PM [facility]): Hx of cocaine use, last used yesterday. -Encouraged cessation, but patient refuses and reports he will use cocaine after discharge Generalized body aches 07/12/201807/25 Chronic renal impairment 05/04/2017 Schizoaffective disorder, bi polar type ([facility]) 08/02/2016 04/01/2020 Assessment & Plan (03/30/2020 5:56 AM [facility]): Prior medications include quetiapine and trazodone, which [...] admissions. Also recently admitted and discharged from the medical center on 08/01 for SI, also thought ot [...] admissions. Also recently admitted and discharged from the medical center on 08/01 for SI, also thought ot [...] 0 Assessment & Plan (03/30/2020 6:21 AM [facility]): Longstanding abuse, reports last smoking crack cocaine on evening of 03/29 Crack cocaine use 08/23/2011 04/01/2020 Suicidal ideation 08/23/2011 04/01/2020 History of rhabdomyolysis Muscle ache 04/01/2020 Encounters Date Type Department Care Team Description 04/29/2024 2:48 PM [facility] - 04/29/2024 11:59 PM [facility] Hospital Encounter [facility] [address] [place] [address] Ravin Knapp MD Avascular necrosis of hip, left (HCC) Discharge Disposition: Discharge to home or self care from Last 3 Months Immunizations Name Administration Dates Next Due Hep A, Adult 11/14/2005 Tdap 09/16/2015,10/07/2011,12/22/2009 Surgical History Surgery Date Site/Laterality Comments MUSCLE BIOPSY BONE BIOPSY Medical History Medical History Date Comments Hypertension ROSCOE (acute kidney injury) ([facility]) Cocaine abuse ([facility]) Chronic renal disease Rhabdomyoma Depression CHF (congestive heart failure) ([facility]) ([facility]) Family History Medical History Relation Name Comments [...] oz pur e alcohol) occasional [facility] Utilities Answer Date Recorded In the past 12 months has [facility] [employer], oil, or water [facility] threatened to shut off services in your [...] Never 01/04/2024 How often do you attend episcopal or pentecostal serv ices? Never 01/04/2024 Do you belong to any clubs o r organizations such as episcopal groups, unions, fraternal or athletic groups, or [...] staff should administer the PHQ-9) 2 11/19/2022 [facility] - Occupational Stress Questionnaire Answer [...] place to sleep or slept in a residential (including now)? Yes 08/25/2023 Housing Stability Vital Sign Answer Devendra e Recorded In the last 12 months, was t here a time when you were not able to pay the mortgage or rent on time? Yes 01/04/2024 In the past 12 months, how m any times have you moved where you were living? 5 01/04/2024 At any time in the past 12 m [facility], were you homeless or living in a residential (including now)? Yes 01/04/2024 Personal Safety Answer [...] on file Legal Sex Male 2:18 AM [facility] Gender Identity Not on file Sexual Orientation [...] Read Routine (OP Routine) 04/29/2024 3:01 PM [facility] Avascular necrosis of hip, left (HCC) HEPATITIS C ANTIBODY Timed 12/29/2023 9:29 PM CDT from Last 3 Months or Most Recently Relevant to Health Maintenance Results * XR Hip Left 2 or 3 Views W Pelvis (04/29/2024 3:01 PM [facility]) Anatomical Region Laterality Modality Lower Extremities, Hip, Pelvis Left C omputed Radiography 04/29/2024 4:12 PM [facility] Impressions 04/29/2024 4:23 PM [facility] Overall unchanged left femoral head avascular necrosis with severe secondary osteoarthritis and extensive osseous fragmentation. Dictated by: Nii Schulte MD The radiology attending physician has personally reviewed this study, and had reviewed and/or edited this written report and agrees with it. Electronically signed by: Andreas Blum M.D. Narrative 04/29/2024 4:23 PM [facility] EXAMINATION: XR HIP LEFT 2 OR 3 [...] ORDSinai CASTANON Final Result [facility] Department [place] [address] from Last 3 Months or Most Recently Relevant to Health Maintenance Insurance [facility] [employer] [facility] Advance Directives For more information, please contact: [phone] * Full Code (Latest Code Status on [...] 6:18 PM 08/26/2023 11:11 PM Care Teams Safety And Health Manager Relationship Specialty Start Date End Date Nando Christy MD [address] [place] [address] PCP - General Internal Medicine 05/06/22 Yanelis Jennings MD [address] [place] [address] Consulting Physician Cardiovascular Disease 10/11/22 Reese Gutierrez MD [address] [place] [address] Referring Physician Internal Medicine 07/04/23
--- OUTSIDE RECORDS SUMMARY | 2024-06-14 17:40 | XMS_ITS | Referral Summary ---
Author Organization [facility] al Address [address] [place] [address] Care Team Providers Care Plan Coordinator Name Role Phone Nando Christy MD Primary Care Provider [phone] Yanelis Jennings MD Unavailable [phone] Reese Gutierrez MD Unavailable [phone] Encounters Date Type Department Care Team Description 04/29/2024 2:48 PM CAUSTICS LOADER - 04/29/2024 11:59 PM CAUSTICS LOADER Hospital Encounter [facility] [address] [place] [id number] Ravin Knapp MD Avascular necrosis of hip, [...] identified. Assessment & Plan (07/04/2023 11:09 AM CAUSTICS LOADER): No success obtaining any options for post-acute [...] States he has been told he has [id number] in his left hip. Case discussed with ortho. They declined to see in the hospital and stated they could not get an appointment earlier than 08/27. L Hip X-ray: Severe left hip osteoarthritis with progressive osseous remodeling and subchondral collapse of the femoral head. Will coordinate outpatient appointment with orthopedics. - August 27 in [facility] Rhabdomyolysis 12/16/2022 Assessment & Plan (12/30/2023 3:55 PM CDT): Mild rhabdo, likely from cocaine use. Given fluids on admission Resolved with hydration CK 8/20 448 down from 2284 Assessment & Plan (07/04/2023 11:10 AM CAUSTICS LOADER): Muscle aches resolved Lab tests showed normalization [...] presentation - BEULAH consulted, in talks with [facility] for potential inpatient rehab stay Suicidal ideation 09/12/2021 HFrEF (heart failure with re duced ejection fraction) ([facility]) 08/16/2021 Assessment & Plan (01/04/2024 [...] rhabdo Assessment & Plan (06/29/2023 12:17 PM CAUSTICS LOADER): Review of his last echo in March 2023 revealed EF of 30-35% with global hypokinesis of LV, normal RV function, grade 1 diastolic dysfunction. Home meds include Coreg, and Entresto. -restart Entresto 24-26 mg BID -carvedilol 12.5 mg BID Assessment & Plan (04/01/2023 10:33 AM CAUSTICS LOADER): Euvolemic - Held lasix for now given [...] stable for discharge Substance induced mood disorder ([facility]) 2020 Assessment & Plan (07/25/2021 7:39 PM [...] 01/14/2020 Assessment & Plan (07/04/2023 11:11 AM CAUSTICS LOADER): Continue home Seroquel and trazodone. Valium p.r.n. [...] CK Assessment & Plan (07/04/2023 11:13 AM CAUSTICS LOADER): ROSCOE due to rhabdomyolysis and dehydration resolved. [...] -IVFs Assessment & Plan (07/16/2018 9:57 AM CAUSTICS LOADER): 2/2 rhabdo. Cr trended down as above. -BP stable. Given repeat admissions for rhabdo, he is not a good candidate for lisinopril and hctz d/t risk for further kidney injury. Will not continue at [place]. -PCP to further monitor. Assessment & Plan (07/15/2018 4:25 PM CAUSTICS LOADER): Likely 2/2 rhabdo. Creatinine 1.6 (baseline 1.2). [...] -monitor. Assessment & Plan (07/16/2018 10:04 AM CAUSTICS LOADER): BP has remained stable off BP meds, but states that BP was always elevated in [facility] despite no cocaine use. States he was taking clonidine, lisinopril and hctz. Poor candidate for ACEI and diuretic at this time d/t risk for further kidney injury. -will continue single agent for now. Will start amlodipine 10mg daily. -He will f/u with his PCP for further management. Assessment & Plan (07/15/2018 4:19 PM CAUSTICS LOADER): BP slightly above baseline. -Hold home Lisinopril [...] peak Assessment & Plan (04/01/2023 10:28 AM CAUSTICS LOADER): CK: 5038. Likely related to cocaine use. [...] recs Assessment & Plan (07/09/2021 7:32 PM CAUSTICS LOADER): Likely from cocaine. CK 4000 > 2700 [...] currently. Assessment & Plan (06/30/2023 7:53 PM CAUSTICS LOADER): Reports cocaine use related to his chronic left hip pain. Method of use is inhalation. Longest period of abstinence was 6 months. Does report sharing glass pipes with others Reports burnt lips. Declined HIV, syphilis, hepatitis screening. Assessment & Plan (03/31/2023 12:44 PM CAUSTICS LOADER): - Counseled on cessation - Consulted social service agency director Assessment & Plan (12/18/2022 11:35 AM CDT): - Long-standing cocaine use, occurring 2-3 times per week - SW consulted, in touch with [facility] for potential inpatient rehab stay Chest [...] baseline Assessment & Plan (04/01/2023 10:33 AM CAUSTICS LOADER): Cr ~1.4, b/l around 1.3-1.5. Recently admitted [...] recs Assessment & Plan (07/09/2021 7:33 PM CAUSTICS LOADER): - coreg - hold ACEI/ and lasix [...] mg nightly. Patient reports he did not coal picker his medications, non adherence at baseline. [...] RN. Assessment & Plan (04/01/2020 8:01 PM CAUSTICS LOADER): Mr. Haas is a 54yo M with [...] secondary gain and malingering. He was in [facility] 2 nights ago for rhabdo with no report of SI or any mood sx. He was discharged when medically cleared, then took a bus to another ED and reported SI and was admitted to [facility]. Today he continues to report vague [...] 10/22/2023 Assessment & Plan (07/02/2023 6:47 PM CAUSTICS LOADER): New complaint this evening. Will Rx with vernellkot Left hip pain 06/29/2023 06/30/2023 Assessment & Plan (06/29/2023 3:37 PM CAUSTICS LOADER): Longstanding, gradually worsening LEFT hip pain. Pain [...] recs Assessment & Plan (07/09/2021 7:33 PM CAUSTICS LOADER): HFrEF (EF 24%) - proBNP 490 on [...] following Pt states he will d/c to [facility]; he is aware that they may be full and states if they are full he will return to the streets, where he has been living for ~15 years. [facility] resources provided. He declines further SW assistance [...] team. Assessment & Plan (07/09/2021 7:33 PM CAUSTICS LOADER): Encouraged cessation Assessment & Plan (06/14/2021 10:46 AM CAUSTICS LOADER): Wes requires substance use treatment for cocaine. [...] appreciated. Assessment & Plan (06/13/2021 9:18 AM CAUSTICS LOADER): Wes requires substance use treatment for cocaine, but his ASP traits are most prominent. He has not required PRN meds and is not threatening or violent. 1. Continue meds 2. SWer to help with rehab placement 3. Med consult recs appreciated. Assessment & Plan (06/12/2021 3:51 PM CAUSTICS LOADER): Wes requires substance use treatment for cocaine, but his ASP traits are most prominent. He has not required PRN meds and is not threatening or violent. 1. Continue meds 2. SWer to help with rehab placement 3. Med consult recs appreciated. Assessment & Plan (06/11/2021 10:13 AM CAUSTICS LOADER): Wes requires substance use treatment for cocaine, [...] normalizing Assessment & Plan (07/09/2021 7:32 PM CAUSTICS LOADER): Cr 2.3 (baseline 1.3-1.6?), likely from rhabdo - recheck after fluids Assessment & Plan (03/30/2020 5:53 AM CAUSTICS LOADER): Cr 2.34 on presentation, compared to a [...] daily Assessment & Plan (04/01/2020 8:05 PM CAUSTICS LOADER): Patient has ahx of recurrent rhabdo due to cocaine use. He CK is downtrending and Cr is back to normal. No additional interventions needed. Assessment & Plan (03/30/2020 5:55 AM CAUSTICS LOADER): CK 1688 on admission, he has had [...] of cares. -discontinue LR 100ml/hr -tylenol 650 [id number] PRN for pain -d/c today -SW consulted [...] cocaine use. -start LR 100ml/hr -tylenol 650 [id number] PRN for pain -repeat total CK in [...] using. Assessment & Plan (07/16/2018 9:55 AM CAUSTICS LOADER): Likely 2/2 cocaine use. CK trending down, 8883-->6122. Cr improved 1.6-->1.1. -dc home -cocaine cessation encouraged. Assessment & Plan (07/15/2018 4:18 PM CAUSTICS LOADER): Likely 2/2 cocaine use. Hx of multiple [...] although reported earlier to other physicians. - group therapy counselor on cessation Assessment & Plan (04/01/2020 8:12 PM CAUSTICS LOADER): Patient has a long and well established [...] and admitted a few days later to [facility] for SI and rhabdo due to [...] PRN Assessment & Plan (07/16/2018 10:04 AM CAUSTICS LOADER): -Encouraged cessation, but patient refuses and reports he will use cocaine after discharge. Assessment & Plan (07/15/2018 4:27 PM CAUSTICS LOADER): Hx of cocaine use, last used yesterday. -Encouraged cessation, but patient refuses and reports he will use cocaine after discharge Generalized body aches 07/12/201807/25 Chronic renal impairment 05/04/2017 Schizoaffective disorder, bi polar type ([facility]) 08/02/2016 04/01/2020 Assessment & Plan (03/30/2020 5:56 AM CAUSTICS LOADER): Prior medications include quetiapine and trazodone, which [...] 0 Assessment & Plan (03/30/2020 6:21 AM CAUSTICS LOADER): Longstanding abuse, reports last smoking crack cocaine [...] = 0.6 oz pur e alcohol) occasional just.me Utilities Answer Date Recorded In the past 12 months has [employer], oil, or water [employer] threatened to shut off services in your [...] Never 01/04/2024 How often do you attend rastafari or orthodoxy serv ices? Never 01/04/2024 Do you belong to any clubs o r organizations such as rastafari groups, unions, fraternal or athletic groups, or [...] staff should administer the PHQ-9) 2 11/19/2022 [facility] - Occupational [...] any time in the past 12 m [facility], were you homeless or [...] on file Legal Sex Male 2:18 AM CAUSTICS LOADER Gender Identity Not on file Sexual Orientation [...] 11:32 AM CDT Alice Deal LCSW * Do you have serious difficulty walking or climbing stairs? Answer Date of Assessment Author No 11/08/2021 11:32 AM CDT Alice Deal LCSW * Do you have serious [...] Read Routine (OP Routine) 04/29/2024 3:01 PM CAUSTICS LOADER Avascular necrosis of hip, left (HCC) HEPATITIS C ANTIBODY Timed 12/29/2023 9:29 PM CDT from Last 3 Months or Most Recently Relevant to Health Maintenance Results * XR Hip Left 2 or 3 Views W Pelvis (04/29/2024 3:01 PM CAUSTICS LOADER) Anatomical Region Laterality Modality Lower Extremities, Hip, Pelvis Left C omputed Radiography 04/29/2024 4:12 PM CAUSTICS LOADER Impressions 04/29/2024 4:23 PM CAUSTICS LOADER Overall unchanged left femoral head avascular necrosis with severe secondary osteoarthritis and extensive osseous fragmentation. Dictated by: Nii Schulte MD The radiology attending physician has personally reviewed this study, and had reviewed and/or edited this written report and agrees with it. Electronically signed by: Andreas Blum M.D. Narrative 04/29/2024 4:23 PM CAUSTICS LOADER EXAMINATION: XR HIP LEFT 2 OR 3 [...] ORDE KINA Final Result [facility] Department [place] [address] from Last 3 Months or Most Recently Relevant to Health Maintenance Insurance [facility] [facility] [employer] [facility] Member Subscriber Plan / Payer (Ef fective 2020-Present) Name:Wes Haas Relation to Subscriber:Self Name:Wes Haas Payer ID:[id number] (NAIC) Group ID:Not on file Type:MEDICAID RISK OTHER Address: [facility] [id number] [place] [id number] Advance Directives For more information, please contact: [phone] * Full Code (Latest Code Status on [...] 6:18 PM 08/26/2023 11:11 PM Care Teams Plan Coordinator Relationship Specialty Start Date End Date Nando Christy MD [address] [place] [address] PCP - General Internal Medicine 05/06/22 Yanelis Jennings MD [address] [place] [address] Consulting Physician Cardiovascular Disease 10/11/22 Reese Gutierrez MD [id number] [place] [address] Referring Physician Internal Medicine 07/04/23
--- OUTSIDE RECORDS SUMMARY | 2024-06-14 17:41 | XMS_ITS | Patient Health Summary ---
Author Organization [facility] Address [address] [place] [address] Care Team Providers Care Hand Tool Filer Name Role Phone Nando Christy MD Primary Care Provider [phone] Note from [facility],non-owned Affiliates and Associated Physician Practices is amultiple site organization consisting of ambulatory clinics and hospital sitesin [place], [place], [place] and [place]. This disclosure is being madepursuant to the Care Everywhere program and may not contain all information available regarding this patient. Last updated 18.[facility] Allergies * Chlorpromazine(Itching) -Medium Criticality * [...] Recorded Patient Health Questionnaire-2 Score 6 07/25/2023 [facility] - Occupational Stress Questionnaire Answer Date Recorded [...] place to sleep or slept in a [place] health care facility (including now)? Yes 07/09/2023 Housing Stability Vital [...] 01/14/2024) Performed for ROSCOE (acute kidney injury) ([facility]) * BASIC METABOLIC PANEL (CALCIUM TOTAL)(Performed 01/14/2024) Performed for [place]COE (acute kidney injury) ([facility]) * XR KNEE LEFT 3VW(Performed 01/13/2024) Performed for Acute pain of left knee * PT EVAL AND TREAT(Performed 01/13/2024) * CK BLOOD(Performed 01/13/2024) Performed for Elevated CK * CBC W AUTO DIFFERENTIAL(Performed 01/13/2024) Performed for ROSCOE (acute kidney injury) ([facility]) * BASIC METABOLIC PANEL (CALCIUM TOTAL)(Performed 01/13/2024) Performed for [place]COE (acute kidney injury) ([facility]) * CARDIAC EKG ORDER(Performed 01/13/2024) * TROPONIN-I [...] 09/24/2023) Performed for ROSCOE (acute kidney injury) ([facility]) * EKG 12-LEAD(Performed 09/24/2023) Performed for [place]COE (acute kidney injury) ([facility]) * XR KNEE LEFT 4VW OR MORE(Performed [...] (HCC), Elevated troponin, ROSCOE (acute kidney injury) ([facility]) * ED GENERAL PROCEDURE(Performed 10/08/2018) * CK BLOOD(Performed 10/08/2018) * RENAL FUNCTION PANEL(Performed 10/08/2018) * CBC W AUTO DIFFERENTIAL(Performed 10/08/2018) * BASIC METABOLIC PANEL (CALCIUM TOTAL)(Performed 10/08/2018) * US RETROPERITONEAL COMPLETE(Performed 10/07/2018) Performed for ROSCOE (acute kidney injury) ([facility]) * HIV-1 HIV-2 ANTIBODY + HIV P24 [...] seen in the shoulders. > Interpreting Provider: Sukhi Mulligan MD on 01/15/2024 7:46 AM Procedure [...] of143 resultswithin the time period is included. [facility] WBC 5.6 4.0 - 10.7 x10E9/L 01/14/2024 5:09 AM CDT [facility] RBC Count 3.44(L) 4.30 - 5.80 x10E12/L 01/14/2024 5:09 AM CDT [facility] Hemoglobin 9.5(L) 13.3 - 17.5 g/dL [facility] Hematocrit 31.3(L) 38.7 - 51.1 % 01/14/2024 5:09 AM CDT [facility] MCV 91.0 80.0 - 98.0 fL 01/14/2024 5:[facility] MCH 27.6 26.7 - 33.6 pg 01/14/2024 5:[facility] MCHC 30.4(L) 31.7 - 36.3 g/dL 01/14/2024 5:09 AM [facility] RDW-CV 16.1(H) 11.3 - 14.8 % 01/14/2024 5:09 AM [facility] Platelet Count 251 150 - 420 x10E9/L 01/14/2024 5:09 AM [facility] MPV 10.1 7.8 - 11.4 fL 01/14/2024 5:09 AM [facility] Neutrophil % 51.7 41.0 - 74.0 % 01/14/2024 5:09 AM [facility] Lymphocyte % 35.5 17.0 - 47.0 % 01/14/2024 5:09 AM [facility] Monocyte % 9.0 3.0 - 11.0 % 01/14/2024 5:09 AM [facility] Eosinophil % 3.2 0.0 - 7.0 % 01/14/2024 5:09 AM [facility] Basophil % 0.4 0.0 - 1.6 % 01/14/2024 5:09 AM [facility] Immature Granulocytes % 0.2 0.0 - 1.0 % 01/14/2024 5:09 AM [facility] Neutrophil Absolute 2.89 1.60 - 7.50 x10E9/L 01/14/2024 5:09 AM [facility] Lymphocyte Absolute 1.98 1.00 - 4.40 x10E9/L 01/14/2024 5:09 AM [facility] Monocyte Absolute 0.50 0.15 - 1.00 x10E9/L 01/14/2024 5:[facility] Eosinophil Absolute 0.18 0.00 - 0.60 x10E9/L 01/14/2024 5:09 AM CDT [facility] Basophil Absolute 0.02 0.00 - 0.13 x10E9/L 01/14/2024 5:09 AM [facility] Blood BLOOD SPECIMEN / Unknown Lab Venipuncture / Unknown 01/14/2024 4:23 AM CDT 01/14/2024 4:46 AM CDT Nicho Johnson MD LAB - HEMATOLOGY ORD ERABLES [facility] [address] [place] [address] * (ABNORMAL) BASIC METABOLIC PANEL (CALCIUM TOTAL) (01/14/2024 4:23 AM CDT) Only the most recent of65 resultswithin the time period is included. Glucose 88 70 - 105 mg/dL 01/14/2024 5:27 AM [facility] Sodium 141 136 - 145 mmol/L 01/14/2024 5:27 AM [facility] Potassium 4.1 3.5 - 5.1 mmol/L 01/14/2024 5:27 AM [facility] Chloride 108(H) 98 - 107 mmol/L 01/14/2024 5:27 AM [facility] CO2 29 22 - 29 mmol/L 01/14/2024 5:27 AM [facility] Calcium 8.6 8.4 - 10.4 mg/dL 01/14/2024 5:27 AM [facility] Anion Gap 4(L) 6 - 16 mmol/L 01/14/2024 5:27 AM [facility] BUN 10 7 - 26 mg/dL 01/14/2024 5:27 AM [facility] Creatinine 1.10 0.72 - 1.25 mg/dL 01/14/2024 5:27 AM [facility] eGFR by CKD-EPI 78(L) >=90 mL/min/1.7 3 m2 01/14/2024 5:27 AM [facility] Blood BLOOD SPECIMEN / Unknown Lab Venipuncture / Unknown 01/14/2024 4:23 AM CDT 01/14/2024 4:46 AM CDT Nicho Johnson MD LAB - CHEMISTRY YARELI CASTANON [facility] [address] [place] [address] * XR Knee Left 3Vw (01/13/2024 3:42 [...] - 200 U/L 01/13/2024 8:21 AM CDT [facility] Blood BLOOD SPECIMEN / Unknown Lab Venipuncture / Unknown 01/13/2024 5:06 AM CDT 01/13/2024 5:56 AM CDT Nicho Johnson MD LAB - CHEMISTRY ORDE KINA Performing Organization Address [facility]/ZIP Co de Phone Number [facility] [address] [place], [place] [phone] * CARDIAC EKG ORDER (01/13/2024 2:30 AM [...] 18 <=35 ng/L 01/12/2024 3:50 AM CDT [facility] Delta Troponin I HS 0 <6 ng/L 01/12/2024 3:50 AM CDT [facility] Blood BLOOD SPECIMEN / Unknown Venipuncture / Unknown 01/12/2024 3:30 AM CDT 01/12/2024 3:30 AM CDT Alexis Jeronimo MD LAB - CHEMISTR Y ORDERABLES [facility] [address] [place] [address] * TROPONIN-I HIGH SENSITIVE BASELINE + 1HR (01/12/2024 2:08 AM CDT) Only the most recent of5 resultswithin the time period is included. Troponin I High Sensitive 18 <=35 ng/L 01/12/2024 2:29 AM CDT [facility] Blood BLOOD SPECIMEN / Unknown Venipuncture / Unknown 01/12/2024 2:08 AM CDT 01/12/2024 2:08 AM CDT Alexis Jeronimo MD LAB - CHEMISTR Y ORDERABLES Performing Organization Address [facility] Co de Phone Number [facility] [address] [place] [phone] * MAGNESIUM BLOOD (01/12/2024 2:08 AM CDT) Only the most recent of31 resultswithin the time period is included. [facility] Magnesium 2.1 1.6 - 2.6 mg/dL 01/12/2024 2:25 AM CDT [facility] Blood BLOOD SPECIMEN / Unknown Venipuncture / Unknown 01/12/2024 2:08 AM CDT 01/12/2024 2:08 AM CDT Alexis Jeronimo MD LAB - CHEMISTR Y ORDERABLES Performing Organization Address [facility] de Phone Number [facility] [address] [place] [id number] * EKG 12-LEAD (01/12/2024 1:44 AM CDT) Only the most recent of52 resultswithin the time period is included. [facility] Ventricular Rate 85 BPM [facility] Atrial Rate 85 BPM [facility] P-R Interval 124 ms [facility] QRS Duration ms 100 ms [facility] Q-T Interval ms 408 ms [facility] QTC Calculation (Bezet) 485 ms [facility] Calculated P [place] 86 degrees [facility] Calculated R [place] 44 degrees [facility] Calculated T [place] -113 degrees [facility] Interpretation EKG SINUS [...] EVIDENT IN LATERAL LEADS Confirmed by DO ZNUIGA STEPHANIE ([id number]) on 01/12/2024 4:23:44 PM SM MUSE 01/12/2024 1:44 AM CDT 01/12/2024 4:23 PM CDT Alexis Jeronimo MD ECG ORDERABLES [facility] * XR KNEE LEFT 4VW OR [...] 77 <=100 pg/mL 09/24/2023 8:13 AM CDT [facility] Blood BLOOD SPECIMEN / Unknown Venipuncture / Unknown 09/24/2023 4:21 AM CDT 09/24/2023 4:21 AM CDT Narrative [facility] - 09/24/2023 8:13 AM CDT A [...] Arreaga MD LAB - CHEMISTRY YARELI CASTANON [facility] Organization Address City/State/ZIP Co de Phone Number [facility] [address] [place] [address] * (ABNORMAL) COMPREHENSIVE METABOLIC PANEL (09/24/2023 4:21 AM CDT) Only the most recent of115 resultswithin the time period is included. [facility] Glucose 83 70 - 105 mg/dL 09/24/2023 4:42 AM CDT [facility] Sodium 140 136 - 145 mmol/L 09/24/2023 4:42 AM CDT [facility] Potassium 5.0 3.5 - 5.1 mmol/L 09/24/2023 4:42 AM CDT [facility] Chloride 106 98 - 107 mmol/L 09/24/2023 4:42 AM CDT [facility] CO2 25 22 - 29 mmol/L 09/24/2023 4:42 AM CDT [facility] Calcium 9.5 8.4 - 10.4 mg/dL 09/24/2023 4:42 AM CDT [facility] Anion Gap 9 6 - 16 mmol/L 09/24/2023 4:42 AM CDT [facility] BUN 32(H) 7 - 26 mg/dL 09/24/2023 4:42 AM CDT [facility] Creatinine 1.46(H) 0.72 - 1.25 mg/dL 09/24/2023 4:42 AM CDT [facility] Alkaline Phosphatase 102 40 - 150 U/L 09/24/2023 4:42 AM CDT [facility] ALT 24 0 - 55 U/L 09/24/2023 4:42 AM CDT [facility] AST 42(H) 5 - 34 U/L 09/24/2023 4:42 AM CDT [facility] Protein Total 7.2 6.4 - 8.3 gm/dL 09/24/2023 4:42 AM CDT [facility] Albumin 4.0 3.4 - 5.0 gm/dL 09/24/2023 4:42 AM CDT [facility] Bilirubin Total 0.2 0.2 - 1.2 mg/dL 09/24/2023 4:42 AM CDT [facility] eGFR by CKD-EPI 56(L) >=90 mL/min/1.7 3 m2 09/24/2023 4:42 AM CDT [facility] Blood BLOOD SPECIMEN / Unknown Venipuncture / Unknown 09/24/2023 4:21 AM CDT 09/24/2023 4:21 AM CDT Karla Arreaga MD LAB - CHEMISTRY YARELI CASTANON [facility] Organization Address City/State/ZIP Co de Phone Number [facility] [address] [place] [address] * (ABNORMAL) URINE DRUG SCREEN IMMUNOASSAY (07/25/2023 11:30 AM CDT) Only the most recent of33 resultswithin the time period is included. [facility] Amphetamines Screen Urine Not detected Not detected 07/25/2023 11:47 AM CDT [facility] Barbiturates Screen Urine Not detected Not detected 07/25/2023 11:47 AM CDT [facility] Benzodiazepines Screen Urine Not detected Not detected 07/25/2023 11:47 AM CDT [facility] Cannabinoids Screen Urine Not detected Not detected 07/25/2023 11:47 AM CDT [facility] Cocaine Screen Urine Detected(A) Not detected 07/25/2023 11:47 AM CDT [facility] Fentanyl Urine Not detected Not detected 07/25/2023 11:47 AM CDT [facility] Methadone Screen Urine Not detected Not detected 07/25/2023 11:47 AM CDT [facility] Opiate Screen Urine Not detected Not detected 07/25/2023 11:47 AM CDT [facility] Phencyclidine Screen Urine Not detected Not detected 07/25/2023 11:47 AM CDT [facility] Urine URINE / Unknown 07/25/2023 1 1:30 AM CDT 07/25/2023 11:30 AM CDT Narrative [facility] - 07/25/2023 11:47 AM CDT This [...] URINE CHEMI STRY ORDERABLES Performing Organization Address [facility] Phone Number [facility] [address] [place] [phone] * ALCOHOL ETHYL BLOOD (07/25/2023 11:30 AM CDT) Only the most recent of31 resultswithin the time period is included. Ethanol <10.0 <10 mg/dL 07/25/2023 12:02 PM CDT [facility] Ethanol Calculated <0.010 <=0.100 gm/dL 07/25/2023 12:02 PM T [facility] Blood BLOOD SPECIMEN / Unknown Venipuncture / Unknown 07/25/2023 11:30 AM CDT 07/25/2023 11:30 AM CDT Narrative [facility] - 07/25/2023 12:02 PM CDT Ethanol [...] - CHEMISTRY O RDERABLES Performing Organization Address [facility] de Phone Number [facility] [address] [place] [address] * CT HIP LEFT WO CONTRAST (07/25/2023 6:39 AM CDT) Anatomical Region Laterality Modality Lower Extremity Computed Tomogra phy 07/25/2023 8:01 AM CDT Narrative 07/25/2023 8:05 AM CDT Procedure: CT HIP LEFT WO CONTRAST ??Exam Date: ??07/25/2023 6:40 AM ?? Location: ??[facility] INDICATION: Chronic hip pain. TECHNIQUE: Helical images [...] CONTRAST Exam Date: 07/25/2023 6:40 AM Location: [facility] INDICATION: Chronic hip pain. TECHNIQUE: Helical images [...] LEFT 2VW OR LESS (07/09/2023 2:25 PM GRADE TAMPER) Anatomical Region Laterality Modality Lower Extremity Radiographic Nessa ging 07/09/2023 2:51 PM GRADE TAMPER Impressions 07/09/2023 2:52 PM GRADE TAMPER IMPRESSION: Unremarkable. > Interpreting Provider: Nesha Goncalves MD on 07/09/2023 2:52 PM Narrative 07/09/2023 2:52 PM GRADE TAMPER PROCEDURE: ??XR KNEE LEFT 2VW OR LESS [...] somewhat atrophic. IMPRESSION: Unremarkable. > Interpreting Provider: Nehsa Goncalves MD on 07/09/2023 2:52 PM Brandy Devi DO DIAGNOSTIC IMAGING O RDERABLES * XR FEMUR TRAUMA 2 VW LEFT (07/09/2023 2:25 PM GRADE TAMPER) Anatomical Region Laterality Modality Lower Extremity Radiographic Nessa ging 07/09/2023 2:51 PM GRADE TAMPER Impressions 07/09/2023 2:51 PM GRADE TAMPER IMPRESSION: 1. ??No acute bony findings. 2. ??Chronic degenerative changes and bone remodeling in the left hip > Interpreting Provider: Nesha Goncalves MD on 07/09/2023 2:51 PM Narrative 07/09/2023 2:51 PM GRADE TAMPER PROCEDURE: ??XR FEMUR LEFT 2VW DATE/TIME OF [...] CT PELVIS NON CONTRAST (05/16/2023 2:40 AM GRADE TAMPER) Anatomical Region Laterality Modality Pelvis Computed Tomogra phy 05/16/2023 9:05 AM GRADE TAMPER Impressions 05/16/2023 9:08 AM GRADE TAMPER IMPRESSION: Avascular necrosis of the left femoral head. No acute or displaced pelvic or sacral fracture seen. Preliminary interpretation was provided by [facility]. > Interpreting Provider: Camryn Juarez MD on 05/16/2023 9:08 AM Narrative 05/16/2023 9:08 AM GRADE TAMPER PROCEDURE: ??CT PELVIS WO CONTRAST DATE/TIME OF [...] fracture seen. Preliminary interpretation was provided by [facility]. > Interpreting Provider: Camryn Juarez MD on 05/16/2023 9:08 AM Nazario García MD CT ORDERABLES * LAB RESULTS ORDER (05/08/2023 8:51 PM GRADE TAMPER) Only the most recent of11 resultswithin the time period is included. Narrative 05/08/2023 8:51 PM GRADE TAMPER Ordered by an unspecified provider. Scanned Document LAB - THERAPEUTIC DR TEAGUE MONITORING ORDERABLES * CCL LEFT HEART CATH (05/01/2023 11:44 AM GRADE TAMPER) Anatomical Region Laterality Modality X-Ray Angiograph y Narrative 05/01/2023 11:59 AM GRADE TAMPER 1. Angiographically normal coronary arteries 2. Underlying [...] CUPID PROCS * PTT (04/30/2023 1:51 AM GRADE TAMPER) Only the most recent of2 resultswithin the time period is included. PTT 31.5 23.0 - 38.4 sec 04/30/2023 2:01 AM [facility] Blood BLOOD SPECIMEN / Unknown Venipuncture / Unknown 04/30/2023 1:51 AM GRADE TAMPER 04/30/2023 1:51 AM GRADE TAMPER Narrative [facility] - 04/30/2023 2:01 AM GRADE TAMPER Heparin Therapeutic Range for PTT: ??69.0 - 110.0 seconds. Natali Lopes MD LAB - COAGULATION ORDERABLES [facility] [address] [place] [id number] * PT-INR (04/30/2023 1:51 AM GRADE TAMPER) Only the most recent of3 resultswithin the time period is included. PT 14.2 12.1 - 14.8 sec 04/30/2023 2:01 AM [facility] INR 1.1 0.9 - 1.1 04/30/2023 2:01 AM [facility] Blood BLOOD SPECIMEN / Unknown Venipuncture / Unknown 04/30/2023 1:51 AM GRADE TAMPER 04/30/2023 1:51 AM GRADE TAM[facility] - 04/30/2023 2:01 AM GRADE TAMPER Conventional Warfarin Anticoagulant Therapy: INR Reference Range: ??2.0-3.0 Intensive Warfarin Anticoagulant Therapy: INR Reference Range: ? 2.5-3.5 Natali Lopes MD LAB - COAGULATION ORDERABLES [facility] [address] [place] [id number] * TROPONIN-I HIGH SENSITIVE (04/30/2023 1:50 AM GRADE TAMPER) Only the most recent of3 resultswithin the time period is included. Troponin I High Sensitive 5 <=35 ng/L 04/30/2023 2:11 AM [facility] Blood BLOOD SPECIMEN / Unknown Venipuncture / Unknown 04/30/2023 1:50 AM GRADE TAMPER 04/30/2023 1:50 AM GRADE TAMPER Natali Lopes MD LAB - CHEMISTRY O RDERABLES Performing Organization Address [facility] Co de Phone Number [facility] [address] [place] [phone] * SARS-COV-2 (COVID-19) RAPID (01/31/2023 7:14 AM CDT) COVID-19 PCR Not detected Not detected 02/01/20 7:51 AM CDT [facility] Microbiology SPECIMEN FROM NASOPHARYNGEAL STRUCTURE / Unknown Collection / Unknown 01/31/2023 7:14 AM CDT 01/31/2023 7:14 AM CDT Narrative [facility] - 01/31/2023 7:51 AM CDT The [employer] Xpert Xpress SARS-COV-2 has been authorized by [...] - MICROBIOLOGY O RDERABLES Performing Organization Address [facility] Co de Phone Number [facility] [address] [place] [address] * XR CHEST 1VW (01/31/2023 2:40 AM [...] <0.010 <0.038 ng/mL 12/23/2022 1:34 PM CDT [facility] Blood BLOOD SPECIMEN / Unknown Lab Venipuncture / Unknown 12/23/2022 12:47 PM CDT 12/23/2022 1:11 PM CDT Jeremiah Moeller MD LAB - CHEMISTRY ORDE KINA Performing Organization Address [facility]/ZIP Co de Phone Number [facility] [address] [place] [phone] * PHOSPHORUS BLOOD (12/23/2022 12:47 PM CDT) Only the most recent of13 resultswithin the time period is included. Phosphorus 2.6 2.3 - 4.7 mg/dL 12/23/2022 1:32 PM CDT [facility] Blood BLOOD SPECIMEN / Unknown Lab Venipuncture / Unknown 12/23/2022 12:47 PM CDT 12/23/2022 1:11 PM CDT Sam Queen MD LAB - CHEMISTRY ORDE KINA Performing Organization Address [facility] Co de Phone Number [facility] [address] [place] [phone] * LIPASE BLOOD (12/22/2022 1:39 PM CDT) Only the most recent of7 resultswithin the time period is included. Lipase 53 <60 U/L 12/22/2022 2:12 PM CDT [facility] Blood BLOOD SPECIMEN / Unknown Venipuncture / Unknown 12/22/2022 1:39 PM CDT 12/22/2022 1:48 PM CDT Chelita Saxena DO LAB - CHEMISTRY ORDE KINA Performing Organization Address [facility]/ZIP Co de Phone Number [facility] [address] [place] [phone] * NM MYOCARD PERF REST ONLY (12/03/2022 11:00 AM CDT) Anatomical Region Laterality Modality Chest Nuclear Medicine 12/03/2022 7:13 AM CDT Narrative Procedure Note Drew Krfat MD - 12/03/2022 [place] [id number] Nuclear Myocardial Perfusion Scan Report Pat.Name: RYAN HOOD Pat.ID: [id number] .Date: 12/03/2022 Refer.MD: Tay Hebert Exam Time: 7:13:00 AM Study Type:Nuclear Myocardial Perfusion Scan Age: 8 1965,56Y Sex: MALE Race: 2 Visit ID: [id number] ++++++++++++++++++++++++++++++++++++ SUMMARY: ++++++++++++++++++++++++++++++++++++ FINDINGS: REST-ONLY myocardial perfusion [...] W CONTRAST (12/02/2022 3:10 PM CDT) BSA [id number] m2 [facility] CV FUJI PACS LV biplane [...] PACS MV DT 231 ms [facility] CV [facility] I PACS LVOT pk luz 1.35 m/s [...] AV mn luz 1.10 m/s [facility] CV [facility] I PACS AV pk luz 1.40 m/s [facility] CV [facility] I PACS AV VTI 24.35 cm [facility] CV [facility] I PACS LVOT pk grad 7.297 mmHg [...] HR 140 [facility] CV [facility] I PACS [id number] 8.59 cm [facility] CV [facility] I PACS [id number] 7.614 cm [facility] CV FUJ I PACS [...] - 106 mg/dL 11/30/2022 8:59 AM CDT [facility] Specimen Type Cap Fingerstick 2022 8:59 AM CDT [facility] Blood BLOOD SPECIMEN / Unknown 11/30/2022 8:49 AM CDT 11/30/2022 8:59 AM CDT Jeremiah Moeller MD LAB - POINT OF CARE ORDERABLES [facility] [address] [place] [address] * CT ANGIO AORTA FOR [...] ABDOMEN PELVIS WO CONTRAST (07/03/2020 3:09 AM GRADE TAMPER) Anatomical Region Laterality Modality Abdomen, Pelvis Computed Tomogra phy 07/03/2020 7:42 AM GRADE TAMPER Impressions 07/03/2020 8:54 AM GRADE TAMPER 1. Gaseous distention of the colon. 2. [...] at 8:54 AM Narrative 07/03/2020 8:[address] OF THE ABDOMEN AND PELVIS WITHOUT [...] ORDERABLES * Critical Care (06/16/2020 6:21 AM GRADE TAMPER) Narrative Ilda Campbell MD - 06/16/2020 6:21 AM GRADE TAMPER Ilda Campbell MD ? 06/16/2020 ??7:42 AM [...] REFLEX MICROSCOPIC REFLEX CULTURE (03/23/2020 9:58 PM GRADE TAMPER) Only the most recent of38 resultswithin the time period is included. Color UA Yellow Straw, Yellow 03/23/2020 10:20 PM [facility] Clarity UA Clear Clear 03/23/2020 10:20 PM [facility] Glucose UA Negative Negative 03/23/2020 10:20 PM [facility] Bilirubin UA Negative Negative 03/23/2020 10:20 PM [facility] Ketone UA Negative Negative 03/23/2020 10:20 PM [facility] Specific [place] UA 1.020 1.005 - 1.030 03/23/2020 10:20 PM [facility] Blood UA Negative Negative 03/23/2020 10:20 PM [facility] pH UA 6.0 5.0 - 8.0 pH 03/23/2020 10:20 PM [facility] Protein UA Negative Negative 03/23/2020 10:20 PM [facility] Urobilinogen UA Negative Negative mg/dL 03/23/2020 10:20 PM [facility] Nitrite UA Negative Negative 03/23/2020 10:20 PM [facility] Leukocyte UA Negative Negative 03/23/2020 10:20 PM [facility] Urine Microscopy Urine microscopy not indicated 03/23/2020 10:20 PM [facility] Reflex Status Culture not indicated 03/23/2020 10:20 PM [facility] Urine URINE SPECIMEN OBTAINED BY CLEAN CATCH PROCEDURE / Unknown Collection / Unknown 03/23/2020 9:58 PM GRADE TAMPER 03/23/2020 10:13 PM GRADE TAMPER Narrative [facility] - 03/23/2020 10:20 PM GRADE TAMPER Sheyla Álvarez MECHANICAL ADJUSTER-JAVA DEVELOPMENT TEAM LEAD LAB - URINAL YSIS ORDERABLES [facility] [address] [place] [address] * US ABDOMEN LIMITED (03/23/2020 6:51 AM GRADE TAMPER) Only the most recent of2 resultswithin the time period is included. Anatomical Region Laterality Modality Abdomen Ultrasound 03/23/2020 7:08 AM GRADE TAMPER Impressions 03/23/2020 7:10 AM GRADE TAMPER 1. ??Normal gallbladder. 2. ??Borderline enlarged common duct. ??No visible stones and no dilatation of biliary tree *Reading Radiologist: Nesha Goncalves on 03/23/2020 at 7:10 AM Narrative 03/23/2020 7:10 AM GRADE TAMPER Abdominal ultrasound, limited DATE: 03/23/2020. INDICATION: Right [...] CONTRAST - Acute Abdomen (03/23/2020 4:59 AM GRADE TAMPER) Only the most recent of2 resultswithin the time period is included. Anatomical Region Laterality Modality Abdomen, Pelvis Computed Tomogra phy 03/23/2020 8:13 AM GRADE TAMPER Impressions 03/23/2020 8:22 AM GRADE TAMPER 1. ??Mid jejunal dilatation and mucosal inflammation without transition zone. ??This is most likely an ileus such as from enteritis. *Reading Radiologist: Nesha Goncalves on 03/23/2020 at 8:22 AM Narrative 03/23/2020 8:[address] ABDOMEN AND PELVIS with contrast DATE: [...] without spinal stenosis. Preliminary report provided by [facility]. Procedure Note Nesha Goncalves MD - [...] without spinal stenosis. Preliminary report provided by [facility]. IMPRESSION 1. Mid jejunal dilatation and mucosal inflammation without transition zone. This is most likely an ileus such as from enteritis. *Reading Radiologist: Nesha Goncalves on 03/23/2020 at 8:22 AM Karla Arreaga MD CT ORDERABLES * (ABNORMAL) RENAL FUNCTION PANEL (03/14/2020 9:42 AM GRADE TAMPER) Only the most recent of6 resultswithin the time period is included. Glucose 105 70 - 105 mg/dL 03/14/2020 11:08 AM [facility] Sodium 140 136 - 145 mmol/L 03/14/2020 11:08 AM [facility] Potassium 3.9 3.5 - 5.1 mmol/L 03/14/2020 11:08 AM [facility] Chloride 104 98 - 107 mmol/L 03/14/2020 11:08 AM [facility] CO2 26 23 - 31 mmol/L 03/14/2020 11:08 AM [facility] Calcium 8.6 8.4 - 10.4 mg/dL 03/14/2020 11:08 AM [facility] Anion Gap 10 8 - 18 mmol/L 03/14/2020 11:08 AM [facility] Comment:Attention clinician: ??Reference Range change. BUN 12 8.4 - 25.7 mg/dL 03/14/2020 11:08 AM [facility] Creatinine 1.07 0.72 - 1.25 mg/dL 03/14/2020 11:08 AM [facility] Albumin 3.6 3.5 - 5.2 gm/dL 03/14/2020 11:08 AM [facility] Phosphorus 1.7(L) 2.3 - 4.7 mg/dL 03/14/2020 11:08 AM [facility] Comment:Attention clinician: ??Reference Range change. eGFR by MDRD >60 >60 mL/min/1.7 3m2 03/14/2020 11:08 AM [facility] eGFR by MDRD >60 >60 mL/min/1.7 3m2 03/14/2020 11:08 AM [facility] Blood BLOOD SPECIMEN / Unknown Lab Venipuncture / Unknown 03/14/2020 9:42 AM GRADE TAMPER 03/14/2020 10:45 AM GRADE TAMPER Robby Tirado MD LAB - CHEMISTRY YARELI CASTANON Performing Organization Address [facility] Co de Phone Number [facility] [address] [place] [address] * (ABNORMAL) URINE MICROSCOPIC ONLY REFLEX TO CULTURE (03/12/2020 3:34 PM GRADE TAMPER) Only the most recent of8 resultswithin the time period is included. Reflex Status Culture not indicated 03/12/2020 4:08 PM GRADE TAMPER [facility] RBC UA 0-2 None Seen, 0-2, 3-5 # /hpf 03/12/2020 4:08 PM GRADE TAMPER [facility] WBC UA 0-5 None Seen, 0-5 # /hpf 03/12/2020 4:08 PM GRADE TAMPER [facility] Bacteria UA Trace(A) None Seen 03/12/2020 4:08 PM GRADE TAMPER [facility] Squamous Epithelial Cells None Seen None Seen, 0-2, 3-5 /hpf 03/12/2020 4:08 PM GRADE TAMPER [facility] Mucus UA 1+ /LPF 03/12/2020 4:08 PM GRADE TAMPER [facility] Hyaline Casts 0-2 None Seen, 0-2 # /lpf 03/12/2020 4:08 PM [facility] Urine URINE SPECIMEN OBTAINED BY CLEAN CATCH PROCEDURE / Unknown Collection / Unknown 03/12/2020 3:34 PM GRADE TAMPER 03/12/2020 3:40 PM GRADE TAMPER Narrative [facility] - 03/12/2020 4:08 PM GRADE TAMPER Roxana Melton MD LAB - URINALYSIS ORDERABLES Performing Organization Address [facility]/ZIP Co de Phone Number [facility] [address] [place] [address] * (ABNORMAL) CBC W/O DIFFERENTIAL (03/04/2020 6:06 AM CDT) Only the most recent of12 resultswithin the time period is included. WBC 7.2 3.5 - 10.5 10? 3 /uL 03/04/2020 6:20 AM CDT [facility] RBC 4.11(L) 4.30 - 5.70 10? 6 /uL 03/04/2020 6:20 AM CDT [facility] Hemoglobin 12.8(L) 13.5 - 17.5 g/dL 03/04/2020 6:20 AM [facility] Hematocrit 38.9(L) 39.0 - 50.0 % 03/04/2020 6:20 AM T [facility] MCV 94.6 81.0 - 97.0 fL 03/04/2020 6:20 AM T [facility] MCH 31.1 28.0 - 34.0 pg 03/04/2020 6:20 AM T [facility] MCHC 32.9 32.0 - 36.0 g/dL 03/04/2020 6:20 AM T [facility] Platelet Count 225 150 - 400 10? 3 /uL 03/04/2020 6:20 AM T [facility] RDW-SD 45.4 36.0 - 50.0 fL 03/04/2020 6:20 AM [facility] RDW-CV 13.1 11.2 - 14.8 % 03/04/2020 6:20 AM T [facility] MPV 10.5 9.3 - 12.8 fL 03/04/2020 6:20 AM [facility] nRBC Absolute 0.00 0 10? 3 /uL 03/04/2020 6:20 AM T [facility] nRBC Auto 0.0 0 /100 WBC 03/04/2020 6:20 AM [facility] Blood BLOOD SPECIMEN / Unknown Venipuncture / Unknown 03/04/2020 6:06 AM CDT 03/04/2020 6:12 AM CDT Sheyla Shannon PA-C LAB - HEMATOLOGY ORD ERABLES [address] [address], [facility] [phone] * (ABNORMAL) URINALYSIS W/MICROSCOPIC NO CULTURE (03/03/2020 11:05 PM CDT) Only the most recent of13 resultswithin the time period is included. Color UA Yellow Straw, Yellow, Colorless 03/03/2020 11:25 PM [facility] Clarity UA Clear Clear, t Cloudy 03/03/2020 11:25 PM [facility] Specific [place] UA 1.024 1.005 - 1.030 03/03/2020 11:25 PM [facility] pH UA 5.0 5.0 - 8.0 pH 03/03/2020 11:25 PM [facility] Protein UA Negative Negative mg/dL 03/03/2020 11:25 PM [facility] Glucose UA Negative Negative mg/dL 03/03/2020 11:25 PM [facility] Ketone UA Negative Negative mg/dL 03/03/2020 11:25 PM [facility] Bilirubin UA Negative Negative mg/dL 03/03/2020 11:25 PM [facility] Blood UA Negative Negative 03/03/2020 11:25 PM [facility] Nitrite UA Negative Negative 03/03/2020 11:25 PM [facility] Leukocyte Esterase Negative Negative 03/03/2020 11:25 PM [facility] Urobilinogen UA 2.0(A) Negative mg/dL 03/03/2020 11:25 PM [facility] RBC UA 3-5 None Seen, 0-2, 3-5 /HPF 03/03/2020 11:25 PM [facility] WBC UA 0-5 None Seen, 0-5 /HPF 03/03/2020 11:25 PM [facility] Squamous Epithelial Cells UA 0-2 None Seen, 0-2 /HPF 03/03/2020 11:25 PM [facility] Calcium Oxalate UA Moderate(A) Rare, Occasional, Few, None /HPF 03/03/2020 11:25 PM [facility] Urine URINE SPECIMEN OBTAINED BY CLEAN CATCH PROCEDURE / Unknown Collection / Unknown 03/03/2020 11:05 PM CDT 03/03/2020 11:16 PM [facility] - 03/03/2020 11:25 PM [facility] note^<nlbl:[email or web address]> Loreto Mcfadden MECHANICAL ADJUSTER-JAVA DEVELOPMENT TEAM LEAD LAB - URINALYSIS O RDERABLES [facility] [address] [place] [address], [place] [phone] * SODIUM URINE RANDOM (03/03/2020 11:05 PM CDT) Sodium Urine 59 Not Established mmol/L 03/03/2020 11:38 PM CDT [facility] Urine URINE SPECIMEN OBTAINED BY CLEAN CATCH PROCEDURE / Unknown Collection / Unknown 03/03/2020 11:05 PM CDT 03/03/2020 6:14 PM CDT Sheyla Shannon PA-C LAB - URINE CHEMISTR Y ORDERABLES [address] [address], [place] [phone] * CREATININE URINE RANDOM (03/03/2020 11:05 PM CDT) Creatinine Urine 260 Not Established mg/dL 03/03/2020 11:38 PM CDT [facility] Comment:Result obtained by d ilution. Urine URINE SPECIMEN OBTAINED BY CLEAN CATCH PROCEDURE / Unknown Collection / Unknown 03/03/2020 11:05 PM CDT 03/03/2020 6:14 PM CDT Sheyla Shannon PA-C LAB - URINE CHEMISTR Y ORDERABLES [address] [address], [place] [phone] * D-DIMER (01/18/2020 2:18 PM CDT) Only the most recent of2 resultswithin the time period is included. D-Dimer 0.49 0.27 - 0.50 ug/mL FEU 01/18/2020 3:13 PM CDT [facility] Blood BLOOD SPECIMEN / Unknown Lab Venipuncture / Unknown 01/18/2020 2:18 PM CDT 01/18/2020 2:22 PM CDT Narrative [facility] - 01/18/2020 3:13 PM CDT In the absence of clinical symptoms, a value less than or equal to 0.5 mcg/mL FEU significantly decreases the probability of PE/DVT (negative predictive value >95%). 1 mcg/ml FEU = 1 Fibrinogen Equivalent Unit (approximates 0.5 mcg/mL of D- dimer). Dillon Herman MD LAB - COAGULATION OR DERABLES [facility] [address] [place] [address] * ECHOCARDIOGRAM 2D WITH DOPPLER (01/18/2020 8:30 AM CDT) Only the most recent of2 resultswithin the time period is included. 01/18/2020 8:30 AM CDT Narrative Procedure Note Drew Kraft MD - 01/18/[address] [address] Echocardiography Examination Transthoracic Name: RYAN HOOD [facility]#: MR#: [id number] Admission Number: [id number] Study Date: 01/18/2020 Study Time: 12:29 PM [...] Routine study Image Quality: Adequate Facility Location: [facility] Indication: Chest Pain Procedure Nurse Epidemiologist: JUAN JOSE Pimentel Ordering Provider: DILLON HERMAN [...] PHT 42 ms Mitral Valve MV Dec Prentiss 4.04 m/s?? Patient: RYAN HOOD Study Date: 01/18/2020 12:29 PM Page 3 of 4 Pulmonic Valve PV PGmax 2 mmHg Pulmonic Valve PV Vmax, Caliper 0.67 m/s (0.6m/s - 0.9m/s) Pulmonic Valve WI End gage Luz 0.7 cm/s Right Ventricle Diastolic TR Pmax 23 mmHg Function Right Ventricle Diastolic WI P diast. 2 mmHg Function Right Ventricle Diastolic Diast. PAP (WI P diast. + 7 mmHg Function CVP) Tricuspid Valve RVSP 28 mmHg Tricuspid Valve RA Pressure 5 mmHg Tricuspid Valve TR Vmax 2.39 m/s (No Signature Object) Patient: RYAN HOOD Study Date: 01/18/2020 12:29 PM Page 4 of 4 Dillon Herman MD ECHO ORDERABLES [facility] [address] [place] [address] * (ABNORMAL) SALICYLATE LEVEL BLOOD (01/18/2020 3:53 AM CDT) Only the most recent of7 resultswithin the time period is included. Salicylate <5.0(L) 15.0 - 30.0 mg/dL 01/18/2020 4:09 AM CDT [facility] Blood BLOOD SPECIMEN / Unknown Venipuncture / Unknown 01/18/2020 3:53 AM CDT 01/18/2020 3:53 AM CDT Andreassera Clarkeandrea LAB - CHEMISTRY YARELI CASTANON Performing Organization Address [facility] de Phone Number [facility] [address] [place] [address] * (ABNORMAL) ACETAMINOPHEN LEVEL (01/18/2020 3:53 AM CDT) Only the most recent of12 resultswithin the time period is included. [facility] Acetaminophen <3.0(L) 10.0 - 30.0 ug/mL 01/18/2020 4:09 AM CDT [facility] Blood BLOOD SPECIMEN / Unknown Venipuncture / Unknown 01/18/2020 3:53 AM CDT 01/18/2020 3:53 AM CDT Narrative [facility] - 01/18/2020 4:09 AM CDT [facility] [...] may alter the peak level. Contact the [facility] at or reserved for healthcare professionals to assist you in evaluating potentially toxic acetaminophen levels. Andreas Alexis Banks DO LAB - CHEMISTRY YARELI CASTANON Performing Organization Address [facility] Co de Phone Number [facility] [address] [place] [address] * CULTURE URINE (12/29/2019 12:17 AM CDT) Only the most recent of6 resultswithin the time period is included. Culture Urine No growth (<100 CFU/mL) LETITIA 12/30/2019 7:53 AM CDT [facility] Urine URINE SPECIMEN OBTAINED BY CLEAN CATCH PROCEDURE / Unknown Collection / Unknown 12/29/2019 12:17 AM CDT 12/29/2019 12:20 AM CDT Taye Hughes PA-C LAB - MICROBIOLOGY ORDERABLES [facility] [address] [place] [address], [facility] [phone] * (ABNORMAL) LACTIC ACID BLOOD (12/28/2019 9:11 PM CDT) Only the most recent of3 resultswithin the time period is included. Lactic Acid 2.6(H) 0.5 - 2.2 mmol/L 12/28/2019 9:27 PM CDT [facility] Blood BLOOD SPECIMEN / Unknown Venipuncture / Unknown 12/28/2019 9:11 PM CDT 12/28/2019 9:15 PM CDT Taye Hughes PA-C LAB - CHEMISTRY ORD ERABLES Performing Organization Address City/[facility]/ZIP Co de Phone Number [facility] [address] [place] [address] * ED CRITICAL CARE (12/12/2018 2:32 PM [...] - 200 Units/L 11/18/2018 2:54 AM CDT [facility] CK-MB 5.2 0.0 - 6.6 ng/mL 11/18/2018 2:54 AM CDT [facility] Blood BLOOD SPECIMEN / Unknown Venipuncture / Unknown 11/18/2018 2:21 AM CDT 11/18/2018 2:24 AM CDT Sarita Wang MECHANICAL ADJUSTER-JAVA DEVELOPMENT TEAM LEAD LAB - ADOPTION AGENT RY ORDERABLES Performing Organization Address City/State/[facility] Co de Phone Number [address] [phone] * ED CRITICAL CARE (10/28/2018 1:55 PM [...] Reactive Non Reactive 10/07/2018 2:13 PM CDT [facility] Blood BLOOD SPECIMEN / Unknown Lab Venipuncture / Unknown 10/07/2018 1:04 PM CDT 10/07/2018 1:22 PM CDT Narrative [facility] - 10/07/2018 2:13 PM CDT No Laboratory evidence of HIV infection. Kervin Delgado MD LAB - CHEMISTRY O RDSRINIVASAN Performing Organization Address [facility] de Phone Number [facility] [address] [place] [phone] * HEPATITIS SCREEN ACUTE (10/07/2018 1:04 PM CDT) Only the most recent of3 resultswithin the time period is included. HAV Antibody IgM Non Reactive Non Reactive 10/07/2018 2:16 PM CDT [facility] HBsAg Non Reactive Non Reactive 10/07/2018 2:16 PM CDT [facility] HBc Antibody IgM Non Reactive Non Reactive 10/07/2018 2:16 PM CDT [facility] HCV Antibody Screen Non Reactive Non Reactive 10/07/2018 2:16 PM CDT [facility] HCV S/C Ratio 0.07 0.00 - 0.79 10/07/2018 2:16 PM CDT [facility] Comment: Bwvazy-uy-gtswxy ratio (S/CO) <0.80:?? Non Reactive Blood BLOOD SPECIMEN / Unknown Lab Venipuncture / Unknown 10/07/2018 1:04 PM CDT 10/07/2018 1:22 PM CDT [facility] - 10/07/2018 2:16 PM CDT Non Reactive - Antibodies to Hepatitis C virus (HCV) were not detected, result does not exclude early acute HCV infection. Kervin Delgado MD LAB - CHEMISTRY O DANIELLE Performing Organization Address City/[facility] de Phone Number [facility] [address] [place] [address] * LEGIONELLA ANTIGEN URINE (08/11/2018 5:41 AM CDT) Pathologist [facility] Legionella Antigen Urine Negative Negative 08/11/2018 9:05 AM CDT [facility] Urine URINE / Unknown Collection / Unknown 08/11/2018 5:41 AM CDT 08/11/2018 5:41 AM CDT [facility] - 08/11/2018 9:05 AM CDT This assay detects Legionella pneumophila serogroup one (1) antigen. A negative test result does not rule out the possibility of Legionella infection due to other serogroups or species of Legionella. A positive result may indicate a recent or remote infection with serogroup 1. Lyndsay Graves MD LAB - MICROBIOLOGY O DANIELLE Performing Organization Address [facility] Co de Phone Number [facility] [address] [place] [address], [facility] [phone] * CULTURE STOOL+ E COLI SHIGA-LIKE TOXIN (08/10/2018 11:06 AM CDT) Culture No growth Salmonella, Shigella, Campylobacter, Escherichia coli 0157:h7 or Yersinia LETITIA 08/12/2018 4:28 AM CDT [facility] Culture Negative Escherichia coli Shiga-like toxin (NM) LETITIA 08/12/2018 4:28 AM CDT [facility] Stool STOOL SPECIMEN / Unknown Collection / Unknown 08/10/2018 11:06 AM CDT 08/10/2018 11:06 AM CDT Lyndsay Graves MD LAB - MICROBIOLOGY O DANIELLE Performing Organization Address [facility] de Phone Number [facility] [address] [place] [address], [facility] [phone] * CLOSTRIDIUM DIFFICILE GDH AG + TOXIN A+B (08/10/2018 11:06 AM CDT) GDH Antigen Negative Negative, Invalid 08/10/2018 8:44 PM CDT [facility] C difficile Toxin A + B Negative Negative, Invalid 08/10/2018 8:44 PM CDT [facility] Interpretation C difficile Negative for toxigenic C. difficile Negative for toxigenic C. difficile 08/10/2018 8:44 PM CDT [facility] Stool STOOL SPECIMEN / Unknown Collection / Unknown 08/10/2018 11:06 AM CDT 08/10/2018 11:06 AM CDT Alonso Vázquez MD LAB - MICROBIOLOGY O RDERABLES [facility] [address] [place] [address], [facility] [phone] * PT PTT PANEL (07/27/2018 9:56 AM CDT) Only the most recent of2 resultswithin the time period is included. PT 11.1 9.5 - 11.6 sec 07/27/2018 10:14 AM CDT [facility] INR 1.0 0.9 - 1.1 07/27/2018 10:14 AM CDT [facility] PTT 22.7 21.0 - 32.0 sec 07/27/2018 10:14 AM CDT [facility] Blood BLOOD SPECIMEN / Unknown Venipuncture / Unknown 07/27/2018 9:56 AM CDT 07/27/2018 10:01 AM CDT Narrative [facility] - 07/27/2018 10:14 AM CDT Conventional Warfarin Anticoagulant Therapy: INR Reference Range: ??2.0-3.0 Intensive Warfarin Anticoagulant Therapy: INR Reference Range: ? 2.5-3.5 Heparin Therapeutic Range for PTT: 47.7 - 68.6 seconds. Sb Marc DO LAB - COAGULATION O RDERABLES Performing Organization Address [facility] Co de Phone Number [facility] [address] [place] [address] * TSH REFLEX FREE T4 (07/14/2018 4:31 AM GRADE TAMPER) TSH 2.37 0.358 - 3.740 ulU/mL 07/14/2018 8:25 AM GRADE TAMPER [facility] Blood BLOOD SPECIMEN / Unknown Lab Venipuncture / Unknown 07/14/2018 4:31 AM GRADE TAMPER 07/14/2018 8:01 AM GRADE TAMPER Magdaleno Nino MD LAB - CHEM ISTRY ORDERABLES Performing Organization Address City/[facility]/ZIP Co de Phone Number [facility] [address] [place] [address] * ERYTHROCYTE SEDIMENTATION RATE (07/13/2018 11:22 AM GRADE TAMPER) Erythrocyte Sedimentation Rate Automated 1 0 - 20 MM/HR 07/13/2018 12:04 PM GRADE TAMPER [facility] Blood BLOOD SPECIMEN / Unknown Lab Venipuncture / Unknown 07/13/2018 11:22 AM GRADE TAMPER 07/13/2018 11:53 AM GRADE TAMPER Magdaleno Nino MD LAB - DEYANIRA TOLOGY ORDERABLES Performing Organization Address [facility] de Phone Number [facility] [address] [place] [address] * (ABNORMAL) C-REACTIVE PROTEIN (07/13/2018 4:57 AM GRADE TAMPER) Only the most recent of3 resultswithin the time period is included. Pathologist [facility] C-Reactive Protein 0.83(H) <0.30 mg/dL 07/13/2018 10:49 AM GRADE TAMPER [facility] Blood BLOOD SPECIMEN / Unknown Lab Venipuncture / Unknown 07/13/2018 4:57 AM GRADE TAMPER 07/13/2018 10:40 AM GRADE TAMPER Magdaleno Nino MD LAB - CHEM ISTRY ORDERABLES Performing Organization Address [facility] [place] [address] * ED CRITICAL CARE (07/12/2018 6:10 AM GRADE TAMPER) Narrative Sol Matt MD - 07/12/2018 6:10 AM GRADE TAMPER Sol Matt MD ? 07/12/2018 ??6:10 AM [...] HAND 3+ VW RIGHT (04/28/2017 12:07 PM GRADE TAMPER) Only the most recent of2 resultswithin the time period is included. Anatomical Region Laterality Modality Wrist / Hand Radiographic Nessa ging 04/28/2017 12:1 8 PM GRADE TAMPER Impressions 04/28/2017 12:19 PM GRADE TAMPER Acute boxer's fracture. Narrative 04/28/2017 12:19 PM GRADE TAMPER XR HAND 3+ VW RIGHT, PA, OBLI[place] [...] UA Yellow Straw, Yellow, Colorless, Light Yellow [facility] Clarity UA Clear Clear [facility] Specific [place] UA 1.006 1.001 - 1.030 [facility] pH UA 7.0 5.0 - 8.0 [facility] Protein UA Negative <=20 mg/dL [facility] Glucose UA Negative Negative mg/dL [facility] Ketone UA Negative Negative mg/dL [facility] Bilirubin UA Negative Negative mg/dL [facility] Blood UA Negative Negative [facility] Nitrite UA Negative Negative [facility] Leukocyte Esterase Negative Negative [facility] Urobilinogen UA <2.0 <2.0 mg/dL [facility] RBC UA 2 0 - 8 /HPF [facility] WBC UA <1 0 - 2 /HPF [facility] Bacteria UA Rare Rare, Occasional, None /HPF [facility] Squamous Epithelial Cells UA <1 0 - 1 /HPF [facility] Mucus UA Rare(A) None /LPF [facility] Urine specimen (specimen) 03/06/2017 4:41 AM CDT 03/06/2017 4:47 AM CDT Inessa Martinez MD LAB - URINALYSIS ORD ERABLES Performing Organization Address City/State/[facility] Co de Phone Number [address] [phone] * (ABNORMAL) DRUG ABUSE PANEL 10-20+ETHANOL URINE NO CONFIRM (03/06/2017 4:41 AM CDT) Only the most recent of12 resultswithin the time period is included. Amphetamines Screen Urine Negative Negative : < 1000 ng/mL [facility] Barbiturates Screen Urine Negative Negative : < 200 ng/mL [facility] Benzodiazepine Screen Urine Negative Negative : < 200 ng/mL [facility] Opiates Urine Negative Negative : < 300 ng/mL [facility] Cocaine Metabolites Urine Positive(A) Negative : < 300 ng/mL [facility] Comment: Positive urine cocaine metabolites screening results should be confirmed by another generally accepted non-immunological method such as gas chromatography or mass spectrometry. ? Phencyclidine Screen Urine Negative Negative : < 25 ng/ml [facility] Cannabinoids Screen Urine Negative Negative : <50 ng/mL [facility] Methadone Screen Urine Negative Negative : < 300 ng/mL [facility] Urine specimen (specimen) URINE / Unknown 03/06/2017 4:41 AM CDT 03/06/2017 4:47 AM CDT Narrative [facility] - 03/06/2017 5:02 AM CDT The Urine Toxicology Screening Panel does not screen for Propoxyphene, Meprobamate, Carisoprodol, Trazodone, lolm-rpr-sqymuso medications and/or volatiles (Acetone, Isopropanol, Methanol or Ethylene Glycol). Ethanol, Salicylate, Acetaminophen, Tricyclic Antidepressants and several therapeutic drugs may be individually assayed in serum or plasma specimen. Toxicology testing by the [facility] is an aid to medical diagnosis and treatment of patients. No documented chain of custody was maintained. Results are intended to be used for clinical purposes only. ? Inessa Martinez MD LAB - URINE CHEMISTR Y ORDERABLES Performing Organization Address City/State/[facility] Co de Phone Number [facility] [address] [phone] * ED CRITICAL CARE (01/23/2017 12:54 PM [...] - 6.3 % 09/13/2016 4:21 AM CDT [facility] Estimated Average Glucose 105 mg/dL 09/13/2016 4:21 AM CDT [facility] Whole Blood BLOOD SPECIMEN WITH EDTA / Unknown Lab Venipuncture / Unknown 09/13/2016 3:15 AM CDT 09/13/2016 3:23 AM CDT Erik Duff MD LAB - CHEMISTRY YARELI CASTANON [facility] Organization Address City/State/[facility] Co de Phone Number [facility] [address] [place] [address] * INFLUENZA A+B ANTIGEN RAPID (09/11/2016 12:38 PM CDT) Pathologist [facility] Influenza A Antigen Negative Negative 09/11/2016 12:52 PM CDT [facility] Influenza B Antigen Negative Negative 09/11/2016 12:52 PM CDT [facility] Microbiology NASOPHARYNGEAL SWAB / Unknown Collection / Unknown 09/11/2016 12:38 PM CDT 09/11/2016 12:38 PM CDT Narrative [facility] - 09/11/2016 12:52 PM CDT ? [...] height of the influenza season. Baylee Busby APRN-JAVA DEVELOPMENT TEAM LEAD LAB - MICROB IOLOGY ORDERABLES Performing Organization Address [facility]/ZIP Co de Phone Number [facility] [address] [place] [address] * (ABNORMAL) HEPATIC FUNCTION PANEL (08/31/2016 7:08 AM CDT) Only the most recent of2 resultswithin the time period is included. Alkaline Phosphatase 134(H) 38 - 126 U/L 08/31/2016 7:40 AM T [facility] ALT 62(H) 13 - 61 U/L 08/31/2016 7:40 AM CDT [facility] AST 34 5 - 40 U/L 08/31/2016 7:40 AM T [facility] Protein Total 5.8(L) 6.4 - 8.2 gm/dL 08/31/2016 7:40 AM CDT [facility] Albumin 3.0(L) 3.4 - 5.0 gm/dL 08/31/2016 7:40 AM T [facility] Bilirubin Total 0.2 0.2 - 1.0 mg/dL 08/31/2016 7:40 AM CDT [facility] Bilirubin Direct <0.1 0 - 0.3 mg/dL 08/31/2016 7:40 AM T [facility] Blood BLOOD SPECIMEN / Unknown Lab Venipuncture / Unknown 08/31/2016 7:08 AM CDT 08/31/2016 7:17 AM CDT Audrey Avilez MD LAB - CHEMISTRY YARELI CASTANON Performing Organization Address [facility]/ZIP Co de Phone Number [facility] [address] [place] [address] * CT BRAIN FACIAL BONES [...] 149 <200 mg/dL 02/19/2016 11:03 AM CDT [facility] Triglycerides 127 <150 mg/dL 02/19/2016 11:03 AM CDT [facility] HDL Cholesterol 67 >40 mg/dL 02/19/2016 11:03 AM CDT [facility] LDL Calculated 57 <130 mg/dL 02/19/2016 11:03 AM CDT [facility] VLDL Calculated 25 <=30 mg/dL 02/19/2016 11:03 AM CDT [facility] Chol HDL Ratio 2.2 <4.5 02/19/2016 11:03 AM CDT [facility] LDL/HDL Ratio 0.8 <5.0 02/19/2016 11:03 AM CDT [facility] Blood BLOOD SPECIMEN / Unknown Lab Venipuncture / Unknown 02/19/2016 10:18 AM CDT 02/19/2016 10:22 AM CDT Amanda Braga APRN-JAVA DEVELOPMENT TEAM LEAD LAB - CHEMISTRY ORDERABLES [facility] [address] [place], [place] [id number] * CKMB (12/17/2015 6:56 PM CDT) CK-MB 3.3 0.0 - 5.0 ng/mL 12/17/2015 7:17 PM CDT [facility] Blood BLOOD SPECIMEN / Unknown Venipuncture / Unknown 12/17/2015 6:56 PM CDT 12/17/2015 6:58 PM CDT Luther Pena MD LAB - CHEMISTRY ORDERABLES [facility] [address] [place], [place] [id number] * (ABNORMAL) DRUG SCREEN TOX LIMITED BLD PNL 3 INHOUSE (07/10/2015 5:26 PM GRADE TAMPER) Only the most recent of2 resultswithin the time period is included. Acetaminophen <2.0(L) 10.0 - 30.0 ug/mL 07/10/2015 5:51 PM GRADE TAMPER [facility] Ethanol <3 <10 mg/dL 07/10/2015 5:51 PM [facility] Salicylate <1.7 <20.0 mg/dL 07/10/2015 5:51 PM [facility] Ethanol Calculated <0.100 gm/dL 07/10/2015 5:51 PM [facility] Comment:Not Calculated Blood BLOOD SPECIMEN / Unknown 07/10/2015 5:26 PM GRADE TAMPER 07/10/2015 5:30 PM GRADE TAMPER Narrative [facility] - 07/10/2015 5:51 PM [facility] ACETAMINOPHEN COMMENT Critical values: 4 Hours [...] may alter the peak level. Contact the [facility] at or reserved for healthcare professionals to assist you in evaluating potentially toxic acetaminophen levels. Sb Marc DO LAB - CHEMISTRY ORD ERABLES [facility] [address] [place] [address] * (ABNORMAL) URIC ACID BLOOD (06/08/2015 6:34 AM GRADE TAMPER) Uric Acid 7.7(H) 2.6 - 7.2 mg/dL [facility] Blood specimen (specimen) BLOOD SPECIMEN / Unknown 06/08/2015 6:34 AM GRADE TAMPER 06/08/2015 6:22 AM GRADE TAMPER Nani Bae MD LAB - CHEMISTRY YARELI CASTANON [address] [phone] * XR ELBOW LEFT 3VW OR MORE (06/08/2015 6:09 AM GRADE TAMPER) Only the most recent of2 resultswithin the time period is included. Anatomical Region Laterality Modality Upper Extremity Other Impressions 06/08/2015 12:12 PM GRADE TAMPER IMPRESSION: No acute osseous abnormality identified in the left elbow, wrist, or hand. Dictated by Omar Piper MD (residential sales executive). This report was approved ??by Omar Piper ?? on 06/08/2015 10:45 AM . I, Dr. PROSPER DUARTE M.D. have personally reviewed and interpreted this examination/study. This report was electronically signed by PROSPER DUARTE M.D. ??on 06/08/2015 12:12 PM . Narrative 06/08/2015 12:12 PM GRADE TAMPER EXAMINATION: 1. Left elbow, 3 views 2. [...] wrist, orhand. Dictated by Omar Piper MD (residential sales executive). This report was approved by Omar Piper on 06/08/2015 10:[address] PROSPER May M.D. have personally reviewed and interpreted thisexamination/study. This report was electronically signed by PROSPER DUARTE M.D. on 06/08/201512:12 PM . Nani Bae MD DIAGNOSTIC IMAGING O RDERABLES * XR WRIST LEFT 3VW OR MORE (06/08/2015 6:09 AM GRADE TAMPER) Anatomical Region Laterality Modality Wrist / Hand Other Impressions 06/08/2015 12:12 PM GRADE TAMPER IMPRESSION: No acute osseous abnormality identified in the left elbow, wrist, or hand. Dictated by Omar Piper MD (residential sales executive). This report was approved ??by Omar Piper ?? on 06/08/2015 10:[address] PROSPER May M.D. have personally reviewed and interpreted this examination/study. This report was electronically signed by PROSPER DUARTE M.D. ??on 06/08/2015 12:12 PM . Narrative 06/08/2015 12:12 PM GRADE TAMPER EXAMINATION: 1. Left elbow, 3 views 2. [...] wrist, orhand. Dictated by Omar Piper MD (residential sales executive). This report was approved by Omar Piper on 06/08/2015 10:45 AM . I, Dr. PROSPER DUARTE M.D. have personally reviewed and interpreted thisexamination/study. This report was electronically signed by PROSPER DUARTE M.D. on 06/08/201512:12 PM . Nani Bae MD DIAGNOSTIC IMAGING O RDERABLES * XR HAND LEFT 3VW OR MORE (06/08/2015 6:08 AM GRADE TAMPER) Anatomical Region Laterality Modality Wrist / Hand Other Impressions 06/08/2015 12:12 PM GRADE TAMPER IMPRESSION: No acute osseous abnormality identified in the left elbow, wrist, or hand. Dictated by Omar Piper MD (residential sales executive). This report was approved ??by Omar Piper ?? on 06/08/2015 10:45 AM . I, Dr. PROSPER DUARTE M.D. have personally reviewed and interpreted this examination/study. This report was electronically signed by PROSPER DUARTE M.D. ??on 06/08/2015 12:12 PM . Narrative 06/08/2015 12:12 PM GRADE TAMPER EXAMINATION: 1. Left elbow, 3 views 2. [...] tissue swelling is present. Procedure Note Prosper Daurte MD - 08/08/2017 EXAMINATION: 1. Left elbow, [...] wrist, orhand. Dictated by Omar Piper MD (residential sales executive). This report was approved by Omar Piper on 06/08/2015 10:45 AM . I, Dr. PROSPER DUARTE M.D. have personally reviewed and interpreted thisexamination/study. This report was electronically signed by PROSPER DUARTE M.D. on 06/08/201512:12 PM . Nani Bae MD DIAGNOSTIC IMAGING O DANIELLE * CULTURE VRE (02/06/2015 6:13 PM CDT) Culture Negative for VRE LETITIA 02/08/2015 7:16 AM CDT [facility] Stool RECTAL SWAB / Unknown Collection / Unknown 02/06/2015 6:13 PM CDT 02/06/2015 6:20 PM CDT Ting Ortez MD LAB - MICROBIOLOGY O RDALBERTINABLES [facility] [address] [place], [place] [address], [facility] [phone] * CULTURE MRSA (02/06/2015 6:13 PM CDT) Only the most recent of2 resultswithin the time period is included. Culture Negative for MRSA LETITIA 02/08/2015 7:16 AM CDT [facility] Microbiology RECTAL SWAB / Unknown Collection / Unknown 02/06/2015 6:13 PM CDT 02/06/2015 6:20 PM CDT Ting Ortez MD LAB - MICROBIOLOGY O RDERABLES Performing Organization Address City/[facility] Co de Phone Number [facility] MICROBIOLOG[facility] [address] [place] [address], [facility] [phone] * (ABNORMAL) DRUG ABUSE URINE PANEL (06/12/2014 2:54 PM GRADE TAMPER) Only the most recent of7 resultswithin the time period is included. Pathologist [facility] Amphetamines Screen Urine Not Detected Not Detected 06/12/2014 3:15 PM GRADE TAMPER [facility] Barbiturates Screen Urine Not Detected Not Detected 06/12/2014 3:15 PM GRADE TAMPER [facility] Benzodiazepines Screen Urine Not Detected Not Detected 06/12/2014 3:15 PM GRADE TAMPER [facility] Cannabinoids Screen Urine Not Detected Not Detected 06/12/2014 3:15 PM [facility] Cocaine Screen Urine Detected(A) Not Detected 06/12/2014 3:15 PM [facility] Opiate Screen Urine Not Detected Not Detected 06/12/2014 3:15 PM [facility] Phencyclidine Screen Urine Not Detected Not Detected 06/12/2014 3:15 PM [facility] Urine URINE / Unknown 06/12/2014 2 :54 PM GRADE TAMPER 06/12/2014 3:04 PM GRADE TAMPER Narrative [facility] - 06/12/2014 3:15 PM GRADE TAMPER This drug screen is designed for MEDICAL [...] URINE CHEMISTR Y ORDERABLES Performing Organization Address City/[facility]/ZIP Co de Phone Number [facility] [address] [place] [address] * PT-INR SLU (11/25/2013 8:14 AM CDT) PT 12.2 12.1 - 14.8 Seconds [facility] INR 0.9 See Comment [facility] Comment: Suggested therapeutic range for low-intensity coumadin therapy for venous thromboembolism prophylaxis is an INR of 2.0-3.0. ??For high risk patients (Mitral Valve Prosthesis, Atrial Fibrillation, history of TIA/stroke), suggested prophylactic therapeutic range is an INR of 2.5-3.5. Blood specimen (specimen) BLOOD SPECIMEN / Unknown 11/25/2013 8:14 AM CDT 11/25/2013 8:15 AM CDT Narrative [facility] - 11/25/2013 8:55 AM CDT Is patient on Heparin, Argatroban or Dabigatran?->N Janes Celis MD LAB - COAGULATION OR DERABLES Performing Organization Address City/[facility]/ZIP Co de Phone Number [facility] [address] [phone] * (ABNORMAL) ALDOLASE (11/24/2013 7:55 PM CDT) Aldolase 37.0(H) 1.2 - 7.6 U/L [facility] (BEAKER) Blood specimen (specimen) BLOOD SPECIMEN / Unknown 11/24/2013 7:55 PM CDT 11/24/2013 9:08 PM CDT Narrative [facility] (BEAKER) - 11/28/2013 1:12 PM CDT Performed at: ??01 - [facility] [address], [place], [place] ??[id number] Plumbing Foreman: Danny Suggs MD, Phone: ??[phone] Janes Celis MD LAB - CHEMISTRY YARELI CASTANON [facility] (BEAKER) * TSH (11/24/2013 7:55 PM CDT) Only the most recent of2 resultswithin the time period is included. TSH 2.539 0.350 - 4.940 uIU/mL [facility] Blood specimen (specimen) BLOOD SPECIMEN / Unknown 11/24/2013 7:55 PM CDT 11/24/2013 9:08 PM CDT Janes Celis MD LAB - CHEMISTRY YARELI CASTANON [address] [phone] * (ABNORMAL) LDH BLOOD (11/23/2013 10:28 PM CDT) Pathologist [facility] LDH Total 716(H) 125 - 243 Units/L [facility] Blood specimen (specimen) BLOOD SPECIMEN / Unknown 11/23/2013 10:28 PM CDT 11/23/2013 10:42 PM CDT Nolberto Soares MD LAB - CHEMISTRY YARELI CASTANON Performing Organization Address [facility] Co de Phone Number [address] [phone] * MYOGLOBIN URINE QUANTITATIVE (07/04/2013 5:30 PM GRADE TAMPER) Pathologist [facility] Myoglobin Urine < 2 0 - 13 ng/mL [facility] Comment: Performed at: ?? - [facility] [address] ??[id number] Plumbing Foreman: Luther Herrera MD, Phone: ??[phone] Urine specimen (specimen) URINE SPECIMEN OBTAINED BY CLEAN CATCH PROCEDURE / Unknown 07/04/2013 5:30 PM GRADE TAMPER 07/04/2013 5:51 PM GRADE TAMPER Zac Stoll MD LAB - URINE CHEMISTR Y ORDERABLES Performing Organization Address [facility]/ZIP Co de Phone Number [address] [phone] * CT ANGIO CHEST ABDOMEN (06/20/2013 9:25 AM GRADE TAMPER) Anatomical Region Laterality Modality Computed Tomogra phy 06/20/2013 10:0 7 AM GRADE TAMPER Narrative 06/20/2013 10:[address] antrum chest and abdomen History: Chest [...] ORDERABLES * HYDROXYBUTYRATE BETA (05/14/2013 4:43 PM GRADE TAMPER) Pathologist [facility] Beta-Hydroxybu tyrate 0.08 0.02 - 0.27 mmol/L [facility] Venous blood specimen (specimen) 05/14/2013 4:43 PM GRADE TAMPER 05/14/2013 5:18 PM GRADE TAMPER Nam Shah MD LAB - CHEMISTRY YARELI CASTANON Performing Organization Address City/[facility]/ZIP Co de Phone Number [address] [phone] * (ABNORMAL) FOLATE RBC (05/14/2013 4:43 PM GRADE TAMPER) Pathologist [facility] RBC Folate Raw 282.6 Not Estab. ng/mL [facility] Hematocrit 34.8(L) 37.5 - 51.0 % [facility] RBC Folate 812 499 - 1504 ng/mL [facility] Comment: Performed at: ??CB - [facility] [address] ??[id number] Plumbing Foreman: Danny Suggs MD, Phone: ??[phone] Venous blood specimen (specimen) 05/14/2013 4:43 PM GRADE TAMPER 05/14/2013 5:17 PM GRADE TAMPER Nam Shah MD LAB - CHEMISTRY YARELI CASTANON Performing Organization Address [facility]/ZIP Co de Phone Number [address] [phone] * VITAMIN B12 (05/14/2013 4:43 PM GRADE TAMPER) Vitamin B12 430 213 - 816 pg/mL [facility] Venous blood specimen (specimen) 05/14/2013 4:43 PM GRADE TAMPER 05/14/2013 5:17 PM GRADE TAMPER Nam Shah MD LAB - CHEMISTRY YARELI CASTANON Performing Organization Address [facility]/ZIP Co de Phone Number [address] [phone] * (ABNORMAL) URINALYSIS DIPSTICK AUTO (05/14/2013 11:41 AM GRADE TAMPER) Only the most recent of2 resultswithin the time period is included. Color UA YELLOW STRW,YELLOW [facility] Clarity UA CLEAR CLEAR [facility] Specific [place] Urine 1.023 1.001 - 1.030 [facility] pH UA 5.5 5.0 - 8.0 [facility] Protein UA 20(A) <20 mg/dL [facility] Glucose UA NEGATIVE NEGATIVE mg/dL [facility] Ketones TRACE(A) NEGATIVE mg/dL [facility] Bilirubin UA NEGATIVE NEGATIVE mg/dL [facility] Blood UA NEGATIVE NEGATIVE [facility] Nitrite UA NEGATIVE NEGATIVE [facility] Leukocyte Esterase NEGATIVE NEGATIVE [facility] Urobilinogen UA < 2.0 <2.0 mg/dL [facility] Urine specimen (specimen) URINE SPECIMEN OBTAINED BY CLEAN CATCH PROCEDURE / Unknown 05/14/2013 11:41 AM GRADE TAMPER 05/14/2013 11:52 AM GRADE TAMPER Nolberto Soares MD LAB - URINALYSIS VERONICA MATTSON Performing Organization Address [facility]/ZIP Co de Phone Number [address] [phone] * PATHOLOGY/CYTOLOGY REPORT ORDER (05/03/2013 8:20 PM GRADE TAMPER) Narrative 05/03/2013 8:20 PM GRADE TAMPER Ordered by an unspecified provider. Transcriptions Document, [...] humerus HISTORY: Injury DIAGNOSIS: Negative Janki Curiel MECHANICAL ADJUSTER-JAVA DEVELOPMENT TEAM LEAD DIAGNOSTIC IMAGI NG ORDERABLES * XR SHOULDER LEFT 2VW OR MORE (08/10/2012 2:11 AM CDT) Anatomical Region Laterality Modality Upper Extremity Other Impressions 08/10/2012 12:59 PM CDT Impression: No acute osseous injury or dislocation. Report dictated by Chandan Justin MD (residential sales executive). Dr. PROSPER May M.D. have personally reviewed [...] dislocation. Report dictated by Chandan Justin MD (residential sales executive). Dr. PROSPER May M.D. have personally reviewed and interpreted thisexamination/study. This report was electronically signed by PROSPER DUARTE M.D. on 08/10/201212:59 PM . Ryan Spain MD DIAGNOSTIC IMAGING O RDERABLES * XR PANOREX (04/15/2012 12:01 AM GRADE TAMPER) Anatomical Region Laterality Modality Head Other Impressions 04/15/2012 5:12 PM GRADE TAMPER Impression: Multiple dental cavities as above. Report dictated by Chandan Justin MD (residential sales executive). This report was approved ??by Chandan Justin ?? on 04/15/2012 3:[address] Jose Juan May M.D. have personally reviewed and interpreted this examination/study. This report was electronically signed by Jose Juan ALICEA M.D. ??on 04/15/2012 5:12 PM . Narrative 04/15/2012 5:12 PM GRADE TAMPER Exam: Panorex, 1 view Date: 04/14/2012 History: [...] above. Report dictated by Chandan Justin MD (residential sales executive). This report was approved by Chandan Justin on 04/15/2012 3:[address] Jose Juan May M.D. have personally reviewed and interpreted thisexamination/study. This report was electronically signed by Jose Juan ALICEA M.D. on04/15/2012 5:12 PM . Aditya Pederson MD DIAGNOSTIC IMAGING O RDERABLES * TRICYCLICS SCREEN BLOOD (04/13/2012 7:25 AM GRADE TAMPER) Only the most recent of4 resultswithin the time period is included. Tricyclic Antidepressants 97 ng/mL [facility] Comment: EXPECTED VALUES: PHARMACOKINETIC STUDIES HAVE SHOWN [...] SIDE EFFECTS OFTEN OCCUR. 04/13/2012 7:25 AM GRADE TAMPER 04/13/2012 7:42 AM GRADE TAMPER Mya Vergara MD LAB - CHEMISTRY YARELI CASTANON [facility] [address] [phone] * (ABNORMAL) DRUG SCREEN TRIAGE PANEL (04/08/2012 12:00 AM GRADE TAMPER) Only the most recent of9 resultswithin the time period is included. Phencyclidine Screen Urine NOT DETECTED 25 ng/dl [facility] Benzodiazepines Screen Urine NOT DETECTED 200 ng/ml [facility] Cocaine Screen Urine DETECTED(AA ) 300 ng/ml [facility] Amphetamines Screen Urine NOT DETECTED 1000 ng/ml [facility] Cannabinoids Screen Urine NOT DETECTED 50 ng/ml [facility] Opiate Screen Urine NOT DETECTED 300 ng/ml [facility] Barbiturates Screen Urine NOT DETECTED 200 ng/ml [facility] Disclaimer Urine Triage [facility] Comment: This drug screen is designed for MEDICAL purposes only. ??It is not to be used for legal purposes, including but not limited to worker's compensation, police investigations, occupational issues, and child custody. URINE / Unknown 04/08/2012 2 12:32 AM GRADE TAMPER Sara Sheridan MD LAB - URINE CHEMISTR Y ORDERABLES Performing Organization Address City/[facility] Co de Phone Number [facility] [address] [place] [phone] * AMYLASE BLOOD (03/11/2012 9:38 AM CDT) Amylase 85 15 - 115 U/L [facility] Blood specimen (specimen) BLOOD SPECIMEN / Unknown 03/11/2012 9:38 AM CDT 03/11/2012 9:48 AM CDT Wolf Jamison MD LAB - CHEMISTRY OR DERABLES Performing Organization Address City/[facility] Co de Phone Number [facility] [address] [place] [phone] * LAB HISTORICAL RESULTS-ONBASE (10/16/2011 5:40 AM CDT) Only the most recent of7 resultswithin the time period is included. 10/16/2011 5:40 AM CDT Historical Provider LAB - CHEMISTRY O RDERALEANNE Performing Organization Address [facility] Co de Phone Number [place] [phone] [address] * MYOGLOBIN BLOOD (09/21/2011 3:00 PM CDT) Myoglobin 47 <110.00 ng/ml [facility] Blood specimen (specimen) BLOOD SPECIMEN / Unknown 09/21/2011 3:00 PM CDT 09/21/2011 3:15 PM CDT Marcia PAL LAB - CHEMISTRY YARELI CASTANON Performing Organization Address [facility] Co de Phone Number [facility] [address] [place] [phone] * B-TYPE NATRIURETIC PEPTIDE - POINT OF CARE (07/13/2011 11:44 AM GRADE TAMPER) Only the most recent of6 resultswithin the time period is included. BNP POCT < 5.0 <=100 pg/ml [facility] Performed by IO [facility] Performed In ER [facility] BLOOD SPECIMEN / Unknown 07/13/2011 11:44 AM GRADE TAMPER 07/13/2011 11:53 AM GRADE TAMPER Er LAB - POINT OF CARE ORDERABLES Performing Organization Address [facility] Co de Phone Number [facility] [address] [place] [phone] * MYOGLOBIN BLOOD - POINT OF CARE (07/13/2011 11:44 AM GRADE TAMPER) Only the most recent of6 resultswithin the time period is included. Myoglobin POCT 143 <=170 ng/ml [facility] Performed by IO [facility] Performed In ER [facility] BLOOD SPECIMEN / Unknown 07/13/2011 11:44 AM GRADE TAMPER 07/13/2011 11:53 AM GRADE TAMPER Er LAB - POINT OF CARE ORDERABLES Performing Organization Address [facility] de Phone Number [facility] [address] [place] [address] * TROPONIN - POINT OF CARE (07/13/2011 11:44 AM GRADE TAMPER) Only the most recent of6 resultswithin the time period is included. Troponin I POCT < 0.05 SEE BELOW ng/ml [facility] Comment: <0.05 ? Normal 0.05-0.39 Indeterminate >0.4 ? Abnormal Performed by IO [facility] Performed In ER [facility] BLOOD SPECIMEN / Unknown 07/13/2011 11:44 AM GRADE TAMPER 07/13/2011 11:53 AM GRADE TAMPER Er LAB - POINT OF CARE ORDERABLES Performing Organization Address [facility] de Phone Number [facility] [address] [place] [id number] * (ABNORMAL) CK[facility] - POINT OF CARE (07/13/2011 11:44 AM GRADE TAMPER) Only the most recent of6 resultswithin the time period is included. CK-MB POCT 11.3(H) <=8.0 ng/ml [facility] Performed by IO [facility] Performed In ER [facility] BLOOD SPECIMEN / Unknown 07/13/2011 11:44 AM GRADE TAMPER 07/13/2011 11:53 AM GRADE TAMPER Er LAB - POINT OF CARE ORDERABLES Performing Organization Address [facility] de Phone Number [facility] [address] [place] [address] * LAB MICROBIOLOGY - HPF HISTORICAL (05/09/2011 7:49 AM GRADE TAMPER) 05/09/2011 7:49 AM GRADE TAMPER Narrative [facility] - 05/09/2011 7:49 AM GRADE TAMPER Aditya Pederson MD LAB - MICROBIOLOGY O RDERABLES Performing Organization Address [facility] de Phone Number [facility] * XR TRAUMA CERVICAL SPINE 2 OR [...] INTERNAL MEDICINE (10/01/2010 8:46 AM CDT) Erik uDff MD INPATIENT CONSULT OR DERABLES * XR [...] comp, police investigations, occupational issues, child custody. [facility] BLOOD SPECIMEN / Unknown 02/09/2010 2:13 PM CDT 02/09/2010 2:42 PM CDT Narrative Resulting Agency Comment Performed By [facility] ? [address] ? [place] [address] Carolin Gómez MD LAB - TOXICOLOGY ORD ERABLES [facility] [address] [place] [address] * CT HEAD NON CONTRAST (12/09/2009 2:53 [...] Erick Agosto MD CT ORDERABLES Care Teams Hand Tool Filer Relationship Specialty Start Date End Date Nando Christy MD PCP - General Internal Medicine 11/25/18
--- OUTSIDE RECORDS SUMMARY | 2024-06-14 17:41 | XMS_ITS | CONTINUITY OF CARE DOCUMENT ---
Author Name diana ortiz Address Unknown Organization [facility] Address [address] [place] [address] Phone [phone] Care Team Providers Care Thermal Cutter Helper Name Role Phone Luis Rashid MD Unavailable [phone] Luis Rashid MD Unavailable INSURANCE PROVIDERS Payer name Policy type / Coverage type [place] red republican ID [employer] [facility] Medicaid [id number]
--- OUTSIDE RECORDS SUMMARY | 2024-06-14 17:41 | XMS_ITS | Continuity of Care Document ---
Author Organization [facility] Address [address] [place] [address] Phone Care Team Providers Care Wharfinger Chief Name Role Phone Unavailable Unavailable Unavailable Allergies, [...] VST EST PT LOW TO MOD SEVERITY Limit oral eval problem focused 009 Extraction erupted tooth or exposed root HOME VST EST PT LOW TO MOD [...] Encounter [facility], [address], [place], [place], [address] , [place] tel: [phone] [facility] No Information 4 No Information HOME VST EST PT LOW TO MOD SEVERITY [facility], [address], [place], [place], [address] , tel: [phone] [facility] headache (chief complaint) Counseling, Other, Specified 0 Nurse Registered. [address], [place], [place], [address], . tel:[phone] HOME VST EST PT LOW TO MOD SEVERITY [facility], [address], [place], [place], [address] , [place] tel: [phone] [facility] TB Screening (chief complaint) Other specified counseling 0 No Information HOME VST EST PT LOW TO MOD SEVERITY [facility], [address], [place], [place], [address] , [place] tel: [phone] [facility] mental health appt (chief complaint) Other specified counseling 0 No Information HOME VST NEW PT HI SEVERITY [facility], [address], [place], [place], [address] , [place] tel: [phone] [facility] BP check (chief complaint)out of prescription medications (chief complaint) Other specified counseling 9 No Information [facility], [address], [place], [place], [address] , [place] tel: [phone] [facility] No Information 9 Pachalla Tamiko. [address], [place], [place], [address], [place]. tel:[phone] HOME VST EST PT LOW TO MOD SEVERITY [facility], [address], [place], [place], [address] , [place] tel: [phone] [facility] No Information 9 No Information HOME VST NEW PT HI SEVERITY [facility], [address], [place], [place], [address] , [place] tel: [phone] [facility] No Information 9 No Information HOME VST EST PT LOW TO MOD SEVERITY [facility], [address], [place], [place], [address] , [place] tel: [phone] [facility] No Information 9 No Information HOME VST EST PT LOW TO MOD SEVERITY [facility], [address], [place], [place], [address] , [place] tel: [phone] [facility] OTHER SPECFD COUNSELING 9 No Information [facility], [address], [place], [place], [address] , [place] tel: [phone] DO NOT USE [facility] DENTAL EXAMINATION 9 No Information HOME VST EST PT LOW TO MOD SEVERITY [facility], [address], [place], [place], [address] , [place] tel: [phone] [facility] OTHER SPECFD COUNSELING 8 No Information HOME VST EST PT LOW TO MOD SEVERITY [facility], [address], [place], [place], [address] , [place] tel: [phone] [facility] OTHER SPECFD COUNSELING 8 No Information HOME VST EST PT LOW TO MOD SEVERITY [facility], [address], [place], [place], [address] , [place] tel: [phone] [facility] OTHER SPECFD COUNSELING 8 No Information HOME VST EST PT LOW TO MOD SEVERITY [facility], [address], [place], [place], [address] , [place] tel: [phone] [facility] OTHER SPECFD COUNSELING 8 No Information HOME VST EST PT LOW TO MOD SEVERITY [facility], [address], [place], [place], [address] , [place] tel: [phone] [facility] OTHER SPECFD COUNSELING 8 No Information HOME VST NEW PT HI SEVERITY [facility], [address], [place], [place], [address] , [place] tel: [phone] [facility] OTHER SPECFD COUNSELING 8 No Information HOME VST EST PT LOW TO MOD SEVERITY [facility], [address], [place], [place], [address] , [place] tel: [phone] [facility] OTHER SPECFD COUNSELING 8 No Information HOME VST EST PT LOW TO MOD SEVERITY [facility], [address], [place], [place], [address] , [place] tel: [phone] [facility] OTHER SPECFD COUNSELING 8 No Information HOME VST NEW PT HI SEVERITY [facility], [address], [place], [place], [address] , [place] tel: [phone] [facility] OTHER SPECFD COUNSELING 6 8 No Information HOME VST EST PT LOW TO MOD SEVERITY [facility], [address], [place], [place], [address] , [place] tel: [phone] [facility] OTHER SPECFD COUNSELING 8 No Information HOME VST EST PT LOW TO MOD SEVERITY [facility], [address], [place], [place], [address] , [place] tel: [phone] [facility] OTHER SPECFD COUNSELING 8 No Information HOME VST NEW PT HI SEVERITY [facility], [address], [place], [place], [address] , [place] tel: [phone] [facility] OTHER SPECFD COUNSELING 8 No Information [facility], [address], [place], [place], [address] , [place] tel: [phone] [facility] No Information 8 No Information OFFICE CONSULT, 15 MIN, 3 THORNTON COMPS: PROB FOCUS HX; PROB FOCUS EXAM; STRTFWD [facility], [address], [place], [place], [address] , [place] tel: [phone] [facility] COUNSELING NOS 8 No Information HOME VST EST PT LOW TO MOD SEVERITY [facility], [address], [place], [place], [address] , [place] tel: [phone] [facility] OTHER SPECFD COUNSELING 8 No Information HOME VST EST PT LOW TO MOD SEVERITY [facility], [address], [place], [place], [address] , [place] tel: [phone] [facility] OTHER SPECFD COUNSELING 8 No Information HOME VST NEW PT HI SEVERITY [facility], [address], [place], [place], [address] , [place] tel: [phone] [facility] OTHER SPECFD COUNSELING 8 No Information HOME VST EST PT LOW TO MOD SEVERITY [facility], [address], [place], [place], [address] , [place] tel: [phone] [facility] OTHER SPECFD COUNSELING 0 7 Denis Bourne. [address], [place], [place] [address], [place]. tel:[phone] OFFICE/OUTPA TIENT VISIT, EST [facility], [address], [place], [place], [address] , [place] tel: [phone] [facility] BENIGN HYPERTENSIONS PRAIN ROTATOR CUFFDRUG ABUSE NEC-UNSPEC 0 7 Pachalla Tamiko. [address], [place], [place], [address], [place]. tel:[phone] HOME VST NEW PT HI SEVERITY [facility], [address], [place], [place], [address] , [place] tel: [phone] [facility] HYPERTENSION NOS 7 No Information HOME VST EST PT LOW TO MOD SEVERITY [facility], [address], [place], [place], [address] , [place] tel: [phone] [facility] OTHER SPECFD COUNSELING 7 No Information HOME VST EST PT LOW TO MOD SEVERITY [facility], [address], [place], [address] , [place] tel: [phone] [facility] PULMONARY TB NOS-UNSPEC 7 Denis Bourne. [address], [place], [place], [address], [place]. tel:[phone] HOME VST NEW PT HI SEVERITY [facility], [address], [place], [place], [address] , [place] tel: [phone] [facility] HYPERTENSION NOS 7 No Information HOME VST EST PT LOW TO MOD SEVERITY [facility], [address], [place], [address] , [place] tel: [phone] [facility] CERVICALGIA 6 No Information HOME VST EST PT LOW TO MOD SEVERITY [facility], [address], [place], [place], [address] , [place] tel: [phone] [facility] OTHER SPECFD COUNSELING 6 No Information HOME VST NEW PT HI SEVERITY [facility], [address], [place], [place], [address] , [place] tel: [phone] [facility] DERMATOPHYTOS IS OF FOOT 6 No Information HOME VST EST PT LOW TO MOD SEVERITY [facility], [address], [place], [place], [address] , [place] tel: [phone] [facility] OTHER SPECFD COUNSELING 6 No Information HOME VST EST PT LOW TO MOD SEVERITY [facility], [address], [place], [place], [address] , [place] tel: [phone] [facility] DEPRESSIVE DISORDER NEC Denis Bourne. [address], [place], [place], [address], [place]. [phone] HOME VST EST PT LOW TO MOD SEVERITY [facility], [address], [place], [place], [address] , [place] tel: [phone] [facility] STOMACH FUNCTION DIS NOS 6 No Information HOME VST EST PT LOW TO MOD SEVERITY [facility], [address], [place], [place], [address] , [place] tel: [phone] [facility] OTHER SPECFD COUNSELING 6 No Information HOME VST NEW PT HI SEVERITY [facility], [address], [place], [place], [address] , [place] tel: [phone] [facility] DRUG DEPEND NOS-UNSPEC No Information OFFICE CONSULT, 15 MIN, 3 THORNTON COMPS: PROB FOCUS HX; PROB FOCUS EXAM; STRTFWD [facility], [address], [place], [place], [address] , [place] tel: [phone] [facility] COUNSELING NOS No Information OFFICE OUTPT NEW 10 MIN [facility], [address], [place], [place], [address] , [place] tel: [phone] [facility] ISSUE REPEAT PRESCRIPT 6 Yayo Marrero. [address], [place], [place], [address], . tel:[phone] HOME VST NEW PT HI SEVERITY [facility], [address], [place], [place], [address] , tel: [phone] [facility] CONSTIPATION NOS 6 No Information HOME VST EST PT LOW TO MOD SEVERITY [facility], [address], [place], [place], [address] , tel: [phone] [facility] HEART DISEASE NOS 6 Denis Bourne. [address], [place], [place], [address], [place]. [phone] HOME VST EST PT LOW TO MOD SEVERITY [facility], [address], [place], [place], [address] , tel: [phone] [facility] OTHER SPECFD COUNSELING 6 No Information HOME VST NEW PT HI SEVERITY [facility], [address], [place], [place], [address] , tel: [phone] [facility] OTHER SPECFD COUNSELING 6 No Information Family [...]
--- OUTSIDE RECORDS SUMMARY | 2024-06-14 17:41 | XMS_ITS | Encounter Summary ---
Author Organization [facility] Healthcare Address [address] [place] [address] Care Team Providers Care Curb Supervisor Name Role Phone Nando Christy MD Primary Care Provider [phone] Nando Christy MD Unavailable [phone] Camryn Jones RN Unavailable Kaleigh Bundy RRT Unavailable [phone], Physician Primary Care Provider [phone] Camryn Jones RN Unavailable Nando Christy MD Primary Care Provider [phone] Sangeetha Cheung RN Unavailable Unavaila Anne EverettW Unavailable [phone] Yanelis Jennings MD Unavailable Camryn Jones RN Unavailable Camryn Jones RN Unavailable Reese Gutierrez MD Unavailable Iris Leal RN Unavailable [phone] Iris Leal RN Unavailable Encounter Details Date Type Department Care Team (Late st Contact Info) Description 05/17/2020 Documentation [facility] Case Management [address] [place] [address] Donita Kimble Social History Tobacco [...] declined 04/01/2020 How often do you attend pentecostalism or adventist serv ices? Patient declined 04/01/2020 Do you belong to any clubs o r organizations such as pentecostalism groups, unions, fraternal or athletic groups, or [...] place to sleep or slept in a retirement (including now)? Yes 04/01/2020 Sex and Gender Information Value Date Recorded Sex Assigned at Not on file Legal Sex Male 2:18 AM ERRAND RUNNER Gender Identity Not on file Sexual Orientation Not on file documented as of this encounter Plan of Treatment Not on file documented as of this encounter Visit Diagnoses Not on filedocumented in this encounter Additional Health Concerns Infection Onset Date Last Indicated Resolved Time COVID: Suspected 09/07/2020 09/07/2020 09/07/2020 2:57 PM CDT COVID: Suspected 06/14/2021 06/14/2021 06/15/2021 7:26 PM ERRAND RUNNER COVID: Suspected 06/20/2021 06/20/2021 06/21/2021 11:11 PM ERRAND RUNNER COVID: Suspected 02/03/2022 02/03/2022 02/04/2022 3:05 AM CDT COVID: Suspected 05/06/2022 05/06/2022 05/06/2022 6:54 PM ERRAND RUNNER COVID: Suspected 06/25/2022 06/25/2022 06/25/2022 2:48 PM ERRAND RUNNER COVID: Suspected 03/31/2023 03/31/2023 03/31/2023 7:40 AM ERRAND RUNNER COVID: Suspected 05/05/2023 05/05/2023 05/05/2023 8:28 AM ERRAND RUNNER COVID: Suspected 05/26/2023 05/26/2023 05/27/2023 3:05 AM ERRAND RUNNER COVID: Suspected 07/19/2023 07/19/2023 07/19/2023 7:48 PM CDT COVID: Suspected 08/24/2023 08/24/2023 08/24/2023 8:26 PM CDT COVID: Suspected 09/03/2023 09/03/2023 09/03/2023 1:28 PM CDT COVID: Suspected 01/25/2024 01/25/2024 01/25/2024 5:06 AM CDT documented as of this encounter Care Teams Curb Supervisor Relationship Specialty Start Date End Date Nando Christy MD PCP - General 04/24/20 11/26/21 Emmy, Physician PCP - General 11/27/21 05/05/22 Nando Christy MD [address] [place] [address] PCP - General Internal Medicine 05/06/22 Nando Christy MD 04/24/20 11/24/22 Camryn Jones, HARIS [address] [address] [facility] Outpatient Academic Physician 06/28/20 06/28/20 Kaleigh Bundy RRT [address] [place] [address] [facility] Outpatient Academic PhysicianExecutive Director [employer] Therapy 09/10/20 09/12/20 Camryn Jones RN [address] [place] [address] [facility] Outpatient Academic Physician 12/02/21 12/02/21 Sangeetha Cheung RN Heart Failure Coordinator 07/02/22 07/19/23 Anne Dotson, [facility] [address] [facility]) Mailstop [phone] [place] [address] [facility] Outpatient Academic Physician 10/09/22 10/15/22 Yanelis Jennings MD [address] [facility] Mailstop [phone] [place] [address] Consulting Physician Cardiovascular Disease 10/11/22 Camryn Jones, RN [address] [address] [place] Outpatient Academic Physician 11/25/22 11/27/22 Camryn Jones RN [address] [address] [place] Outpatient Academic Physician 12/22/22 12/24/22 Reese Gutierrez MD [address] [place] [address] Referring Physician Internal Medicine 07/04/23 Iris Leal RN [address] [address] [address] [place] Outpatient Academic Physician 07/06/23 07/06/23 Iris Leal RN [address] [address] [place] Outpatient Academic Physician 08/27/23 08/27/23 documented as of this encounter
--- OUTSIDE RECORDS SUMMARY | 2024-06-14 17:41 | XMS_ITS | Referral Summary ---
Author Organization [facility] Address [address] [place] [address] Care Team Providers Care Fruit Picker Machine Operator Name Role Phone Nando Christy MD Primary Care Provider [phone] Source Comments [facility],non-owned Affiliates and Associated Physician Practices is amultiple site organization consisting of ambulatory clinics and hospital sitesin [place], [place], [place] and [place]. This disclosure is being madepursuant to the Care Everywhere program and may not contain all information available regarding this patient. Last updated 18.[facility] Allergies Active Allergy Reactions Criticality Noted Date [...] Recorded Patient Health Questionnaire-2 Score 6 07/25/2023 [employer] [facility] [employer] [facility] - Occupational Stress [...] place to sleep or slept in a longterm (including now)? Yes 07/09/2023 Housing Stability Vital [...] PANEL (CALCIUM TOTAL) (01/14/2024 4:23 AM CDT) [facility] Glucose 88 70 - 105 mg/dL 01/14/2024 5:27 AM CDT [facility] Sodium 141 136 - 145 mmol/L 01/14/2024 5:27 AM CDT [facility] Potassium 4.1 3.5 - 5.1 mmol/L 01/14/2024 5:27 AM CDT [facility] Chloride 108(H) 98 - 107 mmol/L 01/14/2024 5:27 AM CDT [facility] CO2 29 22 - 29 mmol/L 01/14/2024 5:27 AM CDT [facility] Calcium 8.6 8.4 - 10.4 mg/dL 01/14/2024 5:27 AM CDT [facility] Anion Gap 4(L) 6 - 16 mmol/L 01/14/2024 5:27 AM CDT [facility] BUN 10 7 - 26 mg/dL 01/14/2024 5:27 AM CDT [facility] Creatinine 1.10 0.72 - 1.25 mg/dL 01/14/2024 5:27 AM CDT [facility] eGFR by CKD-EPI 78(L) >=90 mL/min/1.7 3 m2 01/14/2024 5:27 AM CDT [facility] Blood BLOOD SPECIMEN / Unknown Lab Venipuncture / Unknown 01/14/2024 4:23 AM CDT 01/14/2024 4:46 AM CDT Nicho Johnson MD LAB - CHEMISTRY YARELI CASTANON Performing Organization Address [facility] Co de Phone Number [facility] [address] [place] [address] * HIV-1 HIV-2 ANTIBODY + HIV P24 AG PANEL (10/07/2018 1:04 PM CDT) Pathologist [facility] HIV1/2 Ab + P24 Ag Non Reactive Non Reactive 10/07/2018 2:13 PM CDT [facility] Blood BLOOD SPECIMEN / Unknown Lab Venipuncture / Unknown 10/07/2018 1:04 PM CDT 10/07/2018 1:22 PM CDT Narrative [facility] - 10/07/2018 2:13 PM CDT No Laboratory evidence of HIV infection. Kervin Delgado MD LAB - CHEMISTRY Shannan SANTOS Performing Organization Address [facility] de Phone Number [facility] [address] [place] [address] * HEPATITIS SCREEN ACUTE (10/07/2018 1:04 PM CDT) Pathologist [facility] HAV Antibody IgM Non Reactive Non Reactive 10/07/2018 2:16 PM CDT [facility] HBsAg Non Reactive Non Reactive 10/07/2018 2:16 PM CDT [facility] HBc Antibody IgM Non Reactive Non Reactive 10/07/2018 2:16 PM CDT [facility] HCV Antibody Screen Non Reactive Non Reactive 10/07/2018 2:16 PM CDT [facility] HCV S/C Ratio 0.07 0.00 - 0.79 10/07/2018 2:16 PM CDT [facility] Comment: Ckqezs-hp-pbxdcq ratio (S/CO) <0.80:?? Non Reactive Blood BLOOD SPECIMEN / Unknown Lab Venipuncture / Unknown 10/07/2018 1:04 PM CDT 10/07/2018 1:22 PM CDT Narrative [facility] - 10/07/2018 2:16 PM CDT Non Reactive - Antibodies to Hepatitis C virus (HCV) were not detected, result does not exclude early acute HCV infection. Kervin Delgado MD LAB - CHEMISTRY O RDERABLES [facility] [address] [place], [place] [id number] * LIPID PROFILE (02/19/2016 10:18 AM CDT) [facility] Cholesterol 149 <200 mg/dL 02/19/2016 11:03 AM CDT [facility] Triglycerides 127 <150 mg/dL 02/19/2016 11:03 AM CDT [facility] HDL Cholesterol 67 >40 mg/dL 02/19/2016 11:03 AM CDT [facility] LDL Calculated 57 <130 mg/dL 02/19/2016 11:03 AM CDT [facility] VLDL Calculated 25 <=30 mg/dL 02/19/2016 11:03 AM T [facility] Chol HDL Ratio 2.2 <4.5 02/19/2016 11:03 AM T [facility] LDL/HDL Ratio 0.8 <5.0 02/19/2016 11:03 AM CDT [facility] Blood BLOOD SPECIMEN / Unknown Lab Venipuncture / Unknown 02/19/2016 10:18 AM CDT 02/19/2016 10:22 AM CDT Amanda Braga PROGRAM SUPPORT CLERK-LOGISTICS ENGINEER LAB - CHEMISTRY ORDERABLES Performing Organization Address [facility]/ZIP Co de Phone Number [facility] [address] [place] [address] from Last 3 Months or Most Recently [...] VentilationNo Cardioactive Drugs, No Vasopressors Care Teams Fruit Picker Machine Operator Relationship Specialty Start Date End Date Nando Christy MD PCP - General Internal Medicine 11/25/18
--- OUTSIDE RECORDS SUMMARY | 2024-06-14 17:41 | XMS_ITS | Encounter Summary ---
Author Organization [facility] Healthcare Address [address] [place] [address] Care Team Providers Care Near East Archeology Professor Name Role Phone Nando Christy MD Primary Care Provider [phone] Nando Christy MD Primary Care Provider [phone] Nando Christy MD Unavailable [phone] Camryn Jones RN Unavailable Kaleigh Bundy RRT Unavailable [phone] No, Physician Primary Care Provider Camryn Jones RN Unavailable Nando Christy MD Primary Care Provider [phone] Sangeetha Cheung RN Unavailable Unavaila Anne Everett CIRCUS PERFORMER Unavailable Yanelis Jennings MD Unavailable Camryn Jones RN Unavailable Camryn Jones RN Unavailable [phone] Reese Gutierrez MD Unavailable Iris Leal RN Unavailable [phone] Iris Leal RN Unavailable [phone] Encounter Details Date Type Department Care Team (Late st Contact Info) Description 04/04/2020 Documentation [facility] Case Management [address] [place] [address] Mel Roberson LCSW Social History [...] declined 04/01/2020 How often do you attend jewish or jew serv ices? Patient declined 04/01/2020 Do you belong to any clubs o r organizations such as jewish groups, unions, fraternal or athletic groups, or [...] slept in a [facility] (including now)? Yes 04/01/2020 Sex and Gender Information Value Date Recorded Sex Assigned at Not on file Legal Sex Male 2:18 AM GRISTMILL OPERATOR Gender Identity Not on file Sexual Orientation Not on file documented as of this encounter Plan of Treatment Not on file documented as of this encounter Visit Diagnoses Not on filedocumented in this encounter Additional Health Concerns Infection Onset Date Last Indicated Resolved Time COVID: Suspected 04/24/2020 04/24/2020 04/24/2020 3:48 AM GRISTMILL OPERATOR Respiratory Infection (CLEM), contact + droplet Comment:Automatically added due to negative COVID-19 result. 04/24/2020 04/24/2020 05/08/2020 3:0 7 AM GRISTMILL OPERATOR COVID: Suspected Comment:Pt has a negative COVID result, test was modified in lab d/t requirements for facility placement per ED industrial retrofit designerRN. Odalis Andino RN 05/14/20 05/13/2020 05/13/2020 05/14/2020 12:53 PM GRISTMILL OPERATOR COVID: Suspected 09/07/2020 09/07/2020 09/07/2020 2:57 PM CDT COVID: Suspected 06/14/2021 06/14/2021 06/15/2021 7:26 PM GRISTMILL OPERATOR COVID: Suspected 06/20/2021 06/20/2021 06/21/2021 11:11 PM GRISTMILL OPERATOR COVID: Suspected 02/03/2022 02/03/2022 02/04/2022 3:05 AM CDT COVID: Suspected 05/06/2022 05/06/2022 05/06/2022 6:54 PM GRISTMILL OPERATOR COVID: Suspected 06/25/2022 06/25/2022 06/25/2022 2:48 PM GRISTMILL OPERATOR COVID: Suspected 03/31/2023 03/31/2023 03/31/2023 7:40 AM GRISTMILL OPERATOR COVID: Suspected 05/05/2023 05/05/2023 05/05/2023 8:28 AM GRISTMILL OPERATOR COVID: Suspected 05/26/2023 05/26/2023 05/27/2023 3:05 AM GRISTMILL OPERATOR COVID: Suspected 07/19/2023 07/19/2023 07/19/2023 7:48 PM CDT COVID: Suspected 08/24/2023 08/24/202308/2308/24/2023 8:26 PM CDT COVID: Suspected 09/03/2023 09/03/2023 09/03/2023 1:28 PM CDT COVID: Suspected 01/25/2024 01/25/2024 01/25/2024 5:06 AM CDT documented as of this encounter Care Teams Near [place] Archeology Professor Relationship Specialty Start Date End Date Nando Christy MD PCP - General 06/23/16 04/23/20 Nando Christy MD PCP - General 04/24/20 11/26/21 No, Physician PCP - General 11/27/21 05/05/22 Nando Christy MD [address] [place] [address] PCP - General Internal Medicine 05/06/22 Nando Christy MD 04/24/20 11/24/22 Camryn Jones RN [address] [address] [employer] [employer] Test Engineer 06/28/20 06/28/20 Kaleigh Bundy RRT [address] [address] [facility] [facility] [employer] Test EngineerIt Manager Therapy 09/10/20 09/12/20 Camryn Jones, RN [address] [address] [employer] [employer] Test Engineer 12/02/21 12/02/21 Sangeetha Cheung RN Heart Failure Coordinator 07/02/22 07/19/23 Anne Dotson, CIRCUS PERFORMER [address] [facility] ([facility]) Mailstop [phone] [place] [address] [employer] [employer] Test Engineer 10/09/22 10/15/22 Yanelis Jennings MD [address] [facility] ([facility]) Mailstop [phone] [place] [address] Consulting Physician Cardiovascular Disease 10/11/22 Camryn Jones, RN [id number] [place] [address] [employer] [employer] Test Engineer 11/25/22 11/27/22 Camryn Jones, RN [id number] [place] [address] [employer] [employer] Test Engineer 12/22/22 12/24/22 Reese Gutierrez MD [address] [place] [address] Referring Physician Internal Medicine 07/04/23 Iris Leal RN [address] [facility] [address] [place] [address] [employer] [employer] Development Test Engineer 07/06/23 07/06/23 Iris Leal RN [address] [facility] [address] [place] [address] [employer]patient [employer] Development Test Engineer 08/27/23 08/27/23 documented as of this encounter
--- OUTSIDE RECORDS SUMMARY | 2024-06-14 17:41 | XMS_ITS | Clinical Summary ---
Author Organization [facility] Address [address] [place] [address] Care Team Providers Care Sleeve Setter Safety Stitch Name Role Phone Nando Christy MD Primary Care Provider [phone] Source Comments [facility],non-owned Affiliates and Associated Physician Practices is amultiple site organization consisting of ambulatory clinics and hospital sitesin [place], [place], [place] and [place]. This disclosure is being madepursuant to the Care Everywhere program and may not contain all information available regarding this patient. Last updated 18.[facility] Allergies Active Allergy Reactions Criticality Noted Date [...] Recorded Patient Health Questionnaire-2 Score 6 07/25/2023 [facility] - Occupational [...] slept in a [facility] (including now)? Yes 07/09/2023 Housing Stability Vital [...] (CALCIUM TOTAL) (01/14/2024 4:23 AM CDT) Pathologist [facility] Glucose 88 70 - 105 mg/dL 01/14/2024 5:27 AM CDT [facility] Sodium 141 136 - 145 mmol/L 01/14/2024 5:27 AM CDT [facility] Potassium 4.1 3.5 - 5.1 mmol/L 01/14/2024 5:27 AM CDT [facility] Chloride 108(H) 98 - 107 mmol/L 01/14/2024 5:27 AM CDT [facility] CO2 29 22 - 29 mmol/L 01/14/2024 5:27 AM CDT [facility] Calcium 8.6 8.4 - 10.4 mg/dL 01/14/2024 5:27 AM T [facility] Anion Gap 4(L) 6 - 16 mmol/L 01/14/2024 5:27 AM CDT [facility] BUN 10 7 - 26 mg/dL 01/14/2024 5:27 AM CDT [facility] Creatinine 1.10 0.72 - 1.25 mg/dL 01/14/2024 5:27 AM [facility] eGFR by CKD-EPI 78(L) >=90 mL/min/1.7 3 m2 01/14/2024 5:27 AM CDT [facility] Blood BLOOD SPECIMEN / Unknown Lab Venipuncture / Unknown 01/14/2024 4:23 AM CDT 01/14/2024 4:46 AM CDT Nicho Johnson MD LAB - CHEMISTRY YARELI CASTANON [facility] Organization Address City/State/ZIP Co de Phone Number [facility] [address] [place] [address] * HIV-1 HIV-2 ANTIBODY + HIV P24 AG PANEL (10/07/2018 1:04 PM CDT) Pathologist [facility] HIV1/2 Ab + P24 Ag Non Reactive Non Reactive 10/07/2018 2:13 PM CDT [facility] Blood BLOOD SPECIMEN / Unknown Lab Venipuncture / Unknown 10/07/2018 1:04 PM CDT 10/07/2018 1:22 PM CDT Narrative [facility] - 10/07/2018 2:13 PM CDT No Laboratory evidence of HIV infection. Kervin Delgado MD LAB - CHEMISTRY O RDERALEANNE Performing Organization Address [facility] de Phone Number [facility] [address] [place] [address] * HEPATITIS SCREEN ACUTE (10/07/2018 1:04 PM CDT) HAV Antibody IgM Non Reactive Non Reactive 10/07/2018 2:16 PM CDT [facility] HBsAg Non Reactive Non Reactive 10/07/2018 2:16 PM CDT [facility] HBc Antibody IgM Non Reactive Non Reactive 10/07/2018 2:16 PM CDT [facility] HCV Antibody Screen Non Reactive Non Reactive 10/07/2018 2:16 PM CDT [facility] HCV S/C Ratio 0.07 0.00 - 0.79 10/07/2018 2:16 PM CDT [facility] Comment: Zlvsep-zh-oupsxg ratio (S/CO) <0.80:?? Non Reactive Blood BLOOD SPECIMEN / Unknown Lab Venipuncture / Unknown 10/07/2018 1:04 PM CDT 10/07/2018 1:22 PM CDT [facility] - 10/07/2018 2:16 PM CDT Non Reactive - Antibodies to Hepatitis C virus (HCV) were not detected, result does not exclude early acute HCV infection. Kervin Delgado MD LAB - CHEMISTRY O DANIELLE Performing Organization Address [facility] de Phone Number [facility] [address] [place] [address] * LIPID PROFILE (02/19/2016 10:18 AM CDT) Cholesterol 149 <200 mg/dL 02/19/2016 11:03 AM CDT [facility] Triglycerides 127 <150 mg/dL 02/19/2016 11:03 AM CDT [facility] HDL Cholesterol 67 >40 mg/dL 02/19/2016 11:03 AM CDT [facility] LDL Calculated 57 <130 mg/dL 02/19/2016 11:03 AM CDT [facility] VLDL Calculated 25 <=30 mg/dL 02/19/2016 11:03 AM CDT [facility] Chol HDL Ratio 2.2 <4.5 02/19/2016 11:03 AM CDT [facility] LDL/HDL Ratio 0.8 <5.0 02/19/2016 11:03 AM CDT [facility] Blood BLOOD SPECIMEN / Unknown Lab Venipuncture / Unknown 02/19/2016 10:18 AM CDT 02/19/2016 10:22 AM CDT Amanda Braga LINE COOK-CYBER WORKFORCE DEVELOPER AND MANAGER LAB - CHEMISTRY ORDERABLES Performing Organization Address City/State/[facility] Co de Phone Number [facility] [address] [place] [address] from Last 3 Months or Most Recently [...] VentilationNo Cardioactive Drugs, No Vasopressors Care Teams Sleeve Setter Safety Stitch Relationship Specialty Start Date End Date Nando Christy MD PCP - General Internal Medicine 11/25/18
== END 2024-06-14 20:25 ==
PROVIDERS: Registered Nurse; Emergency Provider Family Medicine; PCP Internal Medicine
DX: R51.9 Headache, unspecified (principal); K62.5 Hemorrhage of anus and rectum; I10 Essential (primary) hypertension; Z20.822 Contact with and (suspected) exposure to COVID-19; Z21 Asymptomatic human immunodeficiency virus [HIV] infection status
CPT/HCPCS: 36415; 70450; 80053; 84484; 85025; 87637; 93005; 96374; 96375; 99284; J2270; J2405

== ENCOUNTER 2024-07-05 19:22 | Observation (INO) | payer OTHER, SELFPAY ==
--- NOTE | ~2024-07-05 | XR_ITS ---
EXAMINATION: XR chest 1V portable Exam Date/Time: 07/05/2024 19:50 RECREATION PROGRAMMER HISTORY: Chest pain Comparison: 06/14/2024. RESULT: Lines, tubes, and devices: None. Lungs and pleura: Clear. Cardiomediastinal silhouette: Stable. Mild unfolding. Calcified lymph node. Other: No acute osseous or upper abdominal finding. IMPRESSION: No acute cardiopulmonary process. Reviewed, dictated and finalized at location K. EATION PROGRAMMER
--- NOTE | ~2024-07-05 | NM_ITS ---
EXAMINATION: NM les stress w perfusion DATE: 07/06/2024 09:41 INDICATION: Chest pain TECHNIQUE: Rest images were obtained following intravenous administration of 11.9 mCi Tc99m tetrofosm in (Myoview). The patient was infused intravenously with Lexiscan (Regadenoson). Then, 34.5 mCi Tc99m tetrofosmin (Myoview) was administered intravenously, and stress images were obtained. Data was juanito nstructed into short axis and horizontal and vertical long axis SPECT images. Gated SPECT images were also obtained. COMPARISON: None. FINDINGS: There is no definite reversible or fixed perfusion abnormality to suggest ischemia or infar ction. There is left ventricular enlargement with calculated end-diastolic volume of 217 mL. There i s global hypokinesis with mildly decreased left ventricular ejection fraction which measures 38%. IMPRESSION: 1. Normal myocardial perfusion at rest and during stress. 2. Left ventricular enlargement with global hypokinesis and mildly decreased left ventricular ejectio n fraction measuring 38%. Reviewed, dictated and finalized at location B. TH CLUB ATTENDANT IMPRESSION: 1. Normal myocardial perfusion at rest and during stress. 2. Left ventricular enlargement with global hypokinesis and mildly decreased le ft ventricular ejection fraction measuring 38%.
[2024-07-05 19:22] VITALS: BP 145/83; PULSE 80; RESP 14; TEMP 36.9; O2SAT 99
[2024-07-05 19:33] VITALS: PULSE 83; O2SAT 98
--- OUTSIDE RECORDS SUMMARY | 2024-07-05 19:34 | XMS_ITS | Clinical Summary ---
Author Organization [facility] al Address [address] [place] [address] Care Team Providers Care Applications Support Lead Name Role Phone Nando Christy MD Primary Care Provider Yanelis Jennings MD Unavailable [phone] Reese Gutierrez MD Unavailable [phone] Allergies Active Allergy Reactions Criticality Noted Date [...] identified. Assessment & Plan (07/04/2023 11:09 AM OUTPATIENT COORDINATOR): No success obtaining any options for post-acute care. SNFs, Respite care, [facility] Recovery sites, all decline patient Succeeded in obtaining wheelchair for patient, but he declined to use it today. He insisted on only using a walker, and we will provide this. Patient now states that he can stay with his sister instead of being unhoused or going to a halfway. Ambulating with walker Patient primarily complains of L hip pain, worse with ambulation. States he has been told he has [id number] in his left hip. Case discussed with ortho. They declined to see in the hospital and stated they could not get an appointment earlier than 08/27. L Hip X-ray: Severe left hip osteoarthritis with progressive osseous remodeling and subchondral collapse of the femoral head. Will coordinate outpatient appointment with orthopedics. - August 27 in [facility] Rhabdomyolysis 12/16/2022 Assessment & Plan (12/30/2023 3:55 PM CDT): Mild rhabdo, likely from cocaine use. Given fluids on admission Resolved with hydration CK 12/28 448 down from 2284 Assessment & Plan (07/04/2023 11:10 AM OUTPATIENT COORDINATOR): Muscle aches resolved Lab tests showed normalization [...] presentation - SW consulted, in talks with [facility] for potential inpatient rehab stay Suicidal ideation 09/12/2021 HFrEF (heart failure with re duced ejection fraction) ([facility]) 08/16/2021 Assessment & Plan (01/04/2024 [...] rhabdo Assessment & Plan (06/29/2023 12:17 PM OUTPATIENT COORDINATOR): Review of his last echo in March 2023 revealed EF of 30-35% with global hypokinesis of LV, normal RV function, grade 1 diastolic dysfunction. Home meds include Coreg, and Entresto. -restart Entresto 24-26 mg BID -carvedilol 12.5 mg BID Assessment & Plan (04/01/2023 10:33 AM OUTPATIENT COORDINATOR): Euvolemic - Held lasix for now given [...] 01/14/2020 Assessment & Plan (07/04/2023 11:11 AM OUTPATIENT COORDINATOR): Continue home Seroquel and trazodone. Valium p.r.n. [...] CK Assessment & Plan (07/04/2023 11:13 AM OUTPATIENT COORDINATOR): ROSCOE due to rhabdomyolysis and dehydration resolved. [...] -IVFs Assessment & Plan (07/16/2018 9:57 AM OUTPATIENT COORDINATOR): 2/2 rhabdo. Cr trended down as above. -BP stable. Given repeat admissions for rhabdo, he is not a good candidate for lisinopril and hctz d/t risk for further kidney injury. Will not continue at DC. -PCP to further monitor. Assessment & Plan (07/15/2018 4:25 PM OUTPATIENT COORDINATOR): Likely 2/2 rhabdo. Creatinine 1.6 (baseline 1.2). [...] -monitor. Assessment & Plan (07/16/2018 10:04 AM OUTPATIENT COORDINATOR): BP has remained stable off BP meds, but states that BP was always elevated in custodial despite no cocaine use. States he was taking clonidine, lisinopril and hctz. Poor candidate for ACEI and diuretic at this time d/t risk for further kidney injury. -will continue single agent for now. Will start amlodipine 10mg daily. -He will f/u with his PCP for further management. Assessment & Plan (07/15/2018 4:19 PM OUTPATIENT COORDINATOR): BP slightly above baseline. -Hold home Lisinopril [...] peak Assessment & Plan (04/01/2023 10:28 AM OUTPATIENT COORDINATOR): CK: 5038. Likely related to cocaine use. [...] recs Assessment & Plan (07/09/2021 7:32 PM OUTPATIENT COORDINATOR): Likely from cocaine. CK 4000 > 2700 [...] currently. Assessment & Plan (06/30/2023 7:53 PM OUTPATIENT COORDINATOR): Reports cocaine use related to his chronic left hip pain. Method of use is inhalation. Longest period of abstinence was 6 months. Does report sharing glass pipes with others Reports burnt lips. Declined HIV, syphilis, hepatitis screening. Assessment & Plan (03/31/2023 12:44 PM OUTPATIENT COORDINATOR): - Counseled on cessation - Consulted social service manager Assessment & Plan (12/18/2022 11:35 AM CDT): - Long-standing cocaine use, occurring 2-3 times per week - SW consulted, in touch with [facility] for potential inpatient rehab stay Chest pain [...] baseline Assessment & Plan (04/01/2023 10:33 AM OUTPATIENT COORDINATOR): Cr ~1.4, b/l around 1.3-1.5. Recently admitted [...] recs Assessment & Plan (07/09/2021 7:33 PM OUTPATIENT COORDINATOR): - coreg - hold ACEI/ and lasix [...] RN. Assessment & Plan (04/01/2020 8:01 PM OUTPATIENT COORDINATOR): Mr. Haas is a 54yo M with [...] secondary gain and malingering. He was in [facility] ED 2 nights ago for rhabdo with no report of SI or any mood sx. He was discharged when medically cleared, then took a bus to another ED and reported SI and was admitted to [facility]. Today he continues to report vague [...] meds indicated - SW to assist with halfway and [facility] resources Assessment & Plan (09/16/2018 9:53 AM CDT): As above Resolved Problems Problem Noted Date Diagnosed Date Resolved Date Fall, initial encounter 08/24/202310/09 Constipation 07/02/2023 10/22/2023 Assessment & Plan (07/02/2023 6:47 PM OUTPATIENT COORDINATOR): New complaint this evening. Will Rx with marcia Left hip pain 06/29/2023 06/30/2023 Assessment & Plan (06/29/2023 3:37 PM OUTPATIENT COORDINATOR): Longstanding, gradually worsening LEFT hip pain. Pain [...] recs Assessment & Plan (07/09/2021 7:33 PM OUTPATIENT COORDINATOR): HFrEF (EF 24%) - proBNP 490 on [...] following Pt states he will d/c to [facility]; he is aware that they may be full and states if they are full he will return to the streets, where he has been living for ~15 years. Halfway resources provided. He declines further SW assistance [...] team. Assessment & Plan (07/09/2021 7:33 PM OUTPATIENT COORDINATOR): Encouraged cessation Assessment & Plan (06/14/2021 10:46 AM OUTPATIENT COORDINATOR): Wes requires substance use treatment for cocaine. [...] appreciated. Assessment & Plan (06/13/2021 9:18 AM OUTPATIENT COORDINATOR): Wes requires substance use treatment for cocaine, but his ASP traits are most prominent. He has not required PRN meds and is not threatening or violent. 1. Continue meds 2. SWer to help with rehab placement 3. Med consult recs appreciated. Assessment & Plan (06/12/2021 3:51 PM OUTPATIENT COORDINATOR): Wes requires substance use treatment for cocaine, but his ASP traits are most prominent. He has not required PRN meds and is not threatening or violent. 1. Continue meds 2. SWer to help with rehab placement 3. Med consult recs appreciated. Assessment & Plan (06/11/2021 10:13 AM OUTPATIENT COORDINATOR): Wes requires substance use treatment for cocaine, [...] normalizing Assessment & Plan (07/09/2021 7:32 PM OUTPATIENT COORDINATOR): Cr 2.3 (baseline 1.3-1.6?), likely from rhabdo - recheck after fluids Assessment & Plan (03/30/2020 5:53 AM OUTPATIENT COORDINATOR): Cr 2.34 on presentation, compared to a [...] daily Assessment & Plan (04/01/2020 8:05 PM OUTPATIENT COORDINATOR): Patient has ahx of recurrent rhabdo due to cocaine use. He CK is downtrending and Cr is back to normal. No additional interventions needed. Assessment & Plan (03/30/2020 5:55 AM OUTPATIENT COORDINATOR): CK 1688 on admission, he has had [...] of cares. -discontinue LR 100ml/hr -tylenol 650 [id number] PRN for pain -d/c today -SW consulted [...] cocaine use. -start LR 100ml/hr -tylenol 650 [id number] PRN for pain -repeat total CK in [...] using. Assessment & Plan (07/16/2018 9:55 AM OUTPATIENT COORDINATOR): Likely 2/2 cocaine use. CK trending down, 8883-->6122. Cr improved 1.6-->1.1. -dc home -cocaine cessation encouraged. Assessment & Plan (07/15/2018 4:18 PM OUTPATIENT COORDINATOR): Likely 2/2 cocaine use. Hx of multiple [...] although reported earlier to other physicians. - alcohol and drug counselor on cessation Assessment & Plan (04/01/2020 8:12 PM OUTPATIENT COORDINATOR): Patient has a long and well established [...] and admitted a few days later to [facility] for SI and rhabdo due to his [...] PRN Assessment & Plan (07/16/2018 10:04 AM OUTPATIENT COORDINATOR): -Encouraged cessation, but patient refuses and reports he will use cocaine after discharge. Assessment & Plan (07/15/2018 4:27 PM OUTPATIENT COORDINATOR): Hx of cocaine use, last used yesterday. -Encouraged cessation, but patient refuses and reports he will use cocaine after discharge Generalized body aches 07/12/201807/25 Chronic renal impairment 05/04/2017 Schizoaffective disorder, bi polar type ([facility]/HCC) 08/02/2016 04/01/2020 Assessment & Plan (03/30/2020 5:56 AM OUTPATIENT COORDINATOR): Prior medications include quetiapine and trazodone, which [...] admissions. Also recently admitted and discharged from [facility] on 08/01 for SI, also thought ot [...] admissions. Also recently admitted and discharged from [facility] on 08/01 for SI, also thought ot [...] 0 Assessment & Plan (03/30/2020 6:21 AM OUTPATIENT COORDINATOR): Longstanding abuse, reports last smoking crack cocaine on evening of 03/29 Crack cocaine use 08/23/2011 04/01/2020 Suicidal ideation 08/23/2011 04/01/2020 History of rhabdomyolysis Muscle ache 04/01/2020 Encounters Date Type Department Care Team Description 04/29/2024 2:48 PM OUTPATIENT COORDINATOR - 04/29/2024 11:59 PM OUTPATIENT COORDINATOR Hospital Encounter [facility] [address] [place] [address] Ravin Knapp MD Avascular necrosis of hip, left (HCC) Discharge Disposition: Discharge to home or self care from Last 3 Months Immunizations Immunization Administration Dates Next Due Hep A, Adult 11/14/2005 Tdap 09/16/2015,10/07/2011,12/22/2009 Surgical History Surgery Date Site/Laterality Comments MUSCLE BIOPSY BONE BIOPSY Medical History Medical History Date Comments Hypertension ROSCOE (acute kidney injury) ([facility]) Cocaine abuse ([facility]) Chronic renal disease Rhabdomyoma Depression CHF (congestive heart failure) ([facility]/HCC) ([facility]) Family History Medical History Relation [...] = 0.6 oz pur e alcohol) occasional [facility] Utilities Answer Date Recorded In the past 12 months has [facility] [employer], oil, or water [employer] threatened to shut off services in your [...] Never 01/04/2024 How often do you attend [employer] or baptism serv ices? Never 01/04/2024 Do you belong to any clubs o r organizations such as [employer] groups, unions, fraternal or athletic groups, or [...] staff should administer the PHQ-9) 2 11/19/2022 [facility] Occupational Stress Questionnaire [...] place to sleep or slept in a halfway (including now)? Yes 08/25/2023 Housing Stability Vital Sign Answer Devendra e Recorded In the last 12 months, was t here a time when you were not able to pay the mortgage or rent on time? Yes 01/04/2024 In the past 12 months, how m any times have you moved where you were living? 5 01/04/2024 At any time in the past 12 m [facility], were you homeless or living in a halfway (including now)? Yes 01/04/2024 Personal Safety Answer [...] on file Legal Sex Male 2:18 AM OUTPATIENT COORDINATOR Gender Identity Not on file Sexual Orientation Not on file Obstetrics History Last Filed Vital Signs Vital Sign Reading Time Taken Comments Blood Pressure 145/90 02/01/2024 11:00 AM CDT Pulse 82 02/01/2024 11:00 AM CDT Temperature 36.6 C (97.9 F) 02/01/2024 5:15 AM CDT Respiratory Rate 18 02/01/2024 11:00 AM CDT [...] Cancer Screening-Colonoscopy 1966 Prostate Cancer Screening-PSA 1966 Regular Well Visit/Exam 18-64 1984 Pneumococcal vaccine <65 (1 of 2 - PCV) 1985 Lung Cancer Screening 2016 Zoster Vaccine (1 [...] Read Routine (OP Routine) 04/29/2024 3:01 PM OUTPATIENT COORDINATOR Avascular necrosis of hip, left (HCC) HEPATITIS C ANTIBODY Timed 12/29/2023 9:29 PM CDT from Last 3 Months or Most Recently Relevant to Health Maintenance Results * XR Hip Left 2 or 3 Views W Pelvis (04/29/2024 3:01 PM OUTPATIENT COORDINATOR) Anatomical Region Laterality Modality Lower Extremities, Hip, Pelvis Left C omputed Radiography 04/29/2024 4:12 PM OUTPATIENT COORDINATOR Impressions 04/29/2024 4:23 PM OUTPATIENT COORDINATOR Overall unchanged left femoral head avascular necrosis with severe secondary osteoarthritis and extensive osseous fragmentation. Dictated by: Nii Schulte MD The radiology attending physician has personally reviewed this study, and had reviewed and/or edited this written report and agrees with it. Electronically signed by: Andreas Blum M.D. Narrative 04/29/2024 4:23 PM OUTPATIENT COORDINATOR EXAMINATION: XR HIP LEFT 2 OR 3 [...] it. Electronically signed by: Andreas Blum M.D. us Ravin Knapp MD IMG XR PROCEDURES Fi nal Result * Hepatitis C antibody Blood (12/29/2023 9:29 PM CDT) Hep C Ab Nonreactive Nonreactive Comment:Antibodies to HCV no t detected. Does NOT exclude the possibility of recent exposure to HCV. Current interpretive data was last revised on 22 Blood 12/29/2023 9:29 PM CDT 12/29/2023 11:29 PM CDT us Nahun Newell MD LAB MICROBIOLOGY - GENERAL YARELI CASTANON Final Result ARNAUD GERARDOH [facility] Department [place] [address] from Last 3 Months or Most Recently Relevant to Health Maintenance Insurance [facility] Advance Directives For more information, please contact: [phone] * Full Code (Latest Code Status on [...] 6:18 PM 08/26/2023 11:11 PM Care Teams Applications Support Lead Relationship Specialty Start Date End Date Nando Christy MD [address] [place] [address] PCP - General Internal Medicine 05/06/22 Yanelis Jennings MD [address] [place] [address] Consulting Physician Cardiovascular Disease 10/11/22 Reese Gutierrez MD [id number] [place] [address] Referring Physician Internal Medicine 07/04/23
--- OUTSIDE RECORDS SUMMARY | 2024-07-05 19:34 | XMS_ITS | Referral Summary ---
Author Organization [facility] al Address [address] [place] [address] Care Team Providers Care Nutrient Management Specialist Name Role Phone Nando Christy MD Primary Care Provider Yanelis Jennings MD Unavailable [phone] Reese Gutierrez MD Unavailable [phone] Encounters Date Type Department Care Team Description 04/29/2024 2:48 PM QUALITY COORDINATOR - 04/29/2024 11:59 PM QUALITY COORDINATOR Hospital Encounter [facility] [address] [place] [id number] Ravin Knapp MD Avascular necrosis of hip, [...] identified. Assessment & Plan (07/04/2023 11:09 AM QUALITY COORDINATOR): No success obtaining any options for post-acute care. SNFs, Respite care, [facility] Recovery sites, all decline patient Succeeded in obtaining wheelchair for patient, but he declined to use it today. He insisted on only using a walker, and we will provide this. Patient now states that he can stay with his sister instead of being unhoused or going to a penitentiary. Ambulating with walker Patient primarily complains of L hip pain, worse with ambulation. States he has been told he has [id number] in his left hip. Case discussed with ortho. They declined to see in the hospital and stated they could not get an appointment earlier than 08/27. L Hip X-ray: Severe left hip osteoarthritis with progressive osseous remodeling and subchondral collapse of the femoral head. Will coordinate outpatient appointment with orthopedics. - August 27 in [facility] Rhabdomyolysis 12/16/2022 Assessment & Plan (12/30/2023 3:55 PM CDT): Mild rhabdo, likely from cocaine use. Given fluids on admission Resolved with hydration CK 8/20 448 down from 2284 Assessment & Plan (07/04/2023 11:10 AM QUALITY COORDINATOR): Muscle aches resolved Lab tests showed [...] presentation - BEULAH consulted, in talks with [facility] for potential inpatient rehab stay Suicidal ideation 09/12/2021 HFrEF (heart failure with re duced ejection fraction) ([facility]) 08/16/2021 Assessment & Plan (01/04/2024 1:17 PM [...] rhabdo Assessment & Plan (06/29/2023 12:17 PM QUALITY COORDINATOR): Review of his last echo in March 2023 revealed EF of 30-35% with global hypokinesis of LV, normal RV function, grade 1 diastolic dysfunction. Home meds include Coreg, and Entresto. -restart Entresto 24-26 mg BID -carvedilol 12.5 mg BID Assessment & Plan (04/01/2023 10:33 AM QUALITY COORDINATOR): Euvolemic - Held lasix for now [...] stable for discharge Substance induced mood disorder ([facility]) 2020 Assessment & Plan (07/25/2021 7:39 PM [...] 01/14/2020 Assessment & Plan (07/04/2023 11:11 AM QUALITY COORDINATOR): Continue home Seroquel and trazodone. Valium [...] CK Assessment & Plan (07/04/2023 11:13 AM QUALITY COORDINATOR): ROSCOE due to rhabdomyolysis and dehydration [...] -IVFs Assessment & Plan (07/16/2018 9:57 AM QUALITY COORDINATOR): 2/2 rhabdo. Cr trended down as above. -BP stable. Given repeat admissions for rhabdo, he is not a good candidate for lisinopril and hctz d/t risk for further kidney injury. Will not continue at [facility]. -PCP to further monitor. Assessment & Plan (07/15/2018 4:25 PM QUALITY COORDINATOR): Likely 2/2 rhabdo. Creatinine 1.6 (baseline [...] -monitor. Assessment & Plan (07/16/2018 10:04 AM QUALITY COORDINATOR): BP has remained stable off BP meds, but states that BP was always elevated in detention despite no cocaine use. States he was taking clonidine, lisinopril and hctz. Poor candidate for ACEI and diuretic at this time d/t risk for further kidney injury. -will continue single agent for now. Will start amlodipine 10mg daily. -He will f/u with his PCP for further management. Assessment & Plan (07/15/2018 4:19 PM QUALITY COORDINATOR): BP slightly above baseline. -Hold home [...] peak Assessment & Plan (04/01/2023 10:28 AM QUALITY COORDINATOR): CK: 5038. Likely related to cocaine [...] recs Assessment & Plan (07/09/2021 7:32 PM QUALITY COORDINATOR): Likely from cocaine. CK 4000 > [...] currently. Assessment & Plan (06/30/2023 7:53 PM QUALITY COORDINATOR): Reports cocaine use related to his chronic left hip pain. Method of use is inhalation. Longest period of abstinence was 6 months. Does report sharing glass pipes with others Reports burnt lips. Declined HIV, syphilis, hepatitis screening. Assessment & Plan (03/31/2023 12:44 PM QUALITY COORDINATOR): - Counseled on cessation - Consulted social sciences professor Assessment & Plan (12/18/2022 11:35 AM CDT): - Long-standing cocaine use, occurring 2-3 times per week - SW consulted, in touch with [facility] for potential inpatient rehab stay Chest [...] baseline Assessment & Plan (04/01/2023 10:33 AM QUALITY COORDINATOR): Cr ~1.4, b/l around 1.3-1.5. Recently [...] recs Assessment & Plan (07/09/2021 7:33 PM QUALITY COORDINATOR): - coreg - hold ACEI/ and [...] mg nightly. 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 - [...] RN. Assessment & Plan (04/01/2020 8:01 PM QUALITY COORDINATOR): Mr. Haas is a 54yo M [...] secondary gain and malingering. He was in [facility] ED 2 nights ago for rhabdo with no report of SI or any mood sx. He was discharged when medically cleared, then took a bus to another ED and reported SI and was admitted to [facility]. Today he continues to report vague [...] meds indicated - SW to assist with penitentiary and [facility] resources Assessment & Plan (09/16/2018 9:53 AM CDT): As above Resolved Problems Problem Noted Date Diagnosed Date Resolved Date Fall, initial encounter 08/24/202310/09 Constipation 07/02/2023 10/22/2023 Assessment & Plan (07/02/2023 6:47 PM QUALITY COORDINATOR): New complaint this evening. Will Rx with vernellkot Left hip pain 06/29/2023 06/30/2023 Assessment & Plan (06/29/2023 3:37 PM QUALITY COORDINATOR): Longstanding, gradually worsening LEFT hip pain. [...] recs Assessment & Plan (07/09/2021 7:33 PM QUALITY COORDINATOR): HFrEF (EF 24%) - proBNP 490 [...] following Pt states he will d/c to [facility]; he is aware that they may be full and states if they are full he will return to the streets, where he has been living for ~15 years. Group Home resources provided. He declines further SW assistance [...] team. Assessment & Plan (07/09/2021 7:33 PM QUALITY COORDINATOR): Encouraged cessation Assessment & Plan (06/14/2021 10:46 AM QUALITY COORDINATOR): Wes requires substance use treatment for [...] appreciated. Assessment & Plan (06/13/2021 9:18 AM QUALITY COORDINATOR): Wes requires substance use treatment for cocaine, but his ASP traits are most prominent. He has not required PRN meds and is not threatening or violent. 1. Continue meds 2. SWer to help with rehab placement 3. Med consult recs appreciated. Assessment & Plan (06/12/2021 3:51 PM QUALITY COORDINATOR): Wes requires substance use treatment for cocaine, but his ASP traits are most prominent. He has not required PRN meds and is not threatening or violent. 1. Continue meds 2. SWer to help with rehab placement 3. Med consult recs appreciated. Assessment & Plan (06/11/2021 10:13 AM QUALITY COORDINATOR): Wes requires substance use treatment for [...] normalizing Assessment & Plan (07/09/2021 7:32 PM QUALITY COORDINATOR): Cr 2.3 (baseline 1.3-1.6?), likely from rhabdo - recheck after fluids Assessment & Plan (03/30/2020 5:53 AM QUALITY COORDINATOR): Cr 2.34 on presentation, compared to [...] daily Assessment & Plan (04/01/2020 8:05 PM QUALITY COORDINATOR): Patient has ahx of recurrent rhabdo due to cocaine use. He CK is downtrending and Cr is back to normal. No additional interventions needed. Assessment & Plan (03/30/2020 5:55 AM QUALITY COORDINATOR): CK 1688 on admission, he has [...] of cares. -discontinue LR 100ml/hr -tylenol 650 [id number] PRN for pain -d/c today -SW consulted [...] cocaine use. -start LR 100ml/hr -tylenol 650 [id number] PRN for pain -repeat total CK in [...] using. Assessment & Plan (07/16/2018 9:55 AM QUALITY COORDINATOR): Likely 2/2 cocaine use. CK trending down, 8883-->6122. Cr improved 1.6-->1.1. -dc home -cocaine cessation encouraged. Assessment & Plan (07/15/2018 4:18 PM QUALITY COORDINATOR): Likely 2/2 cocaine use. Hx of [...] although reported earlier to other physicians. - queen's counsel on cessation Assessment & Plan (04/01/2020 8:12 PM QUALITY COORDINATOR): Patient has a long and well [...] and admitted a few days later to [facility] for SI and rhabdo due to his [...] reinforce his manipulative behaviors. Risk Assessment: Mr. aHas is at a chronically elevated risk of [...] PRN Assessment & Plan (07/16/2018 10:04 AM QUALITY COORDINATOR): -Encouraged cessation, but patient refuses and reports he will use cocaine after discharge. Assessment & Plan (07/15/2018 4:27 PM QUALITY COORDINATOR): Hx of cocaine use, last used yesterday. -Encouraged cessation, but patient refuses and reports he will use cocaine after discharge Generalized body aches 07/12/201807/25 Chronic renal impairment 05/04/2017 Schizoaffective disorder, bi polar type ([facility]) 08/02/2016 04/01/2020 Assessment & Plan (03/30/2020 5:56 AM QUALITY COORDINATOR): Prior medications include quetiapine and trazodone, [...] 0 Assessment & Plan (03/30/2020 6:21 AM QUALITY COORDINATOR): Longstanding abuse, reports last smoking crack cocaine on evening of 03/29 Crack cocaine use 08/23/2011 04/01/2020 Suicidal ideation 08/23/2011 04/01/2020 History of rhabdomyolysis Muscle ache 04/01/2020 Immunizations Immunization Administration Dates Next Due Hep A, Adult 11/14/2005 Tdap 09/16/2015,10/07/2011,12/22/2009 Social History Tobacco Use Types Packs/Day Years Used Date Smoking Tobacco: Every Day Cigarettes 1 25 Passive Smoke Exposure: Never Smokeless Tobacco: Former Tobacco Cessation:Ready to Q uit: Not Asked; Counseling Given: Not Answered Alcohol Use Standard Drinks/Week Comments Yes 0 (1 standard drink = 0.6 oz pur e alcohol) occasional Contur Utilities Answer Date Recorded In the past 12 months has [employer] gas, oil, or water [place] threatened to shut off services in your [...] Never 01/04/2024 How often do you attend caodaism or yazdanism serv ices? Never 01/04/2024 Do you belong to any clubs o r organizations such as caodaism groups, unions, fraternal or athletic groups, or [...] staff should administer the PHQ-9) 2 11/19/2022 [facility] of Occupat ional Health - Occupational Stress [...] place to sleep or slept in a penitentiary (including now)? Yes 08/25/2023 Housing Stability Vital Sign Answer Devendra e Recorded In the last 12 months, was t here a time when you were not able to pay the mortgage or rent on time? Yes 01/04/2024 In the past 12 months, how m any times have you moved where you were living? 5 01/04/2024 At any time in the past 12 m [facility], were you homeless or living in a penitentiary (including now)? Yes 01/04/2024 Personal Safety Answer [...] on file Legal Sex Male 2:18 AM QUALITY COORDINATOR Gender Identity Not on file Sexual [...] Author No 11/08/2021 11:32 AM CDT Alice Deal, MUSSEL FARMER * Are you blind or do you have serious difficulty seeing, even when wearing glasses? Answer Date of Assessment Author No 11/08/2021 11:32 AM CDT Alice Deal, MUSSEL FARMER * Do you have serious difficulty walking or climbing stairs? Answer Date of Assessment Author No 11/08/2021 11:32 AM CDT Alice Deal, MUSSEL FARMER * Do you have serious difficulty dressing or bathing? Answer Date of Assessment Author No 11/08/2021 11:32 AM CDT Alice Deal, MUSSEL FARMER * Because of a physical, mental, or emotional condition, do you have serious difficulty doing errandsalone such as visiting the doctor? Answer Date of Assessment Author Yes 11/08/2021 11:32 AM CDT Alice Deal, MUSSEL FARMER Mental Status * Because of a physical, mental, or emotional condition, do you have serious difficulty concentrating, remembering, or making decisions? (5 years old or older) Answer Entry Date Author Yes 11/08/2021 11:32 AM CDT Alice Deal MUSSEL FARMER Plan of Treatment Not on file Procedures Procedure Name Priority Date/Time Associated Diagnosis Comments XR HIP LEFT W PELVIS 2 OR 3 VIEWS Schedule Routine, Read Routine (OP Routine) 04/29/2024 3:01 PM QUALITY COORDINATOR Avascular necrosis of hip, left (HCC) HEPATITIS C ANTIBODY Timed 12/29/2023 9:29 PM CDT from Last 3 Months or Most Recently Relevant to Health Maintenance Results * XR Hip Left 2 or 3 Views W Pelvis (04/29/2024 3:01 PM QUALITY COORDINATOR) Anatomical Region Laterality Modality Lower Extremities, Hip, Pelvis Left C omputed Radiography 04/29/2024 4:12 PM QUALITY COORDINATOR Impressions 04/29/2024 4:23 PM QUALITY COORDINATOR Overall unchanged left femoral head avascular necrosis with severe secondary osteoarthritis and extensive osseous fragmentation. Dictated by: Nii Schulte MD The radiology attending physician has personally reviewed this study, and had reviewed and/or edited this written report and agrees with it. Electronically signed by: Andreas Blum M.D. Narrative 04/29/2024 4:23 PM QUALITY COORDINATOR EXAMINATION: XR HIP LEFT 2 OR [...] - GENERAL YARELI CASTANON Final Result ARNAUD [facility] Department [place] [address] from Last 3 Months or Most Recently Relevant to Health Maintenance Insurance [facility] [place] Advance Directives For more information, please contact: [phone] * Full Code (Latest Code Status on [...] 6:18 PM 08/26/2023 11:11 PM Care Teams Nutrient Management Specialist Relationship Specialty Start Date End Date Nando Christy MD [address] [place] [address] PCP - General Internal Medicine 05/06/22 Yanelis Jennings MD [address] [place] [address] Consulting Physician Cardiovascular Disease 10/11/22 Reese Gutierrez MD [address] [place] [address] Referring Physician Internal Medicine 07/04/23
--- OUTSIDE RECORDS SUMMARY | 2024-07-05 19:35 | XMS_ITS | Referral Summary ---
Author Organization [facility] ip.access Address [address] [facility] [place] [address] Care Team Providers Care Dye Range Operator Name Role Phone Nando Christy MD Primary Care Provider [phone] Source Comments [facility] ip[employer]access,non-owned Affiliates and Associated Physician Practices is amultiple site organization consisting of ambulatory clinics and hospital sitesin [place], [place], [place] and [place]. This disclosure is being madepursuant to the Care Everywhere program and may not contain all information available regarding this patient. Last updated 18.[facility] ip[facility]access Allergies Active Allergy Reactions Criticality Noted Date [...] Recorded Patient Health Questionnaire-2 Score 6 07/25/2023 [facility] of Occupat ional Health - Occupational Stress [...] place to sleep or slept in a care home (including now)? Yes 07/09/2023 Housing Stability Vital [...] 95 01/15/2024 10:45 AM CDT Temperature 37 C (98.6 F) 01/15/2024 10:45 AM CDT Respiratory Rate 18 [...] PANEL (CALCIUM TOTAL) (01/14/2024 4:23 AM CDT) [facility] Glucose 88 70 - 105 mg/dL 01/14/2024 5:27 AM CDT [facility] Sodium 141 136 - 145 mmol/L 01/14/2024 5:27 AM CDT [facility] Potassium 4.1 3.5 - 5.1 mmol/L 01/14/2024 5:27 AM CDT [facility] Chloride 108(H) 98 - 107 mmol/L 01/14/2024 5:27 AM CDT [facility] CO2 29 22 - 29 mmol/L 01/14/2024 5:27 AM CDT [facility] Calcium 8.6 8.4 - 10.4 mg/dL 01/14/2024 5:27 AM CDT [facility] Anion Gap 4(L) 6 - 16 mmol/L 01/14/2024 5:27 AM CDT [facility] BUN 10 7 - 26 mg/dL 01/14/2024 5:27 AM CDT [facility] Creatinine 1.10 0.72 - 1.25 mg/dL 01/14/2024 5:27 AM CDT [facility] eGFR by CKD-EPI 78(L) >=90 mL/min/1.7 3 m2 01/14/2024 5:27 AM CDT [facility] Blood BLOOD SPECIMEN / Unknown Lab Venipuncture / Unknown 01/14/2024 4:23 AM CDT 01/14/2024 4:46 AM CDT Nicho Johnson MD LAB - CHEMISTRY YARELI CASTANON Performing Organization Address [facility] Co de Phone Number [facility] [address] [place] [address] * HIV-1 HIV-2 ANTIBODY + HIV P24 AG PANEL (10/07/2018 1:04 PM CDT) Pathologist [facility] HIV1/2 Ab + P24 Ag Non Reactive Non Reactive 10/07/2018 2:13 PM CDT [facility] Blood BLOOD SPECIMEN / Unknown Lab Venipuncture / Unknown 10/07/2018 1:04 PM CDT 10/07/2018 1:22 PM CDT Narrative [facility] - 10/07/2018 2:13 PM CDT No Laboratory evidence of HIV infection. Kervin Delgado MD LAB - CHEMISTRY O RDERALEANNE Performing Organization Address [facility] Co de Phone Number [facility] [address] [place] [address] * HEPATITIS SCREEN ACUTE (10/07/2018 1:04 PM CDT) Pathologist [facility] HAV Antibody IgM Non Reactive Non Reactive 10/07/2018 2:16 PM CDT [facility] HBsAg Non Reactive Non Reactive 10/07/2018 2:16 PM CDT [facility] HBc Antibody IgM Non Reactive Non Reactive 10/07/2018 2:16 PM CDT [facility] HCV Antibody Screen Non Reactive Non Reactive 10/07/2018 2:16 PM CDT [facility] HCV S/C Ratio 0.07 0.00 - 0.79 10/07/2018 2:16 PM CDT [facility] Comment: Rwnffh-pa-yfjpun ratio (S/CO) <0.80: Non Reactive Blood BLOOD SPECIMEN / Unknown Lab Venipuncture / Unknown 10/07/2018 1:04 PM CDT 10/07/2018 1:22 PM CDT Narrative [facility] - 10/07/2018 2:16 PM CDT Non Reactive - Antibodies to Hepatitis C virus (HCV) were not detected, result does not exclude early acute HCV infection. Kervin Delgado MD LAB - CHEMISTRY O RDERABLES Performing Organization Address City/[facility]/ZIP Co de Phone Number [facility] [address] [place] [address] * LIPID PROFILE (02/19/2016 10:18 AM CDT) [facility] Cholesterol 149 <200 mg/dL 02/19/2016 11:03 AM CDT [facility] Triglycerides 127 <150 mg/dL 02/19/2016 11:03 AM CDT [facility] HDL Cholesterol 67 >40 mg/dL 02/19/2016 11:03 AM CDT [facility] LDL Calculated 57 <130 mg/dL 02/19/2016 11:03 AM CDT [facility] VLDL Calculated 25 <=30 mg/dL 02/19/2016 11:03 AM CDT [facility] Chol HDL Ratio 2.2 <4.5 02/19/2016 11:03 AM T [facility] LDL/HDL Ratio 0.8 <5.0 02/19/2016 11:03 AM T [facility] Blood BLOOD SPECIMEN / Unknown Lab Venipuncture / Unknown 02/19/2016 10:18 AM CDT 02/19/2016 10:22 AM CDT Amanda Braga APRN-COMBER OPERATOR LAB - CHEMISTRY ORDERABLES Performing Organization Address City/[facility]/ZIP Co de Phone Number [facility] [address] [place], [place] [id number] from Last 3 Months or Most Recently [...] VentilationNo Cardioactive Drugs, No Vasopressors Care Teams Dye Range Operator Relationship Specialty Start Date End Date Nando Christy MD PCP - General Internal Medicine 11/25/18
--- OUTSIDE RECORDS SUMMARY | 2024-07-05 19:35 | XMS_ITS | Patient Health Summary ---
Author Organization [facility] Address [address] [place] [address] Care Team Providers Care Occupational Therapist Per Diem Name Role Phone Nando Christy MD Primary Care Provider [phone] [facility],non-owned Affiliates and Associated Physician Practices is amultiple site organization consisting of ambulatory clinics and hospital sitesin [place], [place], [place] and [place]. This disclosure is being madepursuant to the Care Everywhere program and may not contain all information available regarding this patient. Last updated 18.[facility] Allergies * Chlorpromazine(Itching) -Medium Criticality * Haloperidol(Urticaria,Other,Rash) [...] Recorded Patient Health Questionnaire-2 Score 6 07/25/2023 [facility] of Occupat ional [facility] - Occupational Stress Questionnaire Answer Date [...] for ROSCOE (acute kidney injury) ([facility]) * BASIC METABOLIC PANEL (CALCIUM TOTAL)(Performed 01/14/2024) Performed for ROSCOE (acute kidney injury) ([facility]) * XR KNEE LEFT 3VW(Performed 01/13/2024) Performed for Acute pain of left knee * PT EVAL AND TREAT(Performed 01/13/2024) * CK BLOOD(Performed 01/13/2024) Performed for Elevated CK * CBC W AUTO DIFFERENTIAL(Performed 01/13/2024) Performed for ROSCOE (acute kidney injury) ([facility]) * BASIC METABOLIC PANEL (CALCIUM TOTAL)(Performed 01/13/2024) Performed for ROSCOE (acute kidney injury) ([facility]) * CARDIAC EKG ORDER(Performed 01/13/2024) * TROPONIN-I [...] for ROSCOE (acute kidney injury) ([facility]) * EKG 12-LEAD(Performed 09/24/2023) Performed for ROSCOE (acute kidney injury) ([facility]) * XR KNEE LEFT 4VW OR MORE(Performed [...] (HCC), Elevated troponin, ROSCOE (acute kidney injury) (HCC) * ED GENERAL PROCEDURE(Performed 10/08/2018) * CK BLOOD(Performed 10/08/2018) * RENAL FUNCTION PANEL(Performed 10/08/2018) * CBC W AUTO DIFFERENTIAL(Performed 10/08/2018) * BASIC METABOLIC PANEL (CALCIUM TOTAL)(Performed 10/08/2018) * US RETROPERITONEAL COMPLETE(Performed 10/07/2018) Performed for ROSCOE (acute kidney injury) (HCC) * HIV-1 HIV-2 ANTIBODY + HIV P24 [...] AUTO DIFFERENTIAL(Performed 06/02/2011) * LAB MICROBIOLOGY - [facility] HISTORICAL(Performed 05/09/2011) * ACETAMINOPHEN LEVEL(Performed 12/20/2010) * [...] CDT Narrative 01/15/2024 7:46 AM CDT PROCEDURE: XR CHEST 1VW PORTABLE DATE/TIME OF [...] PM Narrative 01/14/2024 3:03 PM CDT PROCEDURE: XR HIP LEFT 2VW OR MORE [...] of143 resultswithin the time period is included. WBC 5.6 4.0 - 10.7 x10E9/L 01/14/2024 5:09 AM CDT [facility] RBC Count 3.44(L) 4.30 - 5.80 x10E12/L 01/14/2024 5:09 AM CDT [facility] Hemoglobin 9.5(L) 13.3 - 17.5 g/dL 01/14/2024 5:09 AM [facility] Hematocrit 31.3(L) 38.7 - 51.1 % 01/14/2024 5:09 AM [facility] MCV 91.0 80.0 - 98.0 fL 01/14/2024 5:09 AM [facility] MCH 27.6 26.7 - 33.6 pg 01/14/2024 5:09 AM [facility] MCHC 30.4(L) 31.7 - 36.3 g/dL 01/14/2024 5:09 AM [facility] RDW-CV 16.1(H) 11.3 - 14.8 % 01/14/2024 5:09 AM [facility] Platelet Count 251 150 - 420 x10E9/L 01/14/2024 5:09 AM [facility] MPV 10.1 7.8 - 11.4 fL 01/14/2024 5:09 AM [facility] Neutrophil % 51.7 41.0 - 74.0 % 01/14/2024 5:09 AM [facility] Lymphocyte % 35.5 17.0 - 47.0 % 01/14/2024 5:09 AM [facility] Monocyte % 9.0 3.0 - 11.0 % 01/14/2024 5:09 AM [facility] Eosinophil % 3.2 0.0 - 7.0 % 01/14/2024 5:09 AM [facility] Basophil % 0.4 0.0 - 1.6 % 01/14/2024 5:09 AM [facility] Immature Granulocytes % 0.2 0.0 - 1.0 % 01/14/2024 5:09 AM [facility] Neutrophil Absolute 2.89 1.60 - 7.50 x10E9/L 01/14/2024 5:09 AM [facility] Lymphocyte Absolute 1.98 1.00 - 4.40 x10E9/L 01/14/2024 5:09 AM [facility] Monocyte Absolute 0.50 0.15 - 1.00 x10E9/L 01/14/2024 5:09 AM [facility] Eosinophil Absolute 0.18 0.00 - 0.60 x10E9/L 01/14/2024 5:09 AM [facility] Basophil Absolute 0.02 0.00 - 0.13 x10E9/L 01/14/2024 5:09 AM [facility] Blood BLOOD SPECIMEN / Unknown Lab Venipuncture / Unknown 01/14/2024 4:23 AM CDT 01/14/2024 4:46 AM CDT Nicho Johnson MD LAB - HEMATOLOGY ORD ERABLES [facility] [address], [place] [id number] * (ABNORMAL) BASIC METABOLIC PANEL (CALCIUM TOTAL) (01/14/2024 4:23 AM CDT) Only the most recent of65 resultswithin the time period is included. Glucose 88 70 - 105 mg/dL 01/14/2024 5:27 AM [facility] Sodium 141 136 - 145 mmol/L 01/14/2024 5:27 AM [facility] Potassium 4.1 3.5 - 5.1 mmol/L 01/14/2024 5:27 AM [facility] Chloride 108(H) 98 - 107 mmol/L 01/14/2024 5:27 AM [facility] CO2 29 22 - 29 mmol/L 01/14/2024 5:27 AM [facility] Calcium 8.6 8.4 - 10.4 mg/dL 01/14/2024 5:27 AM [facility] Anion Gap 4(L) 6 - 16 mmol/L 01/14/2024 5:27 AM [facility] BUN 10 7 - 26 mg/dL 01/14/2024 5:27 AM [facility] Creatinine 1.10 0.72 - 1.25 mg/dL 01/14/2024 5:27 AM [facility] eGFR by CKD-EPI 78(L) >=90 mL/min/1.7 3 m2 01/14/2024 5:27 AM [facility] Blood BLOOD SPECIMEN / Unknown Lab Venipuncture / Unknown 01/14/2024 4:23 AM CDT 01/14/2024 4:46 AM CDT Nicho Johnson MD LAB - CHEMISTRY YARELI CASTANON [facility] [address] [place] [address] * XR Knee Left 3Vw (01/13/2024 3:42 PM CDT) Anatomical Region Laterality Modality Lower Extremity Radiographic Nessa ging 01/13/2024 5:00 PM CDT Narrative 01/13/2024 5:36 PM CDT PROCEDURE: XR KNEE LEFT 3VW DATE/TIME OF [...] - 200 U/L 01/13/2024 8:21 AM CDT [facility] Blood BLOOD SPECIMEN / Unknown Lab Venipuncture / Unknown 01/13/2024 5:06 AM CDT 01/13/2024 5:56 AM CDT Nicho Johnson MD LAB - CHEMISTRY ORDE KINA Performing Organization Address [facility] Co de Phone Number [facility] [address] [place] [address] * CARDIAC EKG ORDER (01/13/2024 2:30 AM [...] 18 <=35 ng/L 01/12/2024 3:50 AM CDT [facility] Delta Troponin I HS 0 <6 ng/L 01/12/2024 3:50 AM CDT [facility] Blood BLOOD SPECIMEN / Unknown Venipuncture / Unknown 01/12/2024 3:30 AM CDT 01/12/2024 3:30 AM CDT Alexis Jeronimo MD LAB - CHEMISTR Y ORDERABLES Performing Organization Address City/[facility]/ZIP Co de Phone Number [facility] [address] [place] [address] * TROPONIN-I HIGH SENSITIVE BASELINE + 1HR (01/12/2024 2:08 AM CDT) Only the most recent of5 resultswithin the time period is included. Troponin I High Sensitive 18 <=35 ng/L 01/12/2024 2:29 AM CDT [facility] Blood BLOOD SPECIMEN / Unknown Venipuncture / Unknown 01/12/2024 2:08 AM CDT 01/12/2024 2:08 AM CDT Alexis Jeronimo MD LAB - CHEMISTR Y ORDERABLES Performing Organization Address [facility] Co de Phone Number [facility] [address] [place] [address] * MAGNESIUM BLOOD (01/12/2024 2:08 AM CDT) Only the most recent of31 resultswithin the time period is included. Pathologist [facility] Magnesium 2.1 1.6 - 2.6 mg/dL 01/12/2024 2:25 AM CDT [facility] Blood BLOOD SPECIMEN / Unknown Venipuncture / Unknown 01/12/2024 2:08 AM CDT 01/12/2024 2:08 AM CDT Alexis Jeronimo MD LAB - CHEMISTR Y ORDERABLES Performing Organization Address [facility] de Phone Number [facility] [address] [place] [phone] * EKG 12-LEAD (01/12/2024 1:44 AM CDT) Only the most recent of52 resultswithin the time period is included. Ventricular Rate 85 BPM [facility] Atrial Rate 85 BPM [facility] P-R Interval 124 ms [facility] QRS Duration ms 100 ms [facility] Q-T Interval ms 408 ms [facility] QTC Calculation (Bezet) 485 ms [facility] Calculated P [place] 86 degrees [facility] Calculated R [place] 44 degrees [facility] Calculated T [place] -113 degrees [facility] Interpretation EKG SINUS RHYTHM WITH PREMATURE [...] LATERAL LEADS Confirmed by DO ZUNIGA STEPHANIE ([id number]) on 01/12/2024 4:23:44 PM [facility] 01/12/2024 1:44 AM CDT 01/12/2024 4:23 PM CDT Alexis Jeronimo MD ECG ORDERABLES [facility] * XR KNEE LEFT 4VW OR [...] CDT Narrative 09/24/2023 6:43 AM CDT PROCEDURE: XR CHEST 2VW DATE/TIME OF EXAM: [...] BNP 77 <=100 pg/mL 09/24/2023 8:13 AM T [facility] Blood BLOOD SPECIMEN / Unknown Venipuncture / Unknown 09/24/2023 4:21 AM CDT 09/24/2023 4:21 AM CDT Narrative [facility] - 09/24/2023 8:13 AM CDT A cutoff of 100 pg/mL has been demonstrated to provide the maximal combination of sensitivity, specificity, and negative predictive value for contributing to the diagnosis of congestive heart failure (CHF) only. A B-Type Natriuretic Peptide (BNP) value greater than or equal to 100 pg/mL is consistent with a diagnosis of CHF in the appropriate clinical setting. False positive results are more common in females greater than 75 years of age. Blood concentrations of natriuretic peptides may also be elevated in patients with myocardial infarction and in patients who are candidates for or are undergoing renal dialysis. Karla Arreaga MD LAB - CHEMISTRY YARELI CASTANON [facility] [address] [place] [address] * (ABNORMAL) COMPREHENSIVE METABOLIC PANEL (09/24/2023 4:21 AM CDT) Only the most recent of115 resultswithin the time period is included. Glucose 83 70 - 105 mg/dL 09/24/2023 4:42 AM CDT [facility] Sodium 140 136 - 145 mmol/L 09/24/2023 4:42 AM CDT [facility] Potassium 5.0 3.5 - 5.1 mmol/L 09/24/2023 4:42 AM CDT [facility] Chloride 106 98 - 107 mmol/L 09/24/2023 4:42 AM CDT [facility] CO2 25 22 - 29 mmol/L 09/24/2023 4:42 AM CDT [facility] Calcium 9.5 8.4 - 10.4 mg/dL 09/24/2023 4:42 AM CDT [facility] Anion Gap 9 6 - 16 mmol/L 09/24/2023 4:42 AM CDT [facility] BUN 32(H) 7 - 26 mg/dL 09/24/2023 4:42 AM CDT [facility] Creatinine 1.46(H) 0.72 - 1.25 mg/dL 09/24/2023 4:42 AM CDT [facility] Alkaline Phosphatase 102 40 - 150 U/L 09/24/2023 4:42 AM CDT [facility] ALT 24 0 - 55 U/L 09/24/2023 4:42 AM CDT [facility] AST 42(H) 5 - 34 U/L 09/24/2023 4:42 AM CDT [facility] Protein Total 7.2 6.4 - 8.3 gm/dL 09/24/2023 4:42 AM CDT [facility] Albumin 4.0 3.4 - 5.0 gm/dL 09/24/2023 4:42 AM CDT [facility] Bilirubin Total 0.2 0.2 - 1.2 mg/dL 09/24/2023 4:42 AM CDT [facility] eGFR by CKD-EPI 56(L) >=90 mL/min/1.7 3 m2 09/24/2023 4:42 AM CDT [facility] Blood BLOOD SPECIMEN / Unknown Venipuncture / Unknown 09/24/2023 4:21 AM CDT 09/24/2023 4:21 AM CDT Karla Arreaga MD LAB - CHEMISTRY YARELI CASTANON [facility] Organization Address City/State/ZIP Co de Phone Number [facility] [address] [place] [address] * (ABNORMAL) URINE DRUG SCREEN IMMUNOASSAY (07/25/2023 11:30 AM CDT) Only the most recent of33 resultswithin the time period is included. [facility] Amphetamines Screen Urine Not detected Not detected 07/25/2023 11:47 AM CDT [facility] Barbiturates Screen Urine Not detected Not detected 07/25/2023 11:47 AM CDT [facility] Benzodiazepines Screen Urine Not detected Not detected 07/25/2023 11:47 AM CDT [facility] Cannabinoids Screen Urine Not detected Not detected 07/25/2023 11:47 AM CDT [facility] Cocaine Screen Urine Detected(A) Not detected 07/25/2023 11:47 AM CDT [facility] Fentanyl Urine Not detected Not detected 07/25/2023 11:47 AM CDT [facility] Methadone Screen Urine Not detected Not detected 07/25/2023 11:47 AM CDT [facility] Opiate Screen Urine Not detected Not detected 07/25/2023 11:47 AM CDT [facility] Phencyclidine Screen Urine Not detected Not detected 07/25/2023 11:47 AM CDT [facility] Urine URINE / Unknown 07/25/2023 1 1:30 AM CDT 07/25/2023 11:30 AM CDT Narrative [facility] - 07/25/2023 11:47 AM CDT This drug screen is designed for MEDICAL purposes only. It is not to be used for legal purposes, including but not limited to worker's comp, police investigations, occupational issues, child custody, etc. Any positive result is only presumptive and must be confirmed with a separate confirmatory test ordered by the physician. Drug Screening Test Cutoff Values: AMPHETAMINES 1000 ng/mL BARBITURATES 200 ng/mL BENZODIAZEPINES 200 ng/mL CANNABINOIDS(THC) 50 ng/mL COCAINE 300 ng/mL FENTANYL 1 ng/mL METHADONE 300 ng/mL OPIATES 300 ng/mL PHENCYCLIDINE(PCP) 25 ng/mL Natali Lopes MD LAB - URINE CHEMI STRY ORDERABLES Performing Organization Address [facility] Co de Phone Number [facility] [address] [place] [address] * ALCOHOL ETHYL BLOOD (07/25/2023 11:30 AM CDT) Only the most recent of31 resultswithin the time period is included. Ethanol <10.0 <10 mg/dL 07/25/2023 12:02 PM CDT [facility] Ethanol Calculated <0.010 <=0.100 gm/dL 07/25/2023 12:02 PM CDT [facility] Blood BLOOD SPECIMEN / Unknown Venipuncture / Unknown 07/25/2023 11:30 AM CDT 07/25/2023 11:30 AM CDT Narrative [facility] - 07/25/2023 12:02 PM CDT Ethanol Interp <10: None Detected Depression of CSN: >100 mg/dL Potentially Critical: >250 mg/dL Potentially Fatal >400 mg/dL Ethanol in the patient's blood will contribute to the osmolar gap. Ethanol's contribution to the osmolar gap can be estimated by dividing the concentration of ethanol in mg/dL by 4.6. This test is for clinical use only and does not equal a [place] for legal purposes. Natali Lopes MD LAB - CHEMISTRY O RDERABLES Performing Organization Address [facility] Co de Phone Number [facility] [address] [place], [place] [phone] * CT HIP LEFT WO CONTRAST (07/25/2023 6:39 AM CDT) Anatomical Region Laterality Modality Lower Extremity Computed Tomogra phy 07/25/2023 8:01 AM CDT Narrative 07/25/2023 8:05 AM CDT Procedure: CT HIP LEFT WO CONTRAST Exam Date: 07/25/2023 6:40 AM Location: [facility] INDICATION: Chronic hip pain. TECHNIQUE: Helical images [...] CONTRAST Exam Date: 07/25/2023 6:40 AM Location: [facility] INDICATION: Chronic hip pain. TECHNIQUE: Helical images [...] LEFT 2VW OR LESS (07/09/2023 2:25 PM [employer] GRINDING MACHINE FEEDER) Anatomical Region Laterality Modality Lower Extremity Radiographic Nessa ging 07/09/2023 2:51 PM [employer]INE FE[employer]ER Impressions 07/09/2023 2:52 PM [employer]ING M[employer]INE FEEDER IMPRESSION: Unremarkable. > Interpreting Provider: Nesha Goncalves MD on 07/09/2023 2:52 PM Narrative 07/09/2023 2:52 PM [employer]ING [employer]INE [employer]ER PROCEDURE: XR KNEE LEFT 2VW OR LESS DATE/TIME OF EXAM: 07/09/2023 2:49 PM CLINICAL INFORMATION: None relevant/not provided if blank. Indication: W19.XXXA: Unspecified fall, initial encounter Additional History: COMPARISON: None. FINDINGS: No fracture, dislocation or significant degenerative change. No joint effusion. The soft tissues appear somewhat atrophic. Procedure Note [...] TRAUMA 2 VW LEFT (07/09/2023 2:25 PM [employer]ING MACHINE FEEDER) Anatomical Region Laterality Modality Lower Extremity Radiographic Nessa ging 07/09/2023 2:51 PM [employer]ING MACHINE FEEDER Impressions 07/09/2023 2:51 PM [employer]ING MACHINE FEEDER IMPRESSION: 1. No acute bony findings. 2. Chronic degenerative changes and bone remodeling in the left hip > Interpreting Provider: Nesha Goncalves MD on 07/09/2023 2:51 PM Narrative 07/09/2023 2:51 PM [employer]INE [employer]ER PROCEDURE: XR FEMUR LEFT 2VW DATE/TIME OF EXAM: 07/09/2023 2:47 PM CLINICAL INFORMATION: None relevant/not provided if blank. Indication: W19.XXXA: Unspecified fall, initial encounter Additional History: COMPARISON: None. Findings: The weightbearing cartilage is significantly thinned and there are some chronic deformity of both the acetabular roof and the weightbearing femoral head. These findings indicate chronic degenerative changes. [...] CT PELVIS NON CONTRAST (05/16/2023 2:40 AM [employer]C [employer]ING MACHINE FEEDER) Anatomical Region Laterality Modality Pelvis Computed Tomogra phy 05/16/2023 9:05 AM [employer]ING M[employer]INE FEEDER Impressions 05/16/2023 9:08 AM [employer]C [employer]ING MACHINE FEEDER IMPRESSION: Avascular necrosis of the left femoral head. No acute or displaced pelvic or sacral fracture seen. Preliminary interpretation was provided by [facility]. > Interpreting Provider: Camryn Juarez MD on 05/16/2023 9:08 AM Narrative 05/16/2023 9:08 AM [employer]ING [employer] PROCEDURE: CT PELVIS WO CONTRAST DATE/TIME OF [...] fracture seen. Preliminary interpretation was provided by [facility]. > Interpreting Provider: Camryn Juarez MD on 05/16/2023 9:08 AM Nazario García MD CT ORDERABLES * LAB RESULTS ORDER (05/08/2023 8:51 PM [employer]ING MACHINE FEEDER) Only the most recent of11 resultswithin the time period is included. Narrative 05/08/2023 8:51 PM [employer]ING [employer]INE [employer]EDER Ordered by an unspecified provider. Scanned Document LAB - THERAPEUTIC DR TEAGUE MONITORING ORDERABLES * CCL LEFT HEART CATH (05/01/2023 11:44 AM DISC [employer]ING MACHINE FEEDER) Anatomical Region Laterality Modality X-Ray Angiograph y Narrative 05/01/2023 11:59 AM [employer]C [employer]ING M[employer]INE [employer] 1. Angiographically normal coronary arteries 2. Underlying [...] CUPID PROCS * PTT (04/30/2023 1:51 AM [employer]C [employer]ING MACHINE FEEDER) Only the most recent of2 resultswithin the time period is included. PTT 31.5 23.0 - 38.4 sec 04/30/2023 2:01 AM [employer]C [employer]ING MACHINE FEEDER [facility] Blood BLOOD SPECIMEN / Unknown Venipuncture / Unknown 04/30/2023 1:51 AM [employer]C [employer]ING MACHINE FEEDER 04/30/2023 1:51 AM [employer]C [employer] GRINDING MACHINE FEEDER Narrative [facility] - 04/30/2023 2:01 AM [employer]C [employer]ING [employer]INE [employer]ER Heparin Therapeutic Range for PTT: 69.0 - 110.0 seconds. Natali Lopes MD LAB - COAGULATION ORDERABLES Performing Organization Address [facility] Co de Phone Number [facility] [address] [place] [address] * PT-INR (04/30/2023 1:51 AM DISC P[employer] GR[employer]ING MACHINE FEEDER) Only the most recent of3 resultswithin the time period is included. [facility] PT 14.2 12.1 - 14.8 sec 04/30/2023 2:01 AM [employer]C [employer] GR[employer]ING MACHINE FE[employer]ER [facility] INR 1.1 0.9 - 1.1 04/30/2023 2:01 AM [employer]C [employer]ING M[employer]INE FE[employer]ER [facility] Blood BLOOD SPECIMEN / Unknown Venipuncture / Unknown 04/30/2023 1:51 AM [employer]C [employer]ING MACHINE FE[employer]ER 04/30/2023 1:51 AM [employer]C [employer] GR[employer]ING MACHINE FEEDER Narrative [facility] - 04/30/2023 2:01 AM [employer]INE [employer]ER Conventional Warfarin Anticoagulant Therapy: INR Reference Range: 2.0-3.0 Intensive Warfarin Anticoagulant Therapy: INR Reference Range: 2.5-3.5 Natali Lopes MD LAB - COAGULATION ORDERABLES Performing Organization Address [facility] Co de Phone Number [facility] [address] [place] [phone] * TROPONIN-I HIGH SENSITIVE (04/30/2023 1:50 AM DISC P[employer] GRINDING MACHINE FEEDER) Only the most recent of3 resultswithin the time period is included. [facility] Troponin I High Sensitive 5 <=35 ng/L 04/30/2023 2:11 AM DISC P[employer] GR[employer]ING MACHINE FEEDER [facility] Blood BLOOD SPECIMEN / Unknown Venipuncture / Unknown 04/30/2023 1:50 AM DISC P[employer] GR[employer]ING MACHINE FEEDER 04/30/2023 1:50 AM DISC P[employer] GRINDING MACHINE FEEDER Natali Lopes MD LAB - CHEMISTRY O RDERABLES Performing Organization Address City/[facility] Co de Phone Number [facility] [address] [place] [phone] * SARS-COV-2 (COVID-19) RAPID (01/31/2023 7:14 AM CDT) [facility] COVID-19 PCR Not detected Not detected 02/01/20 7:51 AM CDT [facility] Microbiology SPECIMEN FROM NASOPHARYNGEAL STRUCTURE / Unknown Collection / Unknown 01/31/2023 7:14 AM CDT 01/31/2023 7:14 AM CDT Narrative [facility] - 01/31/2023 7:51 AM CDT The [id number] Custom Xpert Xpress SARS-COV-2 has been authorized by [...] Devi DO LAB - MICROBIOLOGY O RDERABLES [facility] [address] [place] [phone] * XR CHEST 1VW (01/31/2023 2:40 AM CDT) Only the most recent of3 resultswithin the time period is included. Anatomical Region Laterality Modality Chest Radiographic Nessa ging 01/31/2023 7:43 AM CDT Impressions 01/31/2023 7:43 AM CDT IMPRESSION: No acute process. No significant change. > Interpreting Provider: Sharath Johnson MD on 01/31/2023 7:43 AM Narrative 01/31/2023 7:43 AM CDT PROCEDURE: XR CHEST 1VW DATE/TIME OF EXAM: [...] <0.010 <0.038 ng/mL 12/23/2022 1:34 PM CDT [facility] Blood BLOOD SPECIMEN / Unknown Lab Venipuncture / Unknown 12/23/2022 12:47 PM CDT 12/23/2022 1:11 PM CDT Jeremiah Moeller MD LAB - CHEMISTRY YARELI CASTANON [facility] Organization Address City/State/ZIP Co de Phone Number [facility] [address] [place] [address] * PHOSPHORUS BLOOD (12/23/2022 12:47 PM CDT) Only the most recent of13 resultswithin the time period is included. Phosphorus 2.6 2.3 - 4.7 mg/dL 12/23/2022 1:32 PM CDT [facility] Blood BLOOD SPECIMEN / Unknown Lab Venipuncture / Unknown 12/23/2022 12:47 PM CDT 12/23/2022 1:11 PM CDT Sam Queen MD LAB - CHEMISTRY ORDE KINA Performing Organization Address City/[facility]/ZIP Co de Phone Number [facility] [address] [place] [phone] * LIPASE BLOOD (12/22/2022 1:39 PM CDT) Only the most recent of7 resultswithin the time period is included. Lipase 53 <60 U/L 12/22/2022 2:12 PM CDT [facility] Blood BLOOD SPECIMEN / Unknown Venipuncture / Unknown 12/22/2022 1:39 PM CDT 12/22/2022 1:48 PM CDT Chelita Saxena DO LAB - CHEMISTRY ORDE KINA Performing Organization Address [facility] Co de Phone Number [facility] [address] [place] [phone] * NM MYOCARD PERF REST ONLY (12/03/2022 11:00 AM CDT) Anatomical Region Laterality Modality Chest Nuclear Medicine 12/03/2022 7:13 AM CDT Narrative Procedure Note Drew Kraft MD - 12/03/[address] [address] Nuclear Myocardial Perfusion Scan Report Pat.Name: RYAN HOOD SR Pat.ID: [id number] St.Date: 12/03/2022 Refer.MD: Tay Hebert Exam Time: 7:13:00 AM Study Type:Nuclear Myocardial Perfusion Scan Age: 8 1965,56Y Sex: MALE Race: 2 Visit ID: [id number] ++++++++++++++++++++++++++++++++++++ SUMMARY: ++++++++++++++++++++++++++++++++++++ FINDINGS: REST-ONLY myocardial perfusion [...] 12:30 PM Drew Kraft MD, FACC Tay eHbert MD NM ORDERABLE S * ECHO COMPLETE W CONTRAST (12/02/2022 3:10 PM CDT) BSA [id number] m2 SSM CV FUJI PACS LV biplane [...] PACS MV DT 231 ms SSM CV FUJ I PACS LVOT pk luz 1.35 m/s [...] AV mn luz 1.10 m/s SSM CV FUJ I PACS AV pk luz 1.40 m/s SSM CV FUJ I PACS AV VTI 24.35 cm SSM CV FUJ I PACS LVOT pk grad 7.297 mmHg [...] HR 140 SSM CV FUJ I PACS [id number] 8.59 cm SSM CV FUJ I PACS [id number] 7.614 cm SSM CV FUJ I PACS LV stroke vol BP 98.524 mL SSM CV FUJI PACS LA vol index 28.4 16 - 34 mL/m2 SSM CV FUJI PACS LA area A2C 15.9 20 cm2 SSM CV F UJI PACS LA area A4C 17.8 20 cm2 SSM CV F UJI PACS Anatomical Region Laterality Modality Ultrasound Narrative 12/02/2022 3:45 PM CDT Left Ventricle: Left ventricle is dilated. Mildly increased wall [...] Procedure Note Brian Caldera MD - 12/02/2022 Left Ventricle: Left ventricle is dilated. Mildly increased wallthickness. Mildly reduced systolic function. EF by 2D Tamez biplane is49%. Mild global hypokinesis present. Grade I diastolic dysfunction withnormal left atrial pressure. Tay Hebert MD ECHO CUPID * GLUCOSE - POINT OF CARE (11/30/2022 8:49 AM CDT) Only the most recent of3 resultswithin the time period is included. [facility] Signature Glucose WB/POC 96 70 - 106 mg/dL 11/30/2022 8:59 AM CDT [facility] Specimen Type Cap Fingerstick 2022 8:59 AM CDT [facility] Blood BLOOD SPECIMEN / Unknown 11/30/2022 8:49 AM CDT 11/30/2022 8:59 AM CDT Jeremiah Moeller MD LAB - POINT OF CARE ORDERABLES Performing Organization Address City/State/[facility] Co de Phone Number [facility] [address] [place] [address] * CT ANGIO AORTA FOR DISSECTION (11/30/2022 [...] AM Narrative 11/30/2022 10:06 AM CDT PROCEDURE: CT ANGIO AORTA FOR DISSECTION DATE/TIME [...] was used, including Automated Exposure Control. CONTRAST: IOPAMIDOL 76 % IV SOLN:100 mL [...] 11/30/2022 1:21 AM CDT Elmer Willoughby MD 11/30/2022 3:45 AM Critical Care Performed by: Elmer Willoughby MD Authorized by: Elmer Willoughby MD Critical care provider statement: Critical care time (minutes): 35 Critical care was necessary to treat or prevent imminent or life-threatening deterioration of the following conditions: Renal failure and dehydration Critical care was time spent personally by me on the following activities: Ordering and performing treatments and interventions, ordering and review of laboratory studies, pulse oximetry, ordering and review of radiographic studies, discussions with consultants, development of treatment plan with patient or surrogate, evaluation of patient's response to treatment, examination of patient, obtaining history from patient or surrogate and re-evaluation of patient's condition Care discussed with: admitting provider Elmer Willoughby MD PROCEDURE/MINOR SURGICAL ORDERABLES * CT ABDOMEN PELVIS WO CONTRAST (07/03/2020 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 Gaseous distention of the colon. 2. [...] at 8:54 AM Narrative 07/03/2020 8:54 AM DISC PAD GRINDING MACHINE FEEDER CT OF THE ABDOMEN AND PELVIS WITHOUT [...] ORDERABLES * Critical Care (06/16/2020 6:21 AM DISC PAD GRINDING MACHINE FEEDER) Narrative Ilda Campbell MD - 06/16/2020 6:21 AM DISC PAD GRINDING MACHINE FEEDER Ilda Campbell MD 06/16/2020 7:42 AM Critical Care Performed by: Ilda Campbell MD Authorized by: Ilda Campbell MD Critical care provider statement: Critical care time (minutes): 38 Critical care was necessary to treat or prevent imminent or life-threatening deterioration of the following conditions: Rhabdomyolysis requiring IV fluid confusion. Critical care was time spent personally by me on the following activities: Ordering and review of laboratory studies, ordering and review of radiographic studies, ordering and performing treatments and interventions, evaluation of patient's response to treatment, discussions with primary provider, obtaining history from patient or surrogate, examination of patient, re-evaluation of patient's condition and pulse oximetry Ilda Campbell MD PROCEDURE/MINOR SURG ICAL ORDERABLES * URINALYSIS REFLEX MICROSCOPIC REFLEX CULTURE (03/23/2020 9:58 PM DISC PAD GRINDING MACHINE FEEDER) Only the most recent of38 resultswithin the time period is included. Color UA Yellow Straw, Yellow 03/23/2020 10:20 PM DISC PAD GRINDING MACHINE FEEDER [facility] Clarity UA Clear Clear 03/23/2020 10:20 PM DISC PAD GRINDING MACHINE FEEDER [facility] Glucose UA Negative Negative 03/23/2020 10:20 PM DISC PAD GRINDING MACHINE FEEDER [facility] Bilirubin UA Negative Negative 03/23/2020 10:20 PM DISC PAD GRINDING MACHINE FEEDER [facility] Ketone UA Negative Negative 03/23/2020 10:20 PM DISC PAD GRINDING MACHINE FEEDER [facility] Specific [place] UA 1.020 1.005 - 1.030 03/23/2020 10:20 PM DISC PAD GRINDING MACHINE FEEDER [facility] Blood UA Negative Negative 03/23/2020 10:20 PM DISC PAD GRINDING MACHINE FEEDER [facility] pH UA 6.0 5.0 - 8.0 pH 03/23/2020 10:20 PM DISC PAD GRINDING MACHINE FEEDER [facility] Protein UA Negative Negative 03/23/2020 10:20 PM DISC PAD GRINDING MACHINE FEEDER [facility] Urobilinogen UA Negative Negative mg/dL 03/23/2020 10:20 PM DISC PAD GRINDING MACHINE FEEDER [facility] Nitrite UA Negative Negative 03/23/2020 10:20 PM DISC PAD GRINDING MACHINE FEEDER [facility] Leukocyte UA Negative Negative 03/23/2020 10:20 PM DISC PAD GRINDING MACHINE FEEDER [facility] Urine Microscopy Urine microscopy not indicated 03/23/2020 10:20 PM DISC PAD GRINDING MACHINE FEEDER [facility] Reflex Status Culture not indicated 03/23/2020 10:20 PM DISC PAD GRINDING MACHINE FEEDER [facility] Urine URINE SPECIMEN OBTAINED BY CLEAN CATCH PROCEDURE / Unknown Collection / Unknown 03/23/2020 9:58 PM DISC PAD GRINDING MACHINE FEEDER 03/23/2020 10:13 PM DISC PAD GRINDING MACHINE FEEDER Narrative [facility] - 03/23/2020 10:20 PM DISC PAD GRINDING MACHINE FEEDER Sheyla Álvarez PAN OPERATOR-PATTERN GENERATOR OPERATOR LAB - URINAL YSIS ORDERABLES Performing Organization Address City/State/[facility] Co de Phone Number [facility] [address] [place] [address] * US ABDOMEN LIMITED (03/23/2020 6:51 AM DISC PAD GRINDING MACHINE FEEDER) Only the most recent of2 resultswithin the time period is included. Anatomical Region Laterality Modality Abdomen Ultrasound 03/23/2020 7:08 AM DISC PAD GRINDING MACHINE FEEDER Impressions 03/23/2020 7:10 AM DISC PAD GRINDING MACHINE FEEDER 1. Normal gallbladder. 2. Borderline enlarged common duct. No visible stones and no dilatation of biliary tree *Reading Radiologist: Nesha Goncalves on 03/23/2020 at 7:10 AM Narrative 03/23/2020 7:10 AM DISC PAD GRINDING MACHINE FEEDER Abdominal ultrasound, limited DATE: 03/23/2020. INDICATION: Right [...] No obstruction. No right upper quadrant ascites. Procedure [...] CONTRAST - Acute Abdomen (03/23/2020 4:59 AM DISC PAD GRINDING MACHINE FEEDER) Only the most recent of2 resultswithin the time period is included. Anatomical Region Laterality Modality Abdomen, Pelvis Computed Tomogra phy 03/23/2020 8:13 AM DISC PAD GRINDING MACHINE FEEDER Impressions 03/23/2020 8:22 AM DISC PAD GRINDING MACHINE FEEDER 1. Mid jejunal dilatation and mucosal inflammation without transition zone. This is most likely an ileus such as from enteritis. *Reading Radiologist: Nesha Goncalves on 03/23/2020 at 8:22 AM Narrative 03/23/2020 8:22 AM DISC PAD GRINDING MACHINE FEEDER CT ABDOMEN AND PELVIS with contrast DATE: [...] without spinal stenosis. Preliminary report provided by [facility]. Procedure Note Nesha Goncalves MD - [...] without spinal stenosis. Preliminary report provided by [facility]. IMPRESSION 1. Mid jejunal dilatation and mucosal inflammation without transition zone. This is most likely an ileus such as from enteritis. *Reading Radiologist: Nesha Goncalves on 03/23/2020 at 8:22 AM Karla Arreaga MD CT ORDERABLES * (ABNORMAL) RENAL FUNCTION PANEL (03/14/2020 9:42 AM DISC PAD GRINDING MACHINE FEEDER) Only the most recent of6 resultswithin the time period is included. Glucose 105 70 - 105 mg/dL 03/14/2020 11:08 AM [facility] Sodium 140 136 - 145 mmol/L 03/14/2020 11:08 AM [facility] Potassium 3.9 3.5 - 5.1 mmol/L 03/14/2020 11:08 AM [facility] Chloride 104 98 - 107 mmol/L 03/14/2020 11:08 AM [facility] CO2 26 23 - 31 mmol/L 03/14/2020 11:08 AM [facility] Calcium 8.6 8.4 - 10.4 mg/dL 03/14/2020 11:08 AM [facility] Anion Gap 10 8 - 18 mmol/L 03/14/2020 11:08 AM [facility] Comment:Attention clinician: Reference Range change. BUN 12 8.4 - 25.7 mg/dL 03/14/2020 11:08 AM DISC PAD GRINDING MACHINE FEEDER [facility] Creatinine 1.07 0.72 - 1.25 mg/dL 03/14/2020 11:08 AM DISC PAD GRINDING MACHINE FEEDER [facility] Albumin 3.6 3.5 - 5.2 gm/dL 03/14/2020 11:08 AM DISC PAD GRINDING MACHINE FEEDER [facility] Phosphorus 1.7(L) 2.3 - 4.7 mg/dL 03/14/2020 11:08 AM DISC PAD GRINDING MACHINE FEEDER [facility] Comment:Attention clinician: Reference Range change. eGFR by MDRD >60 >60 mL/min/1.7 3m2 03/14/2020 11:08 AM DISC PAD GRINDING MACHINE FEEDER [facility] eGFR by MDRD >60 >60 mL/min/1.7 3m2 03/14/2020 11:08 AM [facility] Blood BLOOD SPECIMEN / Unknown Lab Venipuncture / Unknown 03/14/2020 9:42 AM DISC PAD GRINDING MACHINE FEEDER 03/14/2020 10:45 AM DISC PAD GRINDING MACHINE FEEDER Robby Tirado MD [facility] Organization Address City/State/ZIP Co de Phone Number [facility] [address] [place] [address] * (ABNORMAL) URINE MICROSCOPIC ONLY REFLEX TO CULTURE (03/12/2020 3:34 PM DISC PAD GRINDING MACHINE FEEDER) Only the most recent of8 resultswithin the time period is included. Reflex Status Culture not indicated 03/12/2020 4:08 PM DISC PAD GRINDING MACHINE FEEDER [facility] RBC UA 0-2 None Seen, 0-2, 3-5 # /hpf 03/12/2020 4:08 PM DISC PAD GRINDING MACHINE FEEDER [facility] WBC UA 0-5 None Seen, 0-5 # /hpf 03/12/2020 4:08 PM DISC PAD GRINDING MACHINE FEEDER [facility] Bacteria UA Trace(A) None Seen 03/12/2020 4:08 PM DISC PAD GRINDING MACHINE FEEDER [facility] Squamous Epithelial Cells None Seen None Seen, 0-2, 3-5 /hpf 03/12/2020 4:08 PM DISC PAD GRINDING MACHINE FEEDER [facility] Mucus UA 1+ /LPF 03/12/2020 4:08 PM DISC PAD GRINDING MACHINE FEEDER [facility] Hyaline Casts 0-2 None Seen, 0-2 # /lpf 03/12/2020 4:08 PM DISC PAD GRINDING MACHINE FEEDER [facility] Urine URINE SPECIMEN OBTAINED BY CLEAN CATCH PROCEDURE / Unknown Collection / Unknown 03/12/2020 3:34 PM DISC PAD GRINDING MACHINE FEEDER 03/12/2020 3:40 PM DISC PAD GRINDING MACHINE FEEDER Narrative [facility] - 03/12/2020 4:08 PM DISC PAD GRINDING MACHINE FEEDER Roxana Melton MD LAB - URINALYSIS ORDERABLES [facility] [address] [place] [address] * (ABNORMAL) CBC W/O DIFFERENTIAL (03/04/2020 6:06 AM T) Only the most recent of12 resultswithin the time period is included. WBC 7.2 3.5 - 10.5 10 3/uL 03/04/2020 6:20 AM [facility] RBC 4.11(L) 4.30 - 5.70 10 6/uL 03/04/2020 6:20 AM [facility] Hemoglobin 12.8(L) 13.5 - 17.5 g/dL 03/04/2020 6:20 AM [facility] Hematocrit 38.9(L) 39.0 - 50.0 % 03/04/2020 6:20 AM [facility] MCV 94.6 81.0 - 97.0 fL 03/04/2020 6:20 AM [facility] MCH 31.1 28.0 - 34.0 pg 03/04/2020 6:20 AM [facility] MCHC 32.9 32.0 - 36.0 g/dL 03/04/2020 6:20 AM [facility] Platelet Count 225 150 - 400 10 3/uL 03/04/2020 6:20 AM [facility] RDW-SD 45.4 36.0 - 50.0 fL 03/04/2020 6:20 AM [facility] RDW-CV 13.1 11.2 - 14.8 % 03/04/2020 6:20 AM [facility] MPV 10.5 9.3 - 12.8 fL 03/04/2020 6:20 AM [facility] nRBC Absolute 0.00 0 10 3/uL 03/04/2020 6:20 AM [facility] nRBC Auto 0.0 0 /100 WBC 03/04/2020 6:20 AM [facility] Blood BLOOD SPECIMEN / Unknown Venipuncture / Unknown 03/04/2020 6:06 AM CDT 03/04/2020 6:12 AM CDT Sheyla Shannon PA-C LAB - HEMATOLOGY ORD ERABLES [facility] [address] [place] [id number], [facility] [phone] * (ABNORMAL) URINALYSIS W/MICROSCOPIC NO CULTURE (03/03/2020 11:05 PM [facility]) Only the most recent of13 resultswithin the time period is included. Color UA Yellow Straw, Yellow, Colorless 03/03/2020 11:25 PM [facility] Clarity UA Clear Clear, Slt Cloudy 03/03/2020 11:25 PM [facility] Specific [place] UA 1.024 1.005 - 1.030 03/03/2020 11:25 PM [facility] pH UA 5.0 5.0 - 8.0 pH 03/03/2020 11:25 PM [facility] Protein UA Negative Negative mg/dL 03/03/2020 11:25 PM [facility] Glucose UA Negative Negative mg/dL 03/03/2020 11:25 PM [facility] Ketone UA Negative Negative mg/dL 03/03/2020 11:25 PM [facility] Bilirubin UA Negative Negative mg/dL 03/03/2020 11:25 PM [facility] Blood UA Negative Negative 03/03/2020 11:25 PM [facility] Nitrite UA Negative Negative 03/03/2020 11:25 PM [facility] Leukocyte Esterase Negative Negative 03/03/2020 11:25 PM [facility] Urobilinogen UA 2.0(A) Negative mg/dL 03/03/2020 11:25 PM [facility] RBC UA 3-5 None Seen, 0-2, 3-5 /HPF 03/03/2020 11:25 PM CDT [facility] WBC UA 0-5 None Seen, 0-5 /HPF 03/03/2020 11:25 PM CDT [facility] Squamous Epithelial Cells UA 0-2 None Seen, 0-2 /HPF 03/03/2020 11:25 PM CDT [facility] Calcium Oxalate UA Moderate(A) Rare, Occasional, Few, None /HPF 03/03/2020 11:25 PM CDT [facility] Urine URINE SPECIMEN OBTAINED BY CLEAN CATCH PROCEDURE / Unknown Collection / Unknown 03/03/2020 11:05 PM CDT 03/03/2020 11:16 PM CDT Narrative [facility] - 03/03/2020 11:25 PM CDT note^<nlbl:demographic_changed> Loreto Mcfadden APRN-PATTERN GENERATOR OPERATOR LAB - URINALYSIS O RDERABLES [address] [address], [place] [phone] * SODIUM URINE RANDOM (03/03/2020 11:05 PM CDT) Sodium Urine 59 Not Established mmol/L 03/03/2020 11:38 PM CDT [facility] Urine URINE SPECIMEN OBTAINED BY CLEAN CATCH PROCEDURE / Unknown Collection / Unknown 03/03/2020 11:05 PM CDT 03/03/2020 6:14 PM CDT Sheyla Shannon PA-C LAB - URINE CHEMISTR Y ORDERABLES [address] [address], [place] [phone] * CREATININE URINE RANDOM (03/03/2020 11:05 PM CDT) Creatinine Urine 260 Not Established mg/dL 03/03/2020 11:38 PM CDT [facility] Comment:Result obtained by d real. Urine URINE SPECIMEN OBTAINED BY CLEAN CATCH PROCEDURE / Unknown Collection / Unknown 03/03/2020 11:05 PM CDT 03/03/2020 6:14 PM CDT Sheyla Shannon PA-C LAB - URINE CHEMISTR Y ORDERABLES Performing Organization Address City/[facility] Co de Phone Number [place] [phone] [phone] * D-DIMER (01/18/2020 2:18 PM CDT) Only the most recent of2 resultswithin the time period is included. D-Dimer 0.49 0.27 - 0.50 ug/mL FEU 01/18/2020 3:13 PM CDT [facility] Blood BLOOD SPECIMEN / Unknown Lab Venipuncture / Unknown 01/18/2020 2:18 PM CDT 01/18/2020 2:22 PM CDT Narrative [facility] - 01/18/2020 3:13 PM CDT In the absence of clinical symptoms, a value less than or equal to 0.5 mcg/mL FEU significantly decreases the probability of PE/DVT (negative predictive value >95%). 1 mcg/ml FEU = 1 Fibrinogen Equivalent Unit (approximates 0.5 mcg/mL of D- dimer). Dillon Herman MD LAB - COAGULATION OR DERABLES Performing Organization Address [facility] Co de Phone Number [facility] [address] [place] [address] * ECHOCARDIOGRAM 2D WITH DOPPLER (01/18/2020 8:30 AM CDT) Only the most recent of2 resultswithin the time period is included. 01/18/2020 8:30 AM CDT Narrative Procedure Note Drew Kraft MD - 01/18/2020 . [place] [id number] Echocardiography Examination Transthoracic Name: RYAN HOOD MPI#: MR#: [id number] Admission Number: [id number] Study Date: 01/18/2020 Study Time: 12:29 PM [...] Routine study Image Quality: Adequate Facility Location[place] [facility] [place] Indication: Chest Pain Procedure Certified Registered Locksmith: JUAN JOSE Pimentel Ordering Provider: DILLON HERMAN Reading Physician: Drew Kraft MD Conclusions Left Ventricle: Left ventricle is mildly dilated, 5.6cm, 3.1cm/m2. Normal global systolic left ventricular function. EF 60 %. Left ventricle wall thickness is normal. There are no regional wall motion abnormalities. Doppler parameters are consistent with abnormal left ventricular relaxation (Grade 1 diastolic dysfunction). Left Atrium: The left atrium is severely dilated. IAS: Atrial septal aneurysm present. PFO present by color Doppler and saline bubble study with many bubbles seen in LA after 3 beats. Tricuspid Valve: Mild-moderate tricuspid regurgitation. Patient: RYAN HOOD Study Date: 01/18/2020 12:29 PM Page 1 of 4 Tricuspid Valve Measurements RVSP: 28 mmHg. Follow up: Findings Left [...] Valve BROCK D (continuity eq. VTI) 2.4 cm Aortic Valve BROCK Index (continuity 0.73 cm /m eq.Vmax) Aortic Valve AV Opening, MM 0 cm Aortic Valve LVOT Vmax / AV Vmax 0.35 Interventricular septum IVSd, 2D 1 cm (0.6cm - 1.1cm) Left Atrium LADs, MM 4 cm (3cm - 4cm) Left Atrium LADs, 2D 0 cm (3cm - 4cm) Left Atrium LA Area s, A4C 29.5 cm (0cm - 20cm ) Left Atrium LA Area s, A2C 27.1 cm (0cm - 20cm ) Left Atrium LAESV, MOD4 108 ml (18ml - 58ml) Left Atrium LAESV, MOD2 102 ml (18ml - 58ml) Left Atrium LA/AO Ratio, MM 1.25 Left Atrium LAESV index, MOD4 60.3 ml/m Left Atrium LAESV index, MOD2 57 ml/m Left Atrium LAESV index, AL4 69.3 ml/m Left Atrium LAESV index, AL2 59.8 ml/m Left Ventricle LVOT Vmax 0.85 m/s (0.7m/s [...] 58ml) Left Ventricle LVEDV Index, BP 67.6 ml/m (35ml/m - 75ml/m ) Left Ventricle LVESV Index, BP 29.1 ml/m (12ml/m - 30ml/m ) Left Ventricle LVOT PGmean 1 mmHg Left Ventricle LVOT Vmean 0.54 m/s Left Ventricle Diastolic MV E Vmax 0.58 m/s Function Left Ventricle Diastolic MV A Vmax 0.96 m/s Function Left Ventricle Diastolic MV E/A 0.6 Function Left Ventricle Diastolic MV DT 143 ms Function Mitral Valve MVA PHT 5.2 cm Mitral Valve MV PHT 42 ms Mitral Valve MV Dec Harrison 4.04 m/s Patient: RYAN HOOD Study Date: 01/18/2020 12:29 PM Page 3 of 4 Pulmonic Valve PV PGmax 2 mmHg Pulmonic Valve PV Vmax, Caliper 0.67 m/s (0.6m/s - 0.9m/s) Pulmonic Valve MS End gage Luz 0.7 cm/s Right Ventricle Diastolic TR Pmax 23 mmHg Function Right Ventricle Diastolic MS P diast. 2 mmHg Function Right Ventricle Diastolic Diast. PAP (MS P diast. + 7 mmHg Function CVP) Tricuspid Valve RVSP 28 mmHg Tricuspid Valve RA Pressure 5 mmHg Tricuspid Valve TR Vmax 2.39 m/s (No Signature Object) Patient: RYAN HOOD Study Date: 01/18/2020 12:29 PM Page 4 of 4 Dillon Herman MD ECHO ORDERABLES Performing Organization Address [facility] de Phone Number [facility] [address] [place] [address] * (ABNORMAL) SALICYLATE LEVEL BLOOD (01/18/2020 3:53 AM CDT) Only the most recent of7 resultswithin the time period is included. Salicylate <5.0(L) 15.0 - 30.0 mg/dL 01/18/2020 4:09 AM CDT [facility] Blood BLOOD SPECIMEN / Unknown Venipuncture / Unknown 01/18/2020 3:53 AM CDT 01/18/2020 3:53 AM CDT Andreas Banks DO LAB - CHEMISTRY YARELI CASTANON Performing Organization Address [facility] de Phone Number [facility] [address] [place] [address] * (ABNORMAL) ACETAMINOPHEN LEVEL (01/18/2020 3:53 AM CDT) Only the most recent of12 resultswithin the time period is included. Acetaminophen <3.0(L) 10.0 - 30.0 ug/mL 01/18/2020 4:09 AM CDT [facility] Blood BLOOD SPECIMEN / Unknown Venipuncture / Unknown 01/18/2020 3:53 AM CDT 01/18/2020 3:53 AM CDT Narrative [facility] - 01/18/2020 4:09 AM CDT M ACETAMINOPHEN COMMENT Critical values: 4 Hours Post Ingestion: Critical value > 200 g/mL 12 Hours Post Ingestion: Critical value > 50 g/mL For acute ingestion, please refer to Acetaminophen nomogram to determine the risk of toxicity based on time since ingestion and acetaminophen level (see link provided). Note the nomogram disclaimer. WARNING: Assessing the potential toxicity of an acetaminophen level on a standard risk nomogram must take into consideration many factors including any uncertainty of the time since ingestion or the possibility of other medications that may alter the peak level. Contact the [facility] at or reserved for healthcare professionals to assist you in evaluating potentially toxic acetaminophen levels. Andreas Banks DO LAB - CHEMISTRY VERONICAE KINA Performing Organization Address [facility]/ZIP Co de Phone Number [facility] [address] [place] [address] * CULTURE URINE (12/29/2019 12:17 AM CDT) Only the most recent of6 resultswithin the time period is included. Culture Urine No growth (<100 CFU/mL) LETITIA 12/30/2019 7:53 AM CDT [facility] Urine URINE SPECIMEN OBTAINED BY CLEAN CATCH PROCEDURE / Unknown Collection / Unknown 12/29/2019 12:17 AM CDT 12/29/2019 12:20 AM CDT Taye Hughes PA-C LAB - MICROBIOLOGY ORDERABLES Performing Organization Address [facility] de Phone Number [facility] [address] [phone] * (ABNORMAL) LACTIC ACID BLOOD (12/28/2019 9:11 PM CDT) Only the most recent of3 resultswithin the time period is included. Lactic Acid 2.6(H) 0.5 - 2.2 mmol/L 12/28/2019 9:27 PM CDT [facility] Blood BLOOD SPECIMEN / Unknown Venipuncture / Unknown 12/28/2019 9:11 PM CDT 12/28/2019 9:15 PM CDT Taye Hughes PA-C LAB - CHEMISTRY ORD ERABLES Performing Organization Address [facility] Co de Phone Number [facility] [address] [place] [address] * ED CRITICAL CARE (12/12/2018 2:32 PM CDT) Narrative John Cason MD - 12/12/2018 2:32 PM CDT John Cason MD 12/12/2018 2:32 PM Critical Care Performed by: JOHN CASON Authorized by: JOHN CASON Critical care provider statement: Critical care time (minutes): 35 Critical care time was exclusive of: Separately billable procedures and treating other patients Critical care was necessary to treat or prevent imminent or life-threatening deterioration of the following conditions: rhabdomyolysis. Critical care was time spent personally by me on the following activities: Development of treatment plan with patient or surrogate, [...] - 200 Units/L 11/18/2018 2:54 AM CDT [facility] CK-MB 5.2 0.0 - 6.6 ng/mL 11/18/2018 2:54 AM CDT [facility] Blood BLOOD SPECIMEN / Unknown Venipuncture / Unknown 11/18/2018 2:21 AM CDT 11/18/2018 2:24 AM CDT Sarita Wang PAN OPERATOR-PATTERN GENERATOR OPERATOR LAB - PUBLIC ACCOUNTANT RY ORDERABLES [facility] [address] [phone] * ED CRITICAL CARE (10/28/2018 1:55 PM CDT) Narrative Sol Matt MD - 10/28/2018 1:55 PM CDT Sol Matt MD 10/28/2018 1:55 PM Critical Care Performed by: SOL MATT Authorized by: SOL MATT Critical care provider statement: Critical care time (minutes): 85 Critical care was necessary to treat or prevent imminent or life-threatening deterioration of the following conditions: Circulatory failure, dehydration and endocrine crisis Critical care was time spent personally by me on the following activities: Development of treatment plan with patient or surrogate, [...] 10/08/2018 4:04 PM CDT Ilda Campbell MD 10/08/2018 4:04 PM Critical Care Performed by: ILDA CAMPBELL Authorized by: ILDA CAMPBELL Critical care provider statement: Critical care time (minutes): 45 Critical care was necessary to treat or prevent imminent or life-threatening deterioration of the following conditions: Renal failure and metabolic crisis Critical care was time spent personally by me on the following activities: Development of treatment plan with patient or surrogate, evaluation of patient's response to treatment, examination of patient, obtaining history from patient or surrogate, ordering and performing treatments and interventions, ordering and review of laboratory studies, pulse oximetry, re-evaluation of patient's condition, review of old charts, discussions with consultants and ordering and review of radiographic studies I assumed direction of critical care for this patient from another provider in my specialty: no Ilda Campbell MD PROCEDURE/MINOR SURG ICAL ORDERABLES * ED GENERAL PROCEDURE (10/08/2018 4:04 PM CDT) Narrative Ilda Campbell MD - 10/08/2018 4:04 PM CDT Ilda Campbell MD 10/08/2018 4:04 PM General Procedure Date/Time: 10/07/2018 7:44 AM Performed by: ILDA CAMPBELL Authorized by: ILDA CAMPBELL Consent: Consent obtained: Verbal Consent given by: Patient Post-procedure details: Patient tolerance of procedure: Tolerated well, no immediate complications Comments: I placed an US-guided IV in the [...] Reactive Non Reactive 10/07/2018 2:13 PM CDT [facility] Blood BLOOD SPECIMEN / Unknown Lab Venipuncture / Unknown 10/07/2018 1:04 PM CDT 10/07/2018 1:22 PM CDT Narrative [facility] - 10/07/2018 2:13 PM CDT No Laboratory evidence of HIV infection. Kervin Delgado MD LAB - CHEMISTRY O DANIELLE Performing Organization Address City/[facility]/ZIP Co de Phone Number [facility] [address] [place] [phone] * HEPATITIS SCREEN ACUTE (10/07/2018 1:04 PM CDT) Only the most recent of3 resultswithin the time period is included. Pathologist [facility] HAV Antibody IgM Non Reactive Non Reactive 10/07/2018 2:16 PM CDT [facility] HBsAg Non Reactive Non Reactive 10/07/2018 2:16 PM CDT [facility] HBc Antibody IgM Non Reactive Non Reactive 10/07/2018 2:16 PM CDT [facility] HCV Antibody Screen Non Reactive Non Reactive 10/07/2018 2:16 PM CDT [facility] HCV S/C Ratio 0.07 0.00 - 0.79 10/07/2018 2:16 PM CDT [facility] Comment: Zjvevr-yd-uyutfs ratio (S/CO) <0.80: Non Reactive Blood BLOOD SPECIMEN / Unknown Lab Venipuncture / Unknown 10/07/2018 1:04 PM CDT 10/07/2018 1:22 PM CDT [facility] - 10/07/2018 2:16 PM CDT Non Reactive - Antibodies to Hepatitis C virus (HCV) were not detected, result does not exclude early acute HCV infection. Kervin Delgado MD LAB - CHEMISTRY O DANIELLE [facility] [address] [place] [phone] * LEGIONELLA ANTIGEN URINE (08/11/2018 5:41 AM CDT) [facility] Legionella Antigen Urine Negative Negative 08/11/2018 9:05 AM CDT [facility] Urine URINE / Unknown Collection / Unknown 08/11/2018 5:41 AM CDT 08/11/2018 5:41 AM CDT Narrative [facility] - 08/11/2018 9:05 AM CDT This assay detects Legionella pneumophila serogroup one (1) antigen. A negative test result does not rule out the possibility of Legionella infection due to other serogroups or species of Legionella. A positive result may indicate a recent or remote infection with serogroup 1. Lyndsay Graves MD LAB - MICROBIOLOGY O DANIELLE Performing Organization Address City/[facility]/ZIP Co de Phone Number [facility] [address] [place] [address], [facility] [phone] * CULTURE STOOL+ E COLI SHIGA-LIKE TOXIN (08/10/2018 11:06 AM CDT) Culture No growth Salmonella, Shigella, Campylobacter, Escherichia coli 0157:h7 or Yersinia LETITIA 08/12/2018 4:28 AM CDT [facility] Culture Negative Escherichia coli Shiga-like toxin (NM) LETITIA 08/12/2018 4:28 AM CDT [facility] Stool STOOL SPECIMEN / Unknown Collection / Unknown 08/10/2018 11:06 AM CDT 08/10/2018 11:06 AM CDT Lyndsay Graves MD LAB - MICROBIOLOGY O DANIELLE Performing Organization Address City/[facility]/ZIP Co de Phone Number [facility] [address] [place] [address], [facility] [phone] * CLOSTRIDIUM DIFFICILE GDH AG + TOXIN A+B (08/10/2018 11:06 AM CDT) [facility] Antigen Negative Negative, Invalid 08/10/2018 8:44 PM CDT [facility] C difficile Toxin A + B Negative Negative, Invalid 08/10/2018 8:44 PM CDT [facility] Interpretation C difficile Negative for toxigenic C. difficile Negative for toxigenic C. difficile 08/10/2018 8:44 PM CDT [facility] Stool STOOL SPECIMEN / Unknown Collection / Unknown 08/10/2018 11:06 AM CDT 08/10/2018 11:06 AM CDT Alonso Vázquez MD LAB - MICROBIOLOGY O RDSRINIVASAN [facility] [address] [place] [phone] * PT PTT PANEL (07/27/2018 9:56 AM CDT) Only the most recent of2 resultswithin the time period is included. PT 11.1 9.5 - 11.6 sec 07/27/2018 10:14 AM CDT [facility] INR 1.0 0.9 - 1.1 07/27/2018 10:14 AM CDT [facility] PTT 22.7 21.0 - 32.0 sec 07/27/2018 10:14 AM CDT [facility] Blood BLOOD SPECIMEN / Unknown Venipuncture / Unknown 07/27/2018 9:56 AM CDT 07/27/2018 10:01 AM CDT Narrative [facility] - 07/27/2018 10:14 AM CDT Conventional Warfarin Anticoagulant Therapy: INR Reference Range: 2.0-3.0 Intensive Warfarin Anticoagulant Therapy: INR Reference Range: 2.5-3.5 Heparin Therapeutic Range for PTT: 47.7 - 68.6 seconds. Sb Marc DO LAB - COAGULATION O DANIELLE Performing Organization Address City/[facility]/ZIP Co de Phone Number [facility] [address] [place] [address] * TSH REFLEX FREE T4 (07/14/2018 4:31 AM DISC PAD GRINDING MACHINE FEEDER) TSH 2.37 0.358 - 3.740 ulU/mL 07/14/2018 8:25 AM DISC PAD GRINDING MACHINE FEEDER [facility] Blood BLOOD SPECIMEN / Unknown Lab Venipuncture / Unknown 07/14/2018 4:31 AM DISC PAD GRINDING MACHINE FEEDER 07/14/2018 8:01 AM DISC PAD GRINDING MACHINE FEEDER Magdaleno Nino MD LAB - CHEM ISTRY ORDERABLES Performing Organization Address [facility] de Phone Number [facility] [address] [place] [address] [phone] * ERYTHROCYTE SEDIMENTATION RATE (07/13/2018 11:22 AM DISC PAD GRINDING MACHINE FEEDER) Pathologist [facility] Erythrocyte Sedimentation Rate Automated 1 0 - 20 MM/HR 07/13/2018 12:04 PM DISC PAD GRINDING MACHINE FEEDER [facility] Blood BLOOD SPECIMEN / Unknown Lab Venipuncture / Unknown 07/13/2018 11:22 AM DISC PAD GRINDING MACHINE FEEDER 07/13/2018 11:53 AM DISC PAD GRINDING MACHINE FEEDER Magdaleno Nino MD LAB - DEYANIRA TOLOGY ORDERABLES Performing Organization Address [facility] de Phone Number [facility] [address] [place] [address] * (ABNORMAL) C-REACTIVE PROTEIN (07/13/2018 4:57 AM DISC PAD GRINDING MACHINE FEEDER) Only the most recent of3 resultswithin the time period is included. Pathologist [facility] C-Reactive Protein 0.83(H) <0.30 mg/dL 07/13/2018 10:49 AM DISC PAD GRINDING MACHINE FEEDER [facility] Blood BLOOD SPECIMEN / Unknown Lab Venipuncture / Unknown 07/13/2018 4:57 AM DISC PAD GRINDING MACHINE FEEDER 07/13/2018 10:40 AM DISC PAD GRINDING MACHINE FEEDER Magdaleno Nino MD LAB - CHEM ISTRY ORDERABLES Performing Organization Address [facility] de Phone Number [facility] [address] [place] [phone] * ED CRITICAL CARE (07/12/2018 6:10 AM DISC PAD GRINDING MACHINE FEEDER) Narrative Sol Matt MD - 07/12/2018 6:10 AM DISC PAD GRINDING MACHINE FEEDER Sol Matt MD 07/12/2018 6:10 AM Critical Care Performed by: SOL MATT Authorized by: SOL MATT Critical care provider statement: Critical care time (minutes): 85 Critical care was necessary to treat or prevent imminent or life-threatening deterioration of the following conditions: Circulatory failure, dehydration and renal failure Critical care was time spent personally by me on the following activities: Development of treatment plan with patient or surrogate, [...] HAND 3+ VW RIGHT (04/28/2017 12:07 PM DISC PAD GRINDING MACHINE FEEDER) Only the most recent of2 resultswithin the time period is included. Anatomical Region Laterality Modality Wrist / Hand Radiographic Nessa ging 04/28/2017 12:1 8 PM DISC PAD GRINDING MACHINE FEEDER Impressions 04/28/2017 12:19 PM DISC PAD GRINDING MACHINE FEEDER Acute boxer's fracture. Narrative 04/28/2017 12:19 PM DISC PAD GRINDING MACHINE FEEDER XR HAND 3+ VW RIGHT, PA, [place] [...] UA Yellow Straw, Yellow, Colorless, Light Yellow [facility] Clarity UA Clear Clear [facility] Specific [place] UA 1.006 1.001 - 1.030 [facility] pH UA 7.0 5.0 - 8.0 [facility] Protein UA Negative <=20 mg/dL [facility] Glucose UA Negative Negative mg/dL [facility] Ketone UA Negative Negative mg/dL [facility] Bilirubin UA Negative Negative mg/dL [facility] Blood UA Negative Negative [facility] Nitrite UA Negative Negative [facility] Leukocyte Esterase Negative Negative [facility] Urobilinogen UA <2.0 <2.0 mg/dL [facility] RBC UA 2 0 - 8 /HPF [facility] WBC UA <1 0 - 2 /HPF [facility] Bacteria UA Rare Rare, Occasional, None /HPF [facility] Squamous Epithelial Cells UA <1 0 - 1 /HPF [facility] Mucus UA Rare(A) None /LPF [facility] Urine specimen (specimen) 03/06/2017 4:41 AM CDT 03/06/2017 4:47 AM CDT Inessa Martinez MD LAB - URINALYSIS ORD ERABLES [address] [phone] * (ABNORMAL) DRUG ABUSE PANEL 10-20+ETHANOL URINE NO CONFIRM (03/06/2017 4:41 AM CDT) Only the most recent of12 resultswithin the time period is included. Amphetamines Screen Urine Negative Negative : < 1000 ng/mL [facility] Barbiturates Screen Urine Negative Negative : < 200 ng/mL [facility] Benzodiazepine Screen Urine Negative Negative : < 200 ng/mL [facility] Opiates Urine Negative Negative : < 300 ng/mL [facility] Cocaine Metabolites Urine Positive(A) Negative : < 300 ng/mL [facility] Comment: Positive urine cocaine metabolites screening results should be confirmed by another generally accepted non-immunological method such as gas chromatography or mass spectrometry. Phencyclidine Screen Urine Negative Negative : < 25 ng/ml [facility] Cannabinoids Screen Urine Negative Negative : <50 ng/mL [facility] Methadone Screen Urine Negative Negative : < 300 ng/mL [facility] Urine specimen (specimen) URINE / Unknown 03/06/2017 4:41 AM CDT 03/06/2017 4:47 AM CDT Narrative [facility] - 03/06/2017 5:02 AM CDT The Urine Toxicology Screening Panel does not screen for Propoxyphene, Meprobamate, Carisoprodol, Trazodone, hlvb-amf-qqumaai medications and/or volatiles (Acetone, Isopropanol, Methanol or Ethylene Glycol). Ethanol, Salicylate, Acetaminophen, Tricyclic Antidepressants and several therapeutic drugs may be individually assayed in serum or plasma specimen. Toxicology testing by the [facility] is an aid to medical diagnosis and treatment of patients. No documented chain of custody was maintained. Results are intended to be used for clinical purposes only. Inessa Martinez MD LAB - URINE CHEMISTR Y ORDERABLES [facility] [address] [place] [address] * ED CRITICAL CARE (01/23/2017 12:54 PM CDT) Narrative Jeanette Pena MD - 01/23/2017 12:54 PM CDT Jeanette Pena MD 01/23/2017 12:54 PM Critical Care Performed by: [...] - 6.3 % 09/13/2016 4:21 AM CDT [facility] Estimated Average Glucose 105 mg/dL 09/13/2016 4:21 AM CDT [facility] Whole Blood BLOOD SPECIMEN WITH EDTA / Unknown Lab Venipuncture / Unknown 09/13/2016 3:15 AM CDT 09/13/2016 3:23 AM CDT Erik Duff MD LAB - CHEMISTRY YARELI CASTANON Performing Organization Address [facility] Co de Phone Number [facility] [address] [place] [phone] * INFLUENZA A+B ANTIGEN RAPID (09/11/2016 12:38 PM CDT) [facility] Influenza A Antigen Negative Negative 09/11/2016 12:52 PM CDT [facility] Influenza B Antigen Negative Negative 09/11/2016 12:52 PM CDT [facility] Microbiology NASOPHARYNGEAL SWAB / Unknown Collection / Unknown 09/11/2016 12:38 PM CDT 09/11/2016 12:38 PM CDT Narrative [facility] - 09/11/2016 12:52 PM CDT The sensitivity of rapid tests for influenza A and B antigens, according to the published reports , ranges from 30-70% when compared to PCR and viral culture. For H1N1 influenza A, the sensitivity varies from 30-50%. For other influenza A strains, the sensitivity ranges from 50-70%. For influenza B virus, the sensitivity is approximately 30%. A negative result does not exclude influenza infection. False-positive (and true-negative) influenza test results are more likely to occur when disease prevalence is low, which is generally at the beginning and end of the influenza season. False-negative (and true-positive) influenza test results are more likely to occur when disease prevalence is high, which is typically at the height of the influenza season. Baylee Busby APRN-PATTERN GENERATOR OPERATOR LAB - MICROB IOLOGY ORDERABLES Performing Organization Address [facility] Co de Phone Number [facility] [address] [place] [phone] * (ABNORMAL) HEPATIC FUNCTION PANEL (08/31/2016 7:08 AM CDT) Only the most recent of2 resultswithin the time period is included. Alkaline Phosphatase 134(H) 38 - 126 U/L 08/31/2016 7:40 AM CDT [facility] ALT 62(H) 13 - 61 U/L 08/31/2016 7:40 AM CDT [facility] AST 34 5 - 40 U/L 08/31/2016 7:40 AM CDT [facility] Protein Total 5.8(L) 6.4 - 8.2 gm/dL 08/31/2016 7:40 AM CDT [facility] Albumin 3.0(L) 3.4 - 5.0 gm/dL 08/31/2016 7:40 AM CDT [facility] Bilirubin Total 0.2 0.2 - 1.0 mg/dL 08/31/2016 7:40 AM CDT [facility] Bilirubin Direct <0.1 0 - 0.3 mg/dL 08/31/2016 7:40 AM CDT [facility] Blood BLOOD SPECIMEN / Unknown Lab Venipuncture / Unknown 08/31/2016 7:08 AM CDT 08/31/2016 7:17 AM CDT Audrey Avilez MD LAB - [facility] Organization Address City/State/[facility] Co de Phone Number [facility] [address] [place] [address] * CT BRAIN FACIAL BONES WO CONTRAST [...] at 9:15 PM. This report was approved by Janes Perea M.D. on 08/01/2016 8:48 AM . I, Dr. VAN PAZ M.D. have personally reviewed and interpreted this examination/study. This report was electronically signed by VAN PAZ M.D. on 08/01/2016 11:11 AM . Narrative 08/01/2016 11:11 [...] 149 <200 mg/dL 02/19/2016 11:03 AM CDT [facility] Triglycerides 127 <150 mg/dL 02/19/2016 11:03 AM CDT [facility] HDL Cholesterol 67 >40 mg/dL 02/19/2016 11:03 AM CDT [facility] LDL Calculated 57 <130 mg/dL 02/19/2016 11:03 AM CDT [facility] VLDL Calculated 25 <=30 mg/dL 02/19/2016 11:03 AM CDT [facility] Chol HDL Ratio 2.2 <4.5 02/19/2016 11:03 AM CDT [facility] LDL/HDL Ratio 0.8 <5.0 02/19/2016 11:03 AM CDT [facility] Blood BLOOD SPECIMEN / Unknown Lab Venipuncture / Unknown 02/19/2016 10:18 AM CDT 02/19/2016 10:22 AM CDT Amanda Braga APRN-PATTERN GENERATOR OPERATOR LAB - CHEMISTRY ORDERABLES Performing Organization Address City/[facility]/ZIP Co de Phone Number [facility] [address] [place] [address] [phone] * CKMB (12/17/2015 6:56 PM CDT) Pathologist [facility] CK-MB 3.3 0.0 - 5.0 ng/mL 12/17/2015 7:17 PM CDT [facility] Blood BLOOD SPECIMEN / Unknown Venipuncture / Unknown 12/17/2015 6:56 PM CDT 12/17/2015 6:58 PM CDT Luther Pena MD LAB - CHEMISTRY ORDERABLES Performing Organization Address [facility] Co de Phone Number [facility] [address] [place] [address] * (ABNORMAL) DRUG SCREEN TOX LIMITED BLD PNL 3 INHOUSE (07/10/2015 5:26 PM DISC PAD GRINDING MACHINE FEEDER) Only the most recent of2 resultswithin the time period is included. Acetaminophen <2.0(L) 10.0 - 30.0 ug/mL 07/10/2015 5:51 PM DISC PAD GRINDING MACHINE FEEDER [facility] Ethanol <3 <10 mg/dL 07/10/2015 5:51 PM DISC PAD GRINDING MACHINE FEEDER [facility] Salicylate <1.7 <20.0 mg/dL 07/10/2015 5:51 PM DISC PAD GRINDING MACHINE FEEDER [facility] Ethanol Calculated <0.100 gm/dL 07/10/2015 5:51 PM DISC PAD GRINDING MACHINE FEEDER [facility] Comment:Not Calculated Blood BLOOD SPECIMEN / Unknown 07/10/2015 5:26 PM DISC PAD GRINDING MACHINE FEEDER 07/10/2015 5:30 PM DISC PAD GRINDING MACHINE FEEDER Narrative [facility] - 07/10/2015 5:51 PM DISC PAD GRINDING MACHINE FEEDER [facility] ACETAMINOPHEN COMMENT Critical values: 4 Hours Post Ingestion: Critical value > 200 g/mL 12 Hours Post Ingestion: Critical value > 50 g/mL For acute ingestion, please refer to Acetaminophen nomogram to determine the risk of toxicity based on time since ingestion and acetaminophen level (see link provided). Note the nomogram disclaimer. WARNING: Assessing the potential toxicity of an acetaminophen level on a standard risk nomogram must take into consideration many factors including any uncertainty of the time since ingestion or the possibility of other medications that may alter the peak level. Contact the [facility] at or reserved for healthcare professionals to assist you in evaluating potentially toxic acetaminophen levels. Sb Marc DO LAB - CHEMISTRY ORD SRINIVASAN Performing Organization Address City/[facility]/ZIP Co de Phone Number [facility] [address] [place] [address] * (ABNORMAL) URIC ACID BLOOD (06/08/2015 6:34 AM DISC PAD GRINDING MACHINE FEEDER) Uric Acid 7.7(H) 2.6 - 7.2 mg/dL [facility] Blood specimen (specimen) BLOOD SPECIMEN / Unknown 06/08/2015 6:34 AM DISC PAD GRINDING MACHINE FEEDER 06/08/2015 6:22 AM DISC PAD GRINDING MACHINE FEEDER Nani Bae MD LAB - CHEMISTRY YARELI CASTANON Performing Organization Address [facility]/ZIP Co de Phone Number [address] [phone] * XR ELBOW LEFT 3VW OR MORE (06/08/2015 6:09 AM DISC PAD GRINDING MACHINE FEEDER) Only the most recent of2 resultswithin the time period is included. Anatomical Region Laterality Modality Upper Extremity Other Impressions 06/08/2015 12:12 PM DISC PAD GRINDING MACHINE FEEDER IMPRESSION: No acute osseous abnormality identified in the left elbow, wrist, or hand. Dictated by Omar Piper MD (residential real estate sales manager). This report was approved by Omar Piper on 06/08/2015 10:45 AM . I, Dr. PROSPER DUARTE M.D. have personally reviewed and interpreted this examination/study. This report was electronically signed by PROSPER DUARTE M.D. on 06/08/2015 12:12 PM . Narrative 06/08/2015 12:12 PM DISC PAD GRINDING MACHINE FEEDER EXAMINATION: 1. Left elbow, 3 views 2. [...] left elbow, wrist, orhand. Dictated by Omar Visuth, MD (residential real estate sales manager). This report was approved by Omar Piper on 06/08/2015 10:[address] PROSPER May M.D. have personally reviewed and interpreted thisexamination/study. This report was electronically signed by PROSPER DUARTE M.D. on 06/08/201512:12 PM . Nani Bae MD DIAGNOSTIC IMAGING O RDERABLES * XR WRIST LEFT 3VW OR MORE (06/08/2015 6:09 AM DISC PAD GRINDING MACHINE FEEDER) Anatomical Region Laterality Modality Wrist / Hand Other Impressions 06/08/2015 12:12 PM DISC PAD GRINDING MACHINE FEEDER IMPRESSION: No acute osseous abnormality identified in the left elbow, wrist, or hand. Dictated by Omar Piper MD (residential real estate sales manager). This report was approved by Omar Piper on 06/08/2015 10:[address] PROSPER May M.D. have personally reviewed and interpreted this examination/study. This report was electronically signed by PROSPER DUARTE M.D. on 06/08/2015 12:12 PM . Narrative 06/08/2015 12:12 PM DISC PAD GRINDING MACHINE FEEDER EXAMINATION: 1. Left elbow, 3 views 2. [...] orhand. Dictated by Omar Piper MD (residential real estate sales manager). This report was approved by Omar Piper on 06/08/2015 10:[address] PROSPER May M.D. have personally reviewed and interpreted thisexamination/study. This report was electronically signed by PROSPER DUARTE M.D. on 06/08/201512:12 PM . Nani Bae MD DIAGNOSTIC IMAGING O RDERABLES * XR HAND LEFT 3VW OR MORE (06/08/2015 6:08 AM DISC PAD GRINDING MACHINE FEEDER) Anatomical Region Laterality Modality Wrist / Hand Other Impressions 06/08/2015 12:12 PM DISC PAD GRINDING MACHINE FEEDER IMPRESSION: No acute osseous abnormality identified in the left elbow, wrist, or hand. Dictated by Omar Piper MD (residential real estate sales manager). This report was approved by Omar Piper on 06/08/2015 10:[address] PROSPER May M.D. have personally reviewed and interpreted this examination/study. This report was electronically signed by PROSPER DUARTE M.D. on 06/08/2015 12:12 PM . Narrative 06/08/2015 12:12 PM DISC PAD GRINDING MACHINE FEEDER EXAMINATION: 1. Left elbow, 3 views 2. [...] orhand. Dictated by Omar Piper MD (residential real estate sales manager). This report was approved by Omar Piper on 06/08/2015 10:45 AM . I, Dr. PROSPER DUARTE M.D. have personally reviewed and interpreted thisexamination/study. This report was electronically signed by PROSPER DUARTE M.D. on 06/08/201512:12 PM . Nani Bae MD DIAGNOSTIC IMAGING O DANIELLE * CULTURE VRE (02/06/2015 6:13 PM CDT) Culture Negative for VRE LETITIA 02/08/2015 7:16 AM CDT [facility] MICROBIOLOGY Stool RECTAL SWAB / Unknown Collection / Unknown 02/06/2015 6:13 PM CDT 02/06/2015 6:20 PM CDT Ting Ortez MD LAB - MICROBIOLOGY O DANIELLE [facility] MICROBIOLOGY [address] [place] [address], [facility] [phone] * CULTURE MRSA (02/06/2015 6:13 PM CDT) Only the most recent of2 resultswithin the time period is included. Culture Negative for MRSA LETITIA 02/08/2015 7:16 AM CDT [facility] MICROBIOLOGY Microbiology RECTAL SWAB / Unknown Collection / Unknown 02/06/2015 6:13 PM CDT 02/06/2015 6:20 PM CDT Ting Ortez MD LAB - MICROBIOLOGY O DANIELLE [facility] MICROBIOLOGY [address] [facility] [place] [address], [facility] [phone] * (ABNORMAL) DRUG ABUSE URINE PANEL (06/12/2014 2:54 PM DISC PAD GRINDING MACHINE FEEDER) Only the most recent of7 resultswithin the time period is included. Amphetamines Screen Urine Not Detected Not Detected 06/12/2014 3:15 PM DISC PAD GRINDING MACHINE FEEDER [facility] Barbiturates Screen Urine Not Detected Not Detected 06/12/2014 3:15 PM DISC PAD GRINDING MACHINE FEEDER [facility] Benzodiazepines Screen Urine Not Detected Not Detected 06/12/2014 3:15 PM DISC PAD GRINDING MACHINE FEEDER [facility] Cannabinoids Screen Urine Not Detected Not Detected 06/12/2014 3:15 PM DISC PAD GRINDING MACHINE FEEDER [facility] Cocaine Screen Urine Detected(A) Not Detected 06/12/2014 3:15 PM [facility] Opiate Screen Urine Not Detected Not Detected 06/12/2014 3:15 PM [facility] Phencyclidine Screen Urine Not Detected Not Detected 06/12/2014 3:15 PM [facility] Urine URINE / Unknown 06/12/2014 2 :54 PM DISC PAD GRINDING MACHINE FEEDER 06/12/2014 3:04 PM DISC PAD GRINDING MACHINE FEEDER Narrative [facility] - 06/12/2014 3:15 PM [facility] This drug screen is designed for MEDICAL purposes only. It is not to be used for legal purposes, including but not limited to worker's comp, police investigations, occupational issues, child custody, etc. Any positive result is only presumptive and must be confirmed with a separate confirmatory test ordered by the physician. Drug Screening Test Cutoff Values: AMPHETAMINES 1000 ng/ml BARBITURATES 200 ng/ml BENZODIAZEPINES 200 ng/ml CANNABINOIDS(THC) 50 ng/ml COCAINE 300 ng/ml OPIATES 300 ng/ml PHENCYCLIDINE(PCP)25 ng/ml Jyoti Coppola MD LAB - URINE CHEMISTR Y ORDERABLES [facility] [address] [place] [address] * PT-INR [facility] (11/25/2013 8:14 AM CDT) [facility] PT 12.2 12.1 - 14.8 Seconds [facility] INR 0.9 See Comment [facility] Comment: Suggested therapeutic range for low-intensity coumadin therapy for venous thromboembolism prophylaxis is an INR of 2.0-3.0. For high risk patients (Mitral Valve Prosthesis, Atrial Fibrillation, history of TIA/stroke), suggested prophylactic therapeutic range is an INR of 2.5-3.5. Blood specimen (specimen) BLOOD SPECIMEN / Unknown 11/25/2013 8:14 AM CDT 11/25/2013 8:15 AM CDT Narrative [facility] - 11/25/2013 8:55 AM CDT Is patient on Heparin, Argatroban or Dabigatran?->N Janes Celis MD LAB - COAGULATION OR DERABLES Performing Organization Address [facility]/ZIP Co de Phone Number [address] [phone] * (ABNORMAL) ALDOLASE (11/24/2013 7:55 PM CDT) [facility] Aldolase 37.0(H) 1.2 - 7.6 U/L [facility] Blood specimen (specimen) BLOOD SPECIMEN / Unknown 11/24/2013 7:55 PM CDT 11/24/2013 9:08 PM CDT Narrative [facility] ([place]) - 11/28/2013 1:12 PM CDT Performed at: [address] [place] [address] [id number] Inspecting Engineer: Danny Suggs MD, Phone: [phone] Janes Celis MD LAB - CHEMISTRY YARELI CASTANON Performing Organization Address [facility] Co de Phone Number [facility] * TSH (11/24/2013 7:55 PM CDT) Only the most recent of2 resultswithin the time period is included. [facility] TSH 2.539 0.350 - 4.940 uIU/mL [facility] Blood specimen (specimen) BLOOD SPECIMEN / Unknown 11/24/2013 7:55 PM CDT 11/24/2013 9:08 PM CDT Janes Celis MD LAB - CHEMISTRY YARELI CASTANON Performing Organization Address [facility]/ZIP Co de Phone Number [address] [phone] * (ABNORMAL) LDH BLOOD (11/23/2013 10:28 PM CDT) [facility] LDH Total 716(H) 125 - 243 Units/L [facility] Blood specimen (specimen) BLOOD SPECIMEN / Unknown 11/23/2013 10:28 PM CDT 11/23/2013 10:42 PM CDT Nolberto Soares MD LAB - CHEMISTRY ORDSinai CASTANON Performing Organization Address City/[facility]/ZIP Co de Phone Number [address] [phone] * MYOGLOBIN URINE QUANTITATIVE (07/04/2013 5:30 PM DISC PAD GRINDING MACHINE FEEDER) Myoglobin Urine < 2 0 - 13 ng/mL [facility] Comment: Performed at: [address] [id number] Inspecting Engineer: Luther Herrera MD, Phone: [phone] Urine specimen (specimen) URINE SPECIMEN OBTAINED BY CLEAN CATCH PROCEDURE / Unknown 07/04/2013 5:30 PM DISC PAD GRINDING MACHINE FEEDER 07/04/2013 5:51 PM DISC PAD GRINDING MACHINE FEEDER Zac Stoll MD LAB - URINE CHEMISTR Y ORDERABLES Performing Organization Address [facility] Co de Phone Number [address] [phone] * CT ANGIO CHEST ABDOMEN (06/20/2013 9:25 AM DISC PAD GRINDING MACHINE FEEDER) Anatomical Region Laterality Modality Computed Tomogra phy 06/20/2013 10:0 7 AM DISC PAD GRINDING MACHINE FEEDER Narrative 06/20/2013 10:13 AM DISC PAD GRINDING MACHINE FEEDER CT antrum chest and abdomen History: Chest [...] ORDERABLES * HYDROXYBUTYRATE BETA (05/14/2013 4:43 PM DISC PAD GRINDING MACHINE FEEDER) Beta-Hydroxybu tyrate 0.08 0.02 - 0.27 mmol/L [facility] Venous blood specimen (specimen) 05/14/2013 4:43 PM DISC PAD GRINDING MACHINE FEEDER 05/14/2013 5:18 PM DISC PAD GRINDING MACHINE FEEDER Nam Shah MD LAB - CHEMISTRY YARELI CASTANON [facility] Organization Address City/State/ZIP Co de Phone Number [address] [phone] * (ABNORMAL) FOLATE RBC (05/14/2013 4:43 PM DISC PAD GRINDING MACHINE FEEDER) Pathologist [facility] RBC Folate Raw 282.6 Not Estab. ng/mL [facility] Hematocrit 34.8(L) 37.5 - 51.0 % [facility] RBC Folate 812 499 - 1504 ng/mL [facility] Comment: Performed at: - [facility] [id number] Inspecting Engineer: Danny Suggs MD, Phone: [phone] Venous blood specimen (specimen) 05/14/2013 4:43 PM DISC PAD GRINDING MACHINE FEEDER 05/14/2013 5:17 PM DISC PAD GRINDING MACHINE FEEDER Nam Shah MD LAB - CHEMISTRY YARELI CASTANON [address] [phone] * VITAMIN B12 (05/14/2013 4:43 PM DISC PAD GRINDING MACHINE FEEDER) [facility] Vitamin B12 430 213 - 816 pg/mL [facility] Venous blood specimen (specimen) 05/14/2013 4:43 PM DISC PAD GRINDING MACHINE FEEDER 05/14/2013 5:17 PM DISC PAD GRINDING MACHINE FEEDER Nam Shah MD LAB - CHEMISTRY YARELI CASTANON Performing Organization Address City/[facility]/ZIP Co de Phone Number [address] [phone] * (ABNORMAL) URINALYSIS DIPSTICK AUTO (05/14/2013 11:41 AM DISC PAD GRINDING MACHINE FEEDER) Only the most recent of2 resultswithin the time period is included. Pathologist [facility] Color UA YELLOW STRW,YELLOW [facility] Clarity UA CLEAR CLEAR [facility] Specific [place] Urine 1.023 1.001 - 1.030 [facility] pH UA 5.5 5.0 - 8.0 [facility] Protein UA 20(A) <20 mg/dL [facility] Glucose UA NEGATIVE NEGATIVE mg/dL [facility] Ketones TRACE(A) NEGATIVE mg/dL [facility] Bilirubin UA NEGATIVE NEGATIVE mg/dL [facility] Blood UA NEGATIVE NEGATIVE [facility] Nitrite UA NEGATIVE NEGATIVE [facility] Leukocyte Esterase NEGATIVE NEGATIVE [facility] Urobilinogen UA < 2.0 <2.0 mg/dL [facility] Urine specimen (specimen) URINE SPECIMEN OBTAINED BY CLEAN CATCH PROCEDURE / Unknown 05/14/2013 11:41 AM DISC PAD GRINDING MACHINE FEEDER 05/14/2013 11:52 AM DISC PAD GRINDING MACHINE FEEDER Nolberto Soares MD LAB - URINALYSIS ORD ERABLES [facility] [address] [place] [address] * PATHOLOGY/CYTOLOGY REPORT ORDER (05/03/2013 8:20 PM DISC PAD GRINDING MACHINE FEEDER) Narrative 05/03/2013 8:20 PM DISC PAD GRINDING MACHINE FEEDER Ordered by an unspecified provider. Transcriptions Document, [...] MD DIAGNOSTIC IMAGING O RDERABLES * XR HUMERUS TRAUMA 2+ VW LEFT (08/16/2012 6:23 PM CDT) Only the most recent of2 resultswithin the time period is included. Anatomical Region Laterality Modality Upper Extremity Radiographic Nessa ging 08/16/2012 7:02 PM CDT Narrative 08/16/2012 7:02 PM CDT Two-view left humerus HISTORY: Injury DIAGNOSIS: Negative Procedure Note Pan Cesar MD - 08/16/2012 Two-view left humerus HISTORY: Injury DIAGNOSIS: Negative Janki Curiel PAN OPERATOR-PATTERN GENERATOR OPERATOR DIAGNOSTIC IMAGI NG ORDERABLES * XR SHOULDER LEFT 2VW OR MORE (08/10/2012 2:11 AM CDT) Anatomical Region Laterality Modality Upper Extremity Other Impressions 08/10/2012 12:59 PM CDT Impression: No acute osseous injury or dislocation. Report dictated by Chandan Justin MD (residential real estate sales manager). Dr. PROSPER May M.D. have personally reviewed and interpreted this examination/study. This report was electronically signed by PROSPER DUARTE M.D. on 08/10/2012 12:59 PM . Narrative 08/10/2012 12:59 [...] Report dictated by Chandan Justin MD (residential real estate sales manager). Dr. PROSPER May M.D. have personally reviewed and interpreted thisexamination/study. This report was electronically signed by PROSPER DUARTE M.D. on 08/10/201212:59 PM . Ryan Spain MD DIAGNOSTIC IMAGING O RDERABLES * XR PANOREX (04/15/2012 12:01 AM DISC PAD GRINDING MACHINE FEEDER) Anatomical Region Laterality Modality Head Other Impressions 04/15/2012 5:12 PM DISC PAD GRINDING MACHINE FEEDER Impression: Multiple dental cavities as above. Report dictated by Chandan Justin MD (residential real estate sales manager). This report was approved by Chandan Justin on 04/15/2012 3:[address] Jose Juan May M.D. have personally reviewed and interpreted this examination/study. This report was electronically signed by Jose Juan ALICEA M.D. on 04/15/2012 5:12 PM . Narrative 04/15/2012 5:12 PM DISC PAD GRINDING MACHINE FEEDER Exam: Panorex, 1 view Date: 04/14/2012 History: [...] Report dictated by Chandan Justin MD (residential real estate sales manager). This report was approved by Chandan Justin on 04/15/2012 3:50 PM . IDr. Jose Juan M.D. have personally reviewed and interpreted thisexamination/study. This report was electronically signed by Jose Juan ALICEA M.D. on04/15/2012 5:12 PM . Aditya Pederson MD DIAGNOSTIC IMAGING O RDERABLES * TRICYCLICS SCREEN BLOOD (04/13/2012 7:25 AM DISC PAD GRINDING MACHINE FEEDER) Only the most recent of4 resultswithin the time period is included. Tricyclic Antidepressants 97 ng/mL [facility] Comment: EXPECTED VALUES: PHARMACOKINETIC STUDIES HAVE SHOWN THERE IS A MARKED INDIVIDUAL VARIATION IN THE THERAPEUTIC AND TOXIC RESPONSE TO TRICYCLIC ANTIDEPRESSANTS AT SIMILAR BLOOD CONCENTRATIONS. CARDIAC EFFECTS HAVE BEEN DEMONSTRATED WITH TCA BLOOD LEVEL LOW 50-100 NG/ML. WITH LEVELS GREATER THAN 500 NG/ML, THE INCIDENCE OF SERIOUS CARDIAC TOXICITY INCREASES SIGNIFICANTLY. ABOVE 1000 NG/ML, SEVERE, SOMETIMES FATAL, CARDIAC AND OTHER SIDE EFFECTS OFTEN OCCUR. 04/13/2012 7:25 AM DISC PAD GRINDING MACHINE FEEDER 04/13/2012 7:42 AM DISC PAD GRINDING MACHINE FEEDER Mya Vergara MD LAB - CHEMISTRY YARELI CASTANON [facility] Organization Address City/State/[facility] Co de Phone Number [address] [phone] * (ABNORMAL) DRUG SCREEN TRIAGE PANEL (04/08/2012 12:00 AM DISC PAD GRINDING MACHINE FEEDER) Only the most recent of9 resultswithin the time period is included. Phencyclidine Screen Urine NOT DETECTED 25 ng/dl [facility] Benzodiazepines Screen Urine NOT DETECTED 200 ng/ml [facility] Cocaine Screen Urine DETECTED(AA ) 300 ng/ml [facility] Amphetamines Screen Urine NOT DETECTED 1000 ng/ml [facility] Cannabinoids Screen Urine NOT DETECTED 50 ng/ml [facility] Opiate Screen Urine NOT DETECTED 300 ng/ml [facility] Barbiturates Screen Urine NOT DETECTED 200 ng/ml [facility] Disclaimer Urine Triage [facility] Comment: This drug screen is designed for MEDICAL purposes only. It is not to be used for legal purposes, including but not limited to worker's compensation, police investigations, occupational issues, and child custody. URINE / Unknown 04/08/2012 2 12:32 AM DISC PAD GRINDING MACHINE FEEDER Sara Sheridan MD LAB - URINE CHEMISTR Y ORDERABLES Performing Organization Address [facility] Co de Phone Number [facility] [address] [place] [phone] * AMYLASE BLOOD (03/11/2012 9:38 AM CDT) Amylase 85 15 - 115 U/L [facility] Blood specimen (specimen) BLOOD SPECIMEN / Unknown 03/11/2012 9:38 AM CDT 03/11/2012 9:48 AM CDT Wolf Jamison MD LAB - CHEMISTRY OR DERABLES Performing Organization Address [facility] de Phone Number [facility] [address] [place] [address] * LAB HISTORICAL RESULTS-ONBASE (10/16/2011 5:40 AM CDT) Only the most recent of7 resultswithin the time period is included. 10/16/2011 5:40 AM CDT Historical Provider LAB - CHEMISTRY O RDERABLES Performing Organization Address [facility] Co de Phone Number [facility] [address] * MYOGLOBIN BLOOD (09/21/2011 3:00 PM CDT) Myoglobin 47 <110.00 ng/ml [facility] Blood specimen (specimen) BLOOD SPECIMEN / Unknown 09/21/2011 3:00 PM CDT 09/21/2011 3:15 PM CDT Marcia PAL LAB - CHEMISTRY YARELI CASTANON Performing Organization Address [facility] de Phone Number [facility] [address] [place] [phone] * B-TYPE NATRIURETIC PEPTIDE - POINT OF CARE (07/13/2011 11:44 AM DISC PAD GRINDING MACHINE FEEDER) Only the most recent of6 resultswithin the time period is included. BNP POCT < 5.0 <=100 pg/ml [facility] Performed by [facility] Performed In ER [facility] BLOOD SPECIMEN / Unknown 07/13/2011 11:44 AM DISC PAD GRINDING MACHINE FEEDER 07/13/2011 11:53 AM DISC PAD GRINDING MACHINE FEEDER Er LAB - POINT OF CARE ORDERABLES Performing Organization Address City/[facility] Co de Phone Number [facility] [address] [place] [address] * MYOGLOBIN BLOOD - POINT OF CARE (07/13/2011 11:44 AM DISC PAD GRINDING MACHINE FEEDER) Only the most recent of6 resultswithin the time period is included. Myoglobin POCT 143 <=170 ng/ml [facility] Performed by [facility] Performed In ER [facility] BLOOD SPECIMEN / Unknown 07/13/2011 11:44 AM DISC PAD GRINDING MACHINE FEEDER 07/13/2011 11:53 AM DISC PAD GRINDING MACHINE FEEDER Er LAB - POINT OF CARE ORDERABLES Performing Organization Address [facility] Co de Phone Number [facility] [address] [place] [address] * TROPONIN - POINT OF CARE (07/13/2011 11:44 AM DISC PAD GRINDING MACHINE FEEDER) Only the most recent of6 resultswithin the time period is included. Troponin I POCT < 0.05 SEE BELOW ng/ml [facility] Comment: <0.05 Normal 0.05-0.39 Indeterminate >0.4 Abnormal Performed by IO [facility] Performed In ER [facility] BLOOD SPECIMEN / Unknown 07/13/2011 11:44 AM DISC PAD GRINDING MACHINE FEEDER 07/13/2011 11:53 AM DISC PAD GRINDING MACHINE FEEDER Er LAB - POINT OF CARE ORDERABLES Performing Organization Address [facility] Co de Phone Number [facility] [address] [place] [phone] * (ABNORMAL) CKMB - POINT OF CARE (07/13/2011 11:44 AM DISC PAD GRINDING MACHINE FEEDER) Only the most recent of6 resultswithin the time period is included. CK-MB POCT 11.3(H) <=8.0 ng/ml [facility] Performed by IO [facility] Performed In ER [facility] BLOOD SPECIMEN / Unknown 07/13/2011 11:44 AM DISC PAD GRINDING MACHINE FEEDER 07/13/2011 11:53 AM DISC PAD GRINDING MACHINE FEEDER Er LAB - POINT OF CARE ORDERABLES Performing Organization Address City/[facility]/ZIP Co de Phone Number [facility] [address] [place] [address] * LAB MICROBIOLOGY - HPF HISTORICAL (05/09/2011 7:49 AM DISC PAD GRINDING MACHINE FEEDER) 05/09/2011 7:49 AM DISC PAD GRINDING MACHINE FEEDER Narrative [facility] - 05/09/2011 7:49 AM DISC PAD GRINDING MACHINE FEEDER Aditya Pederson MD LAB - MICROBIOLOGY O RDERABLES Performing Organization Address City/[facility]/ZIP Co de Phone Number [facility] * XR TRAUMA CERVICAL SPINE 2 OR 3 VW (12/13/2010 1:13 PM CDT) Anatomical Region Laterality Modality Spine Radiographic Nessa ging 12/13/2010 1:19 PM CDT Impressions 12/13/2010 1:19 PM CDT No fracture or subluxation. Narrative 12/13/2010 1:19 PM CDT Exam: Cervical spine; AP, lateral, and dens [...] Impressions 08/17/2010 11:20 AM CDT 1. Negative radiographs of the ribs Narrative 08/17/2010 11:20 AM [...] LABORATORY Ethanol Calculated Not calc'd <0.010 gm/dl [facility] Legal Disclaimer This drug screen is designed for MEDICAL purposes only. It is not to be used for legal purposes including but not limited to workman's comp, police investigations, occupational issues, child custody. [facility] BLOOD SPECIMEN / Unknown 02/09/2010 2:13 PM CDT 02/09/2010 2:42 PM CDT Narrative Resulting Agency Comment Performed By [address] [place] [address] Carolin Gómez MD LAB - TOXICOLOGY ORD ERABLES Performing Organization Address City/State/[facility] Co de Phone Number [facility] [address] [place] [address] * CT HEAD NON CONTRAST (12/09/2009 2:53 [...] Erick Agosto MD CT ORDERABLES Care Teams Occupational Therapist Per Diem Relationship Specialty Start Date End Date Nando Christy MD PCP - General Internal Medicine 11/25/18
--- OUTSIDE RECORDS SUMMARY | 2024-07-05 19:35 | XMS_ITS | Encounter Summary ---
Author Organization [facility] Healthcare Address [address] [place] [address] Care Team Providers Care Billboard Mechanic Name Role Phone Nando Christy MD Primary Care Provider [phone] Nando Christy MD Unavailable [phone] Camryn Jones RN Unavailable Kaleigh Bundy RRT Unavailable [phone] No, Physician Primary Care Provider [phone] Camryn Jones RN Unavailable Nando Christy MD Primary Care Provider [phone] Sangeetha Cheung RN Unavailable Unavaila Anne EverettW Unavailable Yanelis Jennings MD Unavailable Camryn Jones RN Unavailable Camryn Jones RN Unavailable [phone] Reese Gutierrez MD Unavailable Iris Leal RN Unavailable Iris Leal RN Unavailable Encounter Details Date Type Department Care Team (Late st Contact Info) Description 05/17/2020 Documentation [facility] Case Management [address] [place] [address] Donita Kimble Social History Tobacco [...] declined 04/01/2020 How often do you attend hinduism or advent serv ices? Patient declined 04/01/2020 Do you belong to any clubs o r organizations such as hinduism groups, unions, fraternal or athletic groups, or [...] on file Legal Sex Male 2:18 AM [employer] Gender Identity Not on file Sexual Orientation Not on file documented as of this encounter Plan of Treatment Not on file documented as of this encounter Visit Diagnoses Not on filedocumented in this encounter Additional Health Concerns Infection Onset Date Last Indicated Resolved Time COVID: Suspected 09/07/2020 09/07/2020 09/07/2020 2:57 PM CDT COVID: Suspected 06/14/2021 06/14/2021 06/15/2021 7:26 PM [employer] COVID: Suspected 06/20/2021 06/20/2021 06/21/2021 11:11 PM [employer] COVID: Suspected 02/03/2022 02/03/2022 02/04/2022 3:05 AM CDT COVID: Suspected 05/06/2022 05/06/2022 05/06/2022 6:54 PM [employer] COVID: Suspected 06/25/2022 06/25/2022 06/25/2022 2:48 PM [employer] COVID: Suspected 03/31/2023 03/31/2023 03/31/2023 7:40 AM [employer] COVID: Suspected 05/05/2023 05/05/2023 05/05/2023 8:28 AM [employer] COVID: Suspected 05/26/2023 05/26/2023 05/27/2023 3:05 AM [employer] COVID: Suspected 07/19/2023 07/19/2023 07/19/2023 7:48 PM CDT COVID: Suspected 08/24/2023 08/24/2023 08/24/2023 8:26 PM CDT COVID: Suspected 09/03/2023 09/03/2023 09/03/2023 1:28 PM CDT COVID: Suspected 01/25/2024 01/25/2024 01/25/2024 5:06 AM CDT documented as of this encounter Care Teams Billboard Mechanic Relationship Specialty Start Date End Date Nando Christy MD PCP - General 04/24/20 11/26/21 Emmy, Physician PCP - General 11/27/21 05/05/22 Nnado Christy MD [address] [place] [address] PCP - General Internal Medicine 05/06/22 Nando Christy MD 04/24/20 11/24/22 Camryn Jones, HARIS [address] [address] [facility]el[facility] [employer]maker 06/28/20 06/28/20 Kaleigh Bundy RRT [address] [place] [address] [facility]el[facility] [employer] 09/10/20 09/12/20 Camryn Jones RN [address] [place] [address] [facility]el[facility] [employer] 12/02/21 12/02/21 Sangeetha Cheung RN Heart Failure Coordinator 07/02/22 07/19/23 Anne Dotson, [facility] [address] [facility]) Mailstop [phone] [place] [address] [facility] Outpatient Freelance Patternmaker 10/09/22 10/15/22 Yanelis Jennings MD [address] [facility] ([facility] Mailstop [phone] [place] [address] Consulting Physician Cardiovascular Disease 10/11/22 Camryn Jones, RN [address] [address] [facility]elance Patternmaker 11/25/22 11/27/22 Camryn Jones RN [address] [address] [facility]elance Patternmaker 12/22/22 12/24/22 Reese Gutierrez MD [address] [place] [address] Referring Physician Internal Medicine 07/04/23 Iris Leal RN [address] [address] [address] [facility] Outpatient Freelance Patternmaker 07/06/23 07/06/23 Iris Leal RN [address] [address] [facility] Outpatient Freelance Patternmaker 08/27/23 08/27/23 documented as of this encounter
--- OUTSIDE RECORDS SUMMARY | 2024-07-05 19:35 | XMS_ITS | Clinical Summary ---
Author Organization [facility] Address [address] [place] [address] Care Team Providers Care Inspector Subassemblies Name Role Phone Nando Christy MD Primary Care Provider [phone] [facility],non-owned Affiliates and Associated Physician Practices is amultiple site organization consisting of ambulatory clinics and hospital sitesin [place], [place] and [place]. This disclosure is being madepursuant to the Care Everywhere program and may not contain all information available regarding this patient. Last updated 18.[facility] Allergies Active Allergy Reactions Criticality Noted Date [...] Recorded Patient Health Questionnaire-2 Score 6 07/25/2023 [facility] - Occupational Stress [...] PANEL (CALCIUM TOTAL) (01/14/2024 4:23 AM CDT) Glucose 88 70 - 105 mg/dL 01/14/2024 5:27 AM CDT [facility] Sodium 141 136 - 145 mmol/L 01/14/2024 5:27 AM CDT [facility] Potassium 4.1 3.5 - 5.1 mmol/L 01/14/2024 5:27 AM CDT [facility] Chloride 108(H) 98 - 107 mmol/L 01/14/2024 5:27 AM CDT [facility] CO2 29 22 - 29 mmol/L 01/14/2024 5:27 AM CDT [facility] Calcium 8.6 8.4 - 10.4 mg/dL 01/14/2024 5:27 AM CDT [facility] Anion Gap 4(L) 6 - 16 mmol/L 01/14/2024 5:27 AM CDT [facility] BUN 10 7 - 26 mg/dL 01/14/2024 5:27 AM CDT [facility] Creatinine 1.10 0.72 - 1.25 mg/dL 01/14/2024 5:27 AM T [facility] eGFR by CKD-EPI 78(L) >=90 mL/min/1.7 3 m2 01/14/2024 5:27 AM CDT [facility] Blood BLOOD SPECIMEN / Unknown Lab Venipuncture / Unknown 01/14/2024 4:23 AM CDT 01/14/2024 4:46 AM CDT Nicho Johnson MD LAB - CHEMISTRY YARELI CASTANON [facility] Organization Address City/State/ZIP Co de Phone Number [facility] [address] [place] [address] * HIV-1 HIV-2 ANTIBODY + HIV P24 AG PANEL (10/07/2018 1:04 PM CDT) Pathologist [facility] HIV1/2 Ab + P24 Ag Non Reactive Non Reactive 10/07/2018 2:13 PM CDT [facility] Blood BLOOD SPECIMEN / Unknown Lab Venipuncture / Unknown 10/07/2018 1:04 PM CDT 10/07/2018 1:22 PM CDT Narrative [facility] - 10/07/2018 2:13 PM CDT No Laboratory evidence of HIV infection. Kervin Delgado MD LAB - CHEMISTRY O DANIELLE Performing Organization Address [facility] Co de Phone Number [facility] [address] [place] [phone] * HEPATITIS SCREEN ACUTE (10/07/2018 1:04 PM CDT) HAV Antibody IgM Non Reactive Non Reactive 10/07/2018 2:16 PM CDT [facility] HBsAg Non Reactive Non Reactive 10/07/2018 2:16 PM CDT [facility] HBc Antibody IgM Non Reactive Non Reactive 10/07/2018 2:16 PM CDT [facility] HCV Antibody Screen Non Reactive Non Reactive 10/07/2018 2:16 PM CDT [facility] HCV S/C Ratio 0.07 0.00 - 0.79 10/07/2018 2:16 PM CDT [facility] Comment: Prgnix-pj-lidgyk ratio (S/CO) <0.80: Non Reactive Blood BLOOD SPECIMEN / Unknown Lab Venipuncture / Unknown 10/07/2018 1:04 PM CDT 10/07/2018 1:22 PM CDT Narrative [facility] - 10/07/2018 2:16 PM CDT Non Reactive - Antibodies to Hepatitis C virus (HCV) were not detected, result does not exclude early acute HCV infection. Kervin Delgado MD LAB - CHEMISTRY O DANIELLE Performing Organization Address [facility] Co de Phone Number [facility] [address] [place] [phone] * LIPID PROFILE (02/19/2016 10:18 AM CDT) Cholesterol 149 <200 mg/dL 02/19/2016 11:03 AM CDT [facility] Triglycerides 127 <150 mg/dL 02/19/2016 11:03 AM CDT [facility] HDL Cholesterol 67 >40 mg/dL 02/19/2016 11:03 AM CDT [facility] LDL Calculated 57 <130 mg/dL 02/19/2016 11:03 AM CDT [facility] VLDL Calculated 25 <=30 mg/dL 02/19/2016 11:03 AM CDT [facility] Chol HDL Ratio 2.2 <4.5 02/19/2016 11:03 AM CDT [facility] LDL/HDL Ratio 0.8 <5.0 02/19/2016 11:03 AM CDT [facility] Blood BLOOD SPECIMEN / Unknown Lab Venipuncture / Unknown 02/19/2016 10:18 AM CDT 02/19/2016 10:22 AM CDT Amanda Braga [employer] LAB - CHEMISTRY ORDERABLES Performing Organization Address City/State/[facility] Co de Phone Number [facility] [address] [place] [address] from Last 3 Months or Most Recently [...] VentilationNo Cardioactive Drugs, No Vasopressors Care Teams Inspector Subassemblies Relationship Specialty Start Date End Date Nando Christy MD PCP - General Internal Medicine 11/25/18
--- OUTSIDE RECORDS SUMMARY | 2024-07-05 19:35 | XMS_ITS | CONTINUITY OF CARE DOCUMENT ---
Author Name diana ortiz Address Unknown Organization [facility] Address [address] [place] [address] Phone [phone] Care Team Providers Care Fender Repairer Name Role Phone Luis Rashid MD Unavailable Luis Rashid MD Unavailable [phone] INSURANCE PROVIDERS Payer name Policy type / Coverage type [place] [employer] party ID [employer] [facility] Medicaid [id number]
--- OUTSIDE RECORDS SUMMARY | 2024-07-05 19:35 | XMS_ITS | Continuity of Care Document ---
Author Organization [facility] Address [address] [place] [address] Phone Care Team Providers Care Chart Clerk Name Role Phone Unavailable Unavailable Unavailable Allergies, [...] Encounter [facility], [address], [place], [place], [address] , [place] tel: [phone] [facility] No Information 4 No Information HOME VST EST PT LOW TO MOD SEVERITY [facility], [address], [place], [place], [address] , tel: [phone] [employer] [facility] headache (chief complaint) Counseling, Other, Specified 0 Nurse Registered. [address], [place], [place], [address], . tel:[phone] HOME VST EST PT LOW TO MOD SEVERITY [facility], [address], [place], [place], [address] , [place] tel: [phone] [employer] [facility] TB Screening (chief complaint) Other specified counseling 0 No Information HOME VST EST PT LOW TO MOD SEVERITY [facility], [address], [place], [place], [address] , [place] tel: [phone] [employer] [facility] mental health appt (chief complaint) Other specified counseling 0 No Information HOME VST NEW PT HI SEVERITY [facility], [address], [place], [place], [address] , [place] tel: [phone] [facility] [facility] BP check (chief complaint)out of prescription medications (chief complaint) Other specified counseling 9 No Information [facility], [address], [place], [place], [address] , [place] tel: [phone] [facility] No Information 9 Pachalla Tamiko. [address], [place], [place], [address], [place]. tel:[phone] HOME VST EST PT LOW TO MOD SEVERITY [facility], [address], [place], [place], [address] , [place] tel: [phone] [facility] No Information 9 No Information HOME VST NEW PT HI SEVERITY [facility], [address], [place], [place], [address] , [place] tel: [phone] [facility] No Information 9 No Information HOME VST EST PT LOW TO MOD SEVERITY [facility], [address], [place], [place], [address] , [place] tel: [phone] [facility] No Information 9 No Information HOME VST EST PT LOW TO MOD SEVERITY [facility], [address], [place], [place], [address] , [place] tel: [phone] [facility] OTHER SPECFD COUNSELING 9 No Information [facility], [address], [place], [place], [address] , [place] tel: [phone] DO NOT USE [facility] DENTAL EXAMINATION 9 No Information HOME VST EST PT LOW TO MOD SEVERITY [facility], [address], [place], [place], [address] , [place] tel: [phone] [facility] OTHER SPECFD COUNSELING 8 No Information HOME VST EST PT LOW TO MOD SEVERITY [facility], [address], [place], [place], [address] , [place] tel: [phone] [facility] OTHER SPECFD COUNSELING 8 No Information HOME VST EST PT LOW TO MOD SEVERITY [facility], [address], [place], [place], [address] , [place] tel: [phone] [facility] OTHER SPECFD COUNSELING 8 No Information HOME VST EST PT LOW TO MOD SEVERITY [facility], [address], [place], [place], [address] , [place] tel: [phone] [facility] OTHER SPECFD COUNSELING 8 No Information HOME VST EST PT LOW TO MOD SEVERITY [facility], [address], [place], [place], [address] , [place] tel: [phone] [facility] OTHER SPECFD COUNSELING 8 No Information HOME VST NEW PT HI SEVERITY [facility], [address], [place], [place], [address] , [place] tel: [phone] [facility] OTHER SPECFD COUNSELING 8 No Information HOME VST EST PT LOW TO MOD SEVERITY [facility], [address], [place], [place], [address] , [place] tel: [phone] [facility] OTHER SPECFD COUNSELING 8 No Information HOME VST EST PT LOW TO MOD SEVERITY [facility], [address], [place], [place], [address] , [place] tel: [phone] [facility] OTHER SPECFD COUNSELING 8 No Information HOME VST NEW PT HI SEVERITY [facility], [address], [place], [place], [address] , [place] tel: [phone] [facility] OTHER SPECFD COUNSELING 6 8 No Information HOME VST EST PT LOW TO MOD SEVERITY [facility], [address], [place], [place], [address] , [place] tel: [phone] [facility] OTHER SPECFD COUNSELING 8 No Information HOME VST EST PT LOW TO MOD SEVERITY [facility], [address], [place], [place], [address] , [place] tel: [phone] [facility] OTHER SPECFD COUNSELING 8 No Information HOME VST NEW PT HI SEVERITY [facility], [address], [place], [place], [address] , [place] tel: [phone] [facility] OTHER SPECFD COUNSELING 8 No Information [facility], [address], [place], [place], [address] , [place] tel: [phone] [facility] No Information 8 No Information OFFICE CONSULT, 15 MIN, 3 THORNTON COMPS: PROB FOCUS HX; PROB FOCUS EXAM; STRTFWD [facility], [address], [place], [place], [address] , [place] tel: [phone] [facility] COUNSELING NOS 8 No Information HOME VST EST PT LOW TO MOD SEVERITY [facility], [address], [place], [place], [address] , [place] tel: [phone] [facility] OTHER SPECFD COUNSELING 8 No Information HOME VST EST PT LOW TO MOD SEVERITY [facility], [address], [place], [place], [address] , [place] tel: [phone] [facility] OTHER SPECFD COUNSELING 8 No Information HOME VST NEW PT HI SEVERITY [facility], [address], [place], [place], [address] , [place] tel: [phone] [facility] OTHER SPECFD COUNSELING 8 No Information HOME VST EST PT LOW TO MOD SEVERITY [facility], [address], [place], [place], [address] , [place] tel: [phone] [facility] OTHER SPECFD COUNSELING 0 7 Denis Bourne. [address], [place], [place], [address], [place]. tel:[phone] OFFICE/OUTPA TIENT VISIT, EST [facility], [address], [place], [place], [address] , [place] tel: [phone] [facility] BENIGN HYPERTENSIONS PRAIN ROTATOR CUFFDRUG ABUSE NEC-UNSPEC 0 7 Pachalla Tamiko. [address], [place], [place], [address], [place]. tel:[phone] HOME VST NEW PT HI SEVERITY [facility], [address], [place], [place], [address] , [place] tel: [phone] [facility] HYPERTENSION NOS 7 No Information HOME VST EST PT LOW TO MOD SEVERITY [facility], [address], [place], [place], [address] , [place] tel: [phone] [facility] OTHER SPECFD COUNSELING 7 No Information HOME VST EST PT LOW TO MOD SEVERITY [facility], [address], [place], [place], [address] , [place] tel: [phone] [facility] PULMONARY TB NOS-UNSPEC 7 Denis Bourne. [address], [place], [place], [address], [place]. tel:[phone] HOME VST NEW PT HI SEVERITY [facility], [address], [place], [place], [address] , [place] tel: [phone] [facility] HYPERTENSION NOS 7 No Information HOME VST EST PT LOW TO MOD SEVERITY [facility], [address], [place], [place], [address] , [place] tel: [phone] [facility] CERVICALGIA 6 No Information HOME VST EST PT LOW TO MOD SEVERITY [facility], [address], [place], [place], [address] , [place] tel: [phone] [facility] OTHER SPECFD COUNSELING 6 No Information HOME VST NEW PT HI SEVERITY [facility], [address], [place], [place], [address] , [place] tel: [phone] [facility] DERMATOPHYTOS IS OF FOOT 6 No Information HOME VST EST PT LOW TO MOD SEVERITY [facility], [address], [place], [place], [address] , [place] tel: [phone] [facility] OTHER SPECFD COUNSELING 6 No Information HOME VST EST PT LOW TO MOD SEVERITY [facility], [address], [place], [place], [address] , [place] tel: [phone] [facility] DEPRESSIVE DISORDER NEC Denis Bourne. [address], [place], [place], [address], [place]. [phone] HOME VST EST PT LOW TO MOD SEVERITY [facility], [address], [place], [place], [address] , [place] tel: [phone] [facility] STOMACH FUNCTION DIS NOS 6 No Information HOME VST EST PT LOW TO MOD SEVERITY [facility], [address], [place], [place], [address] , [place] tel: [phone] [facility] OTHER SPECFD COUNSELING 6 No Information HOME VST NEW PT HI SEVERITY [facility], [address], [place], [place], [address] , [place] tel: [phone] [facility] DRUG DEPEND NOS-UNSPEC No Information OFFICE CONSULT, 15 MIN, 3 THORNTON COMPS: PROB FOCUS HX; PROB FOCUS EXAM; STRTFWD [facility], [address], [place], [place], [address] , [place] tel: [phone] [facility] COUNSELING NOS No Information OFFICE OUTPT NEW 10 MIN [facility], [address], [place], [place], [address] , [place] tel: [phone] [facility] ISSUE REPEAT PRESCRIPT 6 Yyao Marrero. [address], [place], [place], [address], . tel:[phone] HOME VST NEW PT HI SEVERITY [facility], [address], [place], [place], [address] , tel: [phone] [facility] CONSTIPATION NOS 6 No Information HOME VST EST PT LOW TO MOD SEVERITY [facility], [address], [place], [place], [address] , tel: [phone] [facility] HEART DISEASE NOS 6 Denis Bourne. [address], [place], [place], [address], [place]. [phone] HOME VST EST PT LOW TO MOD SEVERITY [facility], [address], [place], [place], [address] , tel: [phone] [facility] OTHER SPECFD COUNSELING 6 No Information HOME VST NEW PT HI SEVERITY [facility], [address], [place], [place], [address] , tel: [phone] [facility] OTHER SPECFD COUNSELING 6 No Information Family History Family Member Type Diagnosis Age At Onset No Information Payers Payer name Insurance type Covered democrat ID Authoriza tifeliberto(s) No Information Social History [...]
--- OUTSIDE RECORDS SUMMARY | 2024-07-05 19:35 | XMS_ITS | Encounter Summary ---
Author Organization [facility] Address [address] [place] [address] Care Team Providers Care General Passenger Agent Name Role Phone Nando Christy MD Primary Care Provider [phone] Nando Christy MD Primary Care Provider [phone] Nando Christy MD Unavailable [phone] Camryn Jones RN Unavailable [phone] Kaleigh Bundy RRT Unavailable [phone] No, Physician Primary Care Provider Camryn Jones RN Unavailable Nando Christy MD Primary Care Provider [phone] Sangeetha Cheung RN Unavailable Unavaila Anne Everett AIR BRAKE TESTER Unavailable Yanelis Jennings MD Unavailable Camryn Jones RN Unavailable Camryn Jones RN Unavailable Reese Gutierrez MD Unavailable Iris Leal RN Unavailable [phone] Iris Leal RN Unavailable [phone] Encounter Details Date Type Department Care Team (Late st Contact Info) Description 04/04/[address] [facility] Case Management [address] [place] [address] Mel Roberson LCSW Social History [...] declined 04/01/2020 How often do you attend catholic or samaritan serv ices? Patient declined 04/01/2020 Do you belong to any clubs o r organizations such as catholic groups, unions, fraternal or athletic groups, or [...] to sleep or slept in a senior care (including now)? Yes 04/01/2020 Sex and Gender Information Value Date Recorded Sex Assigned at Not on file Legal Sex Male 2:18 AM LEAD CAREGIVER Gender Identity Not on file Sexual Orientation Not on file documented as of this encounter Plan of Treatment Not on file documented as of this encounter Visit Diagnoses Not on filedocumented in this encounter Additional Health Concerns Infection Onset Date Last Indicated Resolved Time COVID: Suspected 04/24/2020 04/24/2020 04/24/2020 3:48 AM LEAD CAREGIVER Respiratory Infection (CLEM), contact + droplet Comment:Automatically added due to negative COVID-19 result. 04/24/2020 04/24/2020 05/08/2020 3:0 7 AM LEAD CAREGIVER COVID: Suspected Comment:Pt has a negative COVID result, test was modified in lab d/t requirements for facility placement per ED embedded systems software developerRN. Odalis Andino RN 05/14/20 05/13/2020 05/13/2020 05/14/2020 12:53 PM LEAD CAREGIVER COVID: Suspected 09/07/2020 09/07/2020 09/07/2020 2:57 PM CDT COVID: Suspected 06/14/2021 06/14/2021 06/15/2021 7:26 PM LEAD CAREGIVER COVID: Suspected 06/20/2021 06/20/2021 06/21/2021 11:11 PM LEAD CAREGIVER COVID: Suspected 02/03/2022 02/03/2022 02/04/2022 3:05 AM CDT COVID: Suspected 05/06/2022 05/06/2022 05/06/2022 6:54 PM LEAD CAREGIVER COVID: Suspected 06/25/2022 06/25/2022 06/25/2022 2:48 PM LEAD CAREGIVER COVID: Suspected 03/31/2023 03/31/2023 03/31/2023 7:40 AM LEAD CAREGIVER COVID: Suspected 05/05/2023 05/05/2023 05/05/2023 8:28 AM LEAD CAREGIVER COVID: Suspected 05/26/2023 05/26/2023 05/27/2023 3:05 AM LEAD CAREGIVER COVID: Suspected 07/19/2023 07/19/2023 07/19/2023 7:48 PM CDT COVID: Suspected 08/24/2023 08/24/202308/2308/24/2023 8:26 PM CDT COVID: Suspected 09/03/2023 09/03/2023 09/03/2023 1:28 PM CDT COVID: Suspected 01/25/2024 01/25/2024 01/25/2024 5:06 AM CDT documented as of this encounter Care Teams General Passenger Agent Relationship Specialty Start Date End Date Nando Christy MD PCP - General 06/23/16 04/23/20 Nando Christy MD PCP - General 04/24/20 11/26/21 No, Physician PCP - General 11/27/21 05/05/22 Nando Christy MD [address] [place] [address] PCP - General Internal Medicine 05/06/22 Nando Christy MD 04/24/20 11/24/22 Camryn Jones RN [address] [address] SHOP Outpatient Project Officer 06/28/20 06/28/20 Kaleigh Bundy RRT [address] [address] [employer] Outpatient Project OfficerBlindstitch [employer] [facility] 09/10/20 09/12/20 Camryn Jones, RN [address] [address] SHOP Outpatient Project Officer 12/02/21 12/02/21 Sangeetha Cheung RN Heart Failure Coordinator 07/02/22 07/19/23 Anne Dotson, AIR BRAKE TESTER [address] [facility] [place] Mailstop [phone] [place] [address] SHOP Outpatient Project Officer 10/09/22 10/15/22 Yanelis Jennings MD [address] [facility] [place] Mail[facility] [phone] [place] [address] Consulting Physician Cardiovascular Disease 10/11/22 Camryn Jones, RN [id number] [place] [address] SHOP Outpatient Project Officer 11/25/22 11/27/22 Camryn Jones, RN [phone] [place] [address] SHOP Outpatient Project Officer 12/22/22 12/24/22 Reese Gutierrez MD [address] [place] [address] Referring Physician Internal Medicine 07/04/23 Iris Leal RN [address] [facility] [address] [place] [address] SHOP Outpatient Project Officer 07/06/23 07/06/23 Iris Leal RN [address] [facility] [address] [place] [address] SHOP Outpatient Project Officer 08/27/23 08/27/23 documented as of this encounter
--- NOTE | 2024-07-05 19:39 | ECG_ITS ---
Test Date: 2024-07-05 19:24:30 Measurements Intervals [place] Rate: 78 P: 51 IN: 148 QRS: -11 QRSD: 112 T: 65 QT: 379 QTc: 432 Interpretive Statements SINUS RHYTHM POSSIBLE LEFT ATRIAL ENLARGEMENT INCOMPLETE RIGHT BUNDLE BRANCH BLOCK LEFT VENTRICULAR HYPERTROPHY AND ST-T CHANGE BORDERLINE ST-T WAVE ABNORMALITY- LATERAL LEADS BORDERLINE ECG Compared to ECG 06/14/2024 14:55:16 NO SIGNIFICANT CHANGE Electronically Signed On 07-06-2024 06:55:38 BOTTOM SPRAYER by Jean-Paul Aceves D.O.
--- NOTE | 2024-07-05 20:18 | ED_ITS ---
HPI - General Adult General Chief complaint: Chest Pain Stated complaint: CP, PAIN ALL OVER Time Seen by Provider: 07/05/24 19:30 History of Present Illness HPI narrative: Patient 58-year-old gentleman presents emergency department with chief complaint of chest pain. Patient has prior history of congestive heart failure and hypertension patient reports that he has chronic hip pain that is scheduled to ultimately see orthopedic surgery for hip replacement. The patient states that this evening started having tightness in his chest and reports that was given nitroglycerin and aspirin prior to arrival by EMS. Related Data Allergies Allergy/AdvReac Type Severity Reaction Status Date / Time haloperidol Allergy Mild Hives Verified 06/14/24 08:17 ziprasidone (From Geodon) Allergy Mild Rash Verified 06/14/24 08:17 Review of Systems 2 Review of Systems: A 10 system review of systems was completed on the patient and is negative except for what is stated in the HPI. Nursing and ancillary documentation was reviewed. Exam 2 Narrative: GENERAL: Well-appearing, well-nourished, and in no acute distress. HEAD: Normocephalic, atraumatic. EYES: PERRLA and EOMI. ENT: Nares clear, no rhinorrhea or epistaxis. Mucous membranes moist. NECK: Supple. CHEST: Clear to auscultation. No respiratory distress. HEART: Regular rate and rhythm. No murmur heard. Normal peripheral pulses. ABDOMEN: Soft, nontender, nondistended, normal active bowel sounds. EXTREMITIES: Normal range of motion. No edema. SKIN: Warm, dry, no rash. NEURO: No focal deficits. Alert and oriented x3. PSYCH: Normal mood and affect. Course Vital Signs Vital signs: Vital Signs Temperature 36.9 C 07/05/24 19:22 Pulse Rate 80 07/05/24 19:22 Respiratory Rate 14 07/05/24 19:22 Blood Pressure 145/83 H 07/05/24 19:22 Pulse Oximetry 99 07/05/24 19:22 Oxygen Delivery Room Air 07/05/24 19:22 Temperature 36.9 C 07/05/24 19:22 Pulse Rate 78 07/05/24 21:19 Respiratory Rate 20 07/05/24 21:19 Blood Pressure 137/84 07/05/24 21:19 Pulse Oximetry 99 07/05/24 21:19 Oxygen Delivery Room Air 07/05/24 19:33 Medical Decision Making MDM Narrative Medical decision making narrative: differential diagnosis includes ACS, patient is a heart score 4 EKG showed incomplete right bundle katalina block initial troponin was negative given the patient has a heart score of 4 case was discussed with hospitalist for admission Vital Signs Vital Signs: Vital Signs Temperature 36.9 C 07/05/24 19:22 Pulse Rate 80 07/05/24 19:22 Respiratory Rate 14 07/05/24 19:22 Blood Pressure 145/83 H 07/05/24 19:22 Pulse Oximetry 99 07/05/24 19:22 Oxygen Delivery Room Air 07/05/24 19:22 Temperature 36.9 C 07/05/24 19:22 Pulse Rate 78 07/05/24 21:19 Respiratory Rate 20 07/05/24 21:19 Blood Pressure 137/84 07/05/24 21:19 Pulse Oximetry 99 07/05/24 21:19 Oxygen Delivery Room Air 07/05/24 19:33 Lab Data 07/05/24 20:41 07/05/24 20:41 Labs: Lab Results 07/05/24 07/05/24 Range/Units 20:41 20:45 WBC 7.3 (4.5-10.0) K/mm3 RBC 4.53 L (4.6-6.20) M/mm3 Hgb 12.7 L (14.0-18.0) g/dL Hct 38.0 L (42.0-52.0) % MCV 83.9 (80-100) fl MCH 28.0 (26-34) pg MCHC 33.4 (32-36) g/dl RDW 15.7 H (11.5-14.5) % Plt Count 263 (150-375) k/mm3 MPV 9.2 (7.4-10.4) fl Immature Gran % (Auto) 0.6 H (0-0.5) % Neut % (Auto) 63.4 (45.5-73.1) % Lymph % (Auto) 24.6 (18.3-44.2) % Barnes % (Auto) 7.4 (2.6-8.5) % Eos % (Auto) 3.4 (0-4.4) % Baso % (Auto) 0.6 (0.2-1.2) % Lymph # (Auto) 1.79 (0.9-3.2) K/mm3 Barnes # (Auto) 0.5 (0.1-0.6) K/mm3 Eos # (Auto) 0.3 (0-0.3) K/mm3 Baso # (Auto) 0.0 (0.0-0.1) K/mm3 Abs Immat Gran (auto) 0.04 H (0.00-0.031) K/mm3 Absolute Neuts (auto) 4.6 (1.3-6.7) K/mm3 Absolute Nucleated RBC 0.000 (0.0-0.012) K/mm3 Nucleated RBC % 0.0 (0.0-0.2) % PT 13.4 (11.1-14.7) Seconds INR 1.0 APTT 27.6 (22.3-36.8) Seconds Sodium 137 (137-145) mmol/L Potassium 4.0 (3.4-5.0) mmol/L Chloride 102 (98-107) mmol/L Carbon Dioxide 25 (22-30) mmol/L Anion Gap 10 (4-12) mmol/L BUN 15 (9-20) mg/dL Creatinine 1.09 (0.7-1.3) mg/dL Estim Creat Clear Calc 62 ml/min Estimated GFR > 60 (59 - ) Glucose 83 (65-110) mg/dL Calcium 9.0 (8.4-10.2) mg/dL Total Bilirubin 0.5 (0.2-1.3) mg/dL AST 29 (17-59) U/L ALT 21 (6-50) U/L Alkaline Phosphatase 79 (38-126) U/L Troponin I < 0.012 (0.000-0.034) ng/mL NT-Pro-B Natriuret Pep 343 H (19.9-100) pg/mL Total Protein 7.0 (6.3-8.2) g/dL Albumin 4.0 (3.5-5.1) g/dL Lipase 144 (23-300) U/L Urine Color Yellow (Yellow) Urine Appearance Clear (Clear) Urine pH 7.5 (5.0-9.0) Ur Specific [place] 1.016 (1.001-1.035) Urine Protein Trace (Negative) mg/dL Urine Glucose (UA) Negative (Negative) mg/dL Urine Ketones Negative (Negative) mg/dL Ur Blood (Man) Negative (Negative) Urine Nitrate Negative (Negative) Urine Bilirubin Negative (Negative) Urine Urobilinogen 1.0 (<2.0) mg/dL Leukocyte Esterase Rfl Trace H (Negative) CYNTHIA/UL Urine RBC 0-2 (0-2) /hpf Urine WBC 0-5 (0-3) /hpf Ur Squamous Epith Cells None seen (Few) /hpf Urine Bacteria None seen /hpf Urine Casts 0-2 Urine Opiates Screen Positive A (Negative) Urine Methadone Screen Negative (Negative) Ur Barbiturates Screen Negative (Negative) Ur Phencyclidine Scrn Negative (Negative) Ur Amphetamine Screen Negative (Negative) U Benzodiazepines Scrn Negative (Negative) Urine Cocaine Screen Negative (Negative) U Cannabinoids Screen Negative (Negative) Discharge Plan Discharge Clinical Impression: Chest pain Patient Disposition: Still a Patient Condition: Stable Patient Language: Albanian Prescriptions: No Action carvedilol [Coreg] 25 mg tablet 25 mg PO Q12H Qty: 30 0RF Rx Instructions: must administer with a meal/food Follow-up/Referrals: Jaelyn,MD Nando [Primary Care Provider] - Time of Disposition: 22:31 Quality HEART score for chest pain patients History: moderately suspicious ECG: non specific repolarization disturbance/LBTB/PM Age: > 45 and < 65 years Risk factors: 1 or 2 risk factors Troponin: < or = to 1x normal limit Heart score: 4
[2024-07-05 20:51] LABS: Basophils Percent Auto 0.6 % (0.2-1.2); Eosinophils Absolute Auto 0.3 K/mm3 (0-0.3); Eosinophils Percent Auto 3.4 % (0-4.4); Hemoglobin 12.7 g/dL (14.0-18.0); Immature Granulocyte Absolute 0.04 K/mm3 (0.00-0.031); Immature Granulocyte Percent A 0.6 % (0-0.5); Lymphocytes Absolute Auto 1.79 K/mm3 (0.9-3.2); Lymphocytes Percent Auto 24.6 % (18.3-44.2); Mean Corpuscular HGB Conc 33.4 g/dl (32-36); Mean Corpuscular Volume 83.9 fl (80-100); Mean Platelet Volume 9.2 fl (7.4-10.4); Monocytes Absolute Auto 0.5 K/mm3 (0.1-0.6); Monocytes Percent Auto 7.4 % (2.6-8.5); Neutrophils Absolute Auto 4.6 K/mm3 (1.3-6.7); Neutrophils Percent Auto 63.4 % (45.5-73.1); Platelet Count Result 263 k/mm3 (150-375); Red Blood Count 4.53 M/mm3 (4.6-6.20); Red Cell Distribution Width 15.7 % (11.5-14.5); White Blood Count 7.3 K/mm3 (4.5-10.0)
[2024-07-05 20:57] LABS: Add Urine Microscopic? YES; Appearance Urine Clear (Clear); Bacteria Urine None Seen /hpf; Bilirubin Urine Negative (Negative); Blood Urine Negative (Negative); Color Urine Yellow (Yellow); Glucose Urine UA Negative (Negative); Ketones Urine Negative (Negative); Leukocyte Esterase Ur Trace LEU/UL (Negative); Nitrate Urine Negative (Negative); Non Pathogenic Casts 0-2; Protein Urine Trace mg/dL (Negative); RBC Urine 0-2 /hpf (0-2); Specific Grav Ur 1.016 (1.001-1.035); Squamous Epithelial Cell Urine None Seen /hpf (Few); WBC Urine 0-5 /hpf (0-3); pH Urine 7.5 (5.0-9.0)
[2024-07-05 21:02] LABS: Prothrombin Time 13.4 Seconds (11.1-14.7)
[2024-07-05 21:03] LABS: Partial Thromboplastin Time 27.6 Seconds (22.3-36.8)
[2024-07-05 21:05] LABS: Alanine Aminotransferase 21 U/L (6-50); Alkaline Phosphatase 79 U/L (38-126); Anion Gap 10 mmol/L (4-12); Aspartate Amino Transferase 29 U/L (17-59); Bilirubin,Total 0.5 mg/dL (0.2-1.3); Blood Urea Nitrogen 15 mg/dL (9-20); Carbon Dioxide 25 mmol/L (22-30); Chloride 102 mmol/L (98-107); Estimated CRCL calculation 62 ml/min; Estimated Glomerular Filt Rate > 60; Glucose 83 mg/dL (65-110); Lipase 144 U/L (23-300); Sodium 137 mmol/L (137-145)
[2024-07-05 21:08] LABS: Amphetamine Screen Urine Negative (Negative); Barbiturate Screen Urine Negative (Negative); Benzodiazepines Screen Urine Negative (Negative); Cannabinoid Screen Urine Negative (Negative); Cocaine Screen Urine Negative (Negative); Methadone Screen Urine Negative (Negative); Opiate Screen Urine Positive (Negative); Phencyclidine Screen Urine Negative (Negative)
[2024-07-05 21:17] LABS: NT Pro B Type Natriuretic Pept 343 pg/mL (19.9-100); Troponin I < 0.012 ng/mL (0.000-0.034)
[2024-07-05 21:19] VITALS: BP 137/84; PULSE 78; RESP 20; O2SAT 99
[2024-07-05] MEDS: MORPHINE SULFATE (*CRX) 4 MG/ML INJ IV PUSH (21:31)
[2024-07-05 23:55] VITALS: BP 156/90; PULSE 89; RESP 21; O2SAT 99
--- NOTE | 2024-07-05 23:55 | PM.IMHP ---
H&P: HPI History of Present Illness Date/Time: 07/06/24 00:33 Chief Complaint: 1. Chest pain Narrative: Wes Haas is a 58 yo M with a Mhx significant for homelessness, hypertension, nicotine dependence. He presents with a history of intermittent chest pain; it is localized around the left chest; present at rest and on exertion; no known modifying factors; associated with malaise, anxiety, fatigue and a restriction of his ADLs. He denies hemoptysis, fevers, PND, Orthopnea, dizziness, LOC, wheezing, pedal edema. He smokes about 0.5 ppd; he denies alcohol or recreational/illicit drugs; Work-up findings: Troponin: <0.012 >> 0.012 BNP 343 ECG: NSR; IRBB; CXR: Unremarkable UA: unremarkable; trace LE Wes Haas will be admitted, evaluated and managed for chest pain Review of Systems Review of Systems: All systems reviewed & are unremarkable except as noted in HPI and below Meds Home Medications and Allergies Home Medications ?Medication ?Instructions ?Recorded ?Confirmed ?Type carvedilol 25 mg tablet (Coreg) 25 mg PO Q12H #30 tabs 06/14/24 Rx Allergies Allergy/AdvReac Type Severity Reaction Status Date / Time haloperidol Allergy Mild Hives Verified 06/14/24 08:17 ziprasidone (From Geodon) Allergy Mild Rash Verified 06/14/24 08:17 Vital Signs Vital Signs - 24 hr 07/05/24 19:22 07/05/24 19:33 07/05/24 19:33 Temperature 98.4 F Pulse Rate 80 83 Respiratory Rate 14 Blood Pressure 145/83 H Pulse Oximetry 99 98 Oxygen Delivery Room Air Room Air 07/05/24 21:19 Temperature Pulse Rate 78 Respiratory Rate 20 Blood Pressure 137/84 Pulse Oximetry 99 Oxygen Delivery Exam Const: General: comfortable HENMT: Ears: TM's normal bilaterally Eyes: General: appearance normal, both eyes and all related structures Sclera: sclerae normal Pupils: Equal, round and reactive pupils present Neck: Neck: supple Resp: Effort & Inspection: normal respiratory effort Auscultation: clear to auscultation bilaterally Cardio: Rate: regular rate Rhythm: regular rhythm Skin: General skin exam: normal color Lesions: lesion noted Neuro: General: gait normal Motor exam (neuro): 5/5 motor strength present throughout, Normal motor muscle tone present throughout and Abnormal motor strength present Extrem: General: normal to inspection Psych: Mental Status: mental status grossly normal H&P: Results Labs Labs: Short CBC 07/05/24 Range/Units 20:41 WBC 7.3 (4.5-10.0) K/mm3 Hgb 12.7 L (14.0-18.0) g/dL Hct 38.0 L (42.0-52.0) % Plt Count 263 (150-375) k/mm3 BMP 07/05/24 20:41 Sodium 137 Potassium 4.0 Chloride 102 Carbon Dioxide 25 BUN 15 Creatinine 1.09 Glucose 83 Calcium 9.0 Cardiac Enzymes 07/05/24 Range/Units 20:41 Troponin I < 0.012 (0.000-0.034) ng/mL Liver Function 07/05/24 Range/Units 20:41 Total Bilirubin 0.5 (0.2-1.3) mg/dL AST 29 (17-59) U/L ALT 21 (6-50) U/L Alkaline Phosphatase 79 (38-126) U/L Albumin 4.0 (3.5-5.1) g/dL Urine 07/05/24 Range/Units 20:45 Urine Color Yellow (Yellow) Urine Appearance Clear (Clear) Urine pH 7.5 (5.0-9.0) Ur Specific [place] 1.016 (1.001-1.035) Urine Protein Trace (Negative) mg/dL Urine Glucose (UA) Negative (Negative) mg/dL Assessment and Plan Assessment and plan (1) Chest pain: Code(s): R07.9 - Chest pain, unspecified Status: Acute Plan Acute and principal conditions 1. Chest pain 2. Fluid overload; Elevate BNP Rx: A. Trend troponin, ECG B. Cardiac monitoring C. Stress test; Cardiology input Chronic and stable conditions 1. Nicotine dependence. 2. Hx of cocaine dependence Miscellaneous care. 1. Code status. Full 2. Nutrition. Low Na; heart healthy 3. VTE prophylaxis. SCDs; LIDIA Hospitalist MIPS Advance Care Plan I have confirmed that the patient's Advanced Care Plan is present, code status is documented, or surrogate decision maker is listed in patient medical record.: Yes Medication Reconciliation I have utilized all available resources to obtain, update and review the patients current medications (includes all prescriptions, OTC, herbals, cannabis, and nutritional supplements).: Yes The patient is not eligible for med reconciliation; the patient is in a emergent medical situation where delaying treatment would jeopardize the patients health.: Yes
[2024-07-06] VITALS (13 sets, daily range): BP systolic 115–155; BP diastolic 76–98; PULSE 69–75; RESP 13–20; TEMP 36.6; O2SAT 97–100; BMI 24.9
[2024-07-06 00:41] LABS: Troponin I < 0.012 ng/mL (0.000-0.034)
[2024-07-06 01:30] LABS: Cholesterol 208 mg/dL (0-200); HDL Direct 53 mg/dL; Triglycerides 149 mg/dL (<150)
[2024-07-06 01:32] LABS: Hemoglobin A1C 5.3 % (<5.7)
[2024-07-06 01:41] LABS: LDL Cholesterol Direct 89 mg/dL
--- NOTE | 2024-07-06 02:49 | PC.NURSE ---
This RN tried calling [facility] to update pt nurse of POC and admission of pt. This RN received no answer
--- NOTE | 2024-07-06 05:25 | EST_ITS ---
Patient Info Name: Wes Haas Age: 58 years : 1965 Gender: Male Ht: 67 in Wt: 159 lbs BSA: 1.86 m2 HR: 72 bpm BP: 132 / 81 mmHg Exam Date: 07/06/2024 8:12 AM Exam Location: Echo Lab Patient Status: Inpatient Admit Date: 07/05/2024 Staff Ordering Physician: Mayur Delgado MD Attending Provider: Mayur Delgado MD Exercise Technologist: Maggy Finn [facility] Exercise Physician: Jean-Paul Aceves DO Exam Type: CA stress les w NM Study Info A regadenoson stress test was performed. Summary 1. 1. Negative lexiscan stress test for ischemic ST changes by ECG criteria. 2. 2. Stable hemodynamics throughout the test. 3. 3. Nuclear scan to follow and will be reported separately. Please correlate with it. 4. 4. Patient informed of the above results. Protocol: Lexiscan Stress ECG Details Stage: REST Duration (min): 1 min : 56 sec HR (bpm): 69 SBP (mmHg): 132 DBP (mmHg): 81 Stage: REST Duration (min): 4 min : 18 sec HR (bpm): 69 SBP (mmHg): 132 DBP (mmHg): 81 Stage: STAGE 1 Duration (min): 0 min : 59 sec HR (bpm): 85 SBP (mmHg): 121 DBP (mmHg): 80 Stage: RECOVERY Duration (min): 1 min : 0 sec HR (bpm): 96 SBP (mmHg): 121 DBP (mmHg): 80 Stage: RECOVERY Duration (min): 2 min : 0 sec HR (bpm): 96 SBP (mmHg): 121 DBP (mmHg): 80 Stage: RECOVERY Duration (min): 3 min : 0 sec HR (bpm): 94 SBP (mmHg): 131 DBP (mmHg): 76 Stage: RECOVERY Duration (min): 3 min : 33 sec HR (bpm): 92 SBP (mmHg): 131 DBP (mmHg): 76 Rest HR: 69 bpm Peak HR: 99 bpm Rest Sys BP: 132 mmHg Peak Sys BP: 131 mmHg Max Pred HR: 163 bpm % Max Pred HR: 61 % Target HR: 139 bpm Max RPP: 12,969 bpm*mmHg Termination Reason: Completed protocol Cardiac Symptoms: Shortness of breath, Stomach pain Total Time: 1 min : 0 sec Rest Gage BP: 81 mmHg Peak Gage BP: 76 mmHg Total Dose: 0.4 mg Resting ECG Sinus rhythm, ST-T wave abnormality in anterolat/inf leads- consider ischemia. Stress ECG No ST changes. Arrhythmias None. Report Signatures
--- NOTE | 2024-07-06 06:48 | PC.NURSE ---
This RN spoke to pt facility nd updated about pt POC
[2024-07-06 07:15] LABS: Basophils Percent Auto 0.6 % (0.2-1.2); Eosinophils Absolute Auto 0.2 K/mm3 (0-0.3); Hemoglobin 12.8 g/dL (14.0-18.0); Immature Granulocyte Absolute 0.01 K/mm3 (0.00-0.031); Immature Granulocyte Percent A 0.2 % (0-0.5); Lymphocytes Absolute Auto 1.64 K/mm3 (0.9-3.2); Lymphocytes Percent Auto 25.5 % (18.3-44.2); Mean Corpuscular HGB Conc 32.8 g/dl (32-36); Mean Corpuscular Hemoglobin 27.6 pg (26-34); Mean Corpuscular Volume 84.2 fl (80-100); Mean Platelet Volume 9.2 fl (7.4-10.4); Monocytes Absolute Auto 0.5 K/mm3 (0.1-0.6); Monocytes Percent Auto 7.3 % (2.6-8.5); Neutrophils Absolute Auto 4.1 K/mm3 (1.3-6.7); Neutrophils Percent Auto 63.4 % (45.5-73.1); Platelet Count Result 264 k/mm3 (150-375); Red Blood Count 4.63 M/mm3 (4.6-6.20); Red Cell Distribution Width 15.7 % (11.5-14.5); White Blood Count 6.4 K/mm3 (4.5-10.0)
[2024-07-06 07:24] LABS: Alanine Aminotransferase 22 U/L (6-50); Albumin Level 3.9 g/dL (3.5-5.1); Alkaline Phosphatase 79 U/L (38-126); Anion Gap 9 mmol/L (4-12); Aspartate Amino Transferase 28 U/L (17-59); Bilirubin,Total 0.6 mg/dL (0.2-1.3); Blood Urea Nitrogen 14 mg/dL (9-20); Carbon Dioxide 27 mmol/L (22-30); Chloride 102 mmol/L (98-107); Estimated CRCL calculation 69 ml/min; Estimated Glomerular Filt Rate > 60; Glucose 85 mg/dL (65-110); Sodium 138 mmol/L (137-145)
[2024-07-06 07:40] LABS: Troponin I < 0.012 ng/mL (0.000-0.034)
--- NOTE | 2024-07-06 07:47 | PC.NURSE ---
Patient taken to stress test
--- NOTE | 2024-07-06 08:55 | PC.NURSE ---
Patient in nuclear med at this time. Will give patient medications due when he returns
--- NOTE | 2024-07-06 09:10 | PC.NURSE ---
Patient refusing Heparin shot at this time.
--- NOTE | 2024-07-06 11:07 | PC.NURSE ---
pt uncooperative during admission process
--- NOTE | 2024-07-06 14:49 | PM.DS ---
DS: Admitting Diagnosis Discharge Date 07/06/24 Admitting Diagnosis Chest Pain DS: Discharge Diagnosis Discharge Diagnosis (1) Chest pain: Code(s): R07.9 - Chest pain, unspecified Status: Acute (2) Tobacco abuse: Code(s): Z72.0 - Tobacco use Status: Acute (3) LV dysfunction: Code(s): I51.9 - Heart disease, unspecified Status: Acute (4) Benign essential HTN: Code(s): I10 - Essential (primary) hypertension Status: Acute DS: Summary Hospital Course Reason for hospitalization: 58yo male with HTN and LV dysfunction (EF 28%) here for chest pain. Please see H&P for details. Hospital Course: Patient presents with chest pain. Vital signs were stable. No fever, hypoxia or tachycardia. CBC and CMP were essentially normal. Troponin negative x3. EKG showing normal sinus, possible LAE, incomplete Rt BBB, LVH and ST-T wave changes and borderline ST-T wave changes in the lateral leads but no change from an older EKG. UDS was positive for opiates but he states he is on [place]. UA was clear. CXR was clear. BNP 343. Lipase was normal. He underwent a Lexiscan stress test which was negative lexiscan stress test for ischemic ST changes by ECG criteria. Stable hemodynamics throughout the test. Nuclear scan showing normal myocardial perfusion at rest and during stress. LV enlargement with global hypokinesis and mildly decreased LVEF measuring 38%. He states this is better than his baseline. He does not follow with cardiology. Will arrange for outpatient cardiology referral. He had resolution of the chest pain and was able to be discharged on 07/06/24. Status at Discharge Cognitive/behavioral status at discharge: stable Time Spent with Patient Time attestation: Total time spent providing and/or coordinating discharge services: 35 minutes Time spent: Greater than 30 minutes Exam Narrative: AF 97.8 144/90 75 16 97% ra Gen - NARD Chest - CTA bilaterally, nml RR CV - RRR S1/S2. tele showing no significant dysrhythmias Abd - Soft, NT/ND, Positive BS Ext - No pedal edema Psych - Nml mood and affect Skin - Warm and dry DS: Data Data Completed and Pending Labs on day of discharge: Labs from last 24 hours 07/06/24 07/06/24 07/05/24 07:09 00:11 20:45 WBC 6.4 RBC 4.63 Hgb 12.8 L Hct 39.0 L MCV 84.2 MCH 27.6 MCHC 32.8 RDW 15.7 H Plt Count 264 MPV 9.2 Immature Gran % (Auto) 0.2 Neut % (Auto) 63.4 Lymph % (Auto) 25.5 [place] % (Auto) 7.3 Eos % (Auto) 3.0 Baso % (Auto) 0.6 Lymph # (Auto) 1.64 [place] # (Auto) 0.5 Eos # (Auto) 0.2 Baso # (Auto) 0.0 Abs Immat Gran (auto) 0.01 Absolute Neuts (auto) 4.1 Absolute Nucleated RBC 0.000 Nucleated RBC % 0.0 PT INR APTT Sodium 138 Potassium 4.0 Chloride 102 Carbon Dioxide 27 Anion Gap 9 BUN 14 Creatinine 0.98 Estim Creat Clear Calc 69 Estimated GFR > 60 Glucose 85 Hemoglobin A1c Calcium 9.0 Total Bilirubin 0.6 AST 28 ALT 22 Alkaline Phosphatase 79 Troponin I < 0.012 < 0.012 NT-Pro-B Natriuret Pep Total Protein 7.0 Albumin 3.9 Triglycerides Cholesterol LDL Cholesterol Direct HDL Direct Lipase Urine Color Yellow Urine Appearance Clear Urine pH 7.5 Ur Specific [place] 1.016 Urine Protein Trace Urine Glucose (UA) Negative Urine Ketones Negative Ur Blood (Man) Negative Urine Nitrate Negative Urine Bilirubin Negative Urine Urobilinogen 1.0 Leukocyte Esterase Rfl Trace H Urine RBC 0-2 Urine WBC 0-5 Ur Squamous Epith Cells None seen Urine Bacteria None seen Urine Casts 0-2 Urine Opiates Screen Positive A Urine Methadone Screen Negative Ur Barbiturates Screen Negative Ur Phencyclidine Scrn Negative Ur Amphetamine Screen Negative U Benzodiazepines Scrn Negative Urine Cocaine Screen Negative U Cannabinoids Screen Negative 07/05/24 07/05/24 20:41 20:40 WBC 7.3 RBC 4.53 L Hgb 12.7 L Hct 38.0 L MCV 83.9 MCH 28.0 MCHC 33.4 RDW 15.7 H Plt Count 263 MPV 9.2 Immature Gran % (Auto) 0.6 H Neut % (Auto) 63.4 Lymph % (Auto) 24.6 [place] % (Auto) 7.4 Eos % (Auto) 3.4 Baso % (Auto) 0.6 Lymph # (Auto) 1.79 [place] # (Auto) 0.5 Eos # (Auto) 0.3 Baso # (Auto) 0.0 Abs Immat Gran (auto) 0.04 H Absolute Neuts (auto) 4.6 Absolute Nucleated RBC 0.000 Nucleated RBC % 0.0 PT 13.4 INR 1.0 APTT 27.6 Sodium 137 Potassium 4.0 Chloride 102 Carbon Dioxide 25 Anion Gap 10 BUN 15 Creatinine 1.09 Estim Creat Clear Calc 62 Estimated GFR > 60 Glucose 83 Hemoglobin A1c 5.3 Calcium 9.0 Total Bilirubin 0.5 AST 29 ALT 21 Alkaline Phosphatase 79 Troponin I < 0.012 NT-Pro-B Natriuret Pep 343 H Total Protein 7.0 Albumin 4.0 Triglycerides 149 Cholesterol 208 H LDL Cholesterol Direct 89 HDL Direct 53 Lipase 144 Urine Color Urine Appearance Urine pH Ur Specific [place] Urine Protein Urine Glucose (UA) Urine Ketones Ur Blood (Man) Urine Nitrate Urine Bilirubin Urine Urobilinogen Leukocyte Esterase Rfl Urine RBC Urine WBC Ur Squamous Epith Cells Urine Bacteria Urine Casts Urine Opiates Screen Urine Methadone Screen Ur Barbiturates Screen Ur Phencyclidine Scrn Ur Amphetamine Screen U Benzodiazepines Scrn Urine Cocaine Screen U Cannabinoids Screen Discharge Plan Discharge Attending physician on discharge: Jaxon Guzmán Consulting providers: Alem Stewart Discharging Clinician: Jaxon Guzmán Anticipated Discharge Date/Time: 07/06/24 15:02 Patient Disposition: [place] Res[place] Living Activity: as tolerated Diet: heart healthy Discharge Instructions: Check blood pressure 1 to 2 times a day. Record for the doctor's review. Take precautions to avoid falls. Rise slowly from a lying or sitting position. Pause before standing or walking. Check daily morning weights after voiding. Call the doctor if the patient gains more than 3 lb in 2 days or 5 lb in 1 week. Contact the doctor if the patient has lightheadedness with standing or other worrisome symptoms. Avoid NSAIDs (ibuprofen, naproxen, Aleve). Tylenol is safe to take. Follow-up with the provider at the facility. Follow-up with [facility] in 2-4 weeks. Please call for a new appointment. Thank you for using [facility] for your health care needs. Patient Instructions: Antibiotic Form Patient Language: Syriac Stand Alone Forms: General Discharge Information Follow-up/Referrals: Jaelyn,MD Nando [Primary Care Provider] - Other Carson Ortez MD [Physician] - Call for Appointment Discharge Medications: New naloxone [Narcan] 4 mg/actuation spray,non-aerosol 4 mg intranasal Q2M PRN (Reason: opioid overdose) Qty: 2 0RF Rx Instructions: spray 1 dose into ONE nostril; alternate nostrils w each dose until help arrives Continued carvedilol [Coreg] 25 mg tablet 25 mg PO Q12H Qty: 30 0RF Rx Instructions: must administer with a meal/food amlodipine 5 mg tablet 5 mg PO DAILY hydralazine 50 mg tablet 50 mg PO TID furosemide 20 mg tablet 20 mg PO DAILY bupropion HCl 150 mg tablet extended release 24 hr 150 mg PO DAILY aspirin 81 mg tablet,chewable 81 mg PO DAILY hydroxyzine HCl 50 mg tablet 50 mg PO TID lidocaine 4 % adhesive patch,medicated 1 patch topical DAILY PRN (Reason: pain) melatonin 5 mg tablet 5 mg PO HS PRN (Reason: sleep) trazodone 100 mg tablet 200 mg PO HS PRN (Reason: sleep) valsartan 40 mg tablet 40 mg PO DAILY quetiapine 100 mg tablet 500 mg PO HS acetaminophen 325 mg tablet 650 mg PO Q4H PRN (Reason: fever or pain) diphenhydramine HCl [Benadryl] 25 mg capsule 25 mg PO Q8H PRN (Reason: allergy symptoms) clonidine HCl 0.1 mg tablet 0.5 mg PO TID PRN (Reason: hypertensive emergency) hydrocodone-acetaminophen 5-325 mg tablet 1 tablet PO Q8H PRN (Reason: pain) Qty: 5 0RF tramadol 50 mg tablet 50 mg PO Q6H PRN (Reason: pain) Qty: 10 0RF Discontinued tramadol 50 mg tablet 50 mg PO Q6H PRN (Reason: pain) hydrocodone-acetaminophen 5-325 mg tablet 1 tablet PO Q8H PRN (Reason: pain) Date of admission: 07/05/24 22:34 Primary Care Provider: Nando Wagoner Admitting Provider: Mayur Delgado Attending physician on admission: Mayur Delgado Condition: Stable Hospitalist MIPS Heart Failure (Exclusion) Patient has history of Heart Transplant or Left Ventricular Assistive Device?: No IF YES, STOP HERE Heart Failure (Qualifier) Patient has current or prior documentation of LVEF less than or equal to 40%, or mod/servere depressed LVSF?: Yes IF NO, STOP HERE If Yes, Heart Failure (Qualifier) Patient was prescribed or already taking an Angiotensin-Converting Enzyme (BHAVIN) Inhibitor, or Antiotensin Receptor Anil (ARB): Yes Patient was prescribed or already taking bisoprolol, carvedilol, or sustained release metoprolol succinate: Yes
== END 2024-07-06 17:25 ==
LOC: ANHED 22:33 → ANHCPC 07-06 15:04 → ANHIMU 07-07 07:09
PROVIDERS: Admitting Provider Internal Medicine; Emergency Provider Emergency Medicine; PCP Internal Medicine; Visit Provider Internal Medicine
DX: R07.9 Chest pain, unspecified (principal); I11.9 Hypertensive heart disease without heart failure; M25.559 Pain in unspecified hip; G89.29 Other chronic pain; F17.200 Nicotine dependence, unspecified, uncomplicated; R53.83 Other fatigue; E87.70 Fluid overload, unspecified; R79.89 Other specified abnormal findings of blood chemistry; Z59.00 Homelessness unspecified
CPT/HCPCS: 36415; 71045; 78452; 80053; 80061; 80307; 81001; 83036; 83690; 83880; 84484; 85025; 85610; 85730; 93005; 93017; 96374; 99285; A9502; G0378; G0379; J2270; J2785